=== PATIENT | female | born 1980 | race Caucasian/White ===

== ENCOUNTER 2019-01-28 15:24 | Emergency (ER) | payer BC ==
--- NOTE | 2019-01-28 15:38 | Emergency Department Report ---
Blank Doc - Documentation Documentation: This is a 38-year-old female keith tpresents with abdominal/n/v. This initial assessment/diagnostic orders/clinical plan/treatment(s) is/are subject to change based on patient's health status, clinical progression and re- assessment by fellow clinical providers in the ED. Further treatment and workup at subsequent clinical providers discretion. Patient/guardians urged not to elope from the ED as their condition may be serious if not clinically assessed and managed. Initial orders include: 1- Patient sent to [facility] for further evaluation and treatment 2- UA 3- labs
[2019-01-28 16:12] LABS: Basophils # (Auto) 0.1 K/mm3 (0.0-0.1); Basophils % (Auto) 0.8 % (0.0-1.8); Eosinophils # (Auto) 0.3 K/mm3 (0.0-0.4); Eosinophils % (Auto) 3.3 % (0.0-4.3); Hematocrit 43.9 % (30.3-42.9); Hemoglobin 13.9 gm/dl (10.1-14.3); Lymphocytes # (Auto) 2.5 K/mm3 (1.2-5.4); Lymphocytes % (Auto) 31.4 % (13.4-35.0); Mean Corpuscular HGB Conc 32 % (30-34); Mean Corpuscular Volume 79 fl (79-97); Monocytes # (Auto) 0.7 K/mm3 (0.0-0.8); Monocytes % (Auto) 8.4 % (0.0-7.3); Platelet Count 291 K/mm3 (140-440); Red Blood Count 5.53 M/mm3 (3.65-5.03); Red Cell Distribution Width 15.5 % (13.2-15.2)
[2019-01-28 16:29] LABS: Alanine Aminotransferase 19 units/L (7-56); Albumin 4.7 g/dL (3.9-5); BUN/Creatinine Ratio 33; Blood Urea Nitrogen 13 mg/dL (7-17); Calcium 9.1 mg/dL (8.4-10.2); Hemolysis Index 4
[2019-01-28 16:38] LABS: Bilirubin,Urine NEG (Negative); Blood,Urine NEG (Negative); Color,Urine Straw (Yellow); Protein,Urine <15 mg/dL mg/dL (Negative); Urobilinogen,Urine < 2.0 mg/dL (<2.0)
--- NOTE | 2019-01-28 17:23 | Emergency Department Report ---
ED N/V/D HPI - General Chief complaint: Abdominal Pain Stated complaint: STOMACH PAIN/DIARRHEA Time Seen by Provider: 01/28/19 15:37 Source: patient Mode of arrival: Ambulatory Limitations: Language Barrier - History of Present Illness Initial comments: She has a 38-year-old female that presents to the emergency room with complaints of diarrhea and abdominal pain. Patient states abdominal pain is umbilical. Patient denies radiation. Patient states the pain is a 2 out of 10. Patient states the pain is better with rest and worse with diarrhea. Patient denies fever or chills. Patient denies vomiting. Patient states she had nausea 2 days ago. Patient denies blood in her stool. She has a language barrier. Patient's is at bedside to translate. MD complaint: nausea, diarrhea, abdominal pain -: Sudden Description of Diarrhea: water Associated Abdominal Pain: Yes Location: periumbillcal Radiation: none Pain Scale: 2 Quality: cramping Consistency: intermittent Improves with: rest Worsens with: movement Associated Symptoms: denies: myalgias, chest pain, cough, diaphoresis, fever/chills, headaches, loss of appetite, malaise, rash, dysuria, shortness of breath, syncope, weakness - Related Data Previous Rx's Medication Instructions Recorded Last Taken Type Ondansetron [Zofran Odt] 4 mg PO Q6HR PRN #15 tab.rapdis 01/28/19 Unknown Rx Allergies Allergy/AdvReac Type Severity Reaction Status Date / Time No Known Allergies Allergy Unverified 01/28/19 15:26 ED Review of Systems ROS: Stated complaint: STOMACH PAIN/DIARRHEA Other details as noted in HPI Constitutional: denies: chills, fever Eyes: denies: eye pain, eye discharge, vision change ENT: denies: ear pain, throat pain Respiratory: denies: cough, shortness of breath, wheezing Cardiovascular: denies: chest pain, palpitations Endocrine: no symptoms reported Gastrointestinal: abdominal pain, nausea, diarrhea. denies: vomiting, constipation, hematemesis, melena, hematochezia Genitourinary: denies: urgency, dysuria, discharge Musculoskeletal: denies: back pain, joint swelling, arthralgia Skin: denies: rash, lesions Neurological: denies: headache, weakness, paresthesias Psychiatric: denies: anxiety, depression Hematological/Lymphatic: denies: easy bleeding, easy bruising ED Past Medical Hx - Past Medical History Previous Medical History?: No - Surgical History Past Surgical History?: Yes Additional Surgical History: C section - Family History Family history: no significant - Social History Smoking Status: Never Smoker Substance Use Type: None - Medications Home Medications: Home Medications Medication Instructions Recorded Confirmed Last Taken Type Ondansetron [Zofran Odt] 4 mg PO Q6HR PRN #15 tab.rapdis 01/28/19 Unknown Rx ED Physical Exam - General Limitations: Language Barrier General appearance: alert, in no apparent distress - Head Head exam: Present: atraumatic, normocephalic - Eye Eye exam: Present: normal appearance - ENT ENT exam: Present: mucous membranes moist. Absent: mucous membranes dry - Neck Neck exam: Present: normal inspection. Absent: tenderness - Respiratory Respiratory exam: Present: normal lung sounds bilaterally. Absent: respiratory distress, wheezes, rales - Cardiovascular Cardiovascular Exam: Present: regular rate, normal rhythm. Absent: systolic mur mur, diastolic murmur, rubs, gallop - GI/Abdominal GI/Abdominal exam: Present: soft, normal bowel sounds. Absent: distended, tenderness, guarding - Extremities Exam Extremities exam: Present: normal inspection - Back Exam Back exam: Present: normal inspection - Neurological Exam Neurological exam: Present: alert, oriented X3 - Psychiatric Psychiatric exam: Present: normal affect, normal mood - Skin Skin exam: Present: warm, dry, intact, normal color. Absent: rash ED Course Vital Signs 01/28/19 15:35 Temperature 98.3 F Pulse Rate 91 H Respiratory 15 Rate Blood Pressure 134/87 [Left] O2 Sat by Pulse 99 Oximetry - Reevaluation(s) Reevaluation #1: I discussed all results with patient. Patient is stable for discharge. Patient will be discharged home. Patient agrees with plan of care. Patient given discharge instructions. Patient voiced understanding discharge instructions. 01/28/19 17:22 ED Medical Decision Making - Lab Data Result diagrams: 01/28/19 15:46 01/28/19 15:46 - Medical Decision Making is a 38-year-old female that presents emergency room for nausea, diarrhea and abdominal pain. Patient's clinical findings consistent with gastroenteritis. Patient's labs unremarkable. Patient's symptoms been going on for less than 24 hours. Patient stable for discharge. Patient discharged home. - Differential Diagnosis abdominal pain. Diarrhea. Gastroenteritis Critical care attestation.: If time is entered above; I have spent that time in minutes in the direct care of this critically ill patient, excluding procedure time. ED Disposition Clinical Impression: Gastroenteritis Diarrhea Qualifiers: Diarrhea type: unspecified type Qualified Code(s): R19.7 - Diarrhea, unspecified Abdominal pain Qualifiers: Abdominal location: periumbilical Qualified Code(s): R10.33 - Periumbilical pain Disposition: TO HOME OR SELFCARE Is pt being admited?: No Does the pt Need Aspirin: No Condition: Stable Instructions: Abdominal Pain (ED), Acute Nausea and Vomiting (ED), Gastroenteritis (ED), Traveler's Diarrhea (ED) Additional Instructions: Patient to follow up with primary care in 2-3 days. Patient to return to ER if condition worsens. Patient to take meds as directed. Patient increase water. Patient to eat a BRAT diet.. Patient to take Tylenol or ibuprofen when necessary for pain. Prescriptions: Ondansetron [Zofran Odt] 4 mg PO Q6HR PRN #15 tab.rapdis PRN Reason: Nausea And Vomiting Time of Disposition: 17:25
[2019-01-28 17:42] VITALS: BP 121/89
== END 2019-01-28 17:30 | disposition home or self-care (01) ==
LOC: ED 15:24
DX: K52.9 Noninfective gastroenteritis and colitis, unspecified (principal)
CPT/HCPCS: 36415; 80053; 81001; 83690; 84703; 85025

== ENCOUNTER 2021-05-31 22:54 | Emergency (ER) | payer BC ==
[2021-05-31 23:00] VITALS: BP 130/82
[2021-05-31 23:31] LABS: Basophils % (Auto) 0.3 % (0.0-1.8); Eosinophils % (Auto) 0.2 % (0.0-4.3); Hematocrit 42.2 % (30.3-42.9); Hemoglobin 13.5 gm/dl (10.1-14.3); Lymphocytes # (Auto) 1.7 K/mm3 (1.2-5.4); Lymphocytes % (Auto) 12.7 % (13.4-35.0); Mean Corpuscular HGB Conc 32 % (30-34); Mean Corpuscular Volume 81 fl (79-97); Monocytes # (Auto) 0.5 K/mm3 (0.0-0.8); Platelet Count 316 K/mm3 (140-440); Red Blood Count 5.21 M/mm3 (3.65-5.03); Red Cell Distribution Width 14.1 % (13.2-15.2)
[2021-05-31 23:54] LABS: Alanine Aminotransferase 19 units/L (7-56); Albumin 4.8 g/dL (3.9-5); Blood Urea Nitrogen 12 mg/dL (7-17); Calcium 9.1 mg/dL (8.4-10.2); Hemolysis Index 6
[2021-05-31 23:57] LABS: BUN/Creatinine Ratio 30
[2021-06-01 00:49] LABS: Bilirubin,Urine NEG (Negative); Blood,Urine NEG (Negative); Color,Urine Yellow (Yellow); Mucus,Urine 3+ /HPF; Urobilinogen,Urine < 2.0 mg/dL (<2.0)
[2021-06-01] MEDS ORDERED: ONDANSETRON 4 MG/2 ML INJ IV ONE (01:12)
[2021-06-01] MEDS ORDERED: SODIUM CHLORIDE 0.9% 1000 ML 1,000 ML IV ONE (01:12)
[2021-06-01] MEDS ORDERED: MORPHINE 4 MG/1 ML INJ IV ONE (01:12)
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
[2021-06-01] MEDS ORDERED: PIPERACIL/TAZOBACTA 4.5/NS 100 4.5 GM/100 ML VIAL IV ONE (02:52)
== END 2021-06-01 05:56 | disposition home or self-care (01) ==
LOC: ED 22:54
DX: R10.84 Generalized abdominal pain (principal); K52.9 Noninfective gastroenteritis and colitis, unspecified; R11.2 Nausea with vomiting, unspecified; Z98.890 Other specified postprocedural states
CPT/HCPCS: 36415; 74177; 80053; 81001; 84703; 85025; 96361; 96365; 96375; 99284; J2270; J2405; J2543; J7030; Q9967; Q0162

== ENCOUNTER 2021-10-27 00:50 | Inpatient (IN) | payer OTHER ==
[2021-10-27] MEDS ORDERED: MORPHINE 4 MG/1 ML INJ IV ONE (03:05)
[2021-10-27] MEDS ORDERED: SODIUM CHLORIDE 0.9% 1000 ML 1,000 ML IV ONE (03:05)
[2021-10-27] MEDS ORDERED: METOCLOPRAMIDE 10 MG/2 ML INJ IV ONE (03:05)
[2021-10-27] MEDS ORDERED: FAMOTIDINE 20 MG/2 ML INJ IV ONE (03:05)
[2021-10-27] MEDS ORDERED: diphenhydrAMINE 50 MG/ML VIAL IV ONE (03:05)
--- NOTE | 2021-10-27 03:10 | Emergency Department Report ---
ED Abdominal Pain HPI - General Chief Complaint: Abdominal Pain Stated Complaint: ABDOMINAL PAIN Source: patient Mode of arrival: Ambulatory Limitations: No Limitations - History of Present Illness Initial Comments: Patient is a 41-year-old [place]ian female with no past medical history who presents to the ED with complaint of acute onset persistent diffuse low abdominal pain with nausea, vomiting and diarrhea for the last 12 hours. Patient states that the symptoms have been relentlessly persistent and that in the last 8 hours she has not been able to keep anything down because of nausea and vomiting. Patient states that she has had multiple episodes of nausea and v omiting and diarrhea and now feeling generalized weakness and fatigue. Patient denies vaginal bleeding, vaginal discharge, dysuria, urinary frequency and urgency, hematochezia, hematemesis, chest pain, shortness of breath, dizziness, syncope, headache, sore throat or back pain. MD Complaint: abdominal pain (Diffuse lower abdominal pain), other (Nausea vomiting and diarrhea) -: hour(s) (12) Location: LLQ, RLQ, suprapubic Radiation: LLQ, RLQ, suprapubic Migration to: no migration Severity: severe Severity scale (0 -10): 8 Quality: cramping, sharp Consistency: constant Improves With: nothing Worsens With: eating, vomiting Context: possible food poisoning Associated Symptoms: denies other symptoms, nausea, vomiting, diarrhea. denies: fever, constipation, dysuria, hematemesis, hematochezia, melena, hematuria, anorexia, syncope, other - Related Data Previous Rx's Medication Instructions Recorded Last Taken Type Ciprofloxacin HCl 500 mg PO BID #14 06/01/21 Unknown Rx HYDROcodone/APAP 5-325 [[place] 1 each PO Q6HR PRN #12 tablet 06/01/21 Unknown Rx 5/325] Ondansetron [Zofran ODT TAB] 4 mg PO Q6HR PRN #15 tab.rapdis 06/01/21 Unknown Rx metroNIDAZOLE [Flagyl] 500 mg PO Q12HR #14 tab 06/01/21 Unknown Rx Allergies Allergy/AdvReac Type Severity Reaction Status Date / Time No Known Allergies Allergy Verified 10/27/21 02:34 ED Review of Systems ROS: Stated complaint: ABDOMINAL PAIN Other details as noted in HPI Constitutional: denies: chills, fever Eyes: denies: eye pain, eye discharge, vision change ENT: denies: ear pain, throat pain Respiratory: denies: cough, shortness of breath, wheezing Cardiovascular: denies: chest pain, palpitations Endocrine: no symptoms reported Gastrointestinal: abdominal pain (diffuse lower), nausea, vomiting, diarrhea. denies: constipation, hematemesis Genitourinary: denies: urgency, dysuria, discharge Musculoskeletal: denies: back pain, joint swelling, arthralgia Skin: denies: rash, lesions Neurological: denies: headache, weakness, paresthesias Psychiatric: denies: anxiety, depression Hematological/Lymphatic: denies: easy bleeding, easy bruising ED Past Medical Hx - Past Medical History Previous Medical History?: No - Surgical History Past Surgical History?: Yes Additional Surgical History: C section, abdominal surgery - Social History Smoking Status: Never Smoker Substance Use Type: None - Medications Home Medications: Home Medications Medication Instructions Recorded Confirmed Last Taken Type Ciprofloxacin HCl 500 mg PO BID #14 06/01/21 Unknown Rx HYDROcodone/APAP 5-325 [[place] 1 each PO Q6HR PRN #12 tablet 06/01/21 Unknown Rx 5/325] Ondansetron [Zofran ODT TAB] 4 mg PO Q6HR PRN #15 tab.rapdis 06/01/21 Unknown Rx metroNIDAZOLE [Flagyl] 500 mg PO Q12HR #14 tab 06/01/21 Unknown Rx ED Physical Exam - General Limitations: No Limitations General appearance: alert, in no apparent distress - Head Head exam: Present: atraumatic, normocephalic, normal inspection - Eye Eye exam: Present: normal appearance, PERRL, EOMI Pupils: Present: normal accommodation - ENT ENT exam: Present: normal exam, normal orophraynx, mucous membranes moist, TM's normal bilaterally, normal external ear exam - Neck Neck exam: Present: normal inspection, full ROM. Absent: tenderness - Respiratory Respiratory exam: Present: normal lung sounds bilaterally. Absent: respiratory distress, wheezes, rales, rhonchi, chest wall tenderness, accessory muscle use, decreased breath sounds, prolonged expiratory - Cardiovascular Cardiovascular Exam: Present: regular rate, normal rhythm, normal heart sounds. Absent: systolic murmur, diastolic murmur, rubs, gallop - GI/Abdominal GI/Abdominal exam: Present: soft, tenderness (Diffuse lower abdominal tenderness with guarding), guarding, normal bowel sounds. Absent: rebound, rigid, hyperactive bowel sounds, hypoactive bowel sounds, organomegaly, mass - Bi-manual exam: Present: other (Pelvic exam deferred at this time) - Extremities Exam Extremities exam: Present: normal inspection, full ROM, normal capillary refill - Back Exam Back exam: Present: normal inspection, full ROM. Absent: tenderness, CVA tenderness (R), CVA tenderness (L), muscle spasm, paraspinal tenderness, vertebral tenderness - Neurological Exam Neurological exam: Present: alert, oriented X3, CN II-XII intact, normal gait, reflexes normal - Psychiatric Psychiatric exam: Present: normal affect, normal mood - Skin Skin exam: Present: warm, dry, intact, normal color. Absent: rash ED Course Vital Signs 10/27/21 10/27/21 02:31 03:13 Temperature 97.6 F Pulse Rate 90 Respiratory 18 18 Rate Blood Pressure 139/91 [Left] O2 Sat by Pulse 100 Oximetry - Reevaluation(s) Reevaluation #1: 10/27/21 05:35 I paged and discussed the patient's case and the findings with the general surgeon on-call Dr. Cisneros who advised the patient to be admitted to the hospital by the hospitalist physician on-call, and also to insert NG tube on the patient to decompress the abdomen. ED Medical Decision Making - Lab Data Result diagrams: 10/27/21 03:02 10/27/21 03:02 - Radiology Data Radiology results: report reviewed, [place] [address] Cat Scan Report Signed Patient: CHAPARRO ROBBINS MR#: [id number] : 1980 Acct:[id number] Age/Sex: 41 / F ADM Date: 10/27/21 Loc: ED Attending Dr: Ordering Physician: SUMIT DELVALLE Date of Service: 10/27/21 Procedure(s): CT abdomen pelvis w con Accession Number(s): [id number] cc: SUMIT DELVALLE CT ABDOMEN AND PELVIS WITH CONTRAST INDICATION: Abdominal pain. TECHNIQUE: Axial CT images were obtained through the abdomen and pelvis after 100 cc IV contrast. All CT scans at this location are performed using CT dose reduction for ALARA by means of automated exposure control. COMPARISON: CT abdomen pelvis 06/01/2021 FINDINGS: LOWER CHEST: No significant abnormality. LIVER: No significant abnormality. GALLBLADDER: No significant abnormality. BILE DUCTS: No significant abnormality. PANCREAS: No significant abnormality. SPLEEN: No significant abnormality. ADRENALS: No significant abnormality. RIGHT KIDNEY and URETER: No significant abnormality. LEFT KIDNEY and URETER: No significant abnormality. STOMACH and SMALL BOWEL: Dilated loops of mid small bowel containing small bowel feces with mucosal enhancement characteristic for partial mid small bowel obstruction suspected underlying Crohn's disease. COLON: No significant abnormality. APPENDIX: No significant abnormality. PERITONEUM: No free fluid. No free air. No fluid collection. LYMPH NODES: No significant adenopathy. AORTA and ARTERIES: No significant abnormality. IVC and VEINS: No significant abnormality. URINARY BLADDER: No significant abnormality. REPRODUCTIVE ORGANS: 2 cm right ovarian corpus luteal cyst with small amount of hyperdense free pelvic fluid likely secondary to hemoperitoneum ADDITIONAL FINDINGS: None. SKELETAL SYSTEM: No significant abnormality. IMPRESSION: 1. Ruptured 2 cm right ovarian corpus luteal cyst with small hemoperitoneum. 2. Probable underlying Crohn's disease with partial mid small bowel obstruction Signer Name: Doyle Farah MD Signed: 10/27/2021 5:19 AM Workstation Name: [id number] Transcribed By: TL Dictated By: Doyle Farah MD Electronically Authenticated By: Doyle Farah MD Signed Date/Time: 10/27/21518 DD/ 5 TD/TT: - Medical Decision Making This is a 41-year-old [place]ian female with no past medical history who presents to the ED with complaint of acute onset persistent diffuse low abdominal pain with nausea, vomiting and diarrhea for the last 12 hours. Patien t states that the symptoms have been relentlessly persistent and that in the last 8 hours she has not been able to keep anything down because of nausea and vomiting. Patient states that she has had multiple episodes of nausea and vomiting and diarrhea and now feeling generalized weakness and fatigue. In the ED, patient is alert and oriented x3 and is not in any distress but appears to be in pain. Patient is hemodynamically stable. Patient was treated for pain in the ED. Patient also received antiemetics and antacids as well as normal saline 1 L IV bolus x1. Lab test results were reviewed and showed acute leukocytosis of 15,000. Rest of the lab test results are nonactionable. On reevaluation, patient's pain is well controlled with medication. The nausea and vomiting is also well controlled. Abdomen pelvis CT scan with IV contrast showed ruptured 2 cm right ovarian corpus luteal cyst with small hemoperitoneum. It also showed probable underlying Crohn's disease with partial mid small bowel obstruction. I therefore paged and discussed the patient's case with the general surgeon on-call Dr. Cisneros who advised that an NG tube be placed on the patient and that the hospitalist physician on-call be asked to admit the patient to the hospital and he shall consult on the patient for admission. I therefore paged and discussed the patient's case with the hospitalist physician on-call Dr. Bowden who admitted the patient to the hospital after evaluation in the ED. - Differential Diagnosis Appendicitis; colitis; SBO; ovarian cyst; UTI; ; fibroid Critical care attestation.: If time is entered above; I have spent that time in minutes in the direct care of this critically ill patient, excluding procedure time. ED Disposition Clinical Impression: Nausea, vomiting and diarrhea, Abdominal pain in female patient, Partial obstruction of small intestine, Crohn's disease of intestine without complication, Rupture of cyst of right ovary Disposition: 02 [facility]ORT [facility]M [facility] Is pt being admited?: Yes Does the pt Need Aspirin: No Condition: Stable Instructions: Abdominal Pain (ED), Abdominal Pain, Adult, [id number], Nausea and Vomiting, Adult, [id number], Bowel Obstruction, [id number] Time of Disposition: 05:37 Print Language: LIBERIAN
[2021-10-27 03:25] LABS: Bilirubin,Urine NEG (Negative); Blood,Urine NEG (Negative); Color,Urine Yellow (Yellow); Urobilinogen,Urine < 2.0 mg/dL (<2.0)
[2021-10-27 03:29] LABS: Hematocrit 40.5 % (30.3-42.9); Hemoglobin 13.1 gm/dl (10.1-14.3); Mean Corpuscular HGB Conc 32 % (30-34); Mean Corpuscular Volume 79 fl (79-97); Platelet Count 256 K/mm3 (140-440); Red Blood Count 5.16 M/mm3 (3.65-5.03); Red Cell Distribution Width 14.8 % (13.2-15.2)
[2021-10-27 03:41] LABS: Alanine Aminotransferase 21 units/L (7-56); Albumin 5.2 g/dL (3.9-5); Blood Urea Nitrogen 14 mg/dL (7-17); Calcium 9.6 mg/dL (8.4-10.2); Hemolysis Index 38
[2021-10-27 03:43] LABS: BUN/Creatinine Ratio 28
[2021-10-27 04:00] LABS: Bacteria,Urine 4+ /HPF (Negative); Hyaline Casts,Urine 2 /LPF; Mucus,Urine 3+ /HPF
--- NOTE | 2021-10-27 05:23 | Cat Scan Report ---
CT ABDOMEN AND PELVIS WITH CONTRAST INDICATION: Abdominal pain. TECHNIQUE: Axial CT images were obtained through the abdomen and pelvis after 100 cc IV contrast. All CT scans at this location are performed using CT dose reduction for ALARA by means of automated exposure contr ol. COMPARISON: CT abdomen pelvis 06/01/2021 FINDINGS: LOWER CHEST: No significant abnormality. LIVER: No significant abnormality. GALLBLADDER: No significant abnormality. BILE DUCTS: No significant abnormality. PANCREAS: No significant abnormality. SPLEEN: No significant abnormality. ADRENALS: No significant abnormality. RIGHT KIDNEY and URETER: No significant abnormality. LEFT KIDNEY and URETER: No significant abnormality. STOMACH and SMALL BOWEL: Dilated loops of mid small bowel containing small bowel feces with mucosal e nhancement characteristic for partial mid small bowel obstruction suspected underlying Crohn's diseas e. COLON: No significant abnormality. APPENDIX: No significant abnormality. PERITONEUM: No free fluid. No free air. No fluid collection. LYMPH NODES: No significant adenopathy. AORTA and ARTERIES: No significant abnormality. IVC and VEINS: No significant abnormality. URINARY BLADDER: No significant abnormality. REPRODUCTIVE ORGANS: 2 cm right ovarian corpus luteal cyst with small amount of hyperdense free pelvi c fluid likely secondary to hemoperitoneum ADDITIONAL FINDINGS: None. SKELETAL SYSTEM: No significant abnormality. IMPRESSION: 1. Ruptured 2 cm right ovarian corpus luteal cyst with small hemoperitoneum. 2. Probable underlying Crohn's disease with partial mid small bowel obstruction Signer Name: Doyle Farah MD Signed: 10/27/2021 5:19 AM Workstation Name: [id number]
[2021-10-27] MEDS ORDERED: ACETAMINOPHEN 325 MG TAB PO PRN ×2 (05:39→05:44)
[2021-10-27] MEDS ORDERED: ALBUTEROL 2.5 MG/3 ML NEBU IH PRN (05:39)
[2021-10-27] MEDS ORDERED: MORPHINE 4 MG/1 ML INJ IV PRN (05:39)
[2021-10-27] MEDS ORDERED: ONDANSETRON 4 MG/2 ML INJ IV PRN ×2 (05:39→05:44)
--- NOTE | 2021-10-27 05:45 | History and Physical Report ---
History of Present Illness Date of examination: 10/27/21 Date of admission: 10/27/21 Chief complaint: Abdominal pain History of present illness: 41-year-old [place] female with no past medical history who presents to the ED with complaint of acute onset persistent diffuse low abdominal pain with nausea, vomiting and diarrhea for the last 12 hours. Patient states that the symptoms have been relentlessly persistent and that in the last 8 hours she has not been able to keep anything down because of nausea and vomiting. Patient states that she has had multiple episodes of nausea and vomiting and diarrhea and now feeling generalized weakness and fatigue. Patient denies vaginal bleeding, vaginal discharge, dysuria, urinary frequency and urgency, hematoc hezia, hematemesis, chest pain, shortness of breath, dizziness, syncope, headache, sore throat or back pain. In the emergency room patient is found to have partial small bowel obstruction.Case discussed with the general surgeon on-call Dr. Cisneros who advised the patient to be admitted to the hospital by the hospitalist physician on-call, and also to insert NG tube on the patient to decompress the abdomen. Past History Past Medical History: No medical history Past Surgical History: Other (C section, abdominal surgery) Social history: no significant social history Family history: no significant family history Medications and Allergies Allergies Allergy/AdvReac Type Severity Reaction Status Date / Time No Known Allergies Allergy Verified 10/27/21 02:34 Home Medications Medication Instructions Recorded Confirmed Last Taken Type Ciprofloxacin HCl 500 mg PO BID #14 06/01/21 Unknown Rx HYDROcodone/APAP 5-325 [[place] 1 each PO Q6HR PRN #12 tablet 06/01/21 Unknown Rx 5/325] Ondansetron [Zofran ODT TAB] 4 mg PO Q6HR PRN #15 tab.rapdis 06/01/21 Unknown Rx metroNIDAZOLE [Flagyl] 500 mg PO Q12HR #14 tab 06/01/21 Unknown Rx Active Meds: Active Medications Acetaminophen (Acetaminophen 325 Mg Tab) 650 mg PO Q4H PRN PRN Reason: Pain MILD(1-3)/Fever >100.5/SUN Albuterol (Albuterol 2.5 Mg/3 Ml Nebu) 2.5 mg IH Q3HRT PRN PRN Reason: Shortness Of Breath Albuterol/Ipratropium (Ipratropium/Albuterol Sulfate 3 Ml Ampul.Neb) 1 ampul IH Q6HRT [facility] Famotidine (Famotidine 20 Mg/2 Ml Inj) 20 mg IV BID [facility] Heparin Sodium (Porcine) (Heparin 5,000 Unit/1 Ml Vial) 5,000 unit SUB-Q Q12HR [facility] Dextrose/Sodium Chloride (D5/0.45ns) 1,000 mls @ 100 mls/hr IV DIRECT [facility] Piperacillin Sod/Tazobactam Sod (Zosyn/Ns 4.5gm/100ml) 4.5 gm in 100 mls @ 200 mls/hr IV Q8H [facility]; Protocol Morphine Sulfate (Morphine 2 Mg/1 Ml Inj) 2 mg IV Q4H PRN PRN Reason: Pain, Moderate (4-6) Morphine Sulfate (Morphine 4 Mg/1 Ml Inj) 4 mg IV Q4H PRN PRN Reason: Pain , Severe (7-10) Ondansetron HCl (Ondansetron 4 Mg/2 Ml Inj) 4 mg IV Q8H PRN PRN Reason: Nausea And Vomiting Sodium Chloride (Sodium Chloride 0.9% 10 Ml Flush Syringe) 10 ml IV BID [facility] Sodium Chloride (Sodium Chloride 0.9% 10 Ml Flush Syringe) 10 ml IV PRN PRN PRN Reason: LINE FLUSH Review of Systems All systems: negative Gastrointestinal: abdominal pain, nausea, vomiting, diarrhea Exam - Constitutional Vitals: Temp Pulse Resp BP Pulse Ox 97.6 F 90 18 139/91 100 10/27/21 02:31 10/27/21 02:31 10/27/21 03:13 10/27/21 02:31 10/27/21 02:31 General appearance: Present: no acute distress, well-nourished - EENT Eyes: Present: PERRL ENT: hearing intact, clear oral mucosa - Neck Neck: Present: supple, normal ROM - Respiratory Respiratory effort: normal Respiratory: bilateral: CTA - Cardiovascular Heart Sounds: Present: S1 & S2. Absent: rub, click - Extremities Extremities: pulses symmetrical, No edema Peripheral Pulses: within normal limits - Abdominal General gastrointestinal: Present: soft, non-tender, non-distended, normal bowel sounds Female genitourinary: Present: normal - Integumentary Integumentary: Present: clear, warm, dry - Musculoskeletal Musculoskeletal: gait normal, strength equal bilaterally - Psychiatric Psychiatric: appropriate mood/affect, intact judgment & insight - Neurologic Neurologic: CNII-XII intact, moves all extremities Results - Labs CBC & Chem 7: 10/27/21 03:02 10/27/21 03:02 Labs: Laboratory Last Values WBC 15.0 K/mm3 (4.5-11.0) H 10/27/21 03:02 RBC 5.16 M/mm3 (3.65-5.03) H 10/27/21 03:02 Hgb 13.1 gm/dl (10.1-14.3) 10/27/21 03:02 Hct 40.5 % (30.3-42.9) 10/27/21 03:02 MCV 79 fl (79-97) 10/27/21 03:02 MCH 25 pg (28-32) L 10/27/21 03:02 MCHC 32 % (30-34) 10/27/21 03:02 RDW 14.8 % (13.2-15.2) 10/27/21 03:02 Plt Count 256 K/mm3 (140-440) 10/27/21 03:02 Seg Neutrophils % [employer] 10/27/21 03:02 Sodium 137 mmol/L (137-145) 10/27/21 03:02 Potassium 4.3 mmol/L (3.6-5.0) 10/27/21 03:02 Chloride 100.0 mmol/L (98-107) 10/27/21 03:02 Carbon Dioxide 21 mmol/L (22-30) L 10/27/21 03:02 Anion Gap 20 mmol/L 10/27/21 03:02 BUN 14 mg/dL (7-17) 10/27/21 03:02 Creatinine 0.5 mg/dL (0.6-1.2) L 10/27/21 03:02 Estimated GFR > 60 ml/min 10/27/21 03:02 BUN/Creatinine Ratio 28 % 10/27/21 03:02 Glucose 201 mg/dL (65-100) H 10/27/21 03:02 Calcium 9.6 mg/dL (8.4-10.2) 10/27/21 03:02 Total Bilirubin 0.40 mg/dL (0.1-1.2) 10/27/21 03:02 AST 20 units/L (5-40) 10/27/21 03:02 ALT 21 units/L (7-56) 10/27/21 03:02 Alkaline Phosphatase 62 units/L (35-129) 10/27/21 03:02 Total Protein 8.4 g/dL (6.3-8.2) H 10/27/21 03:02 Albumin 5.2 g/dL (3.9-5) H 10/27/21 03:02 Albumin/Globulin Ratio 1.6 % 10/27/21 03:02 Lipase 17 units/L (13-60) 10/27/21 03:10 HCG, Qual Negative (Negative) 10/27/21 03:10 Urine Color Yellow (Yellow) 10/27/21 02:57 Urine Turbidity Clear (Clear) 10/27/21 02:57 Urine pH 5.0 (5.0-7.0) 10/27/21 02:57 Ur Specific [place] 1.025 (1.003-1.030) 10/27/21 02:57 Urine Protein 100 mg/dl mg/dL (Negative) 10/27/21 02:57 Urine Glucose (UA) >=500 mg/dL (Negative) 10/27/21 02:57 Urine Ketones 80 mg/dL (Negative) 10/27/21 02:57 Urine Blood Neg (Negative) 10/27/21 02:57 Urine Nitrite Neg (Negative) 10/27/21 02:57 Urine Bilirubin Neg (Negative) 10/27/21 02:57 Urine Urobilinogen < 2.0 mg/dL (<2.0) 10/27/21 02:57 Ur Leukocyte Esterase Tr (Negative) 10/27/21 02:57 Urine WBC (Auto) 2.0 /HPF (0.0-6.0) 10/27/21 02:57 Urine RBC (Auto) 1.0 /HPF (0.0-6.0) 10/27/21 02:57 U Epithel Cells (Auto) 4.0 /HPF (0-13.0) 10/27/21 02:57 Urine Bacteria (Auto) 4+ /HPF (Negative) 10/27/21 02:57 Hyaline Casts 2 /LPF 10/27/21 02:57 Urine Mucus 3+ /HPF 10/27/21 02:57 - Imaging and Cardiology CT scan - abdomen: report reviewed Assessment and Plan VTE prophylaxis?: Chemical Plan of care discussed with patient/family: Yes - Patient Problems (1) Partial obstruction of small intestine Current Visit: Yes Status: Acute Plan to address problem: Admit the patient to the medical floor. NPO. NG tube suction. D5 half-normal saline at the rate of 100 cc/h. Pepcid 20 mg IV every 12 hours. Zofran 4 mg IV every 6 hours as needed. Surgery evaluation (2) Crohn's disease of intestine without complication Current Visit: Yes Status: Acute Plan to address problem: Stable. Outpatient follow-up with GI (3) Nausea, vomiting and diarrhea Current Visit: Yes Status: Acute Plan to address problem: NPO. NG tube suction. D5 half-normal saline at the rate of 100 cc/h. Pepcid 20 mg IV every 12 hours. Zofran 4 mg IV every 6 hours as needed. Surgery evaluation (4) Leukocytosis Current Visit: Yes Status: Acute Plan to address problem: Zosyn 4.5 g IV every 8 hours. Recheck CBC in the morning (5) DVT prophylaxis Current Visit: Yes Status: Acute Plan to address problem: Heparin 5000 units subcu every 12 hours for DVT prophylaxis. Pepcid 20 mg IV every 12 hours for GI prophylaxis. Patient is a full code
--- NOTE | 2021-10-27 06:38 | XRay Report ---
ABDOMEN 1 VIEW(S) 10/27/2021 6:16 AM INDICATION / CLINICAL INFORMATION: NG Placement. COMPARISON: None available. FINDINGS: The tip of an esophagogastric tube projects over the body of the stomach in expected position. Signer Name: Doyle Farah MD Signed: 10/27/2021 6:34 AM Workstation Name: [id number]
[2021-10-27 06:39] LABS: Anisocytosis 1+; Basophils % (Manual) 0 % (0.0-1.8); Eosinophils % (Manual) 0 % (0.0-4.3); Hypochromasia 1+; Platelet Estimate Consistent w Auto; Total Cells Counted 100
[2021-10-27] MEDS: IPRATROPIUM/ALBUTEROL SULFATE 3 ML AMPUL.NEB IH SCH ×3 (08:00→20:55)
[2021-10-27] MEDS: D5W/0.45% NACL 1,000 ML IV SCH (09:06)
[2021-10-27] MEDS: PIPERACIL/TAZOBACTA 4.5/NS 100 4.5 GM/100 ML VIAL IV SCH ×2 (09:13→13:32)
--- NOTE | 2021-10-27 10:57 | Event Note ---
Date: 10/27/21 Patient was seen and examined at bedside. Patient family were at bedside as well. Per patient she has been hospitalized at least 3 times in the past year with small bowel obstruction managed medically and has previous history of abdominal surgery. We discussed current care plan and continuation of NG tube. Awaiting formal general surgery consultation. Her abdominal pain, nausea and vomiting is controlled at this time.
[2021-10-27] MEDS: HEPARIN 5,000 UNIT/1 ML VIAL SUB-Q SCH ×2 (12:04→22:04)
[2021-10-27] MEDS: FAMOTIDINE 20 MG/2 ML INJ IV SCH ×2 (12:04→22:00)
--- NOTE | 2021-10-27 13:41 | Consultation ---
History of Present Illness Consult date: 10/27/21 Reason for consult: abdominal pain - History of present illness History of present illness: 41 yo female with h/o prior and exploratory laparotomy for trauma with a 12 hour h/o crampy, unremitting BLQ pain associated with nausea and vomiting. Last emesis was yesterday. She had a BM yesterday. She feels better now. She has been hospitalized 3 times within the past year for similar symptoms. No h/o Crohn's disease, chronic diarrhea or hematochezia. Past History Past Medical History: No medical history Past Surgical History: Other (C section, abdominal surgery) Social history: no significant social history Family history: no significant family history Medications and Allergies Allergies Allergy/AdvReac Type Severity Reaction Status Date / Time No Known Allergies Allergy Verified 10/27/21 02:34 Home Medications Medication Instructions Recorded Confirmed Last Taken Type Ciprofloxacin HCl 500 mg PO BID #14 06/01/21 Unknown Rx HYDROcodone/APAP 5-325 [[place] 1 each PO Q6HR PRN #12 tablet 06/01/21 Unknown Rx 5/325] Ondansetron [Zofran ODT TAB] 4 mg PO Q6HR PRN #15 tab.rapdis 06/01/21 Unknown R x metroNIDAZOLE [Flagyl] 500 mg PO Q12HR #14 tab 06/01/21 Unknown Rx Active Meds: Active Medications Acetaminophen (Acetaminophen 325 Mg Tab) 650 mg PO Q4H PRN PRN Reason: Pain MILD(1-3)/Fever >100.5/SUN Albuterol (Albuterol 2.5 Mg/3 Ml Nebu) 2.5 mg IH Q3HRT PRN PRN Reason: Shortness Of Breath Albuterol/Ipratropium (Ipratropium/Albuterol Sulfate 3 Ml Ampul.Neb) 1 ampul IH Q6HRT [facility] Last Admin: 10/27/21 08:00 Dose: Not Given Famotidine (Famotidine 20 Mg/2 Ml Inj) 20 mg IV BID [facility] Last Admin: 10/27/21 12:04 Dose: 20 mg Heparin Sodium (Porcine) (Heparin 5,000 Unit/1 Ml Vial) 5,000 unit SUB-Q Q12HR [facility] Last Admin: 10/27/21 12:04 Dose: 5,000 unit Dextrose/Sodium Chloride (D5/0.45ns) 1,000 mls @ 100 mls/hr IV DIRECT [facility]Y Last Admin: 10/27/21 09:06 Dose: 100 mls/hr Piperacillin Sod/Tazobactam Sod (Zosyn/Ns 4.5gm/100ml) 4.5 gm in 100 mls @ 200 mls/hr IV Q8H [facility]Y; Protocol Last Admin: 10/27/21 13:32 Dose: 200 mls/hr Morphine Sulfate (Morphine 2 Mg/1 Ml Inj) 2 mg IV Q4H PRN PRN Reason: Pain, Moderate (4-6) Morphine Sulfate (Morphine 4 Mg/1 Ml Inj) 4 mg IV Q4H PRN PRN Reason: Pain , Severe (7-10) Ondansetron HCl (Ondansetron 4 Mg/2 Ml Inj) 4 mg IV Q8H PRN PRN Reason: Nausea And Vomiting Sodium Chloride (Sodium Chloride 0.9% 10 Ml Flush Syringe) 10 ml IV BID AMY Last Admin: 10/27/21 09:12 Dose: 10 ml Sodium Chloride (Sodium Chloride 0.9% 10 Ml Flush Syringe) 10 ml IV PRN PRN PRN Reason: LINE FLUSH Review of Systems All systems: negative Exam Vital Signs Temp Pulse Resp BP Pulse Ox 97.6 F 90 18 139/91 100 10/27/21 02:31 10/27/21 02:31 10/27/21 02:31 10/27/21 02:31 10/27/21 02:31 - General physical appearance Positive: well developed, well nourished, no distress - Eyes Positive: PERRL, normal occular movement - ENT Positive: normal pinna, normal nares, normal mucosa, no hearing loss, no congestion - Neck Positive: no masses, no bruits, trachea midline, no venous distension - Respiratory Positive: normal expansion, normal respiratory effort, clear to auscultation - Cardiovascular Rhythm: regular Heart Sounds: Present: S1 & S2. Absent: rub, click - Extremities Extremities: no ischemia, pulses symmetrical, No edema - Breasts Breasts: normal, no mass, no skin changes - Abdomen Abdomen: Present: soft, bowel sounds normal. Absent: tender, distended Hernia: none - Genitourinary Male Genitourinary: normal Female Genitourinary: normal - Integumentary no rash, no growths, no abnormal pigmentation - Neurologic Neurologic: alert and oriented to time, place and person, motor strength and sensation are grossly intact - Musculoskeletal normal gait, normal posture - Psychiatric Psychiatric: appropriate mood/affect, intact judgment & insight Results - Labs 10/27/21 03:02 10/27/21 03:02 Abnormal lab results 10/27/21 10/27/21 Range/Units 03:02 03:02 WBC 15.0 H (4.5-11.0) K/mm3 RBC 5.16 H (3.65-5.03) M/mm3 MCH 25 L (28-32) pg Seg Neuts % (Manual) 85.0 H (40.0-70.0) % Seg Neutrophils # Man 12.8 H (1.8-7.7) K/mm3 Carbon Dioxide 21 L (22-30) mmol/L Creatinine 0.5 L (0.6-1.2) mg/dL Glucose 201 H (65-100) mg/dL Total Protein 8.4 H (6.3-8.2) g/dL Albumin 5.2 H (3.9-5) g/dL Diabetes panel 10/27/21 Range/Units 03:02 Sodium 137 (137-145) mmol/L Potassium 4.3 (3.6-5.0) mmol/L Chloride 100.0 (98-107) mmol/L Carbon Dioxide 21 L (22-30) mmol/L BUN 14 (7-17) mg/dL Creatinine 0.5 L (0.6-1.2) mg/dL Glucose 201 H (65-100) mg/dL Calcium 9.6 (8.4-10.2) mg/dL AST 20 (5-40) units/L ALT 21 (7-56) units/L Alkaline Phosphatase 62 (35-129) units/L Total Protein 8.4 H (6.3-8.2) g/dL Albumin 5.2 H (3.9-5) g/dL Calcium panel 10/27/21 Range/Units 03:02 Calcium 9.6 (8.4-10.2) mg/dL Albumin 5.2 H (3.9-5) g/dL Pituitary panel 10/27/21 Range/Units 03:02 Sodium 137 (137-145) mmol/L Potassium 4.3 (3.6-5.0) mmol/L Chloride 100.0 (98-107) mmol/L Carbon Dioxide 21 L (22-30) mmol/L BUN 14 (7-17) mg/dL Creatinine 0.5 L (0.6-1.2) mg/dL Glucose 201 H (65-100) mg/dL Calcium 9.6 (8.4-10.2) mg/dL Adrenal panel 10/27/21 Range/Units 03:02 Sodium 137 (137-145) mmol/L Potassium 4.3 (3.6-5.0) mmol/L Chloride 100.0 (98-107) mmol/L Carbon Dioxide 21 L (22-30) mmol/L BUN 14 (7-17) mg/dL Creatinine 0.5 L (0.6-1.2) mg/dL Glucose 201 H (65-100) mg/dL Calcium 9.6 (8.4-10.2) mg/dL Total Bilirubin 0.40 (0.1-1.2) mg/dL AST 20 (5-40) units/L ALT 21 (7-56) units/L Alkaline Phosphatase 62 (35-129) units/L Total Protein 8.4 H (6.3-8.2) g/dL Albumin 5.2 H (3.9-5) g/dL - Imaging CT scan - abdomen: report reviewed CT scan - pelvis: report reviewed Assessment and Plan - Patient Problems (1) Partial obstruction of small intestine Current Visit: Yes Status: Acute Plan to address problem: 1) NPO 2) AXR, CBC & BMP in the am 3) NG to LIS
[2021-10-27] MEDS: MORPHINE 2 MG/1 ML INJ IV PRN (22:13)
[2021-10-28] MEDS: D5W/0.45% NACL 1,000 ML IV SCH ×2 (01:08→12:38)
[2021-10-28] MEDS: IPRATROPIUM/ALBUTEROL SULFATE 3 ML AMPUL.NEB IH SCH ×4 (02:24→20:46)
[2021-10-28] MEDS: MORPHINE 2 MG/1 ML INJ IV PRN (05:29)
[2021-10-28 06:45] LABS: Basophils % (Auto) 0.5 % (0.0-1.8); Eosinophils # (Auto) 0.1 K/mm3 (0.0-0.4); Eosinophils % (Auto) 1.1 % (0.0-4.3); Hematocrit 33.3 % (30.3-42.9); Hemoglobin 10.8 gm/dl (10.1-14.3); Lymphocytes # (Auto) 1.8 K/mm3 (1.2-5.4); Lymphocytes % (Auto) 22.9 % (13.4-35.0); Mean Corpuscular HGB Conc 32 % (30-34); Mean Corpuscular Volume 78 fl (79-97); Monocytes # (Auto) 0.6 K/mm3 (0.0-0.8); Monocytes % (Auto) 8.2 % (0.0-7.3); Platelet Count 226 K/mm3 (140-440); Red Blood Count 4.25 M/mm3 (3.65-5.03); Red Cell Distribution Width 14.9 % (13.2-15.2)
[2021-10-28 06:48] LABS: Blood Urea Nitrogen 7 mg/dL (7-17); Calcium 8.2 mg/dL (8.4-10.2); Hemolysis Index 6
[2021-10-28 06:53] LABS: BUN/Creatinine Ratio 14
--- NOTE | 2021-10-28 08:08 | XRay Report ---
ABDOMEN 2 VIEWS INDICATION / CLINICAL INFORMATION: sbo. COMPARISON: 10/27/2021 FINDINGS: TUBES / LINES: Interval removal of enteric tube. BOWEL GAS PATTERN: No significant abnormality. FREE AIR / EXTRALUMINAL GAS: None seen. ADDITIONAL FINDINGS: No significant additional findings. CHEST: Visualized chest shows no significant abnormality. IMPRESSION: 1. Nonobstructive bowel gas pattern. Signer Name: Rob Swanson DO Signed: 10/28/2021 8:03 AM Workstation Name: [id number]
--- NOTE | 2021-10-28 09:08 | Progress Note ---
Assessment and Plan Assessment and plan: #Partial obstruction of small intestine #Nausea, vomiting and diarrhea-resolved -hx of abdominal surgeries and multiple bowel obstructions -medical management at this time: continue NPO, NGT to suction -continue D5 1/2 NS, PRN zofran -General Surgery following, assistance appreciated #history of Crohn's disease of intestine without complication -Stable, not in acute exacerbation -outpatient follow-up with GI #Leukocytosis- resolved -likely secondary to SBO and volume depletion -UA unremarkable -zosyn discontinued -will continue to monitor for signs/symptoms of infection #Hypokalemia -likely secondary to vomiting -will replete and monitor #Volume depletion-improving -Likely secondary to poor p.o. intake from nausea and vomiting -continue IVFs while NPO #Advanced care planning -Disease education conducted, care plan discussed, diagnoses discussed, prognosis discussed, and patient and acknowledges understanding with care plan -Time: +30 min History Interval history: No acute vents overnight. Patient has not had a bowel movement but endorses belching and flatus. NG tube still in place. Updated about care plan. Patient and are agreeable. Hospitalist Physical - Physical exam Narrative exam: GENERAL: Well-developed well-nourished. In no acute distress. HEENT: NG tube in place to suction. NECK: Supple. CHEST/LUNGS: CTAB on room air HEART/CARDIOVASCULAR: RRR. No murmur, rubs or gallops appreciated. ABDOMEN: Midline surgical scar completely healed. +BS. NT/ND. SKIN: No rashes noted. NEURO: No focal motor deficit. Follows all commands. MUSCULOSKELETAL: No joint effusion EXTREMITIES: No cyanosis, clubbing or edema. PSYCH: Cooperative. - Constitutional Vitals: Temp Pulse Resp BP Pulse Ox 98.9 F 88 17 108/70 99 10/27/21 21:57 10/28/21 02:24 10/28/21 05:59 10/27/21 21:57 10/28/21 00:00 General appearance: Present: no acute distress, well-nourished Results - Labs CBC & Chem 7: 10/28/21 05:46 10/28/21 05:46 Labs: Laboratory Last Values WBC 7.9 K/mm3 (4.5-11.0) 10/28/21 05:46 RBC 4.25 M/mm3 (3.65-5.03) 10/28/21 05:46 Hgb 10.8 gm/dl (10.1-14.3) 10/28/21 05:46 Hct 33.3 % (30.3-42.9) D 10/28/21 05:46 MCV 78 fl (79-97) L 10/28/21 05:46 MCH 25 pg (28-32) L 10/28/21 05:46 MCHC 32 % (30-34) 10/28/21 05:46 RDW 14.9 % (13.2-15.2) 10/28/21 05:46 Plt Count 226 K/mm3 (140-440) 10/28/21 05:46 Lymph % (Auto) 22.9 % (13.4-35.0) 10/28/21 05:46 [place] % (Auto) 8.2 % (0.0-7.3) H 10/28/21 05:46 Eos % (Auto) 1.1 % (0.0-4.3) 10/28/21 05:46 Baso % (Auto) 0.5 % (0.0-1.8) 10/28/21 05:46 Lymph # (Auto) 1.8 K/mm3 (1.2-5.4) 10/28/21 05:46 [place] # (Auto) 0.6 K/mm3 (0.0-0.8) 10/28/21 05:46 Eos # (Auto) 0.1 K/mm3 (0.0-0.4) 10/28/21 05:46 Baso # (Auto) 0.0 K/mm3 (0.0-0.1) 10/28/21 05:46 Add Manual Diff Complete 10/27/21 03:02 Total Counted 100 10/27/21 03:02 Seg Neutrophils % 67.3 % (40.0-70.0) 10/28/21 05:46 Seg Neuts % (Manual) 85.0 % (40.0-70.0) H 10/27/21 03:02 Band Neutrophils % 0 % 10/27/21 03:02 Lymphocytes % (Manual) 14.0 % (13.4-35.0) 10/27/21 03:02 Reactive Lymphs % (Man) 0 % 10/27/21 03:02 Monocytes % (Manual) 1.0 % (0.0-7.3) 10/27/21 03:02 Eosinophils % (Manual) 0 % (0.0-4.3) 10/27/21 03:02 Basophils % (Manual) 0 % (0.0-1.8) 10/27/21 03:02 Metamyelocytes % 0 % 10/27/21 03:02 Myelocytes % 0 % 10/27/21 03:02 Promyelocytes % 0 % 10/27/21 03:02 Blast Cells % 0 % 10/27/21 03:02 Nucleated RBC % Not Reportable 10/27/21 03:02 Seg Neutrophils # 5.3 K/mm3 (1.8-7.7) 10/28/21 05:46 Seg Neutrophils # Man 12.8 K/mm3 (1.8-7.7) H 10/27/21 03:02 Band Neutrophils # 0.0 K/mm3 10/27/21 03:02 Lymphocytes # (Manual) 2.1 K/mm3 (1.2-5.4) 10/27/21 03:02 Abs React Lymphs (Man) 0.0 K/mm3 10/27/21 03:02 Monocytes # (Manual) 0.2 K/mm3 (0.0-0.8) 10/27/21 03:02 Eosinophils # (Manual) 0.0 K/mm3 (0.0-0.4) 10/27/21 03:02 Basophils # (Manual) 0.0 K/mm3 (0.0-0.1) 10/27/21 03:02 Metamyelocytes # 0.0 K/mm3 10/27/21 03:02 Myelocytes # 0.0 K/mm3 10/27/21 03:02 Promyelocytes # 0.0 K/mm3 10/27/21 03:02 Blast Cells # 0.0 K/mm3 10/27/21 03:02 WBC Morphology Not Reportable 10/27/21 03:02 Hypersegmented Neuts Not Reportable 10/27/21 03:02 Hyposegmented Neuts Not Reportable 10/27/21 03:02 Hypogranular Neuts Not Reportable 10/27/21 03:02 Smudge Cells Not Reportable 10/27/21 03:02 Toxic Granulation Not Reportable 10/27/21 03:02 Toxic Vacuolation Not Reportable 10/27/21 03:02 Dohle Bodies Not Reportable 10/27/21 03:02 Pelger-Huet Anomaly Not Reportable 10/27/21 03:02 Rachel Rods Not Reportable 10/27/21 03:02 Platelet Estimate Consistent w auto 10/27/21 03:02 Clumped Platelets Not Reportable 10/27/21 03:02 Plt Clumps, EDTA Not Reportable 10/27/21 03:02 Large Platelets Not Reportable 10/27/21 03:02 Giant Platelets Not Reportable 10/27/21 03:02 Platelet Satelliting Not Reportable 10/27/21 03:02 Plt Morphology Comment Not Reportable 10/27/21 03:02 RBC Morphology Not Reportable 10/27/21 03:02 Dimorphic RBCs Not Reportable 10/27/21 03:02 Polychromasia Not Reportable 10/27/21 03:02 Hypochromasia 1+ 10/27/21 03:02 Poikilocytosis Not Reportable 10/27/21 03:02 Anisocytosis 1+ 10/27/21 03:02 Microcytosis Not Reportable 10/27/21 03:02 Macrocytosis Not Reportable 10/27/21 03:02 Spherocytes Not Reportable 10/27/21 03:02 Pappenheimer Bodies Not Reportable 10/27/21 03:02 Sickle Cells Not Reportable 10/27/21 03:02 Target Cells Not Reportable 10/27/21 03:02 Tear Drop Cells Not Reportable 10/27/21 03:02 Ovalocytes Not Reportable 10/27/21 03:02 Helmet Cells Not Reportable 10/27/21 03:02 [place] Bodies Not Reportable 10/27/21 03:02 [place] Rings Not Reportable 10/27/21 03:02 Center Cells Not Reportable 10/27/21 03:02 Bite Cells Not Reportable 10/27/21 03:02 Crenated Cell Not Reportable 10/27/21 03:02 Elliptocytes Not Reportable 10/27/21 03:02 Acanthocytes (Spur) Not Reportable 10/27/21 03:02 Rouleaux Not Reportable 10/27/21 03:02 Hemoglobin C Crystals Not Reportable 10/27/21 03:02 Schistocytes Not Reportable 10/27/21 03:02 Malaria parasites Not Reportable 10/27/21 03:02 [place] Bodies Not Reportable 10/27/21 03:02 Hem Pathologist Commnt No 10/27/21 03:02 Sodium 140 mmol/L (137-145) 10/28/21 05:46 Potassium 3.3 mmol/L (3.6-5.0) L D 10/28/21 05:46 Chloride 105.6 mmol/L (98-107) 10/28/21 05:46 Carbon Dioxide 25 mmol/L (22-30) 10/28/21 05:46 Anion Gap 13 mmol/L 10/28/21 05:46 BUN 7 mg/dL (7-17) 10/28/21 05:46 Creatinine 0.5 mg/dL (0.6-1.2) L 10/28/21 05:46 Estimated GFR > 60 ml/min 10/28/21 05:46 BUN/Creatinine Ratio 14 % 10/28/21 05:46 Glucose 130 mg/dL (65-100) H 10/28/21 05:46 Calcium 8.2 mg/dL (8.4-10.2) L 10/28/21 05:46 Total Bilirubin 0.40 mg/dL (0.1-1.2) 10/27/21 03:02 AST 20 units/L (5-40) 10/27/21 03:02 ALT 21 units/L (7-56) 10/27/21 03:02 Alkaline Phosphatase 62 units/L (35-129) 10/27/21 03:02 Total Protein 8.4 g/dL (6.3-8.2) H 10/27/21 03:02 Albumin 5.2 g/dL (3.9-5) H 10/27/21 03:02 Albumin/Globulin Ratio 1.6 % 10/27/21 03:02 Lipase 17 units/L (13-60) 10/27/21 03:10 HCG, Qual Negative (Negative) 10/27/21 03:10 Urine Color Yellow (Yellow) 10/27/21 02:57 Urine Turbidity Clear (Clear) 10/27/21 02:57 Urine pH 5.0 (5.0-7.0) 10/27/21 02:57 Ur Specific [place] 1.025 (1.003-1.030) 10/27/21 02:57 Urine Protein 100 mg/dl mg/dL (Negative) 10/27/21 02:57 Urine Glucose (UA) >=500 mg/dL (Negative) 10/27/21 02:57 Urine Ketones 80 mg/dL (Negative) 10/27/21 02:57 Urine Blood Neg (Negative) 10/27/21 02:57 Urine Nitrite Neg (Negative) 10/27/21 02:57 Urine Bilirubin Neg (Negative) 10/27/21 02:57 Urine Urobilinogen < 2.0 mg/dL (<2.0) 10/27/21 02:57 Ur Leukocyte Esterase Tr (Negative) 10/27/21 02:57 Urine WBC (Auto) 2.0 /HPF (0.0-6.0) 10/27/21 02:57 Urine RBC (Auto) 1.0 /HPF (0.0-6.0) 10/27/21 02:57 U Epithel Cells (Auto) 4.0 /HPF (0-13.0) 10/27/21 02:57 Urine Bacteria (Auto) 4+ /HPF (Negative) 10/27/21 02:57 Hyaline Casts 2 /LPF 10/27/21 02:57 Urine Mucus 3+ /HPF 10/27/21 02:57 Lopez/IV: Voiding Method Toilet Active Medications - Current Medications Current Medications: Generic Name Dose Route Start Last Admin Trade Name Freq PRN Reason Stop Dose Admin Acetaminophen 650 mg 10/27/21 05:39 Acetaminophen 325 Mg Tab PO Q4H PRN Pain MILD(1-3)/Fever >100.5/SUN Albuterol 2.5 mg 10/27/21 05:39 Albuterol 2.5 Mg/3 Ml Nebu IH Q3HRT PRN Shortness Of Breath Albuterol/Ipratropium 1 ampul 10/27/21 08:00 10/28/21 02:24 Ipratropium/Albuterol Sulfate 3 Ml Ampul.Neb IH 1 ampul Q6HRT AMY Administration Famotidine 20 mg 10/27/21 10:00 10/27/21 22:00 Famotidine 20 Mg/2 Ml Inj IV 20 mg BID AMY Administration Heparin Sodium (Porcine) 5,000 unit 10/27/21 10:00 10/27/21 22:04 Heparin 5,000 Unit/1 Ml Vial SUB-Q 5,000 unit Q12HR AMY Administration Dextrose/Sodium Chloride 1,000 mls @ 100 mls/hr 10/27/21 06:00 10/28/21 01:08 D5/0.45ns IV 100 mls/hr DIRECT AMY Administration Morphine Sulfate 2 mg 10/27/21 05:39 10/28/21 05:29 Morphine 2 Mg/1 Ml Inj IV 2 mg Q4H PRN Administration Pain, Moderate (4-6) Morphine Sulfate 4 mg 10/27/21 05:39 Morphine 4 Mg/1 Ml Inj IV Q4H PRN Pain , Severe (7-10) Ondansetron HCl 4 mg 10/27/21 05:39 Ondansetron 4 Mg/2 Ml Inj IV Q8H PRN Nausea And Vomiting Sodium Chloride 10 ml 10/27/21 10:00 10/27/21 22:00 Sodium Chloride 0.9% 10 Ml Flush Syringe IV 10 ml BID AMY Administration Sodium Chloride 10 ml 10/27/21 05:39 Sodium Chloride 0.9% 10 Ml Flush Syringe IV PRN PRN LINE FLUSH
[2021-10-28] MEDS: FAMOTIDINE 20 MG/2 ML INJ IV SCH ×2 (09:40→22:02)
[2021-10-28] MEDS: HEPARIN 5,000 UNIT/1 ML VIAL SUB-Q SCH ×2 (09:41→22:01)
--- NOTE | 2021-10-28 20:04 | Progress Note ---
Assessment and Plan - Patient Problems (1) Partial obstruction of small intestine Current Visit: Yes Status: Acute Plan to address problem: 1) DC NG 2) CLD 3) AXR, CBC and BMP in the am Subjective Date of service: 10/28/21 Patient Reports: Positive: no new complaints, feels better, pain is less, bowel movement. Negative: nausea, vomiting Objective Vital Signs - 12hr 10/28/21 10/28/21 10/28/21 09:43 09:50 10:00 Temperature Pulse Rate 85 Pulse Rate [ Throughout] Respiratory 17 Rate Respiratory Rate [ Throughout] Blood Pressure Blood Pressure 99/68 [Left] O2 Sat by Pulse 99 100 Oximetry 10/28/21 10/28/21 10/28/21 10:30 12:07 15:50 Temperature 98.0 F Pulse Rate 95 H Pulse Rate [ 87 90 Throughout] Respiratory 16 Rate Respiratory 16 14 Rate [ Throughout] Blood Pressure 101/63 Blood Pressure [Left] O2 Sat by Pulse 99 Oximetry 10/28/21 15:52 Temperature 98.7 F Pulse Rate 99 H Pulse Rate [ Throughout] Respiratory 16 Rate Respiratory Rate [ Throughout] Blood Pressure 112/71 Blood Pressure [Left] O2 Sat by Pulse 98 Oximetry - Abdomen PM_46_EXABD1 4, PM_46_EXABD1 6, PM_46_EXABD1 8 Hernia: none - Labs 10/28/21 05:46 10/28/21 05:46 Diabetes panel 10/28/21 Range/Units 05:46 Sodium 140 (137-145) mmol/L Potassium 3.3 L D (3.6-5.0) mmol/L Chloride 105.6 (98-107) mmol/L Carbon Dioxide 25 (22-30) mmol/L BUN 7 (7-17) mg/dL Creatinine 0.5 L (0.6-1.2) mg/dL Glucose 130 H (65-100) mg/dL Calcium 8.2 L (8.4-10.2) mg/dL Calcium panel 10/28/21 Range/Units 05:46 Calcium 8.2 L (8.4-10.2) mg/dL Pituitary panel 10/28/21 Range/Units 05:46 Sodium 140 (137-145) mmol/L Potassium 3.3 L D (3.6-5.0) mmol/L Chloride 105.6 (98-107) mmol/L Carbon Dioxide 25 (22-30) mmol/L BUN 7 (7-17) mg/dL Creatinine 0.5 L (0.6-1.2) mg/dL Glucose 130 H (65-100) mg/dL Calcium 8.2 L (8.4-10.2) mg/dL Adrenal panel 10/28/21 Range/Units 05:46 Sodium 140 (137-145) mmol/L Potassium 3.3 L D (3.6-5.0) mmol/L Chloride 105.6 (98-107) mmol/L Carbon Dioxide 25 (22-30) mmol/L BUN 7 (7-17) mg/dL Creatinine 0.5 L (0.6-1.2) mg/dL Glucose 130 H (65-100) mg/dL Calcium 8.2 L (8.4-10.2) mg/dL - Imaging Abdominal x-ray: report reviewed
[2021-10-29] MEDS: D5W/0.45% NACL 1,000 ML IV SCH (00:24)
[2021-10-29] MEDS: IPRATROPIUM/ALBUTEROL SULFATE 3 ML AMPUL.NEB IH SCH ×2 (04:00→08:54)
[2021-10-29] MEDS: MORPHINE 2 MG/1 ML INJ IV PRN (06:09)
[2021-10-29 06:37] LABS: Basophils % (Auto) 0.5 % (0.0-1.8); Eosinophils # (Auto) 0.2 K/mm3 (0.0-0.4); Eosinophils % (Auto) 2.6 % (0.0-4.3); Hematocrit 32.5 % (30.3-42.9); Hemoglobin 10.5 gm/dl (10.1-14.3); Lymphocytes # (Auto) 1.8 K/mm3 (1.2-5.4); Mean Corpuscular HGB Conc 32 % (30-34); Mean Corpuscular Volume 78 fl (79-97); Monocytes # (Auto) 0.4 K/mm3 (0.0-0.8); Monocytes % (Auto) 7.4 % (0.0-7.3); Platelet Count 226 K/mm3 (140-440); Red Blood Count 4.17 M/mm3 (3.65-5.03); Red Cell Distribution Width 14.8 % (13.2-15.2)
[2021-10-29 06:55] LABS: Blood Urea Nitrogen 4 mg/dL (7-17); Calcium 8.7 mg/dL (8.4-10.2); Hemolysis Index 0
[2021-10-29 06:58] LABS: BUN/Creatinine Ratio 10
[2021-10-29] MEDS ORDERED: POTASSIUM CHLORIDE ER 20 MEQ TAB PO NR (07:38)
--- NOTE | 2021-10-29 08:56 | XRay Report ---
ABDOMEN 2 VIEW(S) INDICATION / CLINICAL INFORMATION: sbo. COMPARISON: 10/28/2021. 10/27/2021. FINDINGS: TUBES / LINES: None. BOWEL GAS PATTERN: No significant abnormality. FREE AIR / EXTRALUMINAL GAS: None seen. ADDITIONAL FINDINGS: No significant additional findings. IMPRESSION: No significant abnormality. Signer Name: Wes Castano Jr, MD Signed: 10/29/2021 8:51 AM Workstation Name: [id number]
[2021-10-29] MEDS: HEPARIN 5,000 UNIT/1 ML VIAL SUB-Q SCH ×2 (09:32→21:41)
[2021-10-29] MEDS: FAMOTIDINE 20 MG TAB PO SCH ×2 (09:39→21:41)
--- NOTE | 2021-10-29 15:55 | Progress Note ---
Assessment and Plan - Patient Problems (1) Partial obstruction of small intestine Current Visit: Yes Status: Acute Plan to address problem: 1) FLD 2) Discharge tomorrow if no problems. Subjective Date of service: 10/29/21 Patient Reports: Positive: no new complaints, feels better, tolerating liquids well, bowel movement. Negative: nausea, vomiting Objective Vital Signs - 12hr 10/29/21 10/29/21 10/29/21 08:05 08:23 10:00 Respiratory 18 Rate O2 Sat by Pulse 98 98 100 Oximetry - Abdomen PM_46_EXABD1 4, PM_46_EXABD1 6, PM_46_EXABD1 8 Hernia: none - Labs 10/29/21 05:30 10/29/21 05:30 Diabetes panel 10/29/21 Range/Units 05:30 Sodium 141 (137-145) mmol/L Potassium 3.2 L (3.6-5.0) mmol/L Chloride 104.3 (98-107) mmol/L Carbon Dioxide 24 (22-30) mmol/L BUN 4 L (7-17) mg/dL Creatinine 0.4 L (0.6-1.2) mg/dL Glucose 98 (65-100) mg/dL Calcium 8.7 (8.4-10.2) mg/dL Calcium panel 10/29/21 Range/Units 05:30 Calcium 8.7 (8.4-10.2) mg/dL Pituitary panel 10/29/21 Range/Units 05:30 Sodium 141 (137-145) mmol/L Potassium 3.2 L (3.6-5.0) mmol/L Chloride 104.3 (98-107) mmol/L Carbon Dioxide 24 (22-30) mmol/L BUN 4 L (7-17) mg/dL Creatinine 0.4 L (0.6-1.2) mg/dL Glucose 98 (65-100) mg/dL Calcium 8.7 (8.4-10.2) mg/dL Adrenal panel 10/29/21 Range/Units 05:30 Sodium 141 (137-145) mmol/L Potassium 3.2 L (3.6-5.0) mmol/L Chloride 104.3 (98-107) mmol/L Carbon Dioxide 24 (22-30) mmol/L BUN 4 L (7-17) mg/dL Creatinine 0.4 L (0.6-1.2) mg/dL Glucose 98 (65-100) mg/dL Calcium 8.7 (8.4-10.2) mg/dL - Imaging Abdominal x-ray: report reviewed
--- NOTE | 2021-10-29 16:20 | Progress Note ---
Assessment and Plan Assessment and plan: #Partial obstruction of small intestine #Nausea, vomiting and diarrhea-resolved -hx of abdominal surgeries and multiple bowel obstructions -NG tube discontinued, tolerated CLD -Will advance to [facility] -General Surgery following, assistance appreciated #history of Crohn's disease of intestine without complication -Stable, not in acute exacerbation -outpatient follow-up with GI #Leukocytosis- resolved -likely secondary to SBO and volume depletion -UA unremarkable -zosyn discontinued -will continue to monitor for signs/symptoms of infection #Hypokalemia -likely secondary to vomiting -will replete and monitor #Volume depletion-improving -Likely secondary to poor p.o. intake from nausea and vomiting -continue IVFs while NPO #Advanced care planning -Disease education conducted, care plan discussed, diagnoses discussed, prognosis discussed, and patient and acknowledges understanding with care plan -Time: +30 min History Interval history: No acute vents overnight. Patient tolerated clear liquid diet. NG tube removed. Has not yet had a bowel movement but is passing flatus. Has no abdominal pain currently. Hospitalist Physical - Physical exam Narrative exam: GENERAL: Well-developed well-nourished. In no acute distress. HEENT: Normocephalic atraumatic. CHEST/LUNGS: CTAB on room air HEART/CARDIOVASCULAR: RRR. No murmur, rubs or gallops appreciated. ABDOMEN: Midline surgical scar completely healed. +BS. NT/ND. NEURO: No focal motor deficit. Follows all commands. EXTREMITIES: No cyanosis, clubbing or edema. PSYCH: Cooperative. - Constitutional Vitals: Temp Pulse Resp BP Pulse Ox 98.0 F 99 H 18 104/70 100 10/28/21 21:39 10/28/21 21:39 10/29/21 08:23 10/28/21 21:39 10/29/21 10:00 General appearance: Present: no acute distress, well-nourished Results - Labs CBC & Chem 7: 10/29/21 05:30 10/29/21 05:30 Labs: Laboratory Last Values WBC 6.0 K/mm3 (4.5-11.0) 10/29/21 05:30 RBC 4.17 M/mm3 (3.65-5.03) 10/29/21 05:30 Hgb 10.5 gm/dl (10.1-14.3) 10/29/21 05:30 Hct 32.5 % (30.3-42.9) 10/29/21 05:30 MCV 78 fl (79-97) L 10/29/21 05:30 MCH 25 pg (28-32) L 10/29/21 05:30 MCHC 32 % (30-34) 10/29/21 05:30 RDW 14.8 % (13.2-15.2) 10/29/21 05:30 Plt Count 226 K/mm3 (140-440) 10/29/21 05:30 Lymph % (Auto) 30.0 % (13.4-35.0) 10/29/21 05:30 [place] % (Auto) 7.4 % (0.0-7.3) H 10/29/21 05:30 Eos % (Auto) 2.6 % (0.0-4.3) 10/29/21 05:30 Baso % (Auto) 0.5 % (0.0-1.8) 10/29/21 05:30 Lymph # (Auto) 1.8 K/mm3 (1.2-5.4) 10/29/21 05:30 [place] # (Auto) 0.4 K/mm3 (0.0-0.8) 10/29/21 05:30 Eos # (Auto) 0.2 K/mm3 (0.0-0.4) 10/29/21 05:30 Baso # (Auto) 0.0 K/mm3 (0.0-0.1) 10/29/21 05:30 Add Manual Diff Complete 10/27/21 03:02 Total Counted 100 10/27/21 03:02 Seg Neutrophils % 59.5 % (40.0-70.0) 10/29/21 05:30 Seg Neuts % (Manual) 85.0 % (40.0-70.0) H 10/27/21 03:02 Band Neutrophils % 0 % 10/27/21 03:02 Lymphocytes % (Manual) 14.0 % (13.4-35.0) 10/27/21 03:02 Reactive Lymphs % (Man) 0 % 10/27/21 03:02 Monocytes % (Manual) 1.0 % (0.0-7.3) 10/27/21 03:02 Eosinophils % (Manual) 0 % (0.0-4.3) 10/27/21 03:02 Basophils % (Manual) 0 % (0.0-1.8) 10/27/21 03:02 Metamyelocytes % 0 % 10/27/21 03:02 Myelocytes % 0 % 10/27/21 03:02 Promyelocytes % 0 % 10/27/21 03:02 Blast Cells % 0 % 10/27/21 03:02 Nucleated RBC % Not Reportable 10/27/21 03:02 Seg Neutrophils # 3.6 K/mm3 (1.8-7.7) 10/29/21 05:30 Seg Neutrophils # Man 12.8 K/mm3 (1.8-7.7) H 10/27/21 03:02 Band Neutrophils # 0.0 K/mm3 10/27/21 03:02 Lymphocytes # (Manual) 2.1 K/mm3 (1.2-5.4) 10/27/21 03:02 Abs React Lymphs (Man) 0.0 K/mm3 10/27/21 03:02 Monocytes # (Manual) 0.2 K/mm3 (0.0-0.8) 10/27/21 03:02 Eosinophils # (Manual) 0.0 K/mm3 (0.0-0.4) 10/27/21 03:02 Basophils # (Manual) 0.0 K/mm3 (0.0-0.1) 10/27/21 03:02 Metamyelocytes # 0.0 K/mm3 10/27/21 03:02 Myelocytes # 0.0 K/mm3 10/27/21 03:02 Promyelocytes # 0.0 K/mm3 10/27/21 03:02 Blast Cells # 0.0 K/mm3 10/27/21 03:02 WBC Morphology Not Reportable 10/27/21 03:02 Hypersegmented Neuts Not Reportable 10/27/21 03:02 Hyposegmented Neuts Not Reportable 10/27/21 03:02 Hypogranular Neuts Not Reportable 10/27/21 03:02 Smudge Cells Not Reportable 10/27/21 03:02 Toxic Granulation Not Reportable 10/27/21 03:02 Toxic Vacuolation Not Reportable 10/27/21 03:02 Dohle Bodies Not Reportable 10/27/21 03:02 Pelger-Huet Anomaly Not Reportable 10/27/21 03:02 Rachel Rods Not Reportable 10/27/21 03:02 Platelet Estimate Consistent w auto 10/27/21 03:02 Clumped Platelets Not Reportable 10/27/21 03:02 Plt Clumps, EDTA Not Reportable 10/27/21 03:02 Large Platelets Not Reportable 10/27/21 03:02 Giant Platelets Not Reportable 10/27/21 03:02 Platelet Satelliting Not Reportable 10/27/21 03:02 Plt Morphology Comment Not Reportable 10/27/21 03:02 RBC Morphology Not Reportable 10/27/21 03:02 Dimorphic RBCs Not Reportable 10/27/21 03:02 Polychromasia Not Reportable 10/27/21 03:02 Hypochromasia 1+ 10/27/21 03:02 Poikilocytosis Not Reportable 10/27/21 03:02 Anisocytosis 1+ 10/27/21 03:02 Microcytosis Not Reportable 10/27/21 03:02 Macrocytosis Not Reportable 10/27/21 03:02 Spherocytes Not Reportable 10/27/21 03:02 Pappenheimer Bodies Not Reportable 10/27/21 03:02 Sickle Cells Not Reportable 10/27/21 03:02 Target Cells Not Reportable 10/27/21 03:02 Tear Drop Cells Not Reportable 10/27/21 03:02 Ovalocytes Not Reportable 10/27/21 03:02 Helmet Cells Not Reportable 10/27/21 03:02 [place] Bodies Not Reportable 10/27/21 03:02 [place] Rings Not Reportable 10/27/21 03:02 [place] Cells Not Reportable 10/27/21 03:02 Bite Cells Not Reportable 10/27/21 03:02 Crenated Cell Not Reportable 10/27/21 03:02 Elliptocytes Not Reportable 10/27/21 03:02 Acanthocytes (Spur) Not Reportable 10/27/21 03:02 Rouleaux Not Reportable 10/27/21 03:02 Hemoglobin C Crystals Not Reportable 10/27/21 03:02 Schistocytes Not Reportable 10/27/21 03:02 Malaria parasites Not Reportable 10/27/21 03:02 [place] Bodies Not Reportable 10/27/21 03:02 Hem Pathologist Commnt No 10/27/21 03:02 Sodium 141 mmol/L (137-145) 10/29/21 05:30 Potassium 3.2 mmol/L (3.6-5.0) L 10/29/21 05:30 Chloride 104.3 mmol/L (98-107) 10/29/21 05:30 Carbon Dioxide 24 mmol/L (22-30) 10/29/21 05:30 Anion Gap 16 mmol/L 10/29/21 05:30 BUN 4 mg/dL (7-17) L 10/29/21 05:30 Creatinine 0.4 mg/dL (0.6-1.2) L 10/29/21 05:30 Estimated GFR > 60 ml/min 10/29/21 05:30 BUN/Creatinine Ratio 10 % 10/29/21 05:30 Glucose 98 mg/dL (65-100) 10/29/21 05:30 Calcium 8.7 mg/dL (8.4-10.2) 10/29/21 05:30 Total Bilirubin 0.40 mg/dL (0.1-1.2) 10/27/21 03:02 AST 20 units/L (5-40) 10/27/21 03:02 ALT 21 units/L (7-56) 10/27/21 03:02 Alkaline Phosphatase 62 units/L (35-129) 10/27/21 03:02 Total Protein 8.4 g/dL (6.3-8.2) H 10/27/21 03:02 Albumin 5.2 g/dL (3.9-5) H 10/27/21 03:02 Albumin/Globulin Ratio 1.6 % 10/27/21 03:02 Lipase 17 units/L (13-60) 10/27/21 03:10 HCG, Qual Negative (Negative) 10/27/21 03:10 Urine Color Yellow (Yellow) 10/27/21 02:57 Urine Turbidity Clear (Clear) 10/27/21 02:57 Urine pH 5.0 (5.0-7.0) 10/27/21 02:57 Ur Specific [place] 1.025 (1.003-1.030) 10/27/21 02:57 Urine Protein 100 mg/dl mg/dL (Negative) 10/27/21 02:57 Urine Glucose (UA) >=500 mg/dL (Negative) 10/27/21 02:57 Urine Ketones 80 mg/dL (Negative) 10/27/21 02:57 Urine Blood Neg (Negative) 10/27/21 02:57 Urine Nitrite Neg (Negative) 10/27/21 02:57 Urine Bilirubin Neg (Negative) 10/27/21 02:57 Urine Urobilinogen < 2.0 mg/dL (<2.0) 10/27/21 02:57 Ur Leukocyte Esterase Tr (Negative) 10/27/21 02:57 Urine WBC (Auto) 2.0 /HPF (0.0-6.0) 10/27/21 02:57 Urine RBC (Auto) 1.0 /HPF (0.0-6.0) 10/27/21 02:57 U Epithel Cells (Auto) 4.0 /HPF (0-13.0) 10/27/21 02:57 Urine Bacteria (Auto) 4+ /HPF (Negative) 10/27/21 02:57 Hyaline Casts 2 /LPF 10/27/21 02:57 Urine Mucus 3+ /HPF 10/27/21 02:57 Lopez/IV: Voiding Method Toilet Active Medications - Current Medications Current Medications: Generic Name Dose Route Start Last Admin Trade Name Freq PRN Reason Stop Dose Admin Acetaminophen 650 mg 10/27/21 05:39 Acetaminophen 325 Mg Tab PO Q4H PRN Pain MILD(1-3)/Fever >100.5/SUN Albuterol 2.5 mg 10/27/21 05:39 Albuterol 2.5 Mg/3 Ml Nebu IH Q3HRT PRN Shortness Of Breath Famotidine 20 mg 10/29/21 10:00 10/29/21 09:39 Famotidine 20 Mg Tab PO 20 mg BID AMY Administration Heparin Sodium (Porcine) 5,000 unit 10/27/21 10:00 10/29/21 09:32 Heparin 5,000 Unit/1 Ml Vial SUB-Q 5,000 unit Q12HR AMY Administration Dextrose/Sodium Chloride 1,000 mls @ 100 mls/hr 10/27/21 06:00 10/29/21 00:24 D5/0.45ns IV 100 mls/hr DIRECT AMY Administration Morphine Sulfate 2 mg 10/27/21 05:39 10/29/21 06:09 Morphine 2 Mg/1 Ml Inj IV 2 mg Q4H PRN Administration Pain, Moderate (4-6) Morphine Sulfate 4 mg 10/27/21 05:39 Morphine 4 Mg/1 Ml Inj IV Q4H PRN Pain , Severe (7-10) Ondansetron HCl 4 mg 10/27/21 05:39 Ondansetron 4 Mg/2 Ml Inj IV Q8H PRN Nausea And Vomiting Sodium Chloride 10 ml 10/27/21 10:00 10/29/21 09:32 Sodium Chloride 0.9% 10 Ml Flush Syringe IV 10 ml BID AMY Administration Sodium Chloride 10 ml 10/27/21 05:39 Sodium Chloride 0.9% 10 Ml Flush Syringe IV PRN PRN LINE FLUSH
[2021-10-30 05:58] VITALS: BP 101/65
[2021-10-30] MEDS: HEPARIN 5,000 UNIT/1 ML VIAL SUB-Q SCH (09:26)
[2021-10-30] MEDS: FAMOTIDINE 20 MG TAB PO SCH (09:26)
[2021-10-30] MEDS: D5W/0.45% NACL 1,000 ML IV SCH (09:28)
--- NOTE | 2021-10-30 10:20 | Discharge Summary ---
Providers - Providers Date of Admission: 10/27/21 05:39 Date of discharge: 10/30/21 Attending physician: NABEEL MOY MD 10/27/21 05:39 Consult to Physician [CONS] Routine Comment: Consulting Provider: LINDA CISNEROS Physician Instructions: Reason For Exam: sbo 10/27/21 05:40 Consult to Physician [CONS] Stat Comment: Dr. Cisneros to consult on patient upon admission Consulting Provider: LINDA CISNEROS Physician Instructions: NG tube placement; Admit to hospitalist Reason For Exam: Small bowel obstruction Primary care physician: MIRA BYNUM Hospitalization Reason for admission: partial small bowel obstruction Condition: Stable Hospital course: 41-year-old female with history of multiple abdominal surgeries and bowel obstruction who presented to the ED with acute onset persistent abdominal pain, nausea and vomiting. CT of the abdomen showed partial mid small bowel obstruction. NG tube was placed to suction and general surgery was consulted. The patient's symptoms improved and NG tube was removed. She was able to tolerate full and clear liquid diet. She also had several bowel movements. Once clinically stable, she was discharged home. Disposition: 01 HOME / SELF CARE / HOMELESS Final Discharge Diagnosis (Prints w/discharge instructions): Partial obstruction of small intestine. Leukocytosis. Hypokalemia. Volume depletion Time spent for discharge: 30 minutes Core Measure Documentation - Palliative Care Palliative Care/ Comfort Measures: Not Applicable - Core Measures Any of the following diagnoses?: none Exam - Physical Exam Narrative exam: GENERAL: Well-developed well-nourished. In no acute distress. HEENT: Normocephalic atraumatic. CHEST/LUNGS: CTAB on room air HEART/CARDIOVASCULAR: RRR. No murmur, rubs or gallops appreciated. ABDOMEN: Midline surgical scar completely healed. +BS. NT/ND. NEURO: No focal motor deficit. Follows all commands. EXTREMITIES: No cyanosis, clubbing or edema. PSYCH: Cooperative. - Constitutional Vitals: Temp Pulse Resp BP Pulse Ox 98.4 F 79 18 101/65 98 10/30/21 05:41 10/30/21 05:41 10/30/21 05:41 10/30/21 05:41 10/30/21 07:54 Plan Care Plan Goals: Please follow-up with your primary care provider. Increase the consistency of your food as you can tolerate it. If you develop similar abdominal pain, nausea and vomiting please return to the emergency department. Follow up with: MIRA BYNUM MD [Primary Care Provider] - 3-5 Days Prescriptions: polyethylene glycoL 3350 [Miralax 3350] 17 gm PO QDAY PRN 30 Days #30 packet PRN Reason: Constipation Omeprazole 40 mg PO QDAC 30 Days #30 tab Ketorolac [Toradol] 10 mg PO Q4HR PRN 5 Days #30 tablet PRN Reason: Pain
== END 2021-10-30 11:39 | disposition home or self-care (01) | DRG 389 ==
LOC: ED 00:50 → 3A 05:39
PROVIDERS: ADMIT Hospitalist; ATTEND Student in an Organized Health Care Education/Training Program
PROC: 0D9670Z Drainage of Stomach with Drainage Device, Via Natural or Artificial Opening (ICD-10-PCS; principal; 2021-10-27)
DX: K56.690 Other partial intestinal obstruction (principal); K50.90 Crohn's disease, unspecified, without complications; D72.829 Elevated white blood cell count, unspecified; E87.6 Hypokalemia; E86.9 Volume depletion, unspecified
CPT/HCPCS: 36415; 74018; 74019; 74177; 80048; 80053; 81001; 83690; 84703; 85007; 85025; 94640; G0378; J3490; J7070; J1200; J1644; J2270; J2543; J2765; J7030; Q9967

== ENCOUNTER 2022-01-06 21:53 | Inpatient (IN) | payer OTHER ==
[2022-01-06 23:03] LABS: Basophils # (Auto) 0.1 K/mm3 (0.0-0.1); Basophils % (Auto) 0.9 % (0.0-1.8); Eosinophils % (Auto) 0.4 % (0.0-4.3); Hematocrit 38.8 % (30.3-42.9); Hemoglobin 12.5 gm/dl (10.1-14.3); Lymphocytes # (Auto) 0.9 K/mm3 (1.2-5.4); Mean Corpuscular HGB Conc 32 % (30-34); Mean Corpuscular Volume 77 fl (79-97); Monocytes # (Auto) 0.4 K/mm3 (0.0-0.8); Platelet Count 292 K/mm3 (140-440); Red Blood Count 5.01 M/mm3 (3.65-5.03); Red Cell Distribution Width 15.9 % (13.2-15.2)
[2022-01-06 23:19] LABS: Alanine Aminotransferase 16 units/L (7-56); Albumin 4.6 g/dL (3.9-5); Blood Urea Nitrogen 11 mg/dL (7-17); Calcium 9.3 mg/dL (8.4-10.2); Hemolysis Index 80
[2022-01-06 23:22] LABS: HCG Qualitative,Urine Negative (Negative)
[2022-01-06 23:24] LABS: BUN/Creatinine Ratio 28
[2022-01-06 23:27] LABS: Mucus,Urine FEW /HPF; RBC,Urine < 1.0 /HPF (0.0-6.0); WBC,Urine < 1.0 /HPF (0.0-6.0)
[2022-01-06 23:30] LABS: Bilirubin,Urine Negative (Negative); Color,Urine Yellow (Yellow)
[2022-01-06 23:31] LABS: Blood,Urine Negative (Negative); Urobilinogen,Urine < 2.0 mg/dL (<2.0)
[2022-01-07] MEDS ORDERED: ONDANSETRON 4 MG ODT TAB PO STA (02:39)
[2022-01-07] MEDS ORDERED: HYOSCYAMINE SUBL 0.125 MG TAB SL ONE (02:39)
--- NOTE | 2022-01-07 04:43 | Cat Scan Report ---
CT ABDOMEN AND PELVIS WITH CONTRAST HISTORY: Lower ABD Pain. COMPARISON: 10/27/2021 TECHNIQUE: CT images of the abdomen and pelvis were obtained following administration of intravenous contrast. All CT scans at this location are performed using CT dose reduction for ALARA by means of automated exposure control. CONTRAST: 100 ml of intravenous contrast administered. FINDINGS: Lungs/bones: Lung bases are clear Abdomen/pelvis: The liver, spleen, adrenal glands, pancreas, gallbladder and upper GI tract appear n ormal. Bilateral kidneys appear normal. Several small right renal cyst are again seen. There are dilated small bowel loops within the mid abdomen containing small bowel feces with some muc osal enhancement. There is thickening of the ascending colon, transverse colon and descending colon. Some mild thickening within the sigmoid colon as well. There is free fluid within the pelvis. There i s fluid within the endometrium with heterogeneity of the uterus. Right corpus luteal cyst suggested. The appendix is not well seen. IMPRESSION: 1. Diffuse free fluid in the pelvis was suggested ruptured right globe is luteal cyst. Findings appea rs similar to prior exam. 2. Partial mid small bowel obstruction is suggested with small bowel feces and dilatation of the mid small bowel. This was also seen on prior examination. There is increased thickening of the ascending colon and transverse colon and descending colon since the prior examination. Findings suggest Crohn's disease/inflammatory bowel disease. 3. Fatty infiltration the liver. 4. Appendix is not definitely visualized. Signer Name: Pepe Kowalski MD Signed: 01/07/2022 4:38 AM Workstation Name: [id number]
[2022-01-07] MEDS ORDERED: methylPREDNISolone Sod Succinate 125 MG/2 ML INJ IV ONE (06:22)
[2022-01-07] MEDS ORDERED: ACETAMINOPHEN 325 MG TAB PO PRN (08:05)
[2022-01-07] MEDS ORDERED: oxyCODONE /ACETAMINOPHEN 5-325MG TAB PO PRN (08:05)
[2022-01-07] MEDS ORDERED: MORPHINE 4 MG/1 ML INJ IV PRN (08:05)
--- NOTE | 2022-01-07 08:17 | Event Note ---
Date: 01/07/22 Pt reports N/V/D abdominal pain onset today as well as painful urination. Pt is aaox4, Labs 01/06/22 01/06/22 01/06/22 22:38 22:38 Unknown WBC 8.5 RBC 5.01 Hgb 12.5 Hct 38.8 MCV 77 L MCH 25 L MCHC 32 RDW 15.9 H Plt Count 292 Lymph % (Auto) 11.0 L [place] % (Auto) 5.0 Eos % (Auto) 0.4 Baso % (Auto) 0.9 Lymph # (Auto) 0.9 L [place] # (Auto) 0.4 Eos # (Auto) 0.0 Baso # (Auto) 0.1 Seg Neutrophils % 82.7 H Seg Neutrophils # 7.0 Sodium 136 L Potassium 4.5 Chloride 100.7 Carbon Dioxide 22 Anion Gap 18 BUN 11 Creatinine 0.4 L Estimated GFR > 60 BUN/Creatinine Ratio 28 Glucose 174 H Calcium 9.3 Total Bilirubin 0.60 AST 25 ALT 16 Alkaline Phosphatase 46 Total Protein 7.8 Albumin 4.6 Albumin/Globulin Ratio 1.4 Urine Color Yellow Urine Turbidity Slightly cloudy Urine pH 7.0 Ur Specific [place] 1.020 Urine Protein 30 mg/dl Urine Glucose (UA) Negative Urine Ketones Trace Urine Blood Negative Urine Nitrite Negative Ur Reducing Substances Not Reportable Urine Bilirubin Negative Urine Ictotest Not Reportable Urine Urobilinogen < 2.0 Ur Leukocyte Esterase Negative Urine WBC (Auto) < 1.0 Urine RBC (Auto) < 1.0 U Epithel Cells (Auto) < 1.0 Urine Mucus Few Urine HCG, Qual Negative Vital Signs 01/06/22 21:56 Temperature 97.8 F Pulse Rate 80 Respiratory 16 Rate Blood Pressure 133/91 [Right] O2 Sat by Pulse [address] FINDINGS [facility] [place] FOR DETAILS OF ADMIT SEEN BY NIGHT STAFF; DR STRATTON ATTENDING AT THE TIME OF THIS CALL I'VE LEFT FOR PA REFERRED QUESTIONS TO ATTENDING DR STRATTON
[2022-01-07] MEDS: HEPARIN 5,000 UNIT/1 ML VIAL SUB-Q SCH ×3 (08:39→23:03)
[2022-01-07] MEDS ORDERED: ENOXAPARIN 30 MG/0.3 ML INJ SUB-Q SCH (10:00)
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
[2022-01-07] MEDS ORDERED: SODIUM CHLORIDE 0.9% 1000 ML 1,000 ML IV SCH (11:30)
--- NOTE | 2022-01-07 13:26 | History and Physical Report ---
History of Present Illness Date of examination: 01/07/22 Date of admission: 01/07/22 08:05 Chief complaint: Nausea, vomiting, diarrhea, and abdominal pain History of present illness: Patient is a 41-year-old female past medical history of Crohn's disease, multiple abdominal surgeries (including ex lap) GERD, and hyperlipidemia who presented to the ED with complaints of nausea, vomiting, diarrhea, and abdominal pain that patient needed this morning in addition to painful urination. Patient was discharged from [facility] on 10/27/2021 for similar complaints. On that admission she was found to have a small bowel obstruction requiring NG tube placement with resolution of symptoms without the need for surgical intervention. In the ED, the patient was found to be hemodynamically stable with unremarkable labs. Patient underwent CT abdomen and pelvis with contrast revealing partial mid small bowel obstruction in the setting of Crohn's disease. General surgery was consulted for further management. Past History Past Medical History: GERD, hyperlipidemia, hypothyroidism, other (Crohn's disease) Past Surgical History: Other (Ex lap in December 2020) Social history: , full code Family history: no significant family history Medications and Allergies Allergies Allergy/AdvReac Type Severity Reaction Status Date / Time No Known Allergies Allergy Verified 10/30/21 10:06 Home Medications Medication Instructions Recorded Confirmed Last Taken Type Cyclobenzaprine HCl [Flexeril 5 MG 5 mg PO QHS 10/30/21 10/30/21 Unknown History TAB] Ketorolac [Toradol] 10 mg PO Q4HR PRN 5 Days #30 tablet 10/30/21 Unknown Rx Omeprazole 40 mg PO QDAC 30 Days #30 tab 10/30/21 Unknown Rx Simvastatin 40 mg PO QPM 10/30/21 10/30/21 Unknown History polyethylene glycoL 3350 [Miralax 17 gm PO QDAY PRN 30 Days #30 10/30/21 Unknown Rx 3350] packet Active Meds: Active Medications Heparin Sodium (Porcine) (Heparin 5,000 Unit/1 Ml Vial) 5,000 unit SUB-Q Q8HR AMY Last Admin: 01/07/22 08:39 Dose: 5,000 unit Sodium Chloride (Nacl 0.9% 1000 Ml) 1,000 mls @ 125 mls/hr IV DIRECT AMY Last Admin: 01/07/22 11:54 Dose: 125 mls/hr Ketorolac Tromethamine (Ketorolac 30 Mg/1 Ml Inj) 15 mg IV Q6H PRN PRN Reason: Pain, Mild (1-3) Stop: 01/12/22 08:59 Morphine Sulfate (Morphine 2 Mg/1 Ml Inj) 2 mg IV Q4H PRN PRN Reason: Pain , Severe (7-10) Ondansetron HCl (Ondansetron 4 Mg/2 Ml Inj) 4 mg IV Q8H PRN PRN Reason: Nausea And Vomiting Sodium Chloride (Sodium Chloride 0.9% 10 Ml Flush Syringe) 10 ml IV BID AMY Last Admin: 01/07/22 11:14 Dose: Not Given Sodium Chloride (Sodium Chloride 0.9% 10 Ml Flush Syringe) 10 ml IV PRN PRN PRN Reason: LINE FLUSH Review of Systems All systems: negative Gastrointestinal: abdominal pain, nausea, vomiting, diarrhea Exam - Constitutional Vitals: Temp Pulse Resp BP Pulse Ox 97.8 F 113 H 15 96/57 100 01/06/22 21:56 01/07/22 11:16 01/07/22 11:16 01/07/22 11:16 01/07/22 11:28 General appearance: Present: no acute distress, well-nourished - EENT Eyes: Present: PERRL, EOM intact ENT: hearing intact, clear oral mucosa, dentition normal - Neck Neck: Present: supple, normal ROM - Respiratory Respiratory effort: normal Respiratory: bilateral: CTA - Cardiovascular Rhythm: regular Heart Sounds: Present: S1 & S2 - Extremities Extremities: no ischemia, pulses intact, pulses symmetrical, No edema, normal temperature, normal color, Full ROM Peripheral Pulses: within normal limits - Abdominal General gastrointestinal: Present: soft, tender, distended (mild distention), normal bowel sounds Localized gastrointestinal: tender: diffuse Female genitourinary: Present: deferred - Rectal Rectal Exam: deferred - Integumentary Integumentary: Present: clear, warm, dry - Musculoskeletal Musculoskeletal: strength equal bilaterally - Psychiatric Psychiatric: appropriate mood/affect, intact judgment & insight, memory intact, cooperative - Neurologic Neurologic: CNII-XII intact, moves all extremities - Allied Health Allied health notes reviewed: nursing Results - Labs CBC & Chem 7: 01/06/22 22:38 01/06/22 22:38 Labs: Laboratory Last Values WBC 8.5 K/mm3 (4.5-11.0) 01/06/22 22: RBC 5.01 M/mm3 (3.65-5.03) 01/06/22: Hgb 12.5 gm/dl (10.1-14.3) 01/06/22: Hct 38.8 % (30.3-42.9) 01/06/22 22: MCV 77 fl (79-97) L 01/06/22: MCH 25 pg (28-32) L 01/06/22: MCHC 32 % (30-34) 01/06/22: RDW 15.9 % (13.2-15.2) H 01/06/22: Plt Count 292 K/mm3 (140-440) 01/06/22: Lymph % (Auto) 11.0 % (13.4-35.0) L 01/06/22: [place] % (Auto) 5.0 % (0.0-7.3) 01/06/22: Eos % (Auto) 0.4 % (0.0-4.3) 01/06/22: Baso % (Auto) 0.9 % (0.0-1.8) 01/06/22: Lymph # (Auto) 0.9 K/mm3 (1.2-5.4) L 01/06/22: [place] # (Auto) 0.4 K/mm3 (0.0-0.8) 01/06/22: Eos # (Auto) 0.0 K/mm3 (0.0-0.4) 01/06/22: Baso # (Auto) 0.1 K/mm3 (0.0-0.1) 01/06/22: Seg Neutrophils % 82.7 % (40.0-70.0) H 01/06/22: Seg Neutrophils # 7.0 K/mm3 (1.8-7.7) 01/06/22: Sodium 136 mmol/L (137-145) L 01/06/22: Potassium 4.5 mmol/L (3.6-5.0) 01/06/22: Chloride 100.7 mmol/L (98-107) 01/06/22 22:38 Carbon Dioxide 22 mmol/L (22-30) 01/06/22 22:38 Anion Gap 18 mmol/L 01/06/22 22:38 BUN 11 mg/dL (7-17) 01/06/22 22:38 Creatinine 0.4 mg/dL (0.6-1.2) L 01/06/22 22:38 Estimated GFR > 60 ml/min 01/06/22 22:38 BUN/Creatinine Ratio 28 % 01/06/22 22:38 Glucose 174 mg/dL (65-100) H 01/06/22 22:38 Calcium 9.3 mg/dL (8.4-10.2) 01/06/22 22:38 Total Bilirubin 0.60 mg/dL (0.1-1.2) 01/06/22 22:38 AST 25 units/L (5-40) 01/06/22 22:38 ALT 16 units/L (7-56) 01/06/22 22:38 Alkaline Phosphatase 46 units/L (35-129) 01/06/22 22:38 Total Protein 7.8 g/dL (6.3-8.2) 01/06/22 22:38 Albumin 4.6 g/dL (3.9-5) 01/06/22 22:38 Albumin/Globulin Ratio 1.4 % 01/06/22 22:38 Urine Color Yellow (Yellow) 01/06/22 Unknown Urine Turbidity Slightly cloudy (Clear) 01/06/22 Unknown Urine pH 7.0 (5.0-7.0) 01/06/22 Unknown Ur Specific Reading 1.020 (1.003-1.030) 01/06/22 Unknown Urine Protein 30 mg/dl mg/dL (Negative) 01/06/22 Unknown Urine Glucose (UA) Negative mg/dL (Negative) 01/06/22 Unknown Urine Ketones Trace mg/dL (Negative) 01/06/22 Unknown Urine Blood Negative (Negative) 01/06/22 Unknown Urine Nitrite Negative (Negative) 01/06/22 Unknown Ur Reducing Substances Not Reportable 01/06/22 Unknown Urine Bilirubin Negative (Negative) 01/06/22 Unknown Urine Ictotest Not Reportable 01/06/22 Unknown Urine Urobilinogen < 2.0 mg/dL (<2.0) 01/06/22 Unknown Ur Leukocyte Esterase Negative (Negative) 01/06/22 Unknown Urine WBC (Auto) < 1.0 /HPF (0.0-6.0) 01/06/22 Unknown Urine RBC (Auto) < 1.0 /HPF (0.0-6.0) 01/06/22 Unknown U Epithel Cells (Auto) < 1.0 /HPF (0-13.0) 01/06/22 Unknown Urine Mucus Few /HPF 01/06/22 Unknown Urine HCG, Qual Negative (Negative) 01/06/22 Unknown Assessment and Plan Assessment and plan: Patient is a 41-year-old female past medical history of Crohn's disease, mul tiple abdominal surgeries (including ex lap) GERD, and hyperlipidemia who presented to the ED with complaints of nausea, vomiting, diarrhea, and abdominal pain that patient needed this morning in addition to painful urination. Patient underwent CT abdomen and pelvis with contrast revealing partial mid small bowel obstruction in the setting of Crohn's disease. G #Small bowel obstruction #Chronic Crohn's diseasestable CT abdomen and pelvis with contrast revealing partial mid small bowel obstruction in the setting of Crohn's disease Continue n.p.o. status. Ordered NG tube placement. Starting D5 W at 100 cc/hour. Continue antiemetics and analgesics as needed. General surgery consulted; appreciate recs. Trend serial abdominal KUBs. Continue to monitor. #GERD Starting IV pantoprazole 40 mg daily #Hypothyroidism Starting IV levothyroxine #Hyperlipidemia Holding statin until patient can tolerate p.o. intake #Advanced care planning -Disease education conducted, care plan discussed, diagnoses discussed, prognosis discussed, and patient acknowledges understanding with care plan -Time: +30 min Advance Directives: No VTE prophylaxis?: Chemical Plan of care discussed with patient/family: Yes
[2022-01-07] MEDS: MORPHINE 2 MG/1 ML INJ IV PRN (23:07)
[2022-01-07] MEDS: DEXTROSE 5% IN WATER 1,000 ML IV SCH (23:07)
[2022-01-08 05:29] LABS: Basophils % (Auto) 0.4 % (0.0-1.8); Eosinophils % (Auto) 0.1 % (0.0-4.3); Hematocrit 33.2 % (30.3-42.9); Hemoglobin 10.8 gm/dl (10.1-14.3); Lymphocytes # (Auto) 2.7 K/mm3 (1.2-5.4); Lymphocytes % (Auto) 26.8 % (13.4-35.0); Mean Corpuscular HGB Conc 32 % (30-34); Mean Corpuscular Volume 77 fl (79-97); Monocytes # (Auto) 0.9 K/mm3 (0.0-0.8); Monocytes % (Auto) 8.5 % (0.0-7.3); Platelet Count 311 K/mm3 (140-440); Red Cell Distribution Width 16.2 % (13.2-15.2)
[2022-01-08 05:34] LABS: Blood Urea Nitrogen 22 mg/dL (7-17); Calcium 8.6 mg/dL (8.4-10.2); Hemolysis Index 3
[2022-01-08 05:52] LABS: BUN/Creatinine Ratio 44
[2022-01-08] MEDS: HEPARIN 5,000 UNIT/1 ML VIAL SUB-Q SCH ×3 (05:56→21:37)
--- NOTE | 2022-01-08 10:19 | Progress Note ---
Assessment and Plan Patient is a 41-year-old female past medical history of multiple abdominal surgeries (including ex lap) GERD, and hyperlipidemia who presented to the ED with complaints of nausea, vomiting, diarrhea, and abdominal pain. Patient underwent CT abdomen and pelvis with contrast revealing partial mid small bowel obstruction. GS consulted and admitted for further mx. 01/08: cont empitic abx, iv fluid. GS following. plan for laperotomy today. A/P #Small bowel obstruction #Chronic Crohn's diseasestable CT abdomen and pelvis with contrast revealing partial mid small bowel obstruction in the setting of Crohn's disease Continue n.p.o. status. Ordered NG tube placement. cont D5 W at 100 cc/hour. Continue antiemetics and analgesics as needed. General surgery consulted; appreciate recs. Trend serial abdominal KUBs. Continue to monitor. #GERD Starting IV pantoprazole 40 mg daily #Hypothyroidism Starting IV levothyroxine #Hyperlipidemia Holding statin until patient can tolerate p.o. intake #Advanced care planning -Disease education conducted, care plan discussed, diagnoses discussed, prognosis discussed, and patient acknowledges understanding with care plan -Time: +30 min Advance Directives: No VTE prophylaxis?: Chemical Plan of care discussed with patient/family: Yes Subjective Date of service: 01/08/22 Interval history: Patient seen and examined with family member at the bedside c/o abdominal pain, no n/v plan for surgery today Objective - Exam Narrative Exam: General appearance: Present: no acute distress, well-nourished - EENT Eyes: Present: PERRL, EOM intact ENT: hearing intact, clear oral mucosa, dentition normal - Neck Neck: Present: supple, normal ROM - Respiratory Respiratory effort: normal Respiratory: bilateral: CTA - Cardiovascular Rhythm: regular Heart Sounds: Present: S1 & S2 - Extremities Extremities: no ischemia, pulses intact, pulses symmetrical, No edema, normal temperature, normal color, Full ROM Peripheral Pulses: within normal limits - Abdominal General gastrointestinal: Present: soft, tender, distended (mild distention), normal bowel sounds Localized gastrointestinal: tender: diffuse Female genitourinary: Present: deferred - Rectal Rectal Exam: deferred - Integumentary Integumentary: Present: clear, warm, dry - Musculoskeletal Musculoskeletal: strength equal bilaterally - Psychiatric Psychiatric: appropriate mood/affect, intact judgment & insight, memory intact, cooperative - Neurologic Neurologic: CNII-XII intact, moves all extremities - Allied Health Allied health notes reviewed: nursing - Constitutional Vitals: Vital Signs - 12hr 01/07/22 01/07/22 01/07/22 22:20 22:40 22:43 Temperature 98.1 F Pulse Rate 90 89 79 Respiratory 22 18 18 Rate Blood Pressure 104/63 108/65 Blood Pressure 110/72 [Right] O2 Sat by Pulse 97 98 99 Oximetry 01/07/22 01/08/22 23:29 05:07 Temperature 98.2 F Pulse Rate 71 Respiratory 18 Rate Blood Pressure 104/63 Blood Pressure [Right] O2 Sat by Pulse 99 99 Oximetry - Labs CBC & Chem 7: 01/13/22 11:35 01/12/22 15:52 Labs: Abnormal lab results 01/08/22 01/08/22 Range/Units 04:00 04:00 MCV 77 L (79-97) fl MCH 25 L (28-32) pg RDW 16.2 H (13.2-15.2) % [place] % (Auto) 8.5 H (0.0-7.3) % [place] # (Auto) 0.9 H (0.0-0.8) K/mm3 BUN 22 H (7-17) mg/dL Creatinine 0.5 L (0.6-1.2) mg/dL Glucose 122 H (65-100) mg/dL
[2022-01-08] MEDS: PANTOPRAZOLE 40 MG INJ IV SCH (11:49)
[2022-01-08] MEDS: DEXTROSE 5% IN WATER 1,000 ML IV SCH (11:50)
[2022-01-08] MEDS ORDERED: BUPIVACAINE-EPINEPHRINE/PF 0.5%-1:200,000 (30 ML) VIAL INFILTRATI ONE ×2 (14:34→18:17)
[2022-01-08] MEDS ORDERED: LIDOCAINE (2%) 20 MG/1 ML VIAL 20 ML MDV INFILTRATI ONE ×2 (14:34→18:17)
[2022-01-08] MEDS ORDERED: HYDROmorphone 1 MG/1 ML INJ ONE (16:43)
[2022-01-08] MEDS ORDERED: ROCURONIUM 50 MG/5 ML INJ IV ONE (16:43)
[2022-01-08] MEDS ORDERED: LIDOCAINE MPF (2%) 20 MG/1 ML VIAL 5 ML ONE (16:43)
[2022-01-08] MEDS ORDERED: propofoL 200 MG/20 ML VIAL IV ONE (16:43)
[2022-01-08] MEDS ORDERED: SUCCINYLCHOLINE CHLORIDE 200 MG/10 ML INJ MDV ONE (16:44)
--- NOTE | 2022-01-08 17:02 | Anesthesia Day of Surgery ---
Anesthesia Day of Surgery - Day of Surgery Patient Examined: Yes Patient H&P Reviewed: Yes Patient is NPO: Yes
--- NOTE | 2022-01-08 17:02 | Anesthesia Consultation ---
Anesthesia Consult and Med Hx Date of service: 01/08/22 - Airway Anesthetic Teeth Evaluation: Good ROM Head & Neck: Adequate Mental/Hyoid Distance: Adequate Mallampati Class: Class III Intubation Access Assessment: Possibly Difficult - Pre-Operative Health Status ASA Pre-Surgery Classification: ASA2 Proposed Anesthetic Plan: General - Pulmonary Hx Respiratory Symptoms: No - Cardiovascular System Hx Hypertension: No (HLD) - Central Nervous System CVA: No - Gastrointestinal Hx Gastroesophageal Reflux Disease: Yes - Endocrine Hx Renal Disease: No Hx Liver Disease: No Hx Insulin Dependent Diabetes: No Hx Non-Insulin Dependent Diabetes: No Hx Hypothyroidism: Yes - Hematic Hx Anemia: Yes - Additional Comments Anesthesia Medical History Comments: Scheduled for diagnostic laparoscopy for SBO.
[2022-01-08] MEDS ORDERED: MIDAZOLAM 2 MG/2 ML INJ ONE (17:18)
[2022-01-08] MEDS ORDERED: LACTATED RINGERS 1,000 ML ONE ×2 (17:19→18:46)
[2022-01-08] MEDS ORDERED: ceFAZolin 1 GM VIAL ONE ×2 (17:39)
[2022-01-08] MEDS ORDERED: SODIUM CHLORIDE 0.9% IRR 1,500 ML BOTTLE IR ONE (18:16)
[2022-01-08] MEDS ORDERED: GLYCOPYRROLATE 0.4 MG/2 ML INJ ONE (19:20)
[2022-01-08] MEDS ORDERED: ONDANSETRON 4 MG/2 ML INJ ONE (19:20)
[2022-01-08] MEDS ORDERED: NEOSTIGMINE 10MG/10 ML INJ MDV ONE (19:20)
[2022-01-08] MEDS: HYDROmorphone 0.5 MG/0.5 ML INJ IV PRN ×3 (19:51→20:16)
--- NOTE | 2022-01-08 20:19 | Post Anesthesia Evaluation ---
- Post Anesthesia Evaluation Patient Participated: Yes Airway Patent: Yes Stable Respiratory Function: Yes Nausea/Vomiting: No Temp > 96.8F: Yes Pain Manageable: Yes Adequeate Hydration: Yes Anesthesia Complications: No
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
[2022-01-08] MEDS: MORPHINE 2 MG/1 ML INJ IV PRN (21:36)
[2022-01-08] MEDS: ONDANSETRON 4 MG/2 ML INJ IV PRN (21:40)
[2022-01-09] MEDS: KETOROLAC 30 MG/1 ML INJ IV PRN ×2 (00:22→14:42)
[2022-01-09] MEDS: DEXTROSE 5% IN WATER 1,000 ML IV SCH ×2 (02:49→12:39)
[2022-01-09] MEDS: MORPHINE 2 MG/1 ML INJ IV PRN ×3 (05:38→17:47)
[2022-01-09] MEDS: HEPARIN 5,000 UNIT/1 ML VIAL SUB-Q SCH ×3 (05:38→21:06)
[2022-01-09] MEDS: ONDANSETRON 4 MG/2 ML INJ IV PRN (11:00)
[2022-01-09] MEDS: PANTOPRAZOLE 40 MG INJ IV SCH (11:00)
[2022-01-09] MEDS ORDERED: SODIUM CHLORIDE 0.9% 1000 ML 1,000 ML IV ONE (15:00)
--- NOTE | 2022-01-09 15:57 | Progress Note ---
Assessment and Plan Patient is a 41-year-old female past medical history of multiple abdominal surgeries (including ex lap) GERD, and hyperlipidemia who presented to the ED with complaints of nausea, vomiting, diarrhea, and abdominal pain. Patient underwent CT abdomen and pelvis with contrast revealing partial mid small bowel obstruction. GS consulted and admitted for further mx. 01/08: cont empitic abx, iv fluid. GS following. plan for laperotomy today. 01/09: s/p surgery yesterday. cont iv fluid, patient remains NPO A/P #Small bowel obstruction #Chronic Crohn's diseasestable CT abdomen and pelvis with contrast revealing partial mid small bowel obstruction Continue n.p.o. status. s/p surgery with open exploration lysis of adhesions and removal of segment of small bowel on 01/08. cont D5 W at 100 cc/hour. Continue antiemetics and analgesics as needed. General surgery consulted; appreciate recs. Trend serial abdominal KUBs. Continue to monitor. #GERD Starting IV pantoprazole 40 mg daily #Hypothyroidism Starting IV levothyroxine #Hyperlipidemia Holding statin until patient can tolerate p.o. intake #Advanced care planning -Disease education conducted, care plan discussed, diagnoses discussed, prognosis discussed, and patient acknowledges understanding with care plan -Time: +30 min Advance Directives: No VTE prophylaxis?: Chemical Plan of care discussed with patient/family: Yes Subjective Date of service: 01/09/22 Interval history: Patient seen and examined with family member at the bedside c/o abdominal pain, no n/v s/p surgery yesterday Objective - Exam Narrative Exam: General appearance: Present: no acute distress, well-nourished - EENT Eyes: Present: PERRL, EOM intact ENT: hearing intact, clear oral mucosa, dentition normal - Neck Neck: Present: supple, normal ROM - Respiratory Respiratory effort: normal Respiratory: bilateral: CTA - Cardiovascular Rhythm: regular Heart Sounds: Present: S1 & S2 - Extremities Extremities: no ischemia, pulses intact, pulses symmetrical, No edema, normal temperature, normal color, Full ROM Peripheral Pulses: within normal limits - Abdominal General gastrointestinal: Present: soft, tender, distended (mild distention), normal bowel sounds Localized gastrointestinal: tender: diffuse Female genitourinary: Present: deferred - Rectal Rectal Exam: deferred - Integumentary Integumentary: Present: clear, warm, dry - Musculoskeletal Musculoskeletal: strength equal bilaterally - Psychiatric Psychiatric: appropriate mood/affect, intact judgment & insight, memory intact, cooperative - Neurologic Neurologic: CNII-XII intact, moves all extremities - Allied Health Allied health notes reviewed: nursing - Constitutional Vitals: Vital Signs - 12hr 01/09/22 01/09/22 01/09/22 05:37 10:58 13:45 Temperature 98.3 F Pulse Rate 138 H 124 H 115 H Respiratory 18 20 16 Rate Blood Pressure 108/79 Blood Pressure 108/62 91/63 [Right] O2 Sat by Pulse 98 100 99 Oximetry 01/09/22 01/09/22 13:50 14:40 Temperature Pulse Rate 113 H 110 H Respiratory 16 Rate Blood Pressure Blood Pressure 107/76 125/75 [Right] O2 Sat by Pulse 99 Oximetry - Labs CBC & Chem 7: 01/13/22 11:35 01/12/22 15:52
[2022-01-10] MEDS: MORPHINE 2 MG/1 ML INJ IV PRN ×3 (01:09→14:29)
[2022-01-10] MEDS: DEXTROSE 5% IN WATER 1,000 ML IV SCH ×2 (01:10→14:29)
[2022-01-10] MEDS: HEPARIN 5,000 UNIT/1 ML VIAL SUB-Q SCH ×3 (05:42→21:15)
[2022-01-10 06:27] LABS: BUN/Creatinine Ratio 12; Blood Urea Nitrogen 11 mg/dL (7-17); Calcium 7.6 mg/dL (8.4-10.2); Hemolysis Index 1
[2022-01-10] MEDS: PANTOPRAZOLE 40 MG INJ IV SCH (09:08)
--- NOTE | 2022-01-10 11:59 | Progress Note ---
Assessment and Plan Patient with presentation consistent with small bowel obstruction. CT examination suggests Crohn's disease. Patient has no prior history of this diagnosis. She does have a history of an exploratory laparotomy in December 2020. There are no ventral hernias. Patient is postop day #2 status post open exploration lysis of adhesions and re moval of segment of small bowel. She continues to have significant amounts of problems ambulating because of back pain. We will consult physical therapy to help with this. Patient may begin to have ice chips and water. Continue IV fluids and antibiotics. We will also check an abdominal x-ray at this time. Subjective Date of service: 01/10/22 Patient Reports: Positive: still having pain, no flatus, no bowel movement Narrative: Patient is postop day #2 status post open exploration lysis of adhesions and removal of segment of small bowel. She continues to have significant amounts of problems ambulating because of back pain. We will consult physical therapy to help with this. Patient may begin to have ice chips and water. Continue IV fluids and antibiotics. We will also check an abdominal x-ray at this time. Objective Vital Signs - 12hr 01/10/22 06:24 Temperature 99.1 F Pulse Rate 106 H Respiratory 19 Rate Blood Pressure 117/70 O2 Sat by Pulse 98 Oximetry - Labs 01/08/22 04:00 01/10/22 05:30 Diabetes panel 01/10/22 Range/Units 05:30 Sodium 135 L (137-145) mmol/L Potassium 3.6 (3.6-5.0) mmol/L Chloride 99.3 (98-107) mmol/L Carbon Dioxide 28 (22-30) mmol/L BUN 11 (7-17) mg/dL Creatinine 0.9 D (0.6-1.2) mg/dL Glucose 155 H (65-100) mg/dL Calcium 7.6 L (8.4-10.2) mg/dL Calcium panel 01/10/22 Range/Units 05:30 Calcium 7.6 L (8.4-10.2) mg/dL Pituitary panel 01/10/22 Range/Units 05:30 Sodium 135 L (137-145) mmol/L Potassium 3.6 (3.6-5.0) mmol/L Chloride 99.3 (98-107) mmol/L Carbon Dioxide 28 (22-30) mmol/L BUN 11 (7-17) mg/dL Creatinine 0.9 D (0.6-1.2) mg/dL Glucose 155 H (65-100) mg/dL Calcium 7.6 L (8.4-10.2) mg/dL Adrenal panel 01/10/22 Range/Units 05:30 Sodium 135 L (137-145) mmol/L Potassium 3.6 (3.6-5.0) mmol/L Chloride 99.3 (98-107) mmol/L Carbon Dioxide 28 (22-30) mmol/L BUN 11 (7-17) mg/dL Creatinine 0.9 D (0.6-1.2) mg/dL Glucose 155 H (65-100) mg/dL Calcium 7.6 L (8.4-10.2) mg/dL
--- NOTE | 2022-01-10 15:14 | XRay Report ---
. ABDOMEN 5 VIEW(S) INDICATION / CLINICAL INFORMATION: Postop ileus. COMPARISON: CT 3 days prior FINDINGS: TUBES / LINES: None. BOWEL GAS PATTERN: There is mild gaseous distention of small bowel and to a lesser degree large bowel . FREE AIR / EXTRALUMINAL GAS: None seen. ADDITIONAL FINDINGS: No acute findings on the included chest radiograph. IMPRESSION: 1. Mild gaseous distention of small bowel and, to a lesser degree, large bowel suggestive of mild john namic ileus. Signer Name: Avtar Baltazar MD Signed: 01/10/2022 3:09 PM Workstation Name: [employer]
--- NOTE | 2022-01-10 16:23 | Progress Note ---
Assessment and Plan Patient is a 41-year-old female past medical history of multiple abdominal surgeries (including ex lap) GERD, and hyperlipidemia who presented to the ED with complaints of nausea, vomiting, diarrhea, and abdominal pain. Patient underwent CT abdomen and pelvis with contrast revealing partial mid small bowel obstruction. GS consulted and admitted for further mx. 01/08: cont empitic abx, iv fluid. GS following. plan for laperotomy today. 01/09: s/p surgery yesterday. cont iv fluid, patient remains NPO 01/10: She continues to have significant amounts of problems ambulating because of back pain. consult physical therapy. start to have ice chips and water. Continue IV fluids and antibiotics. order abdominal x-ray. A/P #Small bowel obstruction #Chronic Crohn's diseasestable CT abdomen and pelvis with contrast revealing partial mid small bowel obstruction Continue n.p.o. status. s/p surgery with open exploration lysis of adhesions and removal of segment of small bowel on 01/08. cont D5 W at 100 cc/hour. Continue antiemetics and analgesics as needed. General surgery consulted; appreciate recs. Trend serial abdominal KUBs. Continue to monitor. #GERD Starting IV pantoprazole 40 mg daily #Hypothyroidism Starting IV levothyroxine #Hyperlipidemia Holding statin until patient can tolerate p.o. intake #Advanced care planning -Disease education conducted, care plan discussed, diagnoses discussed, prognosis discussed, and patient acknowledges understanding with care plan -Time: +30 min Advance Directives: No VTE prophylaxis?: Chemical Plan of care discussed with patient/family: Yes Subjective Date of service: 01/10/22 Interval history: Patient seen and examined with family member at the bedside c/o abdominal pain, no n/v symptoms improving, plan to start clear liquid diet Objective - Exam Narrative Exam: General appearance: Present: no acute distress, well-nourished - EENT Eyes: Present: PERRL, EOM intact ENT: hearing intact, clear oral mucosa, dentition normal - Neck Neck: Present: supple, normal ROM - Respiratory Respiratory effort: normal Respiratory: bilateral: CTA - Cardiovascular Rhythm: regular Heart Sounds: Present: S1 & S2 - Extremities Extremities: no ischemia, pulses intact, pulses symmetrical, No edema, normal temperature, normal color, Full ROM Peripheral Pulses: within normal limits - Abdominal: surgical dressing on place - Rectal Rectal Exam: deferred - Integumentary Integumentary: Present: clear, warm, dry - Musculoskeletal Musculoskeletal: strength equal bilaterally - Psychiatric Psychiatric: appropriate mood/affect, intact judgment & insight, memory intact, cooperative - Neurologic Neurologic: CNII-XII intact, moves all extremities - Allied Health Allied health notes reviewed: nursing - Constitutional Vitals: Vital Signs - 12hr 01/10/22 01/10/22 01/10/22 06:24 13:04 14:00 Temperature 99.1 F 99.4 F Pulse Rate 106 H 105 H Respiratory 19 18 Rate Blood Pressure 117/70 109/66 O2 Sat by Pulse 98 99 97 Oximetry - Labs CBC & Chem 7: 01/13/22 11:35 01/12/22 15:52 Labs: Abnormal lab results 01/09/22 01/10/22 Range/Units 13:49 05:30 Sodium 135 L (137-145) mmol/L Glucose 155 H (65-100) mg/dL POC Glucose 205 H (70-105) mg/dL Calcium 7.6 L (8.4-10.2) mg/dL
[2022-01-10] MEDS: KETOROLAC 30 MG/1 ML INJ IV PRN (21:15)
[2022-01-11] MEDS: DEXTROSE 5% IN WATER 1,000 ML IV SCH ×3 (02:38→22:02)
[2022-01-11] MEDS: HEPARIN 5,000 UNIT/1 ML VIAL SUB-Q SCH ×3 (05:40→21:57)
[2022-01-11] MEDS: KETOROLAC 30 MG/1 ML INJ IV PRN ×3 (05:41→17:47)
[2022-01-11] MEDS: PANTOPRAZOLE 40 MG INJ IV SCH (09:05)
--- NOTE | 2022-01-11 12:07 | Progress Note ---
Assessment and Plan Patient with presentation consistent with small bowel obstruction. CT examination suggests Crohn's disease. Patient has no prior history of this diagnosis. She does have a history of an exploratory laparotomy in December 2020. There are no ventral hernias. Patient is postop day #3 she admits to having some flatus at this time no BMs. She continues to have a fair amount of pain from her incision anteriorly from her back injury posteriorly. Friends of the family are visiting today and in improved past surgical history includes possibly as many as as 7 prior abdominal surgeries beginning in [facility]. It is not clear what the surgeries were intended to do. One of the surgeries may have been an attempt to remove the gallbladder. CT scan on admission shows a gallbladder in its normal position. Plan to advance to clear liquid diet today plan to have advance the diet through the weekend. Subjective Date of service: 01/11/22 Patient Reports: Positive: feels better, still having pain Narrative: Patient is postop day #3 she admits to having some flatus at this time no BMs. She continues to have a fair amount of pain from her incision anteriorly from her back injury posteriorly. Friends of the family are visiting today and in improved past surgical history includes possibly as many as as 7 prior abdominal surgeries beginning in [facility]. It is not clear what the surgeries were intended to do. One of the surgeries may have been an attempt to remove the gallbladder. The admission CT shows the gallbladder to be in place. The history of numerous prior Sporter laparotomy's explains the extensive adhesions in the abdomen at this time. Patient appears to be clearing her ileus slowly. We will start clear liquids today and advance as tolerated through the weekend. Objective Vital Signs - 12hr 01/11/22 01/11/22 01/11/22 02:00 04:35 05:41 Temperature 98.4 F Pulse Rate 93 H Respiratory 17 16 17 Rate Blood Pressure 95/54 O2 Sat by Pulse 99 99 Oximetry 01/11/22 06:11 Temperature Pulse Rate Respiratory 17 Rate Blood Pressure O2 Sat by Pulse Oximetry - Labs 01/08/22 04:00 01/10/22 05:30
[2022-01-12] MEDS: KETOROLAC 30 MG/1 ML INJ IV PRN (05:47)
[2022-01-12] MEDS: HEPARIN 5,000 UNIT/1 ML VIAL SUB-Q SCH ×3 (05:47→22:44)
[2022-01-12] MEDS: PANTOPRAZOLE 40 MG INJ IV SCH (09:54)
[2022-01-12 10:16] LABS: Blood Urea Nitrogen 5 mg/dL (7-17); Hemolysis Index 0
[2022-01-12 10:43] LABS: BUN/Creatinine Ratio 8
[2022-01-12] MEDS: DEXTROSE 5% IN WATER 1,000 ML IV SCH ×2 (10:57→22:44)
--- NOTE | 2022-01-12 12:18 | Progress Note ---
Assessment and Plan Assessment and Plan Patient is a 41-year-old female past medical history of Crohn's disease, multipl e abdominal surgeries (including ex lap) GERD, and hyperlipidemia who presented to the ED with complaints of nausea, vomiting, diarrhea, and abdominal pain that patient needed this morning in addition to painful urination. Patient underwent CT abdomen and pelvis with contrast revealing partial mid small bowel obstruction. GS following s/p surgery 01/08/22 #Small bowel obstruction #Chronic Crohn's diseasestable CT abdomen and pelvis with contrast revealing partial mid small bowel obstruction in the setting of Crohn's disease Continue n.p.o. status. - s/p Lysis of Adhesions Clear liquids started #GERD Starting IV pantoprazole 40 mg daily #Hypothyroidism IV levothyroxine #Hyperlipidemia Holding statin until patient can tolerate p.o. intake #Advanced care planning -Disease education conducted, care plan discussed, diagnoses discussed, p rognosis discussed, and patient acknowledges understanding with care plan -Time: +30 min Advance Directives: No VTE prophylaxis?: Chemical Plan of care discussed with patient/family: Yes Subjective Date of service: 01/11/22 Principal diagnosis: SBO,S/p Lysis of Adhesions Interval history: Patient is a 41-year-old female past medical history of Crohn's disease, multiple abdominal surgeries (including ex lap) GERD, and hyperlipidemia who presented to the ED with complaints of nausea, vomiting, diarrhea, and abdominal pain that patient needed this morning in addition to painful urination. Patient was discharged from [facility] on 10/27/2021 for similar complaints. On that admission she was found to have a small bowel obstruction requiring NG tube placement with resolution of symptoms without the need for surgical intervention. In the ED, the patient was found to be hemodynamically stable with unremarkable labs. Patient underwent CT abdomen and pelvis with contrast revealing partial mid small bowel obstruction in the setting of Crohn's disease. General surgery was consulted for further management.. 01/11/22 . Patient is postop day #3 she admits to having some flatus at this time no BMs. She continues to have a fair amount of pain from her incision anteriorly from her back injury posteriorly. Past surgical history includes possibly as many as as 7 prior abdominal huber rgeries beginning in [facility]. It is not clear what the surgeries were intended to do. One of the surgeries may have been an attempt to remove the gallbladder. CT scan on admission shows a gallbladder in its normal position. Plan to advance to clear liquid diet today plan to have advance the diet through the weekend. Objective - Constitutional Vitals: Vital Signs - 12hr 01/12/22 01/12/22 01/12/22 05:21 05:47 06:17 Temperature 98.3 F Pulse Rate 90 Respiratory 17 17 17 Rate Blood Pressure 101/61 O2 Sat by Pulse 98 Oximetry General appearance: Present: no acute distress, well-nourished - EENT Eyes: PERRL, EOM intact ENT: hearing intact, clear oral mucosa Ears: bilateral: normal - Neck Neck: supple, normal ROM - Respiratory Respiratory effort: normal Respiratory: bilateral: CTA - Breasts Breasts: normal - Cardiovascular Heart rate: 78 Rhythm: regular Heart Sounds: Present: S1 & S2. Absent: gallop, rub Extremities: pulses intact, No edema, normal color, Full ROM - Gastrointestinal General gastrointestinal: Present: soft, non-tender, non-distended, normal bowel sounds - Genitourinary Female genitourinary: normal - Integumentary Integumentary: clear, warm, dry - Musculoskeletal Musculoskeletal: 1, strength equal bilaterally - Neurologic Neurologic: moves all extremities - Psychiatric Psychiatric: memory intact, appropriate mood/affect, intact judgment & insight - Labs CBC & Chem 7: 01/08/22 04:00 01/12/22 09:23 Labs: Abnormal lab results 01/12/22 Range/Units 09:23 Sodium 87 L* D (137-145) mmol/L Potassium 2.6 L* D (3.6-5.0) mmol/L Chloride 60.0 L (98-107) mmol/L Carbon Dioxide 18 L D (22-30) mmol/L BUN 5 L (7-17) mg/dL Glucose 1747 H* (65-100) mg/dL Calcium 5.0 L* D (8.4-10.2) mg/dL
--- NOTE | 2022-01-12 12:38 | Progress Note ---
Assessment and Plan Assessment and Plan Patient is a 41-year-old female past medical history of Crohn's disease, multipl e abdominal surgeries (including ex lap) GERD, and hyperlipidemia who presented to the ED with complaints of nausea, vomiting, diarrhea, and abdominal pain that patient needed this morning in addition to painful urination. Patient underwent CT abdomen and pelvis with contrast revealing partial mid small bowel obstruction. GS following s/p surgery 01/08/22 #Small bowel obstruction --S/p Lysis of adhesions --on clears #Chronic Crohn's diseasestable - CT abdomen and pelvis with contrast revealing partial mid small bowel obstruction in the setting of Crohn's disease - Continue n.p.o. status. - -s/p Lysis of Adhesions --Clear liquids started #GERD Starting IV pantoprazole 40 mg daily #Hypothyroidism IV levothyroxine #Hyperlipidemia Holding statin until patient can tolerate p.o. intake #Advanced care planning -Disease education conducted, care plan discussed, diagnoses discussed, prognosis discussed, and patient acknowledges understanding with care plan -Time: +30 min Advance Directives: No VTE prophylaxis?: Chemical Plan of care discussed with patient/family: Yes Subjective Date of service: 01/12/22 Principal diagnosis: SBO,S/p Lysis of Adhesions Interval history: Patient is a 41-year-old female past medical history of Crohn's disease, multiple abdominal surgeries (including ex lap) GERD, and hyperlipidemia who presented to the ED with complaints of nausea, vomiting, diarrhea, and abdominal pain that patient needed this morning in addition to painful urination. Patient was discharged from [facility] on 10/27/2021 for similar complaints. On that admission she was found to have a small bowel obstruction requiring NG tube placement with resolution of symptoms without the need for surgical intervention. In the ED, the patient was found to be hemodynamically stable with unremarkable labs. Patient underwent CT abdomen and pelvis with contrast revealing partial mid small bowel obstruction in the setting of Crohn's disease. General surgery was consulted for further management.. 01/11/22 . Patient is postop day #3 she admits to having some flatus at this time no BMs. She continues to have a fair amount of pain from her incision anteriorly from her back injury posteriorly. Past surgical history includes possibly as many as as 7 prior abdominal surgeries beginning in [facility]. It is not clear what the surgeries were intended to do. One of the surgeries may have been an attempt to remove the gallbladder. CT scan on admission shows a gallbladder in its normal position. Plan to advance to clear liquid diet today plan to have advance the diet through the weekend. 01/12/22 Abnormal labs Potassium supplemented Glucose levels high--1747 possible error Will repeat BMP stat Objective - Constitutional Vitals: Vital Signs - 12hr 01/12/22 01/12/22 01/12/22 05:21 05:47 06:17 Temperature 98.3 F Pulse Rate 90 Respiratory 17 17 17 Rate Blood Pressure 101/61 O2 Sat by Pulse 98 Oximetry General appearance: Present: no acute distress, well-nourished - EENT Eyes: PERRL, EOM intact ENT: hearing intact, clear oral mucosa Ears: bilateral: normal - Neck Neck: supple, normal ROM - Respiratory Respiratory effort: normal Respiratory: bilateral: CTA - Breasts Breasts: normal - Cardiovascular Heart rate: 78 Rhythm: regular Heart Sounds: Present: S1 & S2. Absent: gallop, rub Extremities: pulses intact, No edema, normal color, Full ROM - Gastrointestinal General gastrointestinal: Present: soft, non-tender, non-distended, normal bowel sounds - Genitourinary Female genitourinary: normal - Integumentary Integumentary: clear, warm, dry - Musculoskeletal Musculoskeletal: 1, strength equal bilaterally - Neurologic Neurologic: moves all extremities - Psychiatric Psychiatric: memory intact, appropriate mood/affect, intact judgment & insight - Labs CBC & Chem 7: 01/08/22 04:00 01/12/22 09:23 Labs: Abnormal lab results 01/12/22 Range/Units 09:23 Sodium 87 L* D (137-145) mmol/L Potassium 2.6 L* D (3.6-5.0) mmol/L Chloride 60.0 L (98-107) mmol/L Carbon Dioxide 18 L D (22-30) mmol/L BUN 5 L (7-17) mg/dL Glucose 1747 H* (65-100) mg/dL Calcium 5.0 L* D (8.4-10.2) mg/dL
--- NOTE | 2022-01-12 13:16 | Progress Note ---
Assessment and Plan Patient with presentation consistent with small bowel obstruction. CT examination suggests Crohn's disease. Patient has no prior history of this diagnosis. She does have a history of an exploratory laparotomy in December 2020. There are no ventral hernias. Patient is postop day #3 she admits to having some flatus at this time no BMs. She continues to have a fair amount of pain from her incision anteriorly from her back injury posteriorly. Friends of the family are visiting today and in improved past surgical history includes possibly as many as as 7 prior abdominal surgeries beginning in [facility]. It is not clear what the surgeries were intended to do. One of the surgeries may have been an attempt to remove the gallbladder. CT scan on admission shows a gallbladder in its normal position. Patient is 4 days status post lysis of adhesion and small bowel resection. Path report is showing scar tissue but no signs of Crohn's disease. Patient is having flatus at this time. She is also describing some pain with p.o. intake. No nausea or vomiting. We will advance cautiously to full liquids at this time. Patient would like to try some ice cream. Subjective Date of service: 01/12/22 Patient Reports: Positive: still having pain Narrative: Patient is 4 days status post lysis of adhesion and small bowel resection. Path report is showing scar tissue but no signs of Crohn's disease. Patient is having flatus at this time. She is also describing some pain with p.o. intake. No nausea or vomiting. We will advance cautiously to full liquids at this time. Patient would like to try some ice cream. Objective Vital Signs - 12hr 01/12/22 01/12/22 01/12/22 05:21 05:47 06:17 Temperature 98.3 F Pulse Rate 90 Respiratory 17 17 17 Rate Blood Pressure 101/61 O2 Sat by Pulse 98 Oximetry - Labs 01/08/22 04:00 01/12/22 09:23 Diabetes panel 01/12/22 Range/Units 09:23 Sodium 87 L* D (137-145) mmol/L Potassium 2.6 L* D (3.6-5.0) mmol/L Chloride 60.0 L (98-107) mmol/L Carbon Dioxide 18 L D (22-30) mmol/L BUN 5 L (7-17) mg/dL Creatinine 0.6 (0.6-1.2) mg/dL Glucose 1747 H* (65-100) mg/dL Calcium 5.0 L* D (8.4-10.2) mg/dL Calcium panel 01/12/22 Range/Units 09:23 Calcium 5.0 L* D (8.4-10.2) mg/dL Pituitary panel 01/12/22 Range/Units 09:23 Sodium 87 L* D (137-145) mmol/L Potassium 2.6 L* D (3.6-5.0) mmol/L Chloride 60.0 L (98-107) mmol/L Carbon Dioxide 18 L D (22-30) mmol/L BUN 5 L (7-17) mg/dL Creatinine 0.6 (0.6-1.2) mg/dL Glucose 1747 H* (65-100) mg/dL Calcium 5.0 L* D (8.4-10.2) mg/dL Adrenal panel 01/12/22 Range/Units 09:23 Sodium 87 L* D (137-145) mmol/L Potassium 2.6 L* D (3.6-5.0) mmol/L Chloride 60.0 L (98-107) mmol/L Carbon Dioxide 18 L D (22-30) mmol/L BUN 5 L (7-17) mg/dL Creatinine 0.6 (0.6-1.2) mg/dL Glucose 1747 H* (65-100) mg/dL Calcium 5.0 L* D (8.4-10.2) mg/dL
[2022-01-12] MEDS: POTASSIUM CHLORIDE 10 MEQ 10 MEQ/100 ML BAG IV SCH ×4 (15:12→19:32)
[2022-01-12 18:43] LABS: Alanine Aminotransferase 7 units/L (7-56); Albumin 3.7 g/dL (3.9-5); BUN/Creatinine Ratio 11; Blood Urea Nitrogen 8 mg/dL (7-17); Calcium 8.5 mg/dL (8.4-10.2); Hemolysis Index 4
[2022-01-12 19:18] LABS: Basophils % (Auto) 0.5 % (0.0-1.8); Eosinophils # (Auto) 0.3 K/mm3 (0.0-0.4); Eosinophils % (Auto) 3.2 % (0.0-4.3); Hemoglobin 6.7 gm/dl (10.1-14.3); Lymphocytes # (Auto) 1.5 K/mm3 (1.2-5.4); Lymphocytes % (Auto) 17.7 % (13.4-35.0); Mean Corpuscular HGB Conc 32 % (30-34); Mean Corpuscular Volume 80 fl (79-97); Monocytes # (Auto) 0.8 K/mm3 (0.0-0.8); Monocytes % (Auto) 9.4 % (0.0-7.3); Platelet Count 338 K/mm3 (140-440); Red Blood Count 2.64 M/mm3 (3.65-5.03); Red Cell Distribution Width 15.9 % (13.2-15.2)
[2022-01-13] MEDS: HEPARIN 5,000 UNIT/1 ML VIAL SUB-Q SCH ×3 (05:57→21:22)
[2022-01-13] MEDS: PANTOPRAZOLE 40 MG INJ IV SCH (10:18)
[2022-01-13] MEDS: DEXTROSE 5% IN WATER 1,000 ML IV SCH (10:18)
[2022-01-13] MEDS ORDERED: SODIUM CHLORIDE 0.9% 500 ML 500 ML IV SCH (11:06)
[2022-01-13 12:54] LABS: Mean Corpuscular HGB Conc 30 % (30-34); Mean Corpuscular Volume 88 fl (79-97); Platelet Count 238 K/mm3 (140-440); Red Blood Count 1.73 M/mm3 (3.65-5.03); Red Cell Distribution Width 17.5 % (13.2-15.2)
[2022-01-13 13:00] LABS: Hemoglobin 4.5 gm/dl (10.1-14.3)
[2022-01-13 13:01] LABS: Hematocrit 15.2 % (30.3-42.9)
--- NOTE | 2022-01-13 13:05 | Progress Note ---
Assessment and Plan Patient with presentation consistent with small bowel obstruction. CT examination suggests Crohn's disease. Patient has no prior history of this diagnosis. She does have a history of an exploratory laparotomy in December 2020. There are no ventral hernias. Patient is postop day #3 she admits to having some flatus at this time no BMs. She continues to have a fair amount of pain from her incision anteriorly from her back injury posteriorly. Friends of the family are visiting today and in improved past surgical history includes possibly as many as as 7 prior abdominal surgeries beginning in [facility]. It is not clear what the surgeries were intended to do. One of the surgeries may have been an attempt to remove the gallbladder. CT scan on admission shows a gallbladder in its normal position. pt tolerating full liquids for one day. Continued flatus no bm. Shewould like to try a soft diet. Subjective Date of service: 01/13/22 Patient Reports: Positive: no new complaints, still having pain Narrative: pt tolerating full liquids for one day. Continued flatus no bm. Shewould like to try a soft diet. Objective Vital Signs - 12hr 01/13/22 01:55 O2 Sat by Pulse 100 Oximetry - Labs 01/13/22 11:35 01/12/22 15:52 Diabetes panel 01/12/22 Range/Units 15:52 Sodium 136 L D (137-145) mmol/L Potassium 4.5 D (3.6-5.0) mmol/L Chloride 100.6 (98-107) mmol/L Carbon Dioxide 26 D (22-30) mmol/L BUN 8 (7-17) mg/dL Creatinine 0.7 (0.6-1.2) mg/dL Glucose 126 H (65-100) mg/dL Calcium 8.5 D (8.4-10.2) mg/dL AST 15 (5-40) units/L ALT 7 (7-56) units/L Alkaline Phosphatase 60 (35-129) units/L Total Protein 6.3 (6.3-8.2) g/dL Albumin 3.7 L (3.9-5) g/dL Calcium panel 01/12/22 Range/Units 15:52 Calcium 8.5 D (8.4-10.2) mg/dL Albumin 3.7 L (3.9-5) g/dL Pituitary panel 01/12/22 Range/Units 15:52 Sodium 136 L D (137-145) mmol/L Potassium 4.5 D (3.6-5.0) mmol/L Chloride 100.6 (98-107) mmol/L Carbon Dioxide 26 D (22-30) mmol/L BUN 8 (7-17) mg/dL Creatinine 0.7 (0.6-1.2) mg/dL Glucose 126 H (65-100) mg/dL Calcium 8.5 D (8.4-10.2) mg/dL Adrenal panel 01/12/22 Range/Units 15:52 Sodium 136 L D (137-145) mmol/L Potassium 4.5 D (3.6-5.0) mmol/L Chloride 100.6 (98-107) mmol/L Carbon Dioxide 26 D (22-30) mmol/L BUN 8 (7-17) mg/dL Creatinine 0.7 (0.6-1.2) mg/dL Glucose 126 H (65-100) mg/dL Calcium 8.5 D (8.4-10.2) mg/dL Total Bilirubin 0.80 (0.1-1.2) mg/dL AST 15 (5-40) units/L ALT 7 (7-56) units/L Alkaline Phosphatase 60 (35-129) units/L Total Protein 6.3 (6.3-8.2) g/dL Albumin 3.7 L (3.9-5) g/dL
--- NOTE | 2022-01-13 13:53 | Progress Note ---
Assessment and Plan Patient is a 41-year-old female past medical history of multiple abdominal surgeries (including ex lap) GERD, and hyperlipidemia who presented to the ED with complaints of nausea, vomiting, diarrhea, and abdominal pain. Patient underwent CT abdomen and pelvis with contrast revealing partial mid small bowel obstruction. GS consulted and admitted for further mx. 01/08: cont empitic abx, iv fluid. GS following. plan for laperotomy today. 01/09: s/p surgery yesterday. cont iv fluid, patient remains NPO 01/10: She continues to have significant amounts of problems ambulating because of back pain. consult physical therapy. start to have ice chips and water. Continue IV fluids and antibiotics. order abdominal x-ray. 01/11/22 . Patient is postop day #3 she admits to having some flatus at this time no BMs. She continues to have a fair amount of pain from her incision anteriorly from her back injury posteriorly. Past surgical history includes possibly as many as as 7 prior abdominal surgeries beginning in [facility]. It is not clear what the surgeries were intended to do. One of the surgeries may have been an attempt to remove the gallbladder. CT scan on admission shows a gallbladder in its normal position. Plan to advance to clear liquid diet today plan to have advance the diet through the weekend. 01/12/22 Abnormal labs Potassium supplemented Glucose levels high--1747 likely wrong reading repeat is normal possible error Will repeat BMP stat 01/13: Hb dropped to 4.5 today, likely due to menorrhagia as patient currently on her menstrual cycle. Repeat h/h, ordered for transfusion. Patient tolerating soft diet but no bowel movement yet. A/P #Small bowel obstruction #Chronic Crohn's diseasestable CT abdomen and pelvis with contrast revealing partial mid small bowel obstruction Continue n.p.o. status. s/p surgery with open exploration lysis of adhesions and removal of segment of small bowel on 01/08. cont D5 W at 100 cc/hour. Continue antiemetics and analgesics as needed. General surgery consulted; appreciate recs. Trend serial abdominal KUBs. Continue to monitor. #Acute on chronic anemia due to blood loss, -likely from menorrhagia, patient currently on her menstrual cycle -transfused 2 units of packed RBC #GERD cont IV pantoprazole 40 mg daily #Hypothyroidism Starting IV levothyroxine #Hyperlipidemia Holding statin until patient can tolerate p.o. intake #Advanced care planning -Disease education conducted, care plan discussed, diagnoses discussed, prognosis discussed, and patient acknowledges understanding with care plan -Time: +30 min Advance Directives: No VTE prophylaxis?: Chemical Plan of care discussed with patient/family: Yes Subjective Date of service: 01/13/22 Principal diagnosis: SBO,S/p Lysis of Adhesions Interval history: Patient seen and examined with family member at the bedside c/o abdominal pain, no n/v Symptoms improving, GS following tolerating diet but no BM yet h/h stable Objective - Exam Narrative Exam: General appearance: Present: no acute distress, well-nourished - EENT Eyes: Present: PERRL, EOM intact ENT: hearing intact, clear oral mucosa, dentition normal - Neck Neck: Present: supple, normal ROM - Respiratory Respiratory effort: normal Respiratory: bilateral: CTA - Cardiovascular Rhythm: regular Heart Sounds: Present: S1 & S2 - Extremities Extremities: no ischemia, pulses intact, pulses symmetrical, No edema, normal temperature, normal color, Full ROM Peripheral Pulses: within normal limits - Abdominal: surgical dressing on place - Rectal Rectal Exam: deferred - Integumentary Integumentary: Present: clear, warm, dry - Musculoskeletal Musculoskeletal: strength equal bilaterally - Psychiatric Psychiatric: appropriate mood/affect, intact judgment & insight, memory intact, cooperative - Neurologic Neurologic: CNII-XII intact, moves all extremities - Allied Health Allied health notes reviewed: nursing - Constitutional Vitals: Vital Signs - 12hr 01/13/22 01:55 O2 Sat by Pulse 100 Oximetry - Labs CBC & Chem 7: 01/14/22 04:13 01/12/22 15:52 Labs: Abnormal lab results 01/12/22 01/12/22 01/13/22 Range/Units 15:52 15:52 11:35 RBC 2.64 L (3.65-5.03) M/mm3 Hgb 6.7 L (10.1-14.3) gm/dl Hct 21.0 L (30.3-42.9) % MCH 25 L (28-32) pg RDW 15.9 H (13.2-15.2) % Woodward % (Auto) 9.4 H (0.0-7.3) % Sodium 136 L D (137-145) mmol/L Glucose 126 H (65-100) mg/dL Albumin 3.7 L (3.9-5) g/dL Crossmatch See Detail 01/13/22 Range/Units 11:35 RBC 1.73 L (3.65-5.03) M/mm3 Hgb 4.5 L* (10.1-14.3) gm/dl Hct 15.2 L* (30.3-42.9) % MCH 26 L (28-32) pg RDW 17.5 H (13.2-15.2) % Woodward % (Auto) (0.0-7.3) % Sodium (137-145) mmol/L Glucose (65-100) mg/dL Albumin (3.9-5) g/dL Crossmatch
[2022-01-13] MEDS ORDERED: SODIUM CHLORIDE 0.9% 500 ML 500 ML IV ONE (15:00)
[2022-01-14] MEDS: MORPHINE 2 MG/1 ML INJ IV PRN ×2 (01:29→20:07)
[2022-01-14 04:58] LABS: Hematocrit 30.5 % (30.3-42.9); Hemoglobin 10.1 gm/dl (10.1-14.3); Mean Corpuscular HGB Conc 33 % (30-34); Mean Corpuscular Volume 80 fl (79-97); Platelet Count 327 K/mm3 (140-440); Red Blood Count 3.82 M/mm3 (3.65-5.03); Red Cell Distribution Width 15.9 % (13.2-15.2)
[2022-01-14] MEDS: HEPARIN 5,000 UNIT/1 ML VIAL SUB-Q SCH ×3 (06:09→21:14)
[2022-01-14] MEDS: DEXTROSE 5% IN WATER 1,000 ML IV SCH ×2 (06:15→16:22)
[2022-01-14] MEDS: PANTOPRAZOLE 40 MG TAB PO SCH (07:30)
--- NOTE | 2022-01-14 16:02 | Progress Note ---
Assessment and Plan Patient is a 41-year-old female past medical history of multiple abdominal surgeries (including ex lap) GERD, and hyperlipidemia who presented to the ED with complaints of nausea, vomiting, diarrhea, and abdominal pain. Patient underwent CT abdomen and pelvis with contrast revealing partial mid small bowel obstruction. GS consulted and admitted for further mx. 01/08: cont empitic abx, iv fluid. GS following. plan for laperotomy today. 01/09: s/p surgery yesterday. cont iv fluid, patient remains NPO 01/10: She continues to have significant amounts of problems ambulating because of back pain. consult physical therapy. start to have ice chips and water. Continue IV fluids and antibiotics. order abdominal x-ray. 01/11/22 . Patient is postop day #3 she admits to having some flatus at this time no BMs. She continues to have a fair amount of pain from her incision anteriorly from her back injury posteriorly. Past surgical history includes possibly as many as as 7 prior abdominal surgeries beginning in [facility]. It is not clear what the surgeries were intended to do. One of the surgeries may have been an attempt to remove the gallbladder. CT scan on admission shows a gallbladder in its normal position. Plan to advance to clear liquid diet today plan to have advance the diet through the weekend. 01/12/22 Abnormal labs Potassium supplemented Glucose levels high--1747 likely wrong reading repeat is normal possible error Will repeat BMP stat 01/13: Hb dropped to 4.5 today, likely due to menorrhagia as patient currently on her menstrual cycle. Repeat h/h, ordered for transfusion. Patient tolerating soft diet but no bowel movement yet. 01/14: h/h stable. did not have BM yet, cont to follow. repeat BMP tomorrow am A/P #Small bowel obstruction #Chronic Crohn's diseasestable CT abdomen and pelvis with contrast revealing partial mid small bowel obstruction Continue n.p.o. status. s/p surgery with open exploration lysis of adhesions and removal of segment of small bowel on 01/08. cont D5 W at 100 cc/hour. Continue antiemetics and analgesics as needed. General surgery consulted; appreciate recs. Trend serial abdominal KUBs. Continue to monitor. #Acute on chronic anemia due to blood loss, -likely from menorrhagia, patient currently on her menstrual cycle -transfused 2 units of packed RBC #GERD cont IV pantoprazole 40 mg daily #Hypothyroidism Starting IV levothyroxine #Hyperlipidemia Holding statin until patient can tolerate p.o. intake #Advanced care planning -Disease education conducted, care plan discussed, diagnoses discussed, prognosis discussed, and patient acknowledges understanding with care plan -Time: +30 min Advance Directives: No VTE prophylaxis?: Chemical Plan of care discussed with patient/family: Yes Subjective Date of service: 01/14/22 Principal diagnosis: SBO,S/p Lysis of Adhesions Interval history: Patient seen and examined with family member at the bedside c/o abdominal pain, no n/v Symptoms improving, GS following tolerating diet but no BM yet h/h stable Objective - Exam Narrative Exam: General appearance: Present: no acute distress, well-nourished - EENT Eyes: Present: PERRL, EOM intact ENT: hearing intact, clear oral mucosa, dentition normal - Neck Neck: Present: supple, normal ROM - Respiratory Respiratory effort: normal Respiratory: bilateral: CTA - Cardiovascular Rhythm: regular Heart Sounds: Present: S1 & S2 - Extremities Extremities: no ischemia, pulses intact, pulses symmetrical, No edema, normal temperature, normal color, Full ROM Peripheral Pulses: within normal limits - Abdominal: surgical dressing on place - Rectal Rectal Exam: deferred - Integumentary Integumentary: Present: clear, warm, dry - Musculoskeletal Musculoskeletal: strength equal bilaterally - Psychiatric Psychiatric: appropriate mood/affect, intact judgment & insight, memory intact, cooperative - Neurologic Neurologic: CNII-XII intact, moves all extremities - Allied Health Allied health notes reviewed: nursing - Constitutional Vitals: Vital Signs - 12hr 01/14/22 01/14/22 01/14/22 06:25 10:00 11:36 Temperature 98.1 F 98.3 F Pulse Rate 84 95 H Respiratory 18 18 Rate Blood Pressure 105/66 Blood Pressure 119/75 [Right] O2 Sat by Pulse 98 98 96 Oximetry - Labs CBC & Chem 7: 01/14/22 04:13 01/12/22 15:52 Labs: Abnormal lab results 01/13/22 01/14/22 Range/Units 11:35 04:13 MCH 26 L (28-32) pg RDW 15.9 H (13.2-15.2) % Crossmatch See Detail
--- NOTE | 2022-01-14 18:00 | Progress Note ---
Assessment and Plan Patient with presentation consistent with small bowel obstruction. CT examination suggests Crohn's disease. Patient has no prior history of this diagnosis. She does have a history of an exploratory laparotomy in December 2020. There are no ventral hernias. Patient is postop day #3 she admits to having some flatus at this time no BMs. She continues to have a fair amount of pain from her incision anteriorly from her back injury posteriorly. Friends of the family are visiting today and in improved past surgical history includes possibly as many as as 7 prior abdominal surgeries beginning in [facility]. It is not clear what the surgeries were intended to do. One of the surgeries may have been an attempt to remove the gallbladder. CT scan on admission shows a gallbladder in its normal position. jazzy soft diet.Pt is asking for a rectal supposistory to help with bm's. Subjective Date of service: 01/14/22 Patient Reports: Positive: no new complaints, feels better, flatus, no bowel movement Narrative: Pt is asking for a rectal supposistory to help with bm's. Objective Vital Signs - 12hr 01/14/22 01/14/22 01/14/22 06:25 10:00 11:36 Temperature 98.1 F 98.3 F Pulse Rate 84 95 H Respiratory 18 18 Rate Blood Pressure 105/66 Blood Pressure 119/75 [Right] O2 Sat by Pulse 98 98 96 Oximetry 01/14/22 16:21 Temperature 98.2 F Pulse Rate 96 H Respiratory 16 Rate Blood Pressure 110/72 Blood Pressure [Right] O2 Sat by Pulse 97 Oximetry - Labs 01/14/22 04:13 01/12/22 15:52
[2022-01-15] MEDS: DEXTROSE 5% IN WATER 1,000 ML IV SCH ×2 (02:00→09:54)
[2022-01-15] MEDS: HEPARIN 5,000 UNIT/1 ML VIAL SUB-Q SCH ×2 (05:24→13:28)
[2022-01-15 05:56] LABS: Blood Urea Nitrogen 9 mg/dL (7-17); Calcium 8.8 mg/dL (8.4-10.2); Hemolysis Index 1
[2022-01-15 06:04] LABS: Hematocrit 31.1 % (30.3-42.9); Hemoglobin 10.4 gm/dl (10.1-14.3); Mean Corpuscular HGB Conc 34 % (30-34); Mean Corpuscular Volume 79 fl (79-97); Platelet Count 371 K/mm3 (140-440); Red Blood Count 3.95 M/mm3 (3.65-5.03)
[2022-01-15 06:05] LABS: BUN/Creatinine Ratio 18
[2022-01-15] MEDS: PANTOPRAZOLE 40 MG TAB PO SCH (07:50)
--- NOTE | 2022-01-15 08:16 | Progress Note ---
Assessment and Plan Assessment and plan: Patient is a 41-year-old female past medical history of multiple abdominal surgeries (including ex lap) GERD, and hyperlipidemia who presented to the ED with complaints of nausea, vomiting, diarrhea, and abdominal pain. Patient underwent CT abdomen and pelvis with contrast revealing partial mid small bowel obstruction. GS consulted and admitted for further mx. 01/08: cont empitic abx, iv fluid. GS following. plan for laperotomy today. 01/09: s/p surgery yesterday. cont iv fluid, patient remains NPO 01/10: She continues to have significant amounts of problems ambulating because of back pain. consult physical therapy. start to have ice chips and water. Continue IV fluids and antibiotics. order abdominal x-ray. 01/11/22 . Patient is postop day #3 she admits to having some flatus at this time no BMs. She continues to have a fair amount of pain from her incision anterio rly from her back injury posteriorly. Past surgical history includes possibly as many as as 7 prior abdominal surgeries beginning in [facility]. It is not clear what the surgeries were intended to do. One of the surgeries may have been an attempt to remove the gallbladder. CT scan on admission shows a gallbladder in its normal position. Plan to advance to clear liquid diet today plan to have advance the diet through the weekend. 01/12/22 Abnormal labs Potassium supplemented Glucose levels high--1747 likely wrong reading repeat is normal possible error Will repeat BMP stat 01/13: Hb dropped to 4.5 today, likely due to menorrhagia as patient currently on her menstrual cycle. Repeat h/h, ordered for transfusion. Patient tolerating soft diet but no bowel movement yet. 01/14: h/h stable. did not have BM yet, cont to follow. repeat BMP tomorrow am A/P #Small bowel obstruction #Chronic Crohn's diseasestable CT abdomen and pelvis with contrast revealing partial mid small bowel obstruction Continue n.p.o. status. s/p surgery with open exploration lysis of adhesions and removal of segment of small bowel on 01/08. cont D5 W at 100 cc/hour. Continue antiemetics and analgesics as needed. General surgery consulted; appreciate recs. Trend serial abdominal KUBs. Continue to monitor. #Acute on chronic anemia due to blood loss, -likely from menorrhagia, patient currently on her menstrual cycle -transfused 2 units of packed RBC #GERD cont IV pantoprazole 40 mg daily #Hypothyroidism Starting IV levothyroxine #Hyperlipidemia Holding statin until patient can tolerate p.o. intake #Advanced care planning -Disease education conducted, care plan discussed, diagnoses discussed, prognosis discussed, and patient acknowledges understanding with care plan -Time: +30 min Advance Directives: No VTE prophylaxis?: Chemical Plan of care discussed with patient/family: Yes Hospitalist Physical - Constitutional Vitals: Temp Pulse Resp BP Pulse Ox 98.4 F 91 H 16 113/68 97 01/14/22 21:25 01/14/22 21:25 01/14/22 21:25 01/14/22 21:25 01/14/22 22:00 General appearance: Present: no acute distress, well-nourished Results - Labs CBC & Chem 7: 01/15/22 05:02 01/15/22 05:02 Labs: Laboratory Last Values WBC 11.3 K/mm3 (4.5-11.0) H 01/15/22 05:02 RBC 3.95 M/mm3 (3.65-5.03) 01/15/22 05:02 Hgb 10.4 gm/dl (10.1-14.3) 01/15/22 05:02 Hct 31.1 % (30.3-42.9) 01/15/22 05:02 MCV 79 fl (79-97) 01/15/22 05:02 MCH 26 pg (28-32) L 01/15/22 05:02 MCHC 34 % (30-34) 01/15/22 05:02 RDW 16.0 % (13.2-15.2) H 01/15/22 05:02 Plt Count 371 K/mm3 (140-440) 01/15/22 05:02 Lymph % (Auto) 17.7 % (13.4-35.0) 01/12/22 15:52 Burnett % (Auto) 9.4 % (0.0-7.3) H 01/12/22 15:52 Eos % (Auto) 3.2 % (0.0-4.3) 01/12/22 15:52 Baso % (Auto) 0.5 % (0.0-1.8) 01/12/22 15:52 Lymph # (Auto) 1.5 K/mm3 (1.2-5.4) 01/12/22 15:52 Burnett # (Auto) 0.8 K/mm3 (0.0-0.8) 01/12/22 15:52 Eos # (Auto) 0.3 K/mm3 (0.0-0.4) 01/12/22 15:52 Baso # (Auto) 0.0 K/mm3 (0.0-0.1) 01/12/22 15:52 Seg Neutrophils % 69.2 % (40.0-70.0) 01/12/22 15:52 Seg Neutrophils # 5.8 K/mm3 (1.8-7.7) 01/12/22 15:52 Sodium 134 mmol/L (137-145) L 01/15/22 05:02 Potassium 4.2 mmol/L (3.6-5.0) 01/15/22 05:02 Chloride 96.8 mmol/L (98-107) L 01/15/22 05:02 Carbon Dioxide 25 mmol/L (22-30) 01/15/22 05:02 Anion Gap 16 mmol/L 01/15/22 05:02 BUN 9 mg/dL (7-17) 01/15/22 05:02 Creatinine 0.5 mg/dL (0.6-1.2) L 01/15/22 05:02 Estimated GFR > 60 ml/min 01/15/22 05:02 BUN/Creatinine Ratio 18 % 01/15/22 05:02 Glucose 143 mg/dL (65-100) H 01/15/22 05:02 POC Glucose 205 mg/dL (70-105) H 01/09/22 13:49 Calcium 8.8 mg/dL (8.4-10.2) 01/15/22 05:02 Total Bilirubin 0.80 mg/dL (0.1-1.2) 01/12/22 15:52 AST 15 units/L (5-40) 01/12/22 15:52 ALT 7 units/L (7-56) 01/12/22 15:52 Alkaline Phosphatase 60 units/L (35-129) 01/12/22 15:52 Total Protein 6.3 g/dL (6.3-8.2) 01/12/22 15:52 Albumin 3.7 g/dL (3.9-5) L 01/12/22 15:52 Albumin/Globulin Ratio 1.4 % 01/12/22 15:52 Urine Color Yellow (Yellow) 01/06/22 Unknown Urine Turbidity Slightly cloudy (Clear) 01/06/22 Unknown Urine pH 7.0 (5.0-7.0) 01/06/22 Unknown Ur Specific Thornton 1.020 (1.003-1.030) 01/06/22 Unknown Urine Protein 30 mg/dl mg/dL (Negative) 01/06/22 Unknown Urine Glucose (UA) Negative mg/dL (Negative) 01/06/22 Unknown Urine Ketones Trace mg/dL (Negative) 01/06/22 Unknown Urine Blood Negative (Negative) 01/06/22 Unknown Urine Nitrite Negative (Negative) 01/06/22 Unknown Ur Reducing Substances Not Reportable 01/06/22 Unknown Urine Bilirubin Negative (Negative) 01/06/22 Unknown Urine Ictotest Not Reportable 01/06/22 Unknown Urine Urobilinogen < 2.0 mg/dL (<2.0) 01/06/22 Unknown Ur Leukocyte Esterase Negative (Negative) 01/06/22 Unknown Urine WBC (Auto) < 1.0 /HPF (0.0-6.0) 01/06/22 Unknown Urine RBC (Auto) < 1.0 /HPF (0.0-6.0) 01/06/22 Unknown U Epithel Cells (Auto) < 1.0 /HPF (0-13.0) 01/06/22 Unknown Urine Mucus Few /HPF 01/06/22 Unknown Urine HCG, Qual Negative (Negative) 01/06/22 Unknown Blood Type B POSITIVE 01/13/22 11:35 Antibody Screen Negative 01/13/22 11:35 Crossmatch See Detail 01/13/22 11:35 Lopez/IV: Voiding Method Indwelling Catheter Active Medications - Current Medications Current Medications: Generic Name Dose Route Start Last Admin Trade Name Freq PRN Reason Stop Dose Admin Heparin Sodium (Porcine) 5,000 unit 01/07/22 09:00 01/15/22 05:24 Heparin 5,000 Unit/1 Ml Vial SUB-Q 5,000 unit Q8HR AMY Administration Hydromorphone HCl 0.5 mg 01/08/22 18:00 01/08/22 20:16 Hydromorphone 0.5 Mg/0.5 Ml Inj IV 0.5 mg Q10MIN PRN Administration Pain , Severe (7-10) Dextrose 1,000 mls @ 100 mls/hr 01/07/22 14:00 01/15/22 02:00 D5w IV 100 mls/hr DIRECT AMY Administration Sodium Chloride 500 mls @ 0 mls/hr 01/13/22 11:06 01/13/22 13:11 Nacl 0.9% 500 Ml IV 42 mls/hr ONCE AMY Administration As Directed Morphine Sulfate 2 mg 01/07/22 09:00 01/14/22 20:07 Morphine 2 Mg/1 Ml Inj IV 2 mg Q4H PRN Administration Pain , Severe (7-10) Ondansetron HCl 4 mg 01/07/22 08:30 01/09/22 11:00 Ondansetron 4 Mg/2 Ml Inj IV 4 mg Q8H PRN Administration Nausea And Vomiting Pantoprazole Sodium 40 mg 01/14/22 07:30 01/15/22 07:50 Pantoprazole 40 Mg Tab PO 40 mg QDAC AMY Administration Sodium Chloride 10 ml 01/07/22 10:00 01/14/22 21:15 Sodium Chloride 0.9% 10 Ml Flush Syringe IV 10 ml BID AMY Administration Sodium Chloride 10 ml 01/07/22 08:30 Sodium Chloride 0.9% 10 Ml Flush Syringe IV PRN PRN LINE FLUSH
[2022-01-15 12:07] VITALS: BP 108/71
--- NOTE | 2022-01-15 15:23 | Discharge Summary ---
Providers - Providers Date of Admission: 01/07/22 08:05 Date of discharge: 01/15/22 Attending physician: GIO PUENTE 01/07/22 08:05 Consult to Physician [CONS] Routine Comment: Consulting Provider: BRIANA PARKS Physician Instructions: Reason For Exam: Partial SBO 01/10/22 12:01 Physical Therapy Evaluation and Treat [CONS] Urgent Comment: Patient postop day #2 status post open exploration Reason For Exam: Patient with history of back injury Mode of Transport?: Wheelchair Weight bearing status?: Partial wt bearing Primary care physician: [employer] Hospitalization Reason for admission: Nausea vomiting diarrhea/abdominal pain/small bowel obstruction Condition: Stable Pertinent studies: CT abdomen and pelvis Hospital course: Patient is a 41-year-old female past medical history of multiple abdominal surgeries (including ex lap) GERD, and hyperlipidemia who presented to the ED with complaints of nausea, vomiting, diarrhea, and abdominal pain. Patient underwent CT abdomen and pelvis with contrast revealing partial mid small bowel obstruction. GS consulted and admitted for further mx. Initially patient was symptomatically managed, Patient was evaluated by surgeon managed symptomatically and subsequently patient underwent exploratory laparotomy with lysis of multiple adhesions and resection of obstructive small bowel with functional end-to-end anastomosis patient had slow but uncomplicated postoperative hospital stay. Patient had flatus and bowel movements, started on clear liquids advance to full liquids and today to mechanical soft diet. Patient had bowel movement and surgeon cleared for discharge and follow-up in 1 week for further evaluation management Patient is hemodynamically and clinically stable at discharge Discharge diagnosis: #Small bowel obstruction s/p exploratory laparotomy, surgical intervention[ lysis of additions, resection of small bowel segment, and to end anastomosis] #Chronic Crohn's diseasestable CT abdomen and pelvis with contrast revealing partial mid small bowel obstruction Continue n.p.o. status. s/p surgery with open exploration lysis of adhesions and removal of segment of small bowel on 01/08. cont D5 W at 100 cc/hour. Continue antiemetics and analgesics as needed. General surgery consulted; appreciate recs. Trend serial abdominal KUBs. Continue to monitor. #Acute on chronic anemia due to blood loss, -likely from menorrhagia, patient currently on her menstrual cycle -transfused 2 units of packed RBC #GERD cont IV pantoprazole 40 mg daily #Hypothyroidism Starting IV levothyroxine #Hyperlipidemia Holding statin until patient can tolerate p.o. intake #Advanced care planning -Disease education conducted, care plan discussed, diagnoses discussed, prognosis discussed, and patient acknowledges understanding with care plan -Time: +30 min Advance Directives: No VTE prophylaxis?: Chemical Plan of care discussed with patient/family: Yes Stable at discharge Disposition: 01 HOME / SELF CARE / HOMELESS Final Discharge Diagnosis (Prints w/discharge instructions): Small bowel obstruction/resolved. s/p exploratory laparotomy, surgical intervention[ lysis of additions, resection of small bowel segment, and to end anastomosis]. Chronic Crohn's disease stable. Acute on chronic anemia; received 2 units PRBC. Gastroesophageal reflux disease. Hypothyroidism. Hyperlipidemia Time spent for discharge: 35 minutes Core Measure Documentation - Palliative Care Palliative Care/ Comfort Measures: Not Applicable - Core Measures Any of the following diagnoses?: none Exam - Constitutional Vitals: Temp Pulse Resp BP Pulse Ox 99.1 F 92 H 16 108/71 97 01/15/22 11:16 01/15/22 11:16 01/15/22 11:16 01/15/22 11:16 01/15/22 11:16 General appearance: Present: no acute distress, well-nourished - EENT Eyes: Present: PERRL, EOM intact - Neck Neck: Present: supple, normal ROM - Respiratory Respiratory effort: normal Respiratory: bilateral: diminished, negative: rales, rhonchi, wheezing - Cardiovascular Rhythm: regular Heart Sounds: Present: S1 & S2 - Extremities Extremities: no ischemia, No edema - Abdominal General gastrointestinal: Present: soft, non-tender, non-distended, normal bowel sounds - Integumentary Integumentary: Present: clear, warm - Musculoskeletal Musculoskeletal: strength equal bilaterally, generalized weakness - Psychiatric Psychiatric: appropriate mood/affect, cooperative - Neurologic Neurologic: moves all extremities Plan Activity: advance as tolerated Diet: other (Soft diet advance as tolerated) Additional Instructions: If you have worsening symptoms contact MD or go to the nearest emergency room as needed. Follow-up with primary care physician in [address] Lucho Arce in 1 week Follow up with: RYAN APARICIO MD [Primary Care Provider] - 7 Days BRIANA PARKS MD [Staff Physician] - 7 Days Prescriptions: oxyCODONE /ACETAMINOPHEN [Percocet 5/325] 1 tab PO BID PRN #12 PRN Reason: Pain , Severe (7-10) Ondansetron [Zofran ODT TAB] 4 mg PO Q6H PRN #14 PRN Reason: Nausea
== END 2022-01-15 18:00 | disposition home or self-care (01) | DRG 330 ==
LOC: ED 21:53 → 3A 01-07 08:05
PROVIDERS: ADMIT Student in an Organized Health Care Education/Training Program; ATTEND Internal Medicine
PROC: 0WJG0ZZ Inspection of Peritoneal Cavity, Open Approach (ICD-10-PCS; principal; 2022-01-08)
PROC: 0DB80ZZ Excision of Small Intestine, Open Approach (ICD-10-PCS; 2022-01-08)
PROC: 0DNW0ZZ Release Peritoneum, Open Approach (ICD-10-PCS; 2022-01-08)
PROC: 30233N1 Transfusion of Nonautologous Red Blood Cells into Peripheral Vein, Percutaneous Approach (ICD-10-PCS; 2022-01-13)
DX: K56.609 Unspecified intestinal obstruction, unspecified as to partial versus complete obstruction (principal); K50.90 Crohn's disease, unspecified, without complications; E78.5 Hyperlipidemia, unspecified; K21.9 Gastro-esophageal reflux disease without esophagitis; E03.9 Hypothyroidism, unspecified; D64.9 Anemia, unspecified
CPT/HCPCS: 36415; 74022; 74177; 80048; 80053; 81001; 81025; 82962; 85025; 85027; 86850; 86900; 86901; 86920; 88307; G0378; J1815; J3490; C9113; J0330; J0690; J1170; J1644; J1885; J2250; J2270; J2405; J2704; J2710; J2930; J3480; J7030; J7040; J7070; J7120; P9016; Q0162; Q9967

== ENCOUNTER 2022-01-16 16:18 | Inpatient (IN) | payer OTHER ==
[2022-01-16 17:08] LABS: Alanine Aminotransferase 11 units/L (7-56); Albumin 4.5 g/dL (3.9-5); BUN/Creatinine Ratio 40; Blood Urea Nitrogen 24 mg/dL (7-17); Calcium 9.6 mg/dL (8.4-10.2); Hemolysis Index 7
[2022-01-16 17:32] LABS: Basophils # (Auto) 0.1 K/mm3 (0.0-0.1); Basophils % (Auto) 0.4 % (0.0-1.8); Eosinophils # (Auto) 0.1 K/mm3 (0.0-0.4); Eosinophils % (Auto) 0.6 % (0.0-4.3); Lymphocytes # (Auto) 0.7 K/mm3 (1.2-5.4); Lymphocytes % (Auto) 5.4 % (13.4-35.0); Mean Corpuscular HGB Conc 33 % (30-34); Mean Corpuscular Volume 79 fl (79-97); Monocytes # (Auto) 1.1 K/mm3 (0.0-0.8); Monocytes % (Auto) 7.6 % (0.0-7.3); Platelet Count 503 K/mm3 (140-440); Red Blood Count 4.92 M/mm3 (3.65-5.03); Red Cell Distribution Width 16.3 % (13.2-15.2)
--- NOTE | 2022-01-16 17:48 | Cat Scan Report ---
CT ABDOMEN AND PELVIS WITHOUT CONTRAST HISTORY: n/v abdominal pain, s/p ex lap and bowel obstructi. COMPARISON: CT abdomen/pelvis from 01/07/2022. TECHNIQUE: CT images of the abdomen and pelvis were obtained without administration of intravenous co ntrast. All CT scans at this location are performed using CT dose reduction for ALARA by means of au tomated exposure control. FINDINGS: Lungs/bones: Small right pleural effusion. Otherwise clear lungs. No acute osseous abnormality iden tified. Abdomen/pelvis: There are skin hiro, inflammatory stranding in the mesentery, and a small amount of air which is presumably related to the patient's recent laparotomy. Partial small bowel resection has been performed with inflammatory wall thickening involving the surrounding small bowel and also s ome upstream bowel loops. There are also dilated fluid-filled loops in the left mid abdomen in the re gion of the jejunum which appears to track towards the severely inflamed more central bowel loops. No gross abscess identified. The liver, gallbladder, spleen, pancreas, adrenals, and kidneys appear unremarkable. Urinary bladder is unremarkable. Reproductive organs are normal. There is small volume pelvic free fl uid with mild a complex layering fluid. No acute colonic abnormality identified. IMPRESSION: 1. Postoperative change in the abdomen with abnormal appearance of the proximal to mid small bowel le ading up to the surgical anastomotic site. Specifically there is considerable inflammatory wall thick ening, stranding, small volume complex pelvic free fluid, and distention of some of the bowel loops u pstream from the anastomotic site. No abscess identified. Trace amount of free air is present apparen tly related to recent surgery. Findings could be seen in the setting of severe postoperative inflamma tory change with partial obstruction versus ileus. Signer Name: Roman Mendoza MD Signed: 01/16/2022 5:43 PM Workstation Name: [employer]
[2022-01-16] MEDS ORDERED: MORPHINE 4 MG/1 ML INJ IV STA (20:16)
[2022-01-16] MEDS ORDERED: ONDANSETRON 4 MG/2 ML INJ IV STA (20:16)
[2022-01-16] MEDS ORDERED: SODIUM CHLORIDE 0.9% 1000 ML 1,000 ML IV ONE (20:16)
[2022-01-16 22:57] LABS: Color,Urine Amber (Yellow)
[2022-01-16 23:01] LABS: Bacteria,Urine 1+ /HPF (Negative); Granular Casts,Urine 13 /LPF; Mucus,Urine 2+ /HPF
--- NOTE | 2022-01-17 | Emergency Department Report ---
ED N/V/D HPI - General Chief complaint: Abdominal Pain Stated complaint: VOMITING/DC IN PT YESTERDAY/CHRONS Time Seen by Provider: 01/16/22 20:10 Source: patient Mode of arrival: Ambulatory Limitations: No Limitations - History of Present Illness Initial comments: 41-year-old female presents emerged department complaining of pain to the abdomen after being discharged just yesterday. She is status post 412 laparotomy for small bowel obstruction which she had a partial bowel resection and presents today with complaining of pain to the abdomen that radiates across her stomach associated with nausea and vomiting but no diarrhea. Ports no fever, chills, sweats. No weight palpitations. MD complaint: nausea, vomiting, diarrhea, abdominal pain -: Gradual Associated Abdominal Pain: Yes Location: diffuse Radiation: none Severity: mild, moderate Quality: dull Consistency: constant Improves with: none Worsens with: none Associated Symptoms: denies other symptoms, nausea/vomiting - Related Data Home Medications Medication Instructions Recorded Confirmed Last Taken Cyclobenzaprine HCl [Flexeril 5 MG 5 mg PO QHS 10/30/21 01/07/22 Unknown TAB] Simvastatin 40 mg PO QPM 10/30/21 01/07/22 Unknown Acetaminophen [Acetaminophen TAB] 500 mg PO Q6HR PRN 01/08/22 01/08/22 Unknown Albuterol Mdi (or & Nicu Only) 2 puff PO Q46H PRN 01/08/22 01/08/22 Unknown [ProAir HFA Inhaler] Dicyclomine [Bentyl] 20 mg PO QHS 01/08/22 01/08/22 Unknown Hydroquinone 28.35 gm TP BID 01/08/22 01/08/22 Unknown Ibuprofen [Motrin 800 MG tab] 800 mg PO Q8HR PRN 01/08/22 01/08/22 Unknown Previous Rx's Medication Instructions Recorded Last Taken Type Omeprazole 40 mg PO QDAC 30 Days #30 tab 10/30/21 Unknown Rx Ondansetron [Zofran ODT TAB] 4 mg PO Q6H PRN #14 01/15/22 Unknown Rx oxyCODONE /ACETAMINOPHEN [Percocet 1 tab PO BID PRN #12 01/15/22 Unknown Rx 5/325] Allergies Allergy/AdvReac Type Severity Reaction Status Date / Time No Known Allergies Allergy Verified 10/30/21 10:06 ED Review of Systems ROS: Stated complaint: VOMITING/DC IN PT YESTERDAY/CHRONS Other details as noted in HPI Comment: All other systems reviewed and negative ED Past Medical Hx - Past Medical History Previous Medical History?: Yes Hx Hypertension: No (HLD) Hx Liver Disease: No Hx Renal Disease: No Additional medical history: chrons disease,bowel obstruction - Surgical History Additional Surgical History: C section, abdominal surgery - Social History Smoking Status: Never Smoker - Medications Home Medications: Home Medications Medication Instructions Recorded Confirmed Last Taken Type Cyclobenzaprine HCl [Flexeril 5 MG 5 mg PO QHS 10/30/21 01/07/22 Unknown History TAB] Omeprazole 40 mg PO QDAC 30 Days #30 tab 10/30/21 01/07/22 Unknown Rx Simvastatin 40 mg PO QPM 10/30/21 01/07/22 Unknown History Acetaminophen [Acetaminophen TAB] 500 mg PO Q6HR PRN 01/08/22 01/08/22 Unknown History Albuterol Mdi (or & Nicu Only) 2 puff PO Q46H PRN 01/08/22 01/08/22 Unknown History [ProAir HFA Inhaler] Dicyclomine [Bentyl] 20 mg PO QHS 01/08/22 01/08/22 Unknown History Hydroquinone 28.35 gm TP BID 01/08/22 01/08/22 Unknown History Ibuprofen [Motrin 800 MG tab] 800 mg PO Q8HR PRN 01/08/22 01/08/22 Unknown History Ondansetron [Zofran ODT TAB] 4 mg PO Q6H PRN #14 01/15/22 Unknown Rx oxyCODONE /ACETAMINOPHEN [Percocet 1 tab PO BID PRN #12 01/15/22 Unknown Rx 5/325] ED Physical Exam - General Limitations: No Limitations General appearance: alert, in distress, other (Appears ill vomiting holding bag pale) - Head Head exam: Present: atraumatic, normocephalic, normal inspection - Eye Eye exam: Present: normal appearance, PERRL, EOMI Pupils: Present: normal accommodation - ENT ENT exam: Present: normal exam, mucous membranes dry, mucous membranes moist, TM's normal bilaterally - Neck Neck exam: Present: normal inspection, full ROM, lymphadenopathy - Respiratory Respiratory exam: Present: normal lung sounds bilaterally. Absent: respiratory distress, rales, rhonchi, chest wall tenderness, accessory muscle use, decreased breath sounds - Cardiovascular Cardiovascular Exam: Present: regular rate, normal rhythm. Absent: systolic murmur, diastolic murmur, rubs, gallop - GI/Abdominal GI/Abdominal exam: Present: soft, tenderness, guarding, normal bowel sounds. Absent: distended, rebound, rigid, hypoactive bowel sounds, organomegaly, bruit, pulsatile mass - Extremities Exam Extremities exam: Present: normal inspection - Back Exam Back exam: Present: normal inspection - Neurological Exam Neurological exam: Present: alert, oriented X3 - Psychiatric Psychiatric exam: Present: normal affect, normal mood - Skin Skin exam: Present: warm, dry, intact, normal color. Absent: rash ED Course Vital Signs 01/16/22 01/16/22 01/16/22 16:25 20:30 20:33 Temperature 98.4 F Pulse Rate 120 H 111 H Respiratory 18 12 Rate Blood Pressure 124/83 Blood Pressure 138/97 124/83 [Left] O2 Sat by Pulse 99 100 Oximetry 01/16/22 01/16/22 01/16/22 21:14 21:44 22:13 Temperature Pulse Rate Respiratory Rate Blood Pressure 124/78 117/72 121/72 Blood Pressure [Left] O2 Sat by Pulse Oximetry 01/16/22 01/16/22 22:44 23:00 Temperature Pulse Rate 101 H Respiratory 16 Rate Blood Pressure 130/84 Blood Pressure 130/68 [Left] O2 Sat by Pulse Oximetry - Consultations Consultation #1: 01/17/22 22:51 Case discussed with general surgery Dr. Yepez who was advised of symptoms persist to admit for observation and he will reevaluate in the morning Consultation #2: 01/17/22 00:03 Case discussed with hospitalist Dr. Bowden who is aware of the findings on CT scan and the conversation with the general surgeon plan is to admit and continue with aggressive fluid and antiemetics and have surgery reevaluate in the morning ED Medical Decision Making - Lab Data Result diagrams: 01/16/22 16:35 01/16/22 16:35 - Radiology Data Radiology results: report reviewed [facility] [address] [place] [address] Cat Scan Report Signed Patient: CHAPARRO ROBBINS MR#: [id number] : 1980 Acct:[id number] Age/Sex: 41 / F ADM Date: 01/16/22 Loc: ED Attending Dr: Ordering Physician: EVELIO RAMIREZ Date of Service: 01/16/22 Procedure(s): CT abdomen pelvis wo con Accession Number(s): [id number] cc: EVELIO RAMIREZ CT ABDOMEN AND PELVIS WITHOUT CONTRAST HISTORY: n/v abdominal pain, s/p ex lap and bowel obstructi. COMPARISON: CT abdomen/pelvis from 01/07/2022. TECHNIQUE: CT images of the abdomen and pelvis were obtained without administration of intravenous contrast. All CT scans at this location are performed using CT dose reduction for ALARA by means of automated exposure control. FINDINGS: Lungs/bones: Small right pleural effusion. Otherwise clear lungs. No acute osseous abnormality identified. Abdomen/pelvis: There are skin hiro, inflammatory stranding in the mesentery, and a small amount of air which is presumably related to the patient's recent laparotomy. Partial small bowel resection has been performed with inflammatory wall thickening involving the surrounding small bowel and also some upstream bowel loops. There are also dilated fluid-filled loops in the left mid abdomen in the region of the jejunum which appears to track towards the severely inflamed more central bowel loops. No gross abscess identified. The liver, gallbladder, spleen, pancreas, adrenals, and kidneys appear unremarkable. Urinary bladder is unremarkable. Reproductive organs are normal. There is small volume pelvic free fluid with mild a complex layering fluid. No acute colonic abnormality identified. IMPRESSION: 1. Postoperative change in the abdomen with abnormal appearance of the proximal to mid small bowel leading up to the surgical anastomotic site. Specifically there is considerable inflammatory wall thickening, stranding, small volume complex pelvic free fluid, and distention of some of the bowel loops upstream from the anastomotic site. No abscess identified. Trace amount of free air is present apparently related to recent surgery. Findings could be seen in the setting of severe postoperative inflammatory change with partial obstruction versus ileus. Signer Name: Roman Mendoza MD Signed: 01/16/2022 5:43 PM Workstation Name: [id number] Transcribed By: MABEL Dictated By: Roman Mendoza MD Electronically Authenticated By: Roman Mendoza MD Signed Date/Time: 08/1742 DD/ 25 TD/TT: Print Cancel Critical care attestation.: If time is entered above; I have spent that time in minutes in the direct care of this critically ill patient, excluding procedure time. ED Disposition Clinical Impression: Nausea, vomiting and diarrhea, Abdominal pain in female patient, Partial obstruction of small intestine Disposition: ADMITTED INPATIENT Is pt being admited?: Yes Does the pt Need Aspirin: No Condition: Stable Instructions: Abdominal Pain (ED)
[2022-01-17] MEDS ORDERED: ACETAMINOPHEN 325 MG TAB PO PRN (00:01)
--- NOTE | 2022-01-17 00:10 | History and Physical Report ---
History of Present Illness Date of examination: 01/17/22 Date of admission: 01/17/22 Chief complaint: Nausea vomiting Abdominal pain History of present illness: 41-year-old female past medical history of multiple abdominal surgeries (including ex lap) GERD, and hyperlipidemia who presented to the ED with complaints of nausea, vomiting and abdominal pain. Patient just discharged from the hospital yesterday 01/15/22 after patient managed symptomatically by surgeon and then's subsequently patient underwent exploratory laparotomy with lysis of multiple adhesion and resection of the obstructed small bowel with functional end-to-end anastomosis. Patient underwent CT abdomen and pelvis with contrast revealing partial mid small bowel obstruction/ileus. We will admit the patient as per surgery recommendation. NPO. IV fluid. Surgical evaluation Past History Past Medical History: other (GERD, hyperlipidemia, hypothyroidism, other (Crohn's disease)) Past Surgical History: Other (Exploratory laparotomy in December 2020 and ) Social history: no significant social history, , full code Family history: no significant family history Medications and Allergies Allergies Allergy/AdvReac Type Severity Reaction Status Date / Time No Known Allergies Allergy Verified 10/30/21 10:06 Home Medications Medication Instructions Recorded Confirmed Last Taken Type Cyclobenzaprine HCl [Flexeril 5 MG 5 mg PO QHS 10/30/21 01/07/22 Unknown History TAB] Omeprazole 40 mg PO QDAC 30 Days #30 tab 10/30/21 01/07/22 Unknown Rx Simvastatin 40 mg PO QPM 10/30/21 01/07/22 Unknown History Acetaminophen [Acetaminophen TAB] 500 mg PO Q6HR PRN 01/08/22 01/08/22 Unknown History Albuterol Mdi (or & Nicu Only) 2 puff PO Q46H PRN 01/08/22 01/08/22 Unknown Hi story [ProAir HFA Inhaler] Dicyclomine [Bentyl] 20 mg PO QHS 01/08/22 01/08/22 Unknown History Hydroquinone 28.35 gm TP BID 01/08/22 01/08/22 Unknown History Ibuprofen [Motrin 800 MG tab] 800 mg PO Q8HR PRN 01/08/22 01/08/22 Unknown History Ondansetron [Zofran ODT TAB] 4 mg PO Q6H PRN #14 01/15/22 Unknown Rx oxyCODONE /ACETAMINOPHEN [Percocet 1 tab PO BID PRN #12 01/15/22 Unknown Rx 5/325] Review of Systems All systems: negative Gastrointestinal: abdominal pain, nausea, vomiting Exam - Constitutional Vitals: Temp Pulse Resp BP Pulse Ox 98.4 F 101 H 16 130/68 100 01/16/22 16:25 01/16/22 23:00 01/16/22 23:00 01/16/22 23:00 01/16/22 20:33 General appearance: Present: no acute distress, well-nourished - EENT Eyes: Present: PERRL ENT: hearing intact, clear oral mucosa - Neck Neck: Present: supple, normal ROM - Respiratory Respiratory effort: normal Respiratory: bilateral: CTA - Cardiovascular Heart Sounds: Present: S1 & S2. Absent: rub, click - Extremities Extremities: pulses symmetrical, No edema Peripheral Pulses: within normal limits - Abdominal General gastrointestinal: Present: soft, tender, non-distended, normal bowel sounds Female genitourinary: Present: normal - Integumentary Integumentary: Present: clear, warm, dry - Musculoskeletal Musculoskeletal: gait normal, strength equal bilaterally - Psychiatric Psychiatric: appropriate mood/affect, intact judgment & insight - Neurologic Neurologic: CNII-XII intact, moves all extremities Results - Labs CBC & Chem 7: 01/16/22 16:35 01/16/22 16:35 Labs: Laboratory Last Values WBC 13.8 K/mm3 (4.5-11.0) H 01/16/22 16:35 RBC 4.92 M/mm3 (3.65-5.03) 01/16/22 16:35 Hgb 13.0 gm/dl (10.1-14.3) 01/16/22 16:35 Hct 39.0 % (30.3-42.9) D 01/16/22 16:35 MCV 79 fl (79-97) 01/16/22 16:35 MCH 26 pg (28-32) L 01/16/22 16:35 MCHC 33 % (30-34) 01/16/22 16:35 RDW 16.3 % (13.2-15.2) H 01/16/22 16:35 Plt Count 503 K/mm3 (140-440) H 01/16/22 16:35 Lymph % (Auto) 5.4 % (13.4-35.0) L 01/16/22 16:35 [place] % (Auto) 7.6 % (0.0-7.3) H 01/16/22 16:35 Eos % (Auto) 0.6 % (0.0-4.3) 01/16/22 16:35 Baso % (Auto) 0.4 % (0.0-1.8) 01/16/22 16:35 Lymph # (Auto) 0.7 K/mm3 (1.2-5.4) L 01/16/22 16:35 [place] # (Auto) 1.1 K/mm3 (0.0-0.8) H 01/16/22 16:35 Eos # (Auto) 0.1 K/mm3 (0.0-0.4) 01/16/22 16:35 Baso # (Auto) 0.1 K/mm3 (0.0-0.1) 01/16/22 16:35 Seg Neutrophils % 86.0 % (40.0-70.0) H 01/16/22 16:35 Seg Neutrophils # 11.9 K/mm3 (1.8-7.7) H 01/16/22 16:35 Sodium 134 mmol/L (137-145) L 01/16/22 16:35 Potassium 4.5 mmol/L (3.6-5.0) 01/16/22 16:35 Chloride 95.9 mmol/L (98-107) L 01/16/22 16:35 Carbon Dioxide 21 mmol/L (22-30) L 01/16/22 16:35 Anion Gap 22 mmol/L 01/16/22 16:35 BUN 24 mg/dL (7-17) H 01/16/22 16:35 Creatinine 0.6 mg/dL (0.6-1.2) 01/16/22 16:35 Estimated GFR > 60 ml/min 01/16/22 16:35 BUN/Creatinine Ratio 40 % 01/16/22 16:35 Glucose 130 mg/dL (65-100) H 01/16/22 16:35 Calcium 9.6 mg/dL (8.4-10.2) 01/16/22 16:35 Total Bilirubin 1.30 mg/dL (0.1-1.2) H 01/16/22 16:35 AST 17 units/L (5-40) 01/16/22 16:35 ALT 11 units/L (7-56) 01/16/22 16:35 Alkaline Phosphatase 123 units/L (35-129) 01/16/22 16:35 Total Protein 7.5 g/dL (6.3-8.2) 01/16/22 16:35 Albumin 4.5 g/dL (3.9-5) 01/16/22 16:35 Albumin/Globulin Ratio 1.5 % 01/16/22 16:35 Lipase 23 units/L (13-60) 01/16/22 16:35 Urine Color [place] (Yellow) 01/16/22 22:42 Urine Turbidity Clear (Clear) 01/16/22 22:42 Specific [place] (Man) 1.025 (1.003-1.030) 01/16/22 22:42 Ur Protein (Man) 2+ mg/dL (Negative) 01/16/22 22:42 Ur Ketones (Man) 4+ (Negative) 01/16/22 22:42 Urine Bilirubin (Man) Negative (Negative) 01/16/22 22:42 Urine WBC (Auto) 5.0 /HPF (0.0-6.0) 01/16/22 22:42 Urine RBC (Auto) 1.0 /HPF (0.0-6.0) 01/16/22 22:42 U Epithel Cells (Auto) < 1.0 /HPF (0-13.0) 01/16/22 22:42 Urine Bacteria (Auto) 1+ /HPF (Negative) 01/16/22 22:42 Urine RBC (Manual) 2+ (Negative) 01/16/22 22:42 Granular Casts 13 /LPF 01/16/22 22:42 Urine Mucus 2+ /HPF 01/16/22 22:42 - Imaging and Cardiology CT scan - abdomen: report reviewed Assessment and Plan VTE prophylaxis?: Chemical Plan of care discussed with patient/family: Yes - Patient Problems (1) Partial obstruction of small intestine Current Visit: Yes Status: Acute Plan to address problem: Admit the patient to the medical floor. NPO. D5 half-normal saline at the rate of 100 cc/h. NG suction if needed. Pepcid 20 mg IV every 12 hours. Zofran 4 mils IV every 6 hours as needed. Will consult Dr. Yepez surgeon, (2) GERD (gastroesophageal reflux disease) Current Visit: Yes Status: Acute Plan to address problem: Pepcid 20 mg IV every 12 hours. We continue the home medication (3) Hypothyroidism Current Visit: Yes Status: Acute Plan to address problem: Is stable. We continue the home medication (4) Hyperlipidemia Current Visit: Yes Status: Acute Plan to address problem: Stable. We continue the home medication (5) Nausea & vomiting Current Visit: Yes Status: Acute Plan to address problem: NPO. D5 half-normal saline at the rate of 100 cc/h. NG suction if needed. Morphine 2 mg IV every 4 hours as needed Pepcid 20 mg IV every 12 hours. Zofran 4 mils IV every 6 hours as needed. Will consult Dr. Yepez surgeon, (6) Abdominal pain in female patient Current Visit: Yes Status: Acute Plan to address problem: NPO. D5 half-normal saline at the rate of 100 cc/h. NG suction if needed. Morphine 2 mg IV every 4 hours as needed Pepcid 20 mg IV every 12 hours. Zofran 4 mils IV every 6 hours as needed. Will consult Dr. Yepez surgeon, (7) Crohn's disease of intestine without complication Current Visit: No Status: Acute Plan to address problem: NPO. D5 half-normal saline at the rate of 100 cc/h. NG suction if needed. Pepcid 20 mg IV every 12 hours. Zofran 4 mils IV every 6 hours as needed. Will consult Dr. Yepez surgeon.consult GI if needed (8) DVT prophylaxis Current Visit: No Status: Acute Plan to address problem: Heparin 5000 units subcu every 12 hours for DVT prophylaxis. Pepcid 20 mg IV every 12 hours for GI prophylaxis. Patient is a full code
[2022-01-17] MEDS: D5W/0.45% NACL 1,000 ML IV SCH ×2 (04:39→17:14)
[2022-01-17] MEDS: ONDANSETRON 4 MG/2 ML INJ IV PRN ×3 (04:40→22:31)
[2022-01-17] MEDS: MORPHINE 2 MG/1 ML INJ IV PRN ×4 (04:40→17:08)
[2022-01-17] MEDS: FAMOTIDINE 20 MG/2 ML INJ IV SCH ×2 (09:17→22:31)
[2022-01-17] MEDS: HEPARIN 5,000 UNIT/1 ML VIAL SUB-Q SCH ×2 (09:17→22:32)
[2022-01-17] MEDS ORDERED: HYDROQUINONE TP SCH (10:00)
--- NOTE | 2022-01-17 20:43 | Progress Note ---
Assessment and Plan Assessment and plan: Assessment and Plan VTE prophylaxis?: Chemical Plan of care discussed with patient/family: Yes - Patient Problems -- Partial obstruction of small intestine IV fluids, n.p.o. status, supportive care Pending surgery evaluation I discussed the case with surgeon Dr. Yepez -- GERD (gastroesophageal reflux disease) Pepcid 20 mg IV every 12 hours. We continue the home medication -- Hypothyroidism Is stable. We continue Synthroid --Hyperlipidemia Stable. We continue the home medication --Intractable nausea & vomiting Due to partial small bowel obstruction.NPO. D5 half-normal saline at the rate of 100 cc/h. Morphine 2 mg IV every 4 hours as needed Pepcid 20 mg IV every 12 hours. Zofran 4 mils IV every 6 hours as needed. Will consult Dr. Yepez surgeon, -- Abdominal pain in female patient Due to partial small bowel obstruction Continue current management --History of Crohn's disease of intestine without complication Supportive care. Consult GI if needed --DVT prophylaxis Heparin 5000 units subcu every 12 hours for DVT prophylaxis. Pepcid 20 mg IV every 12 hours for GI prophylaxis. Patient is a full code Advance care planning; 30 minutes Prolonged care; 35 minutes Closely monitor the patient and adjust management as needed History Interval history: I have seen and examined the patient at the bedside Patient's chart and medications reviewed No new events reported by the nursing Patient was admitted with partial small bowel obstruction with mild nausea and vomiting Vital signs noted Hospitalist Physical - Constitutional Vitals: Temp Pulse Resp BP Pulse Ox 98.3 F 102 H 20 147/91 97 01/17/22 04:30 01/17/22 04:30 01/17/22 04:30 01/17/22 04:30 01/17/22 11:53 General appearance: Present: mild distress, well-nourished - EENT Eyes: Present: PERRL, EOM intact - Neck Neck: Present: supple, normal ROM - Respiratory Respiratory effort: normal Respiratory: bilateral: diminished, negative: rales, rhonchi, wheezing - Cardiovascular Rhythm: regular Heart Sounds: Present: S1 & S2 - Extremities Extremities: no ischemia, No edema - Abdominal General gastrointestinal: soft, non-tender, distended (Mild) - Integumentary Integumentary: Present: clear, warm - Psychiatric Psychiatric: appropriate mood/affect, cooperative - Neurologic Neurologic: moves all extremities Results - Labs CBC & Chem 7: 01/18/22 06:15 01/18/22 04:00 Labs: Laboratory Last Values WBC 13.8 K/mm3 (4.5-11.0) H 01/16/22 16:35 RBC 4.92 M/mm3 (3.65-5.03) 01/16/22 16:35 Hgb 13.0 gm/dl (10.1-14.3) 01/16/22 16:35 Hct 39.0 % (30.3-42.9) D 01/16/22 16:35 MCV 79 fl (79-97) 01/16/22 16:35 MCH 26 pg (28-32) L 01/16/22 16:35 MCHC 33 % (30-34) 01/16/22 16:35 RDW 16.3 % (13.2-15.2) H 01/16/22 16:35 Plt Count 503 K/mm3 (140-440) H 01/16/22 16:35 Lymph % (Auto) 5.4 % (13.4-35.0) L 01/16/22 16:35 [place] % (Auto) 7.6 % (0.0-7.3) H 01/16/22 16:35 Eos % (Auto) 0.6 % (0.0-4.3) 01/16/22 16:35 Baso % (Auto) 0.4 % (0.0-1.8) 01/16/22 16:35 Lymph # (Auto) 0.7 K/mm3 (1.2-5.4) L 01/16/22 16:35 [place] # (Auto) 1.1 K/mm3 (0.0-0.8) H 01/16/22 16:35 Eos # (Auto) 0.1 K/mm3 (0.0-0.4) 01/16/22 16:35 Baso # (Auto) 0.1 K/mm3 (0.0-0.1) 01/16/22 16:35 Seg Neutrophils % 86.0 % (40.0-70.0) H 01/16/22 16:35 Seg Neutrophils # 11.9 K/mm3 (1.8-7.7) H 01/16/22 16:35 Sodium 134 mmol/L (137-145) L 01/16/22 16:35 Potassium 4.5 mmol/L (3.6-5.0) 01/16/22 16:35 Chloride 95.9 mmol/L (98-107) L 01/16/22 16:35 Carbon Dioxide 21 mmol/L (22-30) L 01/16/22 16:35 Anion Gap 22 mmol/L 01/16/22 16:35 BUN 24 mg/dL (7-17) H 01/16/22 16:35 Creatinine 0.6 mg/dL (0.6-1.2) 01/16/22 16:35 Estimated GFR > 60 ml/min 01/16/22 16:35 BUN/Creatinine Ratio 40 % 01/16/22 16:35 Glucose 130 mg/dL (65-100) H 01/16/22 16:35 Calcium 9.6 mg/dL (8.4-10.2) 01/16/22 16:35 Total Bilirubin 1.30 mg/dL (0.1-1.2) H 01/16/22 16:35 AST 17 units/L (5-40) 01/16/22 16:35 ALT 11 units/L (7-56) 01/16/22 16:35 Alkaline Phosphatase 123 units/L (35-129) 01/16/22 16:35 Total Protein 7.5 g/dL (6.3-8.2) 01/16/22 16:35 Albumin 4.5 g/dL (3.9-5) 01/16/22 16:35 Albumin/Globulin Ratio 1.5 % 01/16/22 16:35 Lipase 23 units/L (13-60) 01/16/22 16:35 Urine Color [place] (Yellow) 01/16/22 22:42 Urine Turbidity Clear (Clear) 01/16/22 22:42 Specific [place] (Man) 1.025 (1.003-1.030) 01/16/22 22:42 Ur Protein (Man) 2+ mg/dL (Negative) 01/16/22 22:42 Ur Ketones (Man) 4+ (Negative) 01/16/22 22:42 Urine Bilirubin (Man) Negative (Negative) 01/16/22 22:42 Urine WBC (Auto) 5.0 /HPF (0.0-6.0) 01/16/22 22:42 Urine RBC (Auto) 1.0 /HPF (0.0-6.0) 01/16/22 22:42 U Epithel Cells (Auto) < 1.0 /HPF (0-13.0) 01/16/22 22:42 Urine Bacteria (Auto) 1+ /HPF (Negative) 01/16/22 22:42 Urine RBC (Manual) 2+ (Negative) 01/16/22 22:42 Granular Casts 13 /LPF 01/16/22 22:42 Urine Mucus 2+ /HPF 01/16/22 22:42 Lopez/IV: Voiding Method Toilet Active Medications - Current Medications Current Medications: Generic Name Dose Route Start Last Admin Trade Name Freq PRN Reason Stop Dose Admin Acetaminophen 650 mg 01/17/22 00:01 Acetaminophen 325 Mg Tab PO Q4H PRN Pain MILD(1-3)/Fever >100.5/SUN Famotidine 20 mg 01/17/22 10:00 01/17/22 09:17 Famotidine 20 Mg/2 Ml Inj IV 20 mg BID AMY Administration Heparin Sodium (Porcine) 5,000 unit 01/17/22 10:00 01/17/22 09:17 Heparin 5,000 Unit/1 Ml Vial SUB-Q 5,000 unit Q12HR AMY Administration Dextrose/Sodium Chloride 1,000 mls @ 100 mls/hr 01/17/22 01:00 01/17/22 17:14 D5/0.45ns IV 100 mls/hr DIRECT AMY Administration Miscellaneous Medication 28.35 gm 01/17/22 10:00 Hydroquinone [Hydroquinone] TP BID AMY Morphine Sulfate 2 mg 01/17/22 00:01 01/17/22 17:08 Morphine 2 Mg/1 Ml Inj IV 2 mg Q4H PRN Administration Pain, Moderate (4-6) Morphine Sulfate 4 mg 01/17/22 00:01 Morphine 4 Mg/1 Ml Inj IV Q4H PRN Pain , Severe (7-10) Ondansetron HCl 4 mg 01/17/22 00:01 01/17/22 13:17 Ondansetron 4 Mg/2 Ml Inj IV 4 mg Q8H PRN Administration Nausea And Vomiting Sodium Chloride 10 ml 01/17/22 10:00 01/17/22 09:18 Sodium Chloride 0.9% 10 Ml Flush Syringe IV 10 ml BID AMY Administration Sodium Chloride 10 ml 01/17/22 00:01 Sodium Chloride 0.9% 10 Ml Flush Syringe IV PRN PRN LINE FLUSH
[2022-01-17] MEDS: MORPHINE 4 MG/1 ML INJ IV PRN (22:31)
[2022-01-18] MEDS: D5W/0.45% NACL 1,000 ML IV SCH (05:28)
[2022-01-18] MEDS: MORPHINE 4 MG/1 ML INJ IV PRN ×2 (05:28→21:57)
[2022-01-18 06:32] LABS: Basophils # (Auto) 0.1 K/mm3 (0.0-0.1); Basophils % (Auto) 0.6 % (0.0-1.8); Eosinophils # (Auto) 0.2 K/mm3 (0.0-0.4); Eosinophils % (Auto) 2.3 % (0.0-4.3); Hematocrit 33.9 % (30.3-42.9); Hemoglobin 10.9 gm/dl (10.1-14.3); Lymphocytes # (Auto) 0.9 K/mm3 (1.2-5.4); Lymphocytes % (Auto) 8.8 % (13.4-35.0); Mean Corpuscular HGB Conc 32 % (30-34); Mean Corpuscular Volume 81 fl (79-97); Monocytes % (Auto) 9.2 % (0.0-7.3); Platelet Count 462 K/mm3 (140-440); Red Cell Distribution Width 16.2 % (13.2-15.2)
[2022-01-18 06:50] LABS: BUN/Creatinine Ratio 44; Blood Urea Nitrogen 22 mg/dL (7-17); Calcium 8.9 mg/dL (8.4-10.2); Hemolysis Index 0
--- NOTE | 2022-01-18 08:22 | Progress Note ---
Assessment and Plan Assessment and plan: VTE prophylaxis?: Chemical Plan of care discussed with patient/family: Yes - Patient Problems -- Partial obstruction of small intestine N.p.o. status, IV fluids, supportive care Management per surgery Dr. Yepez recommended PPN, ordered per protocol Follow-up abdominal x-ray today requested -history of small bowel obstruction s/p surgery 01/08/2022 s/p attempted laparoscopic exploration with conversion to open exploration extensive lysis of adhesions and resection of obstructed small bowel with functional end to end anastomosis on 01/08/2022 --GERD (gastroesophageal reflux disease) Pepcid 20 mg IV every 12 hours. We continue the home medication -- Hypothyroidism Is stable. We continue the home medication --Hyperlipidemia Stable. We continue the home medication --Nausea & vomiting NPO. D5 half-normal saline at the rate of 100 cc/h. NG suction if needed. Morphine 2 mg IV every 4 hours as needed Pepcid 20 mg IV every 12 hours. Zofran 4 mils IV every 6 hours as needed. Will consult Dr. Yepez surgeon, -- Abdominal pain in female patient Continue current management --Crohn's disease of intestine without complication Continue current management --DVT prophylaxis Heparin 5000 units subcu every 12 hours for DVT prophylaxis. Pepcid 20 mg IV every 12 hours for GI prophylaxis. Patient is a full code Advance care planning; 30 minutes Patient's condition discussed in detail with the patient and her spouse at the bedside Tests and reports explained to the patient and her spouse at the bedside consultants recommendations Discussed , treatment plan discussed , starting of PPN explained and discussed with the patient They both verbalized understanding agreed with the treatment Closely monitor the patient and adjust management as needed 01/18/2022; surgeon Dr. Yepez recommended PPN which is ordered per protocol Follow-up abdominal x-ray History Interval history: I have seen and examined the patient at the bedside this morning Patient's chart and medications reviewed Patient feels slightly better still has partial obstruction of the small bowel We will check follow-up abdominal x-ray today Surgery following Vital signs noted Hospitalist Physical - Constitutional Vitals: Temp Pulse Resp BP Pulse Ox 98.4 F 83 20 139/81 98 01/18/22 05:11 01/18/22 05:11 01/18/22 05:11 01/18/22 05:11 01/18/22 05:11 General appearance: Present: no acute distress, well-nourished - EENT Eyes: Present: PERRL, EOM intact - Neck Neck: Present: supple, normal ROM - Respiratory Respiratory effort: normal Respiratory: bilateral: diminished, negative: rales, rhonchi, wheezing - Cardiovascular Rhythm: regular Heart Sounds: Present: S1 & S2 - Extremities Extremities: no ischemia, No edema - Abdominal General gastrointestinal: soft, tender, distended, absent bowel sounds - Integumentary Integumentary: Present: clear, warm - Psychiatric Psychiatric: appropriate mood/affect, cooperative - Neurologic Neurologic: moves all extremities Results - Labs CBC & Chem 7: 01/18/22 06:15 01/18/22 04:00 Labs: Laboratory Last Values WBC 10.5 K/mm3 (4.5-11.0) 01/18/22 06:15 RBC 4.20 M/mm3 (3.65-5.03) 01/18/22 06:15 Hgb 10.9 gm/dl (10.1-14.3) 01/18/22 06:15 Hct 33.9 % (30.3-42.9) 01/18/22 06:15 MCV 81 fl (79-97) 01/18/22 06:15 MCH 26 pg (28-32) L 01/18/22 06:15 MCHC 32 % (30-34) 01/18/22 06:15 RDW 16.2 % (13.2-15.2) H 01/18/22 06:15 Plt Count 462 K/mm3 (140-440) H 01/18/22 06:15 Lymph % (Auto) 8.8 % (13.4-35.0) L 01/18/22 06:15 [place] % (Auto) 9.2 % (0.0-7.3) H 01/18/22 06:15 Eos % (Auto) 2.3 % (0.0-4.3) 01/18/22 06:15 Baso % (Auto) 0.6 % (0.0-1.8) 01/18/22 06:15 Lymph # (Auto) 0.9 K/mm3 (1.2-5.4) L 01/18/22 06:15 [place] # (Auto) 1.0 K/mm3 (0.0-0.8) H 01/18/22 06:15 Eos # (Auto) 0.2 K/mm3 (0.0-0.4) 01/18/22 06:15 Baso # (Auto) 0.1 K/mm3 (0.0-0.1) 01/18/22 06:15 Seg Neutrophils % 79.1 % (40.0-70.0) H 01/18/22 06:15 Seg Neutrophils # 8.3 K/mm3 (1.8-7.7) H 01/18/22 06:15 Sodium 133 mmol/L (137-145) L 01/18/22 04:00 Potassium 3.7 mmol/L (3.6-5.0) 01/18/22 04:00 Chloride 96.7 mmol/L (98-107) L 01/18/22 04:00 Carbon Dioxide 26 mmol/L (22-30) 01/18/22 04:00 Anion Gap 14 mmol/L 01/18/22 04:00 BUN 22 mg/dL (7-17) H 01/18/22 04:00 Creatinine 0.5 mg/dL (0.6-1.2) L 01/18/22 04:00 Estimated GFR > 60 ml/min 01/18/22 04:00 BUN/Creatinine Ratio 44 % 01/18/22 04:00 Glucose 145 mg/dL (65-100) H 01/18/22 04:00 Calcium 8.9 mg/dL (8.4-10.2) 01/18/22 04:00 Total Bilirubin 1.30 mg/dL (0.1-1.2) H 01/16/22 16:35 AST 17 units/L (5-40) 01/16/22 16:35 ALT 11 units/L (7-56) 01/16/22 16:35 Alkaline Phosphatase 123 units/L (35-129) 01/16/22 16:35 Total Protein 7.5 g/dL (6.3-8.2) 01/16/22 16:35 Albumin 4.5 g/dL (3.9-5) 01/16/22 16:35 Albumin/Globulin Ratio 1.5 % 01/16/22 16:35 Lipase 23 units/L (13-60) 01/16/22 16:35 Urine Color [place] (Yellow) 01/16/22 22:42 Urine Turbidity Clear (Clear) 01/16/22 22:42 Specific [place] (Man) 1.025 (1.003-1.030) 01/16/22 22:42 Ur Protein (Man) 2+ mg/dL (Negative) 01/16/22 22:42 Ur Ketones (Man) 4+ (Negative) 01/16/22 22:42 Urine Bilirubin (Man) Negative (Negative) 01/16/22 22:42 Urine WBC (Auto) 5.0 /HPF (0.0-6.0) 01/16/22 22:42 Urine RBC (Auto) 1.0 /HPF (0.0-6.0) 01/16/22 22:42 U Epithel Cells (Auto) < 1.0 /HPF (0-13.0) 01/16/22 22:42 Urine Bacteria (Auto) 1+ /HPF (Negative) 01/16/22 22:42 Urine RBC (Manual) 2+ (Negative) 01/16/22 22:42 Granular Casts 13 /LPF 01/16/22 22:42 Urine Mucus 2+ /HPF 01/16/22 22:42 Lopez/IV: Voiding Method Toilet Active Medications - Current Medications Current Medications: Generic Name Dose Route Start Last Admin Trade Name Freq PRN Reason Stop Dose Admin Acetaminophen 650 mg 01/17/22 00:01 Acetaminophen 325 Mg Tab PO Q4H PRN Pain MILD(1-3)/Fever >100.5/SUN Famotidine 20 mg 01/17/22 10:00 01/17/22 22:31 Famotidine 20 Mg/2 Ml Inj IV 20 mg BID AMY Administration Heparin Sodium (Porcine) 5,000 unit 01/17/22 10:00 01/17/22 22:32 Heparin 5,000 Unit/1 Ml Vial SUB-Q 5,000 unit Q12HR AMY Administration Dextrose/Sodium Chloride 1,000 mls @ 100 mls/hr 01/17/22 01:00 01/18/22 05:28 D5/0.45ns IV 100 mls/hr DIRECT AMY Administration Miscellaneous Medication 28.35 gm 01/17/22 10:00 Hydroquinone [Hydroquinone] TP BID AMY Morphine Sulfate 2 mg 01/17/22 00:01 01/17/22 17:08 Morphine 2 Mg/1 Ml Inj IV 2 mg Q4H PRN Administration Pain, Moderate (4-6) Morphine Sulfate 4 mg 01/17/22 00:01 01/18/22 05:28 Morphine 4 Mg/1 Ml Inj IV 4 mg Q4H PRN Administration Pain , Severe (7-10) Ondansetron HCl 4 mg 01/17/22 00:01 01/17/22 22:31 Ondansetron 4 Mg/2 Ml Inj IV 4 mg Q8H PRN Administration Nausea And Vomiting Sodium Chloride 10 ml 01/17/22 10:00 01/17/22 22:32 Sodium Chloride 0.9% 10 Ml Flush Syringe IV 10 ml BID AMY Administration Sodium Chloride 10 ml 01/17/22 00:01 Sodium Chloride 0.9% 10 Ml Flush Syringe IV PRN PRN LINE FLUSH
[2022-01-18] MEDS ORDERED: D5W/0.9% NACL 1,000 ML IV SCH (09:00)
--- NOTE | 2022-01-18 09:44 | XRay Report ---
ABDOMEN 1 VIEW 01/18/2022 INDICATION / CLINICAL INFORMATION: f/u partial small bowel obstruction. COMPARISON: CT the abdomen pelvis dated 09/16/2021 FINDINGS: TUBES / LINES: None. BOWEL GAS PATTERN: Short segment of dilated small bowel within the central abdomen. FREE AIR / EXTRALUMINAL GAS: None seen. ADDITIONAL FINDINGS: No significant additional findings. IMPRESSION: 1. Redemonstrated short segment of dilated bowel within the central abdomen. Differential continues t o include partial small bowel obstruction versus ileus. Signer Name: Rob Swanson DO Signed: 01/18/2022 9:40 AM Workstation Name: [email or web address]
[2022-01-18] MEDS: HEPARIN 5,000 UNIT/1 ML VIAL SUB-Q SCH ×2 (10:12→21:57)
[2022-01-18] MEDS: MORPHINE 2 MG/1 ML INJ IV PRN ×2 (10:12→16:46)
[2022-01-18] MEDS: FAMOTIDINE 20 MG/2 ML INJ IV SCH ×2 (10:12→21:57)
[2022-01-18] MEDS: ONDANSETRON 4 MG/2 ML INJ IV PRN ×2 (10:12→20:33)
--- NOTE | 2022-01-18 11:12 | Progress Note ---
Assessment and Plan Patient is still having nausea despite being n.p.o. for 24 hours. She is also complaining of obstipation. On exam she is slightly more distended than on admission. Plan to place an NG tube today and continue IV fluids. Subjective Date of service: 01/18/22 Narrative: Patient is still having nausea despite being n.p.o. for 24 hours. She is also complaining of obstipation. On exam she is slightly more distended than on admission. Plan to place an NG tube today and continue IV fluids. Objective Vital Signs - 12hr 01/18/22 05:11 Temperature 98.4 F Pulse Rate 83 Respiratory 20 Rate Blood Pressure 139/81 [Left] O2 Sat by Pulse 98 Oximetry - Labs 01/18/22 06:15 01/18/22 04:00 Diabetes panel 01/18/22 Range/Units 04:00 Sodium 133 L (137-145) mmol/L Potassium 3.7 (3.6-5.0) mmol/L Chloride 96.7 L (98-107) mmol/L Carbon Dioxide 26 (22-30) mmol/L BUN 22 H (7-17) mg/dL Creatinine 0.5 L (0.6-1.2) mg/dL Glucose 145 H (65-100) mg/dL Calcium 8.9 (8.4-10.2) mg/dL Calcium panel 01/18/22 Range/Units 04:00 Calcium 8.9 (8.4-10.2) mg/dL Pituitary panel 01/18/22 Range/Units 04:00 Sodium 133 L (137-145) mmol/L Potassium 3.7 (3.6-5.0) mmol/L Chloride 96.7 L (98-107) mmol/L Carbon Dioxide 26 (22-30) mmol/L BUN 22 H (7-17) mg/dL Creatinine 0.5 L (0.6-1.2) mg/dL Glucose 145 H (65-100) mg/dL Calcium 8.9 (8.4-10.2) mg/dL Adrenal panel 01/18/22 Range/Units 04:00 Sodium 133 L (137-145) mmol/L Potassium 3.7 (3.6-5.0) mmol/L Chloride 96.7 L (98-107) mmol/L Carbon Dioxide 26 (22-30) mmol/L BUN 22 H (7-17) mg/dL Creatinine 0.5 L (0.6-1.2) mg/dL Glucose 145 H (65-100) mg/dL Calcium 8.9 (8.4-10.2) mg/dL
--- NOTE | 2022-01-18 11:16 | Consultation ---
History of Present Illness Consult date: 01/17/22 Reason for consult: abdominal pain - History of present illness History of present illness: This is a 41-year-old woman presenting with abdominal pain nausea vomiting. She was seen last week for similar complaints and taken to the OR for lysis of adhesions and excision of obstructing loop of small bowel mid abdomen. She had been advanced to soft diet and discharged but then readmitted with the above symptoms. She has continued nausea without any p.o. intake. Would recommend n.p.o. for now IV fluids considering an NG tube if the nausea does not resolve with being n.p.o. Past History Past Medical History: other (GERD, hyperlipidemia, hypothyroidism, other (Crohn's disease)) Past Surgical History: Other (Exploratory laparotomy in December 2020 and ) Social history: no significant social history, , full code Family history: no significant family history Medications and Allergies Allergies Allergy/AdvReac Type Severity Reaction Status Date / Time No Known Allergies Allergy Verified 01/17/22 03:20 Home Medications Medication Instructions Recorded Confirmed Last Taken Type Cyclobenzaprine HCl [Flexeril 5 MG 5 mg PO QHS 10/30/21 01/17/22 Unknown History TAB] Omeprazole 40 mg PO QDAC 30 Days #30 tab 10/30/21 01/17/22 Unknown Rx Simvastatin 40 mg PO QPM 10/30/21 01/17/22 Unknown History Acetaminophen [Acetaminophen TAB] 500 mg PO Q6HR PRN 01/08/22 01/17/22 Unknown History Albuterol Mdi (or & Nicu Only) 2 puff PO Q46H PRN 01/08/22 01/17/22 Unknown History [ProAir HFA Inhaler] Dicyclomine [Bentyl] 20 mg PO QHS 01/08/22 01/17/22 Unknown History Hydroquinone 28.35 gm TP BID 01/08/22 01/17/22 Unknown History Ibuprofen [Motrin 800 MG tab] 800 mg PO Q8HR PRN 01/08/22 01/17/22 Unknown History Ondansetron [Zofran ODT TAB] 4 mg PO Q6H PRN #14 01/15/22 01/17/22 Unknown Rx oxyCODONE /ACETAMINOPHEN [Percocet 1 tab PO BID PRN #12 01/15/22 01/17/22 Unknown Rx 5/325] Active Meds: Active Medications Acetaminophen (Acetaminophen 325 Mg Tab) 650 mg PO Q4H PRN PRN Reason: Pain MILD(1-3)/Fever >100.5/SUN Famotidine (Famotidine 20 Mg/2 Ml Inj) 20 mg IV BID [facility] Last Admin: 01/18/22 10:12 Dose: 20 mg Heparin Sodium (Porcine) (Heparin 5,000 Unit/1 Ml Vial) 5,000 unit SUB-Q Q12HR [facility] Last Admin: 01/18/22 10:12 Dose: 5,000 unit Dextrose/Sodium Chloride (D5ns) 1,000 mls @ 100 mls/hr IV DIRECT [facility] Miscellaneous Medication (Hydroquinone [Hydroquinone]) 28.35 gm TP BID [facility] Morphine Sulfate (Morphine 2 Mg/1 Ml Inj) 2 mg IV Q4H PRN PRN Reason: Pain, Moderate (4-6) Last Admin: 01/18/22 10:12 Dose: 2 mg Morphine Sulfate (Morphine 4 Mg/1 Ml Inj) 4 mg IV Q4H PRN PRN Reason: Pain , Severe (7-10) Last Admin: 01/18/22 05:28 Dose: 4 mg Ondansetron HCl (Ondansetron 4 Mg/2 Ml Inj) 4 mg IV Q8H PRN PRN Reason: Nausea And Vomiting Last Admin: 01/18/22 10:12 Dose: 4 mg Sodium Chloride (Sodium Chloride 0.9% 10 Ml Flush Syringe) 10 ml IV BID [facility] Last Admin: 01/18/22 10:18 Dose: 10 ml Sodium Chloride (Sodium Chloride 0.9% 10 Ml Flush Syringe) 10 ml IV PRN PRN PRN Reason: LINE FLUSH Exam Vital Signs Temp Pulse Resp BP Pulse Ox 98.4 F 120 H 18 138/97 99 01/16/22 16:25 01/16/22 16:25 01/16/22 16:25 01/16/22 16:25 01/16/22 16:25 - General physical appearance Positive: well developed - Neck Positive: no masses, no bruits, trachea midline - Respiratory Positive: normal expansion - Cardiovascular Rhythm: regular - Extremities Extremities: no ischemia - Abdomen Abdomen: Present: soft, tender. Absent: distended, masses, rebound - Neurologic Neurologic: alert and oriented to time, place and person, motor strength and sensation are grossly intact, CN II-XII intact Results - Labs 01/18/22 06:15 01/18/22 04:00 Abnormal lab results 01/18/22 01/18/22 Range/Units 04:00 06:15 MCH 26 L (28-32) pg RDW 16.2 H (13.2-15.2) % Plt Count 462 H (140-440) K/mm3 Lymph % (Auto) 8.8 L (13.4-35.0) % [place] % (Auto) 9.2 H (0.0-7.3) % Lymph # (Auto) 0.9 L (1.2-5.4) K/mm3 [place] # (Auto) 1.0 H (0.0-0.8) K/mm3 Seg Neutrophils % 79.1 H (40.0-70.0) % Seg Neutrophils # 8.3 H (1.8-7.7) K/mm3 Sodium 133 L (137-145) mmol/L Chloride 96.7 L (98-107) mmol/L BUN 22 H (7-17) mg/dL Creatinine 0.5 L (0.6-1.2) mg/dL Glucose 145 H (65-100) mg/dL Diabetes panel 01/18/22 Range/Units 04:00 Sodium 133 L (137-145) mmol/L Potassium 3.7 (3.6-5.0) mmol/L Chloride 96.7 L (98-107) mmol/L Carbon Dioxide 26 (22-30) mmol/L BUN 22 H (7-17) mg/dL Creatinine 0.5 L (0.6-1.2) mg/dL Glucose 145 H (65-100) mg/dL Calcium 8.9 (8.4-10.2) mg/dL Calcium panel 01/18/22 Range/Units 04:00 Calcium 8.9 (8.4-10.2) mg/dL Pituitary panel 01/18/22 Range/Units 04:00 Sodium 133 L (137-145) mmol/L Potassium 3.7 (3.6-5.0) mmol/L Chloride 96.7 L (98-107) mmol/L Carbon Dioxide 26 (22-30) mmol/L BUN 22 H (7-17) mg/dL Creatinine 0.5 L (0.6-1.2) mg/dL Glucose 145 H (65-100) mg/dL Calcium 8.9 (8.4-10.2) mg/dL Adrenal panel 01/18/22 Range/Units 04:00 Sodium 133 L (137-145) mmol/L Potassium 3.7 (3.6-5.0) mmol/L Chloride 96.7 L (98-107) mmol/L Carbon Dioxide 26 (22-30) mmol/L BUN 22 H (7-17) mg/dL Creatinine 0.5 L (0.6-1.2) mg/dL Glucose 145 H (65-100) mg/dL Calcium 8.9 (8.4-10.2) mg/dL Assessment and Plan This is a 41-year-old woman presenting with abdominal pain nausea vomitin g. She was seen last week for similar complaints and taken to the OR for lysis of adhesions and excision of obstructing loop of small bowel mid abdomen. She had been advanced to soft diet and discharged but then readmitted with the above symptoms. She has continued nausea without any p.o. intake. Would recommend n.p.o. for now IV fluids considering an NG tube if the nausea does not resolve with being n.p.o.
[2022-01-18] MEDS ORDERED: TOTAL PARENTERAL NUTRITION 2,400 ML IV SCH (20:00)
[2022-01-19] MEDS: ONDANSETRON 4 MG/2 ML INJ IV PRN ×4 (03:19→22:11)
[2022-01-19] MEDS: MORPHINE 4 MG/1 ML INJ IV PRN ×3 (03:19→22:10)
[2022-01-19 06:56] LABS: Blood Urea Nitrogen 15 mg/dL (7-17); Calcium 8.7 mg/dL (8.4-10.2); Hemolysis Index 1
[2022-01-19 06:58] LABS: BUN/Creatinine Ratio 38
[2022-01-19] MEDS: HEPARIN 5,000 UNIT/1 ML VIAL SUB-Q SCH ×2 (10:19→22:11)
[2022-01-19] MEDS: FAMOTIDINE 20 MG/2 ML INJ IV SCH ×2 (10:19→22:11)
--- NOTE | 2022-01-19 15:22 | Progress Note ---
Assessment and Plan 41-year-old female who presents within 2 weeks of having exploratory laparotomy for lysis of adhesions causing small bowel obstruction. Presents to the emergency room 2 days ago with obstructive symptoms. Afebrile and stable currently being managed with NG tube decompression. We will continue conservative management with NG tube decompression and follow closely. If patient shows any signs of decompensation showing signs of ischemia or perforation patient will need urgent surgical intervention. Pathology and treatment options discussed with the patient and her who expressed understanding. Subjective Date of service: 01/19/22 Narrative: No acute events overnight. 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 Patient says that she continues to have abdominal pain and is not passing any flatus yet. Patient says is the NG tube has been helping with decompression. Objective Vital Signs - 12hr 01/19/22 01/19/22 01/19/22 05:13 10:56 13:00 Temperature 98.6 F 99.0 F Pulse Rate 97 H 95 H Respiratory 20 18 Rate Blood Pressure 141/89 137/83 O2 Sat by Pulse 97 98 97 Oximetry - General physical appearance well developed, well nourished, no distress, moderate pain - Eyes PERRL - Respiratory normal expansion, normal respiratory effort - Abdomen soft, distended, other (Incision clean dry and intact) - Psychiatric oriented to time, oriented to person - Labs 01/18/22 06:15 01/19/22 06:20 Diabetes panel 01/19/22 Range/Units 06:20 Sodium 135 L (137-145) mmol/L Potassium 3.9 (3.6-5.0) mmol/L Chloride 97.7 L (98-107) mmol/L Carbon Dioxide 27 (22-30) mmol/L BUN 15 (7-17) mg/dL Creatinine 0.4 L (0.6-1.2) mg/dL Glucose 157 H (65-100) mg/dL Calcium 8.7 (8.4-10.2) mg/dL Calcium panel 01/19/22 Range/Units 06:20 Calcium 8.7 (8.4-10.2) mg/dL Phosphorus 3.20 (2.5-4.5) mg/dL Pituitary panel 01/19/22 Range/Units 06:20 Sodium 135 L (137-145) mmol/L Potassium 3.9 (3.6-5.0) mmol/L Chloride 97.7 L (98-107) mmol/L Carbon Dioxide 27 (22-30) mmol/L BUN 15 (7-17) mg/dL Creatinine 0.4 L (0.6-1.2) mg/dL Glucose 157 H (65-100) mg/dL Calcium 8.7 (8.4-10.2) mg/dL Adrenal panel 01/19/22 Range/Units 06:20 Sodium 135 L (137-145) mmol/L Potassium 3.9 (3.6-5.0) mmol/L Chloride 97.7 L (98-107) mmol/L Carbon Dioxide 27 (22-30) mmol/L BUN 15 (7-17) mg/dL Creatinine 0.4 L (0.6-1.2) mg/dL Glucose 157 H (65-100) mg/dL Calcium 8.7 (8.4-10.2) mg/dL
--- NOTE | 2022-01-19 16:09 | Progress Note ---
Assessment and Plan Assessment and plan: -- Partial obstruction of small intestine N.p.o. status, IV fluids, supportive care Intermittent NG suction, TPN Supportive care Management per surgery -history of small bowel obstruction s/p surgery 01/08/2022 s/p attempted laparoscopic exploration with conversion to open exploration extensive lysis of adhesions and resection of obstructed small bowel with functional end to end anastomosis on 01/08/2022 --GERD (gastroesophageal reflux disease) Pepcid 20 mg IV every 12 hours. We continue the home medication -- Hypothyroidism Is stable. We continue the home medication --Hyperlipidemia Stable. We continue the home medication --Nausea & vomiting Intermittent NG suction Morphine 2 mg IV every 4 hours as needed Pepcid 20 mg IV every 12 hours. Zofran 4 mils IV every 6 hours as needed. Will consult Dr. Yepez surgeon, --Crohn's disease of intestine without complication Continue current management --DVT prophylaxis Heparin 5000 units subcu every 12 hours for DVT prophylaxis. Pepcid 20 mg IV every 12 hours for GI prophylaxis. Patient is a full code Advance care planning; 30 minutes Patient's condition discussed in detail with the patient and her spouse at the bedside Tests and reports explained to the patient and her spouse at the bedside consultants recommendations Discussed , treatment plan discussed , starting of PPN explained and discussed with the patient They both verbalized understanding agreed with the treatment Closely monitor the patient and adjust management as needed 01/18/2022; surgeon Dr. Yepez recommended PPN which is ordered per protocol Follow-up abdominal x-ray 01/19/2022; continue PPN. Patient has no flatus or bowel movement Severe abdominal pain, surgery following History Interval history: I have have seen and examined the patient at the bedside Patient continues to have nausea and abdominal pain Did not have bowel movement did not pass flatus On intermittent NG suction, receiving TPN Patient is in mild distress Hospitalist Physical - Constitutional Vitals: Temp Pulse Resp BP Pulse Ox 99.0 F 95 H 18 137/83 97 01/19/22 10:56 01/19/22 10:56 01/19/22 10:56 01/19/22 10:56 01/19/22 13:00 General appearance: Present: mild distress, well-nourished - EENT Eyes: Present: PERRL, EOM intact - Neck Neck: Present: supple, normal ROM - Respiratory Respiratory effort: normal Respiratory: bilateral: diminished, negative: rales, rhonchi, wheezing - Cardiovascular Rhythm: regular Heart Sounds: Present: S1 & S2 - Extremities Extremities: no ischemia, No edema - Abdominal General gastrointestinal: soft, tender, distended (Mild), absent bowel sounds - Integumentary Integumentary: Present: clear, warm - Psychiatric Psychiatric: appropriate mood/affect, cooperative, other (In distress) - Neurologic Neurologic: moves all extremities Results - Labs CBC & Chem 7: 01/18/22 06:15 01/19/22 06:20 Labs: Laboratory Last Values WBC 10.5 K/mm3 (4.5-11.0) 01/18/22 06:15 RBC 4.20 M/mm3 (3.65-5.03) 01/18/22 06:15 Hgb 10.9 gm/dl (10.1-14.3) 01/18/22 06:15 Hct 33.9 % (30.3-42.9) 01/18/22 06:15 MCV 81 fl (79-97) 01/18/22 06:15 MCH 26 pg (28-32) L 01/18/22 06:15 MCHC 32 % (30-34) 01/18/22 06:15 RDW 16.2 % (13.2-15.2) H 01/18/22 06:15 Plt Count 462 K/mm3 (140-440) H 01/18/22 06:15 Lymph % (Auto) 8.8 % (13.4-35.0) L 01/18/22 06:15 [place] % (Auto) 9.2 % (0.0-7.3) H 01/18/22 06:15 Eos % (Auto) 2.3 % (0.0-4.3) 01/18/22 06:15 Baso % (Auto) 0.6 % (0.0-1.8) 01/18/22 06:15 Lymph # (Auto) 0.9 K/mm3 (1.2-5.4) L 01/18/22 06:15 [place] # (Auto) 1.0 K/mm3 (0.0-0.8) H 01/18/22 06:15 Eos # (Auto) 0.2 K/mm3 (0.0-0.4) 01/18/22 06:15 Baso # (Auto) 0.1 K/mm3 (0.0-0.1) 01/18/22 06:15 Seg Neutrophils % 79.1 % (40.0-70.0) H 01/18/22 06:15 Seg Neutrophils # 8.3 K/mm3 (1.8-7.7) H 01/18/22 06:15 Sodium 135 mmol/L (137-145) L 01/19/22 06:20 Potassium 3.9 mmol/L (3.6-5.0) 01/19/22 06:20 Chloride 97.7 mmol/L (98-107) L 01/19/22 06:20 Carbon Dioxide 27 mmol/L (22-30) 01/19/22 06:20 Anion Gap 14 mmol/L 01/19/22 06:20 BUN 15 mg/dL (7-17) 01/19/22 06:20 Creatinine 0.4 mg/dL (0.6-1.2) L 01/19/22 06:20 Estimated GFR > 60 ml/min 01/19/22 06:20 BUN/Creatinine Ratio 38 % 01/19/22 06:20 Glucose 157 mg/dL (65-100) H 01/19/22 06:20 POC Glucose 155 mg/dL (70-105) H 01/19/22 11:54 Calcium 8.7 mg/dL (8.4-10.2) 01/19/22 06:20 Phosphorus 3.20 mg/dL (2.5-4.5) 01/19/22 06:20 Magnesium 1.80 mg/dL (1.7-2.3) 01/19/22 06:20 Total Bilirubin 1.30 mg/dL (0.1-1.2) H 01/16/22 16:35 AST 17 units/L (5-40) 01/16/22 16:35 ALT 11 units/L (7-56) 01/16/22 16:35 Alkaline Phosphatase 123 units/L (35-129) 01/16/22 16:35 Total Protein 7.5 g/dL (6.3-8.2) 01/16/22 16:35 Albumin 4.5 g/dL (3.9-5) 01/16/22 16:35 Albumin/Globulin Ratio 1.5 % 01/16/22 16:35 Lipase 23 units/L (13-60) 01/16/22 16:35 Urine Color Aliza (Yellow) 01/16/22 22:42 Urine Turbidity Clear (Clear) 01/16/22 22:42 Specific [place] (Man) 1.025 (1.003-1.030) 01/16/22 22:42 Ur Protein (Man) 2+ mg/dL (Negative) 01/16/22 22:42 Ur Ketones (Man) 4+ (Negative) 01/16/22 22:42 Urine Bilirubin (Man) Negative (Negative) 01/16/22 22:42 Urine WBC (Auto) 5.0 /HPF (0.0-6.0) 01/16/22 22:42 Urine RBC (Auto) 1.0 /HPF (0.0-6.0) 01/16/22 22:42 U Epithel Cells (Auto) < 1.0 /HPF (0-13.0) 01/16/22 22:42 Urine Bacteria (Auto) 1+ /HPF (Negative) 01/16/22 22:42 Urine RBC (Manual) 2+ (Negative) 01/16/22 22:42 Granular Casts 13 /LPF 01/16/22 22:42 Urine Mucus 2+ /HPF 01/16/22 22:42 Lopez/IV: Voiding Method Toilet Active Medications - Current Medications Current Medications: Generic Name Dose Route Start Last Admin Trade Name Freq PRN Reason Stop Dose Admin Acetaminophen 650 mg 01/17/22 00:01 Acetaminophen 325 Mg Tab PO Q4H PRN Pain MILD(1-3)/Fever >100.5/SUN Famotidine 20 mg 01/17/22 10:00 01/19/22 10:19 Famotidine 20 Mg/2 Ml Inj IV 20 mg BID AMY Administration Heparin Sodium (Porcine) 5,000 unit 01/17/22 10:00 01/19/22 10:19 Heparin 5,000 Unit/1 Ml Vial SUB-Q 5,000 unit Q12HR AMY Administration Amino Acids/Electrolytes/Dextrose 2,400 mls @ 100 mls/hr 01/18/22 20:00 01/18/22 21:57 Tpn Adult IV 01/19/22 19:59 100 mls/hr DAILY@2000 AMY Administration Protocol Amino Acids/Electrolytes/Dextrose 2,400 mls @ 100 mls/hr 01/19/22 20:00 Tpn Adult IV 01/20/22 19:59 DAILY@1999 [facility] Protocol Miscellaneous Medication 28.35 gm 01/17/22 10:00 Hydroquinone [Hydroquinone] TP BID [facility] Morphine Sulfate 2 mg 01/17/22 00:01 01/18/22 16:46 Morphine 2 Mg/1 Ml Inj IV 2 mg Q4H PRN Administration Pain, Moderate (4-6) Morphine Sulfate 4 mg 01/17/22 00:01 01/19/22 11:48 Morphine 4 Mg/1 Ml Inj IV 4 mg Q4H PRN Administration Pain , Severe (7-10) Ondansetron HCl 4 mg 01/17/22 00:01 01/19/22 11:53 Ondansetron 4 Mg/2 Ml Inj IV 4 mg Q8H PRN Administration Nausea And Vomiting Sodium Chloride 10 ml 01/17/22 10:00 01/19/22 10:19 Sodium Chloride 0.9% 10 Ml Flush Syringe IV 10 ml BID AMY Administration Sodium Chloride 10 ml 01/17/22 00:01 Sodium Chloride 0.9% 10 Ml Flush Syringe IV PRN PRN LINE FLUSH Nutrition/Malnutrition Assess - Dietary Evaluation Nutrition/Malnutrition Findings: Nutrition Notes Start: 01/18/22 11:37 Freq: Status: Active Protocol: Document 01/18/22 11:37 SCARLET (Rec: 01/18/22 11:51 SCARLET [id number]) Nutrition Notes Need for Assessment generated from: MD Order Initial or Follow up Assessment Current Diagnosis Hyperlipidemia Other Pertinent Diagnosis Partial SBO, s/p exp lap with lysis of adhesions, Crohn's disease, N/V Current Diet NPO Labs/Tests Na 133 Cl 96.7 BUN 22 Pertinent Medications D5NS at 100ml/hr Height 5 ft 2 in Weight 52.3 kg [place] Body Weight (kg) 50.00 BMI 21.0 Weight Status Appropriate Subjective/Other Information RD consulted for TPN. Pt with peripheral iv access. Burn Absent Trauma Absent GI Symptoms Nausea,Vomiting Minimum of two criteria No #1 Nutrition Diagnosis Altered GI function Etiology partial SBO As Evidenced by Signs and Symptoms pt NPO and requires PN support to meet nutrient needs Is patient on ventilator? No Is Patient Ambulatory and/or Out of Bed Yes REE-([place]-ambulatory/OOB) [ 1470.625 NUTR.MSJOOB] Calculation Used for Recommendations [facility] Additional Notes Pro needs 1-1.2g/k-63g/ day Fluid needs 1ml/kcal Nutrition Intervention Nutrition Support: Start PPN at 100ml/hr: 6.3% dextrose, 2.5% amino acids, MVI, Thiamine, 100mEq Na, 60mEq K, 5mEq Mg, 10mmol Phos, 75%/25% chloride/acetate. Osmolality: 700. Kcal 750 Protein (gm) 60 Carbohydrates (gm) 150 Fat (gm) 0 Fluid (mL) 2,400 Fiber (gm) 0 Goal #1 PN to meet nutrient needs as best possible Anticipated Discharge Needs: Unable to identify at this time Follow-Up By: 01/19/22 Additional Comments Labs in am: BMP, Mg, Phos
[2022-01-19] MEDS ORDERED: ONDANSETRON 4 MG/2 ML INJ IV SCH (17:00)
[2022-01-19] MEDS: MORPHINE 2 MG/1 ML INJ IV PRN (17:14)
[2022-01-19] MEDS ORDERED: TOTAL PARENTERAL NUTRITION 2,400 ML IV SCH (20:00)
[2022-01-20] MEDS: MORPHINE 4 MG/1 ML INJ IV PRN ×3 (06:30→21:38)
[2022-01-20] MEDS: ONDANSETRON 4 MG/2 ML INJ IV PRN ×3 (06:30→21:38)
[2022-01-20 06:42] LABS: Blood Urea Nitrogen 15 mg/dL (7-17); Hemolysis Index 0
[2022-01-20 06:53] LABS: BUN/Creatinine Ratio 38
[2022-01-20] MEDS: FAMOTIDINE 20 MG/2 ML INJ IV SCH ×2 (09:58→21:38)
[2022-01-20] MEDS: HEPARIN 5,000 UNIT/1 ML VIAL SUB-Q SCH ×2 (09:58→21:47)
--- NOTE | 2022-01-20 11:32 | Progress Note ---
Assessment and Plan Assessment and plan: All the conversations with the patient through interpretation by the at the bedside -- Partial obstruction of small intestine Patient's NG tube was displaced, monitor off NG tube If patient has significant symptoms may replace NGT N.p.o. status, IV fluids, supportive care Continue PPN Supportive care, ambulate as tolerated Management per surgery -history of small bowel obstruction s/p surgery 01/08/2022 s/p attempted laparoscopic exploration with conversion to open exploration extensive lysis of adhesions and resection of obstructed small bowel with functional end to end anastomosis on 01/08/[address] Oakes discussed with the patient and her spouse informing that If patient shows any signs of decompensation or any signs of ischemia or pe rforation patient may need urgent surgical intervention patient and the spouse verbalized understanding --GERD (gastroesophageal reflux disease) Pepcid 20 mg IV every 12 hours. We continue the home medication -- Hypothyroidism Is stable. We continue the home medication --Hyperlipidemia Stable. We continue the home medication --Nausea & vomiting Intermittent NG suction Morphine 2 mg IV every 4 hours as needed Pepcid 20 mg IV every 12 hours. Zofran 4 mils IV every 6 hours as needed. Will consult Dr. Yepez surgeon, --Crohn's disease of intestine without complication Continue current management --DVT prophylaxis Heparin 5000 units subcu every 12 hours for DVT prophylaxis. Pepcid 20 mg IV every 12 hours for GI prophylaxis. Patient is a full code Advance care planning; 30 minutes Patient's condition discussed in detail with the patient and her spouse at the bedside Tests and reports explained to the patient and her spouse at the bedside consultants recommendations Discussed , treatment plan discussed , starting of PPN explained and discussed with the patient They both verbalized understanding agreed with the treatment Closely monitor the patient and adjust management as needed 01/18/2022; surgeon Dr. Yepez recommended PPN which is ordered per protocol Follow-up abdominal x-ray 01/19/2022; continue PPN. Patient has no flatus or bowel movement Severe abdominal pain, surgery following 01/20; patient's NG tube came off, monitor off NG suction Surgery following, continue PPN History Interval history: I have seen and examined the patient at the bedside/patient's spouse at the bedside Patient's chart and medications reviewed Patient's NG tube was dislodged this morning Patient denies nausea vomiting Patient denies flatus or bowel movement Vital signs reviewed Hospitalist Physical - Constitutional Vitals: Temp Pulse Resp BP Pulse Ox 97.9 F 90 16 135/87 98 01/20/22 04:01 01/20/22 04:01 01/20/22 04:01 01/20/22 04:01 01/20/22 10:00 General appearance: Present: mild distress, well-nourished - EENT Eyes: Present: PERRL, EOM intact ENT: other (NG tube displaced) - Neck Neck: Present: supple, normal ROM - Respiratory Respiratory effort: normal Respiratory: bilateral: diminished, negative: rales, rhonchi, wheezing - Cardiovascular Rhythm: regular Heart Sounds: Present: S1 & S2 - Extremities Extremities: no ischemia, No edema - Abdominal General gastrointestinal: soft, non-tender, non-distended, normal bowel sounds - Integumentary Integumentary: Present: clear, warm - Psychiatric Psychiatric: appropriate mood/affect, cooperative - Neurologic Neurologic: moves all extremities Results - Labs CBC & Chem 7: 01/20/22 12:36 01/20/22 12:36 Labs: Laboratory Last Values WBC 10.5 K/mm3 (4.5-11.0) 01/18/22 06:15 RBC 4.20 M/mm3 (3.65-5.03) 01/18/22 06:15 Hgb 10.9 gm/dl (10.1-14.3) 01/18/22 06:15 Hct 33.9 % (30.3-42.9) 01/18/22 06:15 MCV 81 fl (79-97) 01/18/22 06:15 MCH 26 pg (28-32) L 01/18/22 06:15 MCHC 32 % (30-34) 01/18/22 06:15 RDW 16.2 % (13.2-15.2) H 01/18/22 06:15 Plt Count 462 K/mm3 (140-440) H 01/18/22 06:15 Lymph % (Auto) 8.8 % (13.4-35.0) L 01/18/22 06:15 [place] % (Auto) 9.2 % (0.0-7.3) H 01/18/22 06:15 Eos % (Auto) 2.3 % (0.0-4.3) 01/18/22 06:15 Baso % (Auto) 0.6 % (0.0-1.8) 01/18/22 06:15 Lymph # (Auto) 0.9 K/mm3 (1.2-5.4) L 01/18/22 06:15 [place] # (Auto) 1.0 K/mm3 (0.0-0.8) H 01/18/22 06:15 Eos # (Auto) 0.2 K/mm3 (0.0-0.4) 01/18/22 06:15 Baso # (Auto) 0.1 K/mm3 (0.0-0.1) 01/18/22 06:15 Seg Neutrophils % 79.1 % (40.0-70.0) H 01/18/22 06:15 Seg Neutrophils # 8.3 K/mm3 (1.8-7.7) H 01/18/22 06:15 Sodium 136 mmol/L (137-145) L 01/20/22 06:05 Potassium 4.2 mmol/L (3.6-5.0) 01/20/22 06:05 Chloride 97.6 mmol/L (98-107) L 01/20/22 06:05 Carbon Dioxide 28 mmol/L (22-30) 01/20/22 06:05 Anion Gap 15 mmol/L 01/20/22 06:05 BUN 15 mg/dL (7-17) 01/20/22 06:05 Creatinine 0.4 mg/dL (0.6-1.2) L 01/20/22 06:05 Estimated GFR > 60 ml/min 01/20/22 06:05 BUN/Creatinine Ratio 38 % 01/20/22 06:05 Glucose 144 mg/dL (65-100) H 01/20/22 06:05 POC Glucose 150 mg/dL (70-105) H 01/20/22 07:08 Calcium 9.0 mg/dL (8.4-10.2) 01/20/22 06:05 Phosphorus 3.80 mg/dL (2.5-4.5) 01/20/22 06:05 Magnesium 1.90 mg/dL (1.7-2.3) 01/20/22 06:05 Total Bilirubin 1.30 mg/dL (0.1-1.2) H 01/16/22 16:35 AST 17 units/L (5-40) 01/16/22 16:35 ALT 11 units/L (7-56) 01/16/22 16:35 Alkaline Phosphatase 123 units/L (35-129) 01/16/22 16:35 Total Protein 7.5 g/dL (6.3-8.2) 01/16/22 16:35 Albumin 4.5 g/dL (3.9-5) 01/16/22 16:35 Albumin/Globulin Ratio 1.5 % 01/16/22 16:35 Lipase 23 units/L (13-60) 01/16/22 16:35 Urine Color Aliza (Yellow) 01/16/22 22:42 Urine Turbidity Clear (Clear) 01/16/22 22:42 Specific [place] (Man) 1.025 (1.003-1.030) 01/16/22 22:42 Ur Protein (Man) 2+ mg/dL (Negative) 01/16/22 22:42 Ur Ketones (Man) 4+ (Negative) 01/16/22 22:42 Urine Bilirubin (Man) Negative (Negative) 01/16/22 22:42 Urine WBC (Auto) 5.0 /HPF (0.0-6.0) 01/16/22 22:42 Urine RBC (Auto) 1.0 /HPF (0.0-6.0) 01/16/22 22:42 U Epithel Cells (Auto) < 1.0 /HPF (0-13.0) 01/16/22 22:42 Urine Bacteria (Auto) 1+ /HPF (Negative) 01/16/22 22:42 Urine RBC (Manual) 2+ (Negative) 01/16/22 22:42 Granular Casts 13 /LPF 01/16/22 22:42 Urine Mucus 2+ /HPF 01/16/22 22:42 Lopez/IV: Voiding Method Bedside Commode Active Medications - Current Medications Current Medications: Generic Name Dose Route Start Last Admin Trade Name Freq PRN Reason Stop Dose Admin Acetaminophen 650 mg 01/17/22 00:01 Acetaminophen 325 Mg Tab PO Q4H PRN Pain MILD(1-3)/Fever >100.5/SUN Famotidine 20 mg 01/17/22 10:00 01/20/22 09:58 Famotidine 20 Mg/2 Ml Inj IV 20 mg BID AMY Administration Heparin Sodium (Porcine) 5,000 unit 01/17/22 10:00 01/20/22 09:58 Heparin 5,000 Unit/1 Ml Vial SUB-Q 5,000 unit Q12HR AMY Administration Amino Acids/Electrolytes/Dextrose 2,400 mls @ 100 mls/hr 01/19/22 20:00 01/19/22 20:30 Tpn Adult IV 01/20/22 19:59 100 mls/hr DAILY@2000 AMY Administration Protocol Miscellaneous Medication 28.35 gm 01/17/22 10:00 Hydroquinone [Hydroquinone] TP BID AMY Morphine Sulfate 2 mg 01/17/22 00:01 01/19/22 17:14 Morphine 2 Mg/1 Ml Inj IV 2 mg Q4H PRN Administration Pain, Moderate (4-6) Morphine Sulfate 4 mg 01/17/22 00:01 01/20/22 06:30 Morphine 4 Mg/1 Ml Inj IV 4 mg Q4H PRN Administration Pain , Severe (7-10) Ondansetron HCl 8 mg 01/19/22 16:50 01/20/22 06:30 Ondansetron 4 Mg/2 Ml Inj IV 8 mg Q4H PRN Administration Nausea And Vomiting Sodium Chloride 10 ml 01/17/22 10:00 01/20/22 09:58 Sodium Chloride 0.9% 10 Ml Flush Syringe IV 10 ml BID AMY Administration Sodium Chloride 10 ml 01/17/22 00:01 Sodium Chloride 0.9% 10 Ml Flush Syringe IV PRN PRN LINE FLUSH Nutrition/Malnutrition Assess - Dietary Evaluation Nutrition/Malnutrition Findings: Nutrition Notes Start: 01/18/22 11:37 Freq: Status: Active Protocol: Document 01/18/22 11:37 SCARLET (Rec: 01/18/22 11:51 [facility] [id number]) Nutrition Notes Need for Assessment generated from: MD Order Initial or Follow up Assessment Current Diagnosis Hyperlipidemia Other Pertinent Diagnosis Partial SBO, s/p exp lap with lysis of adhesions, Crohn's disease, N/V Current Diet NPO Labs/Tests Na 133 Cl 96.7 BUN 22 Pertinent Medications D5NS at 100ml/hr Height 5 ft 2 in Weight 52.3 kg [place] Body Weight (kg) 50.00 BMI 21.0 Weight Status Appropriate Subjective/Other Information RD consulted for TPN. Pt with peripheral iv access. Burn Absent Trauma Absent GI Symptoms Nausea,Vomiting Minimum of two criteria No #1 Nutrition Diagnosis Altered GI function Etiology partial SBO As Evidenced by Signs and Symptoms pt NPO and requires PN support to meet nutrient needs Is patient on ventilator? No Is Patient Ambulatory and/or Out of Bed Yes REE-([facility]-ambulatory/OOB) [ 1470.625 NUTR.MSJOOB] Calculation Used for Recommendations [facility] Additional Notes Pro needs 1-1.2g/k-63g/ day Fluid needs 1ml/kcal Nutrition Intervention Nutrition Support: Start PPN at 100ml/hr: 6.3% dextrose, 2.5% amino acids, MVI, Thiamine, 100mEq Na, 60mEq K, 5mEq Mg, 10mmol Phos, 75%/25% chloride/acetate. Osmolality: 700. Kcal 750 Protein (gm) 60 Carbohydrates (gm) 150 Fat (gm) 0 Fluid (mL) 2,400 Fiber (gm) 0 Goal #1 PN to meet nutrient needs as best possible Anticipated Discharge Needs: Unable to identify at this time Follow-Up By: 01/19/22 Additional Comments Labs in am: BMP, Mg, Phos
--- NOTE | 2022-01-20 12:13 | Progress Note ---
Assessment and Plan 41-year-old female who presents within 2 weeks of having exploratory laparotomy for lysis of adhesions causing small bowel obstruction. Presents to the emergency room 3 days ago with obstructive symptoms. Afebrile and stable currently being managed with NG tube decompression. We will continue conservative management with NG tube decompression and follow closely. If patient shows any signs of decompensation showing signs of ischemia or perforation patient will need urgent surgical intervention. Pathology and treatment options discussed with the patient and her who expressed understanding. Subjective Date of service: 01/20/22 Narrative: No acute events overnight. Pt denies flatus. Pt says he has some abdominal pain but it is slightly improved from yesterday. Objective Vital Signs - 12hr 01/20/22 01/20/22 01/20/22 01:00 04:01 10:00 Temperature 97.9 F Pulse Rate 90 Respiratory 17 16 Rate Blood Pressure 135/87 O2 Sat by Pulse 97 97 98 Oximetry - General physical appearance well developed, no distress, moderate pain - Eyes PERRL - Respiratory normal expansion, normal respiratory effort - Abdomen soft, tender, distended, other (bilious drainage in NGT) - Labs 01/18/22 06:15 01/20/22 06:05 Diabetes panel 01/20/22 Range/Units 06:05 Sodium 136 L (137-145) mmol/L Potassium 4.2 (3.6-5.0) mmol/L Chloride 97.6 L (98-107) mmol/L Carbon Dioxide 28 (22-30) mmol/L BUN 15 (7-17) mg/dL Creatinine 0.4 L (0.6-1.2) mg/dL Glucose 144 H (65-100) mg/dL Calcium 9.0 (8.4-10.2) mg/dL Calcium panel 01/20/22 Range/Units 06:05 Calcium 9.0 (8.4-10.2) mg/dL Phosphorus 3.80 (2.5-4.5) mg/dL Pituitary panel 01/20/22 Range/Units 06:05 Sodium 136 L (137-145) mmol/L Potassium 4.2 (3.6-5.0) mmol/L Chloride 97.6 L (98-107) mmol/L Carbon Dioxide 28 (22-30) mmol/L BUN 15 (7-17) mg/dL Creatinine 0.4 L (0.6-1.2) mg/dL Glucose 144 H (65-100) mg/dL Calcium 9.0 (8.4-10.2) mg/dL Adrenal panel 01/20/22 Range/Units 06:05 Sodium 136 L (137-145) mmol/L Potassium 4.2 (3.6-5.0) mmol/L Chloride 97.6 L (98-107) mmol/L Carbon Dioxide 28 (22-30) mmol/L BUN 15 (7-17) mg/dL Creatinine 0.4 L (0.6-1.2) mg/dL Glucose 144 H (65-100) mg/dL Calcium 9.0 (8.4-10.2) mg/dL
[2022-01-20 12:52] LABS: Basophils # (Auto) 0.1 K/mm3 (0.0-0.1); Basophils % (Auto) 0.7 % (0.0-1.8); Eosinophils # (Auto) 0.1 K/mm3 (0.0-0.4); Eosinophils % (Auto) 1.3 % (0.0-4.3); Hematocrit 34.6 % (30.3-42.9); Hemoglobin 11.1 gm/dl (10.1-14.3); Lymphocytes # (Auto) 1.3 K/mm3 (1.2-5.4); Lymphocytes % (Auto) 10.8 % (13.4-35.0); Mean Corpuscular HGB Conc 32 % (30-34); Mean Corpuscular Volume 80 fl (79-97); Monocytes % (Auto) 8.2 % (0.0-7.3); Platelet Count 473 K/mm3 (140-440); Red Blood Count 4.33 M/mm3 (3.65-5.03); Red Cell Distribution Width 16.2 % (13.2-15.2)
[2022-01-20 13:13] LABS: Alanine Aminotransferase 6 units/L (7-56); Blood Urea Nitrogen 15 mg/dL (7-17); Hemolysis Index 0
[2022-01-20 13:19] LABS: BUN/Creatinine Ratio 30
[2022-01-20] MEDS ORDERED: TOTAL PARENTERAL NUTRITION 2,400 ML IV SCH (20:00)
[2022-01-21] MEDS: ONDANSETRON 4 MG/2 ML INJ IV PRN ×3 (05:58→21:33)
[2022-01-21] MEDS: MORPHINE 4 MG/1 ML INJ IV PRN ×3 (05:58→21:30)
--- NOTE | 2022-01-21 08:56 | XRay Report ---
ABDOMEN 1 VIEW(S) INDICATION / CLINICAL INFORMATION: f/u sbo. COMPARISON: 01/18/2022 FINDINGS: TUBES / LINES: None. BOWEL GAS PATTERN: Borderline gas-filled loops of small bowel in the upper abdomen have not significa ntly changed since 01/18/2022. There is normal gas and stool in the colon. Recent surgical changes are noted. FREE AIR / EXTRALUMINAL GAS: None seen. ADDITIONAL FINDINGS: No significant additional findings. IMPRESSION: No significant interval change. Probable mild postsurgical ileus. Signer Name: Wes Castano Jr, MD Signed: 01/21/2022 8:52 AM Workstation Name: [id number]
[2022-01-21] MEDS: FAMOTIDINE 20 MG/2 ML INJ IV SCH ×2 (10:22→21:33)
[2022-01-21] MEDS: HEPARIN 5,000 UNIT/1 ML VIAL SUB-Q SCH ×2 (10:22→21:33)
--- NOTE | 2022-01-21 11:09 | Progress Note ---
Assessment and Plan This is a 41-year-old woman presenting with abdominal pain nausea vomiting. She was seen last week for similar complaints and taken to the OR for lysis of adhesions and excision of obstructing loop of small bowel mid abdomen. She had been advanced to soft diet and discharged but then readmitted with the above symptoms. She has continued nausea without any p.o. intake. Ng will be repaced. Will try to do a CT of abdo now as well. Area of concern mb in the proximal jejunum.Cont tpn. Subjective Date of service: 01/21/22 Patient Reports: Positive: still having pain, nausea Narrative: Pt had ng removed last night and did well but only for a few hours. She is having more pain, nausea and distension this am. She is requesting that the ng be replaced. Objective Vital Signs - 12hr 01/21/22 01/21/22 01:00 10:14 Respiratory 16 Rate O2 Sat by Pulse 98 99 Oximetry - Labs 01/20/22 12:36 01/20/22 12:36 Diabetes panel 01/20/22 Range/Units 12:36 Sodium 133 L (137-145) mmol/L Potassium 4.2 (3.6-5.0) mmol/L Chloride 95.4 L (98-107) mmol/L Carbon Dioxide 29 (22-30) mmol/L BUN 15 (7-17) mg/dL Creatinine 0.5 L (0.6-1.2) mg/dL Glucose 134 H (65-100) mg/dL Calcium 9.0 (8.4-10.2) mg/dL AST 11 (5-40) units/L ALT 6 L (7-56) units/L Alkaline Phosphatase 89 (35-129) units/L Total Protein 6.4 (6.3-8.2) g/dL Albumin 4.0 (3.9-5) g/dL Calcium panel 01/20/22 Range/Units 12:36 Calcium 9.0 (8.4-10.2) mg/dL Albumin 4.0 (3.9-5) g/dL Pituitary panel 01/20/22 Range/Units 12:36 Sodium 133 L (137-145) mmol/L Potassium 4.2 (3.6-5.0) mmol/L Chloride 95.4 L (98-107) mmol/L Carbon Dioxide 29 (22-30) mmol/L BUN 15 (7-17) mg/dL Creatinine 0.5 L (0.6-1.2) mg/dL Glucose 134 H (65-100) mg/dL Calcium 9.0 (8.4-10.2) mg/dL Adrenal panel 01/20/22 Range/Units 12:36 Sodium 133 L (137-145) mmol/L Potassium 4.2 (3.6-5.0) mmol/L Chloride 95.4 L (98-107) mmol/L Carbon Dioxide 29 (22-30) mmol/L BUN 15 (7-17) mg/dL Creatinine 0.5 L (0.6-1.2) mg/dL Glucose 134 H (65-100) mg/dL Calcium 9.0 (8.4-10.2) mg/dL Total Bilirubin 1.00 (0.1-1.2) mg/dL AST 11 (5-40) units/L ALT 6 L (7-56) units/L Alkaline Phosphatase 89 (35-129) units/L Total Protein 6.4 (6.3-8.2) g/dL Albumin 4.0 (3.9-5) g/dL
[2022-01-21 12:45] LABS: Blood Urea Nitrogen 19 mg/dL (7-17); Calcium 9.3 mg/dL (8.4-10.2); Hemolysis Index 1
[2022-01-21 12:54] LABS: BUN/Creatinine Ratio 38
--- NOTE | 2022-01-21 15:44 | Cat Scan Report ---
CT ABDOMEN AND PELVIS WITH CONTRAST INDICATION / CLINICAL INFORMATION: Proximal small bowel obstruction. TECHNIQUE: Axial CT images were obtained through the abdomen and pelvis after IV contrast. All CT sc ans at this location are performed using CT dose reduction for ALARA by means of automated exposure c ontrol. COMPARISON: CT dated 01/16/2022 FINDINGS: LOWER CHEST: Bibasilar atelectasis. LIVER: No significant abnormality. GALLBLADDER: No significant abnormality. BILE DUCTS: No significant abnormality. PANCREAS: No significant abnormality. SPLEEN: No significant abnormality. ADRENALS: No significant abnormality. RIGHT KIDNEY / URETER: Lower pole cysts. LEFT KIDNEY / URETER: No significant abnormality. STOMACH / SMALL BOWEL: Esophagogastric tube is coiled in the stomach with the tip at the gastric fund us. Postsurgical changes from small bowel resection with anastomosis in the midline abdomen. Peripher ally enhancing complex ascites immediately adjacent to the anastomotic site with the largest componen t of the ascites measuring 11.2 x 7.4 cm on image 104 series 2. Portions of this complex fluid demons trates increased attenuation, raising suspicion for blood products. Upstream of the anastomotic site are a few mildly dilated loops of bowel without definable transition point to suggest obstruction. COLON: Colon is relatively collapsed. Inflammatory changes adjacent to the ascending colon. APPENDIX: No significant abnormality. PERITONEUM: Moderate volume free fluid with peripherally enhancing complex ascites detailed above. Pe ribronchial pneumoperitoneum is seen on image 63 series 2. LYMPH NODES: No significant adenopathy. AORTA / ARTERIES: No significant abnormality. IVC / VEINS: No significant abnormality. URINARY BLADDER: No significant abnormality. REPRODUCTIVE ORGANS: No significant abnormality. ADDITIONAL FINDINGS: Post surgical changes along the anterior abdominal wall. SKELETAL SYSTEM: No significant abnormality. IMPRESSION: 1. Moderate volume peripherally enhancing complex ascites near the site of anastomosis is highly conc erning for anastomotic leak with developing peritonitis. Complex ascites contains some hyperattenuati ng material, raising suspicion for blood products. Trace pneumoperitoneum. 2. Inflammatory changes adjacent to the ascending colon, which could be related to colitis or may be reactive related to nearby inflammatory changes in the abdomen. 3. Esophagogastric tube is coiled in the stomach. 4. Mildly dilated loops of small bowel in the left upper quadrant of the anastomotic site without tra nsition point to suggest obstruction. Signer Name: Jordan Ribeiro MD Signed: 01/21/2022 3:40 PM Workstation Name: [id number]
[2022-01-21] MEDS ORDERED: TOTAL PARENTERAL NUTRITION 2,400 ML IV SCH (20:00)
[2022-01-22] MEDS: MORPHINE 4 MG/1 ML INJ IV PRN ×3 (05:45→21:40)
[2022-01-22] MEDS: ONDANSETRON 4 MG/2 ML INJ IV PRN ×2 (05:45→21:40)
--- NOTE | 2022-01-22 06:19 | Progress Note ---
Assessment and Plan Assessment and plan: All the conversations with the patient through interpretation by the at the bedside -- Partial obstruction of small intestine Patient's NG tube was displaced, monitor off NG tube If patient has significant symptoms may replace NGT N.p.o. status, IV fluids, supportive care Continue PPN Supportive care, ambulate as tolerated Management per surgery -history of small bowel obstruction s/p surgery 01/08/2022 s/p attempted laparoscopic exploration with conversion to open exploration extensive lysis of adhesions and resection of obstructed small bowel with functional end to end anastomosis on 01/08/[address] Oakes discussed with the patient and her spouse informing that If patient shows any signs of decompensation or any signs of ischemia or pe rforation patient may need urgent surgical intervention patient and the spouse verbalized understanding --GERD (gastroesophageal reflux disease) Pepcid 20 mg IV every 12 hours. We continue the home medication -- Hypothyroidism Is stable. We continue the home medication --Hyperlipidemia Stable. We continue the home medication --Nausea & vomiting Intermittent NG suction Morphine 2 mg IV every 4 hours as needed Pepcid 20 mg IV every 12 hours. Zofran 4 mils IV every 6 hours as needed. Will consult Dr. Yepez surgeon, --Crohn's disease of intestine without complication Continue current management --DVT prophylaxis Heparin 5000 units subcu every 12 hours for DVT prophylaxis. Pepcid 20 mg IV every 12 hours for GI prophylaxis. Patient is a full code Advance care planning; 30 minutes Patient's condition discussed in detail with the patient and her spouse at the bedside Tests and reports explained to the patient and her spouse at the bedside consultants recommendations Discussed , treatment plan discussed , starting of PPN explained and discussed with the patient They both verbalized understanding agreed with the treatment Closely monitor the patient and adjust management as needed 01/18/2022; surgeon Dr. Yepez recommended PPN which is ordered per protocol Follow-up abdominal x-ray 01/19/2022; continue PPN. Patient has no flatus or bowel movement Severe abdominal pain, surgery following 01/20; patient's NG tube came off, monitor off NG suction Surgery following, continue PPN 01/21: Patient continues to be n.p.o. intermittent NG suction on TPN, surgery following. Surgery planning to get a CT abdomen and pelvis and possible IR consult. Follow CT abdomen, surgeon /IR evaluation and recommendation. Disposition; follow clinically, follow surgery recommendations discharge when stable and cleared History Interval history: I have seen and examined the patient at the bedside Patient's chart and medications reviewed Patient continues to have small bowel obstruction NG tube was displaced which was replaced again Patient is on PPN Surgery following Patient's spouse is in the room Hospitalist Physical - Constitutional Vitals: Temp Pulse Resp BP Pulse Ox 98.1 F 92 H 16 129/85 98 01/22/22 04:51 01/22/22 04:51 01/22/22 04:51 01/22/22 04:51 01/22/22 04:51 General appearance: Present: mild distress, well-nourished - EENT Eyes: Present: PERRL, EOM intact ENT: hearing decreased - Neck Neck: Present: supple, normal ROM - Respiratory Respiratory effort: normal Respiratory: bilateral: diminished, negative: rales, rhonchi, wheezing - Cardiovascular Rhythm: regular Heart Sounds: Present: S1 & S2 - Extremities Extremities: no ischemia, No edema - Abdominal General gastrointestinal: soft, tender, distended - Integumentary Integumentary: Present: clear, warm - Psychiatric Psychiatric: appropriate mood/affect, cooperative - Neurologic Neurologic: moves all extremities Results - Labs CBC & Chem 7: 01/20/22 12:36 01/21/22 11:57 Labs: Laboratory Last Values WBC 11.7 K/mm3 (4.5-11.0) H 01/20/22 12:36 RBC 4.33 M/mm3 (3.65-5.03) 01/20/22 12:36 Hgb 11.1 gm/dl (10.1-14.3) 01/20/22 12:36 Hct 34.6 % (30.3-42.9) 01/20/22 12:36 MCV 80 fl (79-97) 01/20/22 12:36 MCH 26 pg (28-32) L 01/20/22 12:36 MCHC 32 % (30-34) 01/20/22 12:36 RDW 16.2 % (13.2-15.2) H 01/20/22 12:36 Plt Count 473 K/mm3 (140-440) H 01/20/22 12:36 Lymph % (Auto) 10.8 % (13.4-35.0) L 01/20/22 12:36 [place] % (Auto) 8.2 % (0.0-7.3) H 01/20/22 12:36 Eos % (Auto) 1.3 % (0.0-4.3) 01/20/22 12:36 Baso % (Auto) 0.7 % (0.0-1.8) 01/20/22 12:36 Lymph # (Auto) 1.3 K/mm3 (1.2-5.4) 01/20/22 12:36 [place] # (Auto) 1.0 K/mm3 (0.0-0.8) H 01/20/22 12:36 Eos # (Auto) 0.1 K/mm3 (0.0-0.4) 01/20/22 12:36 Baso # (Auto) 0.1 K/mm3 (0.0-0.1) 01/20/22 12:36 Seg Neutrophils % 79.0 % (40.0-70.0) H 01/20/22 12:36 Seg Neutrophils # 9.2 K/mm3 (1.8-7.7) H 01/20/22 12:36 Sodium 130 mmol/L (137-145) L 01/21/22 11:57 Potassium 4.7 mmol/L (3.6-5.0) 01/21/22 11:57 Chloride 92.2 mmol/L (98-107) L 01/21/22 11:57 Carbon Dioxide 29 mmol/L (22-30) 01/21/22 11:57 Anion Gap 14 mmol/L 01/21/22 11:57 BUN 19 mg/dL (7-17) H 01/21/22 11:57 Creatinine 0.5 mg/dL (0.6-1.2) L 01/21/22 11:57 Estimated GFR > 60 ml/min 01/21/22 11:57 BUN/Creatinine Ratio 38 % 01/21/22 11:57 Glucose 151 mg/dL (65-100) H 01/21/22 11:57 POC Glucose 128 mg/dL (70-105) H 01/21/22 21:50 Calcium 9.3 mg/dL (8.4-10.2) 01/21/22 11:57 Phosphorus 4.30 mg/dL (2.5-4.5) 01/21/22 11:57 Magnesium 1.90 mg/dL (1.7-2.3) 01/21/22 11:57 Total Bilirubin 1.00 mg/dL (0.1-1.2) 01/20/22 12:36 AST 11 units/L (5-40) 01/20/22 12:36 ALT 6 units/L (7-56) L 01/20/22 12:36 Alkaline Phosphatase 89 units/L (35-129) 01/20/22 12:36 Total Protein 6.4 g/dL (6.3-8.2) 01/20/22 12:36 Albumin 4.0 g/dL (3.9-5) 01/20/22 12:36 Albumin/Globulin Ratio 1.7 % 01/20/22 12:36 Lipase 23 units/L (13-60) 01/16/22 16:35 Urine Color Aliza (Yellow) 01/16/22 22:42 Urine Turbidity Clear (Clear) 01/16/22 22:42 Specific [place] (Man) 1.025 (1.003-1.030) 01/16/22 22:42 Ur Protein (Man) 2+ mg/dL (Negative) 01/16/22 22:42 Ur Ketones (Man) 4+ (Negative) 01/16/22 22:42 Urine Bilirubin (Man) Negative (Negative) 01/16/22 22:42 Urine WBC (Auto) 5.0 /HPF (0.0-6.0) 01/16/22 22:42 Urine RBC (Auto) 1.0 /HPF (0.0-6.0) 01/16/22 22:42 U Epithel Cells (Auto) < 1.0 /HPF (0-13.0) 01/16/22 22:42 Urine Bacteria (Auto) 1+ /HPF (Negative) 01/16/22 22:42 Urine RBC (Manual) 2+ (Negative) 01/16/22 22:42 Granular Casts 13 /LPF 01/16/22 22:42 Urine Mucus 2+ /HPF 01/16/22 22:42 Lopez/IV: Voiding Method Bedside Commode Active Medications - Current Medications Current Medications: Generic Name Dose Route Start Last Admin Trade Name Freq PRN Reason Stop Dose Admin Acetaminophen 650 mg 01/17/22 00:01 Acetaminophen 325 Mg Tab PO Q4H PRN Pain MILD(1-3)/Fever >100.5/SUN Famotidine 20 mg 01/17/22 10:00 01/21/22 21:33 Famotidine 20 Mg/2 Ml Inj IV 20 mg BID AMY Administration Heparin Sodium (Porcine) 5,000 unit 01/17/22 10:00 01/21/22 21:33 Heparin 5,000 Unit/1 Ml Vial SUB-Q 5,000 unit Q12HR AMY Administration Amino Acids/Electrolytes/Dextrose 2,400 mls @ 100 mls/hr 01/21/22 20:00 01/21/22 21:36 Tpn Adult IV 01/22/22 19:59 100 mls/hr DAILY@2000 AMY Administration Protocol Miscellaneous Medication 28.35 gm 01/17/22 10:00 Hydroquinone [Hydroquinone] TP BID AMY Morphine Sulfate 2 mg 01/17/22 00:01 01/19/22 17:14 Morphine 2 Mg/1 Ml Inj IV 2 mg Q4H PRN Administration Pain, Moderate (4-6) Morphine Sulfate 4 mg 01/17/22 00:01 01/22/22 05:45 Morphine 4 Mg/1 Ml Inj IV 4 mg Q4H PRN Administration Pain , Severe (7-10) Ondansetron HCl 8 mg 01/19/22 16:50 01/22/22 05:45 Ondansetron 4 Mg/2 Ml Inj IV 8 mg Q4H PRN Administration Nausea And Vomiting Sodium Chloride 10 ml 01/17/22 10:00 01/21/22 21:33 Sodium Chloride 0.9% 10 Ml Flush Syringe IV 10 ml BID AMY Administration Sodium Chloride 10 ml 01/17/22 00:01 Sodium Chloride 0.9% 10 Ml Flush Syringe IV PRN PRN LINE FLUSH Nutrition/Malnutrition Assess - Dietary Evaluation Nutrition/Malnutrition Findings: Nutrition Notes Start: 01/18/22 11:37 Freq: Status: Active Protocol: Document 01/21/22 13:32 SCARLET (Rec: 01/21/22 13:38 SCARLET [id number]) Nutrition Notes Initial or Follow up Reassessment Other Pertinent Diagnosis Partial SBO, s/p exp lap with lysis of adhesions, Crohn's disease, N/V Current Diet PPN at 100ml/hr Labs/Tests Na 130 Cl 92.2 BUN 19 BG 151 (Labs were not posted until AFTER PPN order faxed to pharmacy at 12:21) Pertinent Medications Reviewed Height 5 ft 2 in Weight 52.3 kg [place] Body Weight (kg) 50.00 BMI 21.0 Weight Status Appropriate Subjective/Other Information Day 4 PPN. NGT was removed last pm, however, pt with N/V this am; NGT will be replaced. Percent of energy/protein needs met: 58% energy 100% pro Burn Absent Trauma Absent GI Symptoms Nausea,Vomiting Minimum of two criteria No #1 Nutrition Diagnosis Altered GI function Diagnosis Progress(for reassessment Continues documentation) Is patient on ventilator? No Is Patient Ambulatory and/or Out of Bed Yes REE-([facility]-ambulatory/OOB) [ 1470.625 [id number]] Calculation Used for Recommendations [facility] Additional Notes Pro needs 1-1.2g/k-63g/ day Fluid needs 1ml/kcal Nutrition Intervention Nutrition Support: Continue PPN at 100ml/hr: 8% dextrose, 2.5% amino acids, 125mEq Na, 50mEq K, 10mmol Phos, 5mEq Mg, 100%/0% acetate /chloride, MVI. Osmolality: 775. Kcal 852 Protein (gm) 60 Carbohydrates (gm) 180 Fat (gm) 0 Fluid (mL) 2,400 Fiber (gm) 0 Goal #1 PN to meet nutrient needs as best possible Follow-Up By: 01/22/22 Additional Comments Labs in am: BMP, Mg, Phos
[2022-01-22 06:47] LABS: Blood Urea Nitrogen 18 mg/dL (7-17); Hemolysis Index 18
[2022-01-22 06:48] LABS: BUN/Creatinine Ratio 45
[2022-01-22] MEDS: HEPARIN 5,000 UNIT/1 ML VIAL SUB-Q SCH ×2 (10:27→21:41)
[2022-01-22] MEDS: FAMOTIDINE 20 MG/2 ML INJ IV SCH ×2 (10:27→21:40)
[2022-01-22 12:45] LABS: Hematocrit 34.1 % (30.3-42.9); Hemoglobin 11.1 gm/dl (10.1-14.3); Mean Corpuscular HGB Conc 33 % (30-34); Mean Corpuscular Volume 80 fl (79-97); Platelet Count 467 K/mm3 (140-440); Red Blood Count 4.27 M/mm3 (3.65-5.03); Red Cell Distribution Width 16.8 % (13.2-15.2)
[2022-01-22] MEDS ORDERED: fentaNYL 100 MCG/2 ML INJ ONE (12:55)
[2022-01-22] MEDS ORDERED: MIDAZOLAM 5 MG/5 ML INJ MDV IV NR (13:00)
[2022-01-22] MEDS ORDERED: fentaNYL 100 MCG/2 ML INJ IV NR (13:00)
[2022-01-22] MEDS ORDERED: LIDOCAINE 2%/EPINEPHRINE 1:200,000 VIAL (20 ML) INFILTRATI ONE (13:23)
--- NOTE | 2022-01-22 14:58 | Progress Note ---
Assessment and Plan 41-year-old female past medical history of multiple abdominal surgeries (including ex lap) GERD, and hyperlipidemia who presented to the ED with complaints of nausea, vomiting and abdominal pain. Patient just discharged from the hospital yesterday 01/15/22 after patient managed symptomatically by surgeon and then's subsequently patient underwent exploratory laparotomy with lysis of multiple adhesion and resection of the obstructed small bowel with functional end-to-end anastomosis. In the ER patient underwent CT abdomen and pelvis with contrast revealing partial mid small bowel obstruction/ileus. Admitted the patient as per surgery recommendation. Currently NPO with NG suction. Continue IV fluid. 01/18/2022; surgeon Dr. Yepez recommended PPN which is ordered per protocol Follow-up abdominal x-ray 01/19/2022; continue PPN. Patient has no flatus or bowel movement Severe abdominal pain, surgery following 01/20; patient's NG tube came off, monitor off NG suction Surgery following, continue PPN 01/21: Patient continues to be n.p.o. intermittent NG suction on TPN, surgery following. Surgery planning to get a CT abdomen and pelvis and possible IR consult. 01/22: CT-guided drainage of a left-sided abdominal collection with a 10 Latvian APD drain today. We will follow surgical culture. Continue on NG tube suction and TPN. Follow BMP Assessment and plan: -- Partial obstruction of small intestine Patient's NG tube was displaced, monitor off NG tube If patient has significant symptoms may replace NGT N.p.o. status, IV fluids, supportive care Continue PPN Supportive care, ambulate as tolerated Management per surgery -history of small bowel obstruction s/p surgery 01/08/2022 s/p attempted laparoscopic exploration with conversion to open exploration extensive lysis of adhesions and resection of obstructed small bowel with functional end to end anastomosis on 01/08/[address] Oakes discussed with the patient and her spouse informing that If patient shows any signs of decompensation or any signs of ischemia or perforation patient may need urgent surgical intervention patient and the spouse verbalized understanding --GERD (gastroesophageal reflux disease) Pepcid 20 mg IV every 12 hours. We continue the home medication -- Hypothyroidism Is stable. We continue the home medication --Hyperlipidemia Stable. We continue the home medication --Nausea & vomiting Intermittent NG suction Morphine 2 mg IV every 4 hours as needed Pepcid 20 mg IV every 12 hours. Zofran 4 mils IV every 6 hours as needed. Will consult Dr. Yepez surgeon, --Crohn's disease of intestine without complication Continue current management --DVT prophylaxis Heparin 5000 units subcu every 12 hours for DVT prophylaxis. Pepcid 20 mg IV every 12 hours for GI prophylaxis. Patient is a full code Advance care planning; 30 minutes Patient's condition discussed in detail with the patient and her spouse at the bedside Tests and reports explained to the patient and her spouse at the bedside consultants recommendations Discussed , treatment plan discussed , starting of PPN explained and discussed with the patient They both verbalized understanding agreed with the treatment Closely monitor the patient and adjust management as needed Disposition; follow clinically, follow surgery recommendations discharge when stable and cleared Subjective Date of service: 01/22/22 Interval history: Patient seen and examined. Medical records and medication list reviewed. No acute event overnight noted by the RN. Patient continued to complains of abdominal pain, remains on NG tube suction and TPN Discussed plan of care at bedside with patient. Objective - Exam Narrative Exam: GENERAL: well-developed and well-nourished lying on bed appeared to be in no discomfort. HEENT: Normocephalic. Atraumatic. No conjunctival congestion or icterus. Patient has moist mucous membranes. NECK: Supple. Trachea midline. CHEST/LUNGS: Clear to auscultated bilaterally, breathing nonlabored. No wheezes crackles or rhonchi. HEART/CARDIOVASCULAR: Regular in rate and rhythm. S1 and S2 positive. ABDOMEN: Abdomen mildly tender, with the distention. Patient has hypoactive bowel sounds. SKIN: There is no rash. Warm and dry. NEURO: No focal motor deficit. Follows command. MUSCULOSKELETAL: No joint effusion or tenderness. EXTRIMITY: No edema, no cyanosis or clubbing. PSYCH: Cooperative. - Constitutional Vitals: Vital Signs - 12hr 01/22/22 01/22/22 01/22/22 04:51 11:50 12:12 Temperature 98.1 F 98.7 F Pulse Rate 92 H 90 Pulse Rate [ Intra-Procedure ] Pulse Rate [ Post-Procedure] Pulse Rate [Pre -Procedure] Respiratory 16 16 Rate Respiratory Rate [Intra- Procedure] Respiratory Rate [Post- Procedure] Respiratory Rate [Pre- Procedure] Blood Pressure 129/85 116/76 Blood Pressure [Intra- Procedure] Blood Pressure [Post-Procedure ] Blood Pressure [Pre-Procedure] O2 Sat by Pulse 98 99 97 Oximetry O2 Sat by Pulse Oximetry [ Intra-Procedure ] O2 Sat by Pulse Oximetry [Post -Procedure] O2 Sat by Pulse Oximetry [Pre- Procedure] 01/22/22 01/22/22 01/22/22 13:32 13:43 13:45 Temperature Pulse Rate Pulse Rate [ 106 H Intra-Procedure ] Pulse Rate [ Post-Procedure] Pulse Rate [Pre 107 H 105 H -Procedure] Respiratory Rate Respiratory 20 Rate [Intra- Procedure] Respiratory Rate [Post- Procedure] Respiratory 26 H 23 Rate [Pre- Procedure] Blood Pressure Blood Pressure 131/88 [Intra- Procedure] Blood Pressure [Post-Procedure ] Blood Pressure 119/77 119/76 [Pre-Procedure] O2 Sat by Pulse Oximetry O2 Sat by Pulse 100 Oximetry [ Intra-Procedure ] O2 Sat by Pulse Oximetry [Post -Procedure] O2 Sat by Pulse 100 100 Oximetry [Pre- Procedure] 01/22/22 01/22/22 01/22/22 13:50 13:55 14:00 Temperature Pulse Rate Pulse Rate [ 104 H 109 H 106 H Intra-Procedure ] Pulse Rate [ Post-Procedure] Pulse Rate [Pre -Procedure] Respiratory Rate Respiratory 22 25 H 26 H Rate [Intra- Procedure] Respiratory Rate [Post- Procedure] Respiratory Rate [Pre- Procedure] Blood Pressure Blood Pressure 122/78 120/75 115/72 [Intra- Procedure] Blood Pressure [Post-Procedure ] Blood Pressure [Pre-Procedure] O2 Sat by Pulse Oximetry O2 Sat by Pulse 100 99 100 Oximetry [ Intra-Procedure ] O2 Sat by Pulse Oximetry [Post -Procedure] O2 Sat by Pulse Oximetry [Pre- Procedure] 01/22/22 01/22/22 01/22/22 14:05 14:10 14:15 Temperature Pulse Rate Pulse Rate [ 107 H 108 H Intra-Procedure ] Pulse Rate [ 101 H Post-Procedure] Pulse Rate [Pre -Procedure] Respiratory Rate Respiratory 25 H 25 H Rate [Intra- Procedure] Respiratory 28 H Rate [Post- Procedure] Respiratory Rate [Pre- Procedure] Blood Pressure Blood Pressure 111/71 119/75 [Intra- Procedure] Blood Pressure 124/80 [Post-Procedure ] Blood Pressure [Pre-Procedure] O2 Sat by Pulse Oximetry O2 Sat by Pulse 106 H 100 Oximetry [ Intra-Procedure ] O2 Sat by Pulse Oximetry [Post -Procedure] O2 Sat by Pulse Oximetry [Pre- Procedure] 01/22/22 01/22/22 14:30 14:45 Temperature Pulse Rate Pulse Rate [ Intra-Procedure ] Pulse Rate [ 93 H 91 H Post-Procedure] Pulse Rate [Pre -Procedure] Respiratory Rate Respiratory Rate [Intra- Procedure] Respiratory 27 H 24 Rate [Post- Procedure] Respiratory Rate [Pre- Procedure] Blood Pressure Blood Pressure [Intra- Procedure] Blood Pressure 125/82 118/80 [Post-Procedure ] Blood Pressure [Pre-Procedure] O2 Sat by Pulse Oximetry O2 Sat by Pulse Oximetry [ Intra-Procedure ] O2 Sat by Pulse 100 100 Oximetry [Post -Procedure] O2 Sat by Pulse Oximetry [Pre- Procedure] - Labs CBC & Chem 7: 01/26/22 04:47 01/27/22 05:13 Labs: Abnormal lab results 01/21/22 01/21/22 01/21/22 Range/Units 05:44 11:41 17:33 WBC (4.5-11.0) K/mm3 MCH (28-32) pg RDW (13.2-15.2) % Plt Count (140-440) K/mm3 Sodium (137-145) mmol/L Chloride (98-107) mmol/L BUN (7-17) mg/dL Creatinine (0.6-1.2) mg/dL Glucose (65-100) mg/dL POC Glucose 165 H 166 H 136 H (70-105) mg/dL Phosphorus (2.5-4.5) mg/dL 01/21/22 01/22/22 01/22/22 Range/Units 21:50 06:02 07:57 WBC (4.5-11.0) K/mm3 MCH (28-32) pg RDW (13.2-15.2) % Plt Count (140-440) K/mm3 Sodium 133 L (137-145) mmol/L Chloride 94.5 L (98-107) mmol/L BUN 18 H (7-17) mg/dL Creatinine 0.4 L (0.6-1.2) mg/dL Glucose 154 H (65-100) mg/dL POC Glucose 128 H 163 H (70-105) mg/dL Phosphorus 4.90 H (2.5-4.5) mg/dL 01/22/22 01/22/22 Range/Units 10:01 11:16 WBC 11.5 H (4.5-11.0) K/mm3 MCH 26 L (28-32) pg RDW 16.8 H (13.2-15.2) % Plt Count 467 H (140-440) K/mm3 Sodium (137-145) mmol/L Chloride (98-107) mmol/L BUN (7-17) mg/dL Creatinine (0.6-1.2) mg/dL Glucose (65-100) mg/dL POC Glucose 149 H (70-105) mg/dL Phosphorus (2.5-4.5) mg/dL
--- NOTE | 2022-01-22 15:15 | Operative Report ---
Operative Report Operative Report: EXAM: CT-guided drainage of a left-sided abdominal collection with a 10 Macanese APD drain DATE: 01/22/2022 HALL COORDINATOR: JONO HOOKER MD INDICATION: Left-sided abdominal fluid collection MEDICATIONS: Please see nursing report for full details. DEVICES: 10 Macanese APD drain CONTRAST: None PROCEDURE: The risk, benefits, and alternatives were discussed with the patient, her her significant other, and her close associate over the phone; written informed consent was obtained. The patient's abdomen was prepped and draped in a sterile fashion. [employer] imaging and CT imaging was done demonstrating a fluid collection to the left of midline associated with numerous loops of bowel. There was hyperdense m aterial in this concerning for old clot/hematoma. Under direct CT guidance, a area was prepped and draped in a sterile fashion using a grade and subsequently a finder needle was used to access the co llection. Afterwards an 18-gauge trocar needle was passed into the collection and a 0.035 inch wire was passed into the collection. Serial dilatation was performed and a 10 Macanese APD drain was placed. Aspiration was applied and old clot/hematoma was was extracted. CT was performed confirming appropriate placement of the drain. Approximately 20 mL of dark black blood was extracted. Discussed case with Dr. Yepez and we decided to remove drain to avoid contaminating the collection. Drain was removed. Repeat CT scan was performed demonstrating no evidence of postprocedural complications. 3-0 Ethilon was used to close the dermatotomy site. 4 x 4 and sterile dressing applied. FINDINGS: Please see procedure note above. IMPRESSION: Successful placement of a 10 Macanese APD drain as described above.
--- NOTE | 2022-01-22 15:52 | Cat Scan Report ---
This examination was performed by Dr. Allen of interventional radiology please refer to his report in [facility]. Signer Name: Wes Castano Jr, MD Signed: 01/22/2022 3:48 PM Workstation Name: [id number]
[2022-01-22] MEDS ORDERED: TOTAL PARENTERAL NUTRITION 2,400 ML IV SCH (20:00)
[2022-01-23] MEDS: ONDANSETRON 4 MG/2 ML INJ IV PRN (03:04)
[2022-01-23] MEDS: MORPHINE 4 MG/1 ML INJ IV PRN (03:04)
[2022-01-23 07:34] LABS: Blood Urea Nitrogen 20 mg/dL (7-17); Calcium 9.2 mg/dL (8.4-10.2); Hemolysis Index 10
[2022-01-23 07:38] LABS: BUN/Creatinine Ratio 40
[2022-01-23] MEDS: MORPHINE 2 MG/1 ML INJ IV PRN ×2 (10:16→17:52)
[2022-01-23] MEDS: HEPARIN 5,000 UNIT/1 ML VIAL SUB-Q SCH ×2 (10:17→21:56)
[2022-01-23] MEDS: FAMOTIDINE 20 MG/2 ML INJ IV SCH ×2 (10:17→21:56)
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
--- NOTE | 2022-01-23 16:11 | Progress Note ---
Assessment and Plan 41-year-old female past medical history of multiple abdominal surgeries (including ex lap) GERD, and hyperlipidemia who presented to the ED with complaints of nausea, vomiting and abdominal pain. Patient just discharged from the hospital yesterday 01/15/22 after patient managed symptomatically by surgeon and then's subsequently patient underwent exploratory laparotomy with lysis of multiple adhesion and resection of the obstructed small bowel with functional end-to-end anastomosis. In the ER patient underwent CT abdomen and pelvis with contrast revealing partial mid small bowel obstruction/ileus. Admitted the patient as per surgery recommendation. Currently NPO with NG suction. Continue IV fluid. 01/18/2022; surgeon Dr. Yepez recommended PPN which is ordered per protocol Follow-up abdominal x-ray 01/19/2022; continue PPN. Patient has no flatus or bowel movement Severe abdominal pain, surgery following 01/20; patient's NG tube came off, monitor off NG suction Surgery following, continue PPN 01/21: Patient continues to be n.p.o. intermittent NG suction on TPN, surgery following. Surgery planning to get a CT abdomen and pelvis and possible IR consult. 01/22: CT-guided drainage of a left-sided abdominal collection with a 10 Sami APD drain today. We will follow surgical culture. Continue on NG tube suction and TPN. Follow BMP. 01/23: Consulted GI for questionable history of Crohn's disease and prior CT scan finding concerning for Crohn's disease. According to GI and general surgeon and also per patient patient does not have any history of Crohn's disease. Patient currently with a small bowel obstruction due to adhesion from prior surgery. Patient did have small bowel resection during prior admission now presented again for nausea vomiting and abdominal pain. General surgeon following, continue n.p.o. status, NG tube suction and TPN. Monitor BMP daily and follow surgery recommendation. Patient denies having a bowel movement. Continue to follow. Assessment and plan: -- Partial obstruction of small intestine Patient's NG tube was displaced, monitor off NG tube If patient has significant symptoms may replace NGT N.p.o. status, IV fluids, supportive care Continue PPN Supportive care, ambulate as tolerated Management per surgery -history of small bowel obstruction s/p surgery 01/08/2022 s/p attempted laparoscopic exploration with conversion to open exploration extensive lysis of adhesions and resection of obstructed small bowel with functional end to end anastomosis on 01/08/[address] Oakes discussed with the patient and her spouse informing that If patient shows any signs of decompensation or any signs of ischemia or perforation patient may need urgent surgical intervention patient and the spouse verbalized understanding --GERD (gastroesophageal reflux disease) Pepcid 20 mg IV every 12 hours. We continue the home medication -- Hypothyroidism Is stable. We continue the home medication --Hyperlipidemia Stable. We continue the home medication --Nausea & vomiting Intermittent NG suction Morphine 2 mg IV every 4 hours as needed Pepcid 20 mg IV every 12 hours. Zofran 4 mils IV every 6 hours as needed. Will consult Dr. Yepez surgeon, --Crohn's disease of intestine without complication ?? Ruled out Consulted GI. According to general surgery and GI and palpation patient does not have any history of Crohn's disease continue current management --DVT prophylaxis Heparin 5000 units subcu every 12 hours for DVT prophylaxis. Pepcid 20 mg IV every 12 hours for GI prophylaxis. Patient is a full code Advance care planning; 30 minutes Patient's condition discussed in detail with the patient and her spouse at the bedside Tests and reports explained to the patient and her spouse at the bedside consultants recommendations Discussed , treatment plan discussed , starting of PPN explained and discussed with the patient They both verbalized understanding agreed with the treatment Closely monitor the patient and adjust management as needed Disposition; follow clinically, follow surgery recommendations discharge when stable and cleared Subjective Date of service: 01/23/22 Interval history: Patient seen and examined. Medical records and medication list reviewed. No acute event overnight noted by the RN. Patient continued to complains of abdominal pain, remains on NG tube suction and TPN Discussed plan of care at bedside with patient. Objective - Exam Narrative Exam: GENERAL: well-developed and well-nourished lying on bed appeared to be in no discomfort. HEENT: Normocephalic. Atraumatic. No conjunctival congestion or icterus. Patient has moist mucous membranes. NECK: Supple. Trachea midline. CHEST/LUNGS: Clear to auscultated bilaterally, breathing nonlabored. No wheezes crackles or rhonchi. HEART/CARDIOVASCULAR: Regular in rate and rhythm. S1 and S2 positive. ABDOMEN: Abdomen mildly tender, with the distention. Patient has hypoactive bowel sounds. SKIN: There is no rash. Warm and dry. NEURO: No focal motor deficit. Follows command. MUSCULOSKELETAL: No joint effusion or tenderness. EXTRIMITY: No edema, no cyanosis or clubbing. PSYCH: Cooperative. - Constitutional Vitals: Vital Signs - 12hr 01/23/22 01/23/22 01/23/22 04:23 09:02 10:16 Temperature 98.0 F Pulse Rate 83 Respiratory 16 20 20 Rate Blood Pressure 133/85 O2 Sat by Pulse 98 97 Oximetry 01/23/22 11:32 Temperature 98.0 F Pulse Rate 87 Respiratory 16 Rate Blood Pressure 123/81 O2 Sat by Pulse 100 Oximetry - Labs CBC & Chem 7: 01/26/22 04:47 01/27/22 05:13 Labs: Abnormal lab results 01/22/22 01/22/22 01/23/22 Range/Units 15:54 21:43 06:50 Sodium 134 L (137-145) mmol/L Chloride 94.9 L (98-107) mmol/L BUN 20 H (7-17) mg/dL Creatinine 0.5 L (0.6-1.2) mg/dL Glucose 145 H (65-100) mg/dL POC Glucose 157 H 172 H (70-105) mg/dL Phosphorus 4.70 H (2.5-4.5) mg/dL 01/23/22 Range/Units 08:19 Sodium (137-145) mmol/L Chloride (98-107) mmol/L BUN (7-17) mg/dL Creatinine (0.6-1.2) mg/dL Glucose (65-100) mg/dL POC Glucose 155 H (70-105) mg/dL Phosphorus (2.5-4.5) mg/dL
[2022-01-23] MEDS ORDERED: TOTAL PARENTERAL NUTRITION 2,400 ML IV SCH (20:00)
[2022-01-24] MEDS: ONDANSETRON 4 MG/2 ML INJ IV PRN ×4 (00:44→17:50)
[2022-01-24] MEDS: MORPHINE 2 MG/1 ML INJ IV PRN ×3 (00:47→12:31)
--- NOTE | 2022-01-24 09:02 | Progress Note ---
Assessment and Plan This is a 41-year-old woman presenting with abdominal pain nausea vomiting. She was seen last week for similar complaints and taken to the OR for lysis of adhesions and excision of obstructing loop of small bowel mid abdomen. She had been advanced to soft diet and discharged but then readmitted with the above symptoms. Pain worsened through the night last night. Patient with nausea vomiting around the NG tube. We will check abdominal x-ray this morning. Continue IV fluids peripheral hyperal and pain medications. Subjective Date of service: 01/24/22 Patient Reports: Positive: still having pain, no flatus, no bowel movement Narrative: Pain worsened through the night last night. Patient with nausea vomiting around the NG tube. We will check abdominal x-ray this morning. Continue IV fluids peripheral hyperal and pain medications. Objective Vital Signs - 12hr 01/23/22 01/24/22 23:56 05:53 Temperature 98.4 F 98.5 F Pulse Rate 104 H 97 H Respiratory 20 19 Rate Blood Pressure 133/86 141/88 O2 Sat by Pulse 98 98 Oximetry - Abdomen tender, not masses, not rebound, guarding - Labs 01/22/22 10:01 01/23/22 06:50
[2022-01-24] MEDS: MORPHINE 4 MG/1 ML INJ IV PRN ×2 (09:10→17:50)
[2022-01-24] MEDS: HEPARIN 5,000 UNIT/1 ML VIAL SUB-Q SCH ×2 (09:11→21:14)
[2022-01-24] MEDS: FAMOTIDINE 20 MG/2 ML INJ IV SCH ×2 (09:11→21:14)
--- NOTE | 2022-01-24 12:27 | XRay Report ---
ABDOMEN 2 VIEWS INDICATION / CLINICAL INFORMATION: Abdominal pain w sbo. COMPARISON: CT dated 01/21/2022 FINDINGS: TUBES / LINES: Esophagogastric tube remains coiled in the stomach with the tip at the gastric fundus. BOWEL GAS PATTERN: Paucity of bowel gas is nonspecific. Small amount of gas in the region of the desc ending colon and rectum. FREE AIR / EXTRALUMINAL GAS: Locules of gas in the left hemiabdomen are not clearly intraluminal. ADDITIONAL FINDINGS: No significant additional findings. CHEST: Visualized chest shows no significant abnormality. IMPRESSION: 1. Esophogastric tube remains coiled in the stomach with the tip in the gastric fundus. 2. Locules of gas in the left hemiabdomen are not clearly intraluminal and may be related to recent i ntervention. Signer Name: Jordan Ribeiro MD Signed: 01/24/2022 12:23 PM Workstation Name: [id number]
--- NOTE | 2022-01-24 14:36 | Progress Note ---
Assessment and Plan 41-year-old female past medical history of multiple abdominal surgeries (including ex lap) GERD, and hyperlipidemia who presented to the ED with complaints of nausea, vomiting and abdominal pain. Patient just discharged from the hospital yesterday 01/15/22 after patient managed symptomatically by surgeon and then's subsequently patient underwent exploratory laparotomy with lysis of multiple adhesion and resection of the obstructed small bowel with functional end-to-end anastomosis. In the ER patient underwent CT abdomen and pelvis with contrast revealing partial mid small bowel obstruction/ileus. Admitted the patient as per surgery recommendation. Currently NPO with NG suction. Continue IV fluid. 01/18/2022; surgeon Dr. Yepez recommended PPN which is ordered per protocol Follow-up abdominal x-ray 01/19/2022; continue PPN. Patient has no flatus or bowel movement Severe abdominal pain, surgery following 01/20; patient's NG tube came off, monitor off NG suction Surgery following, continue PPN 01/21: Patient continues to be n.p.o. intermittent NG suction on TPN, surgery following. Surgery planning to get a CT abdomen and pelvis and possible IR consult. 01/22: CT-guided drainage of a left-sided abdominal collection with a 10 Polish APD drain today. We will follow surgical culture. Continue on NG tube suction and TPN. Follow BMP. 01/23: Consulted GI for questionable history of Crohn's disease and prior CT scan finding concerning for Crohn's disease. According to GI and general surgeon and also per patient patient does not have any history of Crohn's disease. Patient currently with a small bowel obstruction due to adhesion from prior surgery. Patient did have small bowel resection during prior admission now presented again for nausea vomiting and abdominal pain. General surgeon following, continue n.p.o. status, NG tube suction and TPN. Monitor BMP daily and follow surgery recommendation. Patient denies having a bowel movement. Continue to follow. 01/24; Pain worsened through the night last night. Patient with nausea vomiting around the NG tube. ordered abdominal x-ray this morning. Continue IV fluids and pain medications. cont TPN Assessment and plan: -- Partial obstruction of small intestine Patient's NG tube was displaced, monitor off NG tube If patient has significant symptoms may replace NGT N.p.o. status, IV fluids, supportive care Continue PPN Supportive care, ambulate as tolerated Management per surgery -history of small bowel obstruction s/p surgery 01/08/2022 s/p attempted laparoscopic exploration with conversion to open exploration extensive lysis of adhesions and resection of obstructed small bowel with functional end to end anastomosis on 01/08/[address] Oakes discussed with the patient and her spouse informing that If patient shows any signs of decompensation or any signs of ischemia or perforation patient may need urgent surgical intervention patient and the spouse verbalized understanding --GERD (gastroesophageal reflux disease) Pepcid 20 mg IV every 12 hours. We continue the home medication -- Hypothyroidism Is stable. We continue the home medication --Hyperlipidemia Stable. We continue the home medication --Nausea & vomiting Intermittent NG suction Morphine 2 mg IV every 4 hours as needed Pepcid 20 mg IV every 12 hours. Zofran 4 mils IV every 6 hours as needed. Will consult Dr. Yepez surgeon, --Crohn's disease of intestine without complication ?? Ruled out Consulted GI. According to general surgery and GI and palpation patient does n ot have any history of Crohn's disease continue current management --DVT prophylaxis Heparin 5000 units subcu every 12 hours for DVT prophylaxis. Pepcid 20 mg IV every 12 hours for GI prophylaxis. Patient is a full code Advance care planning; 30 minutes Patient's condition discussed in detail with the patient and her spouse at the bedside Tests and reports explained to the patient and her spouse at the bedside consultants recommendations Discussed , treatment plan discussed , starting of PPN explained and discussed with the patient They both verbalized understanding agreed with the treatment Closely monitor the patient and adjust management as needed Disposition; follow clinically, follow surgery recommendations discharge when stable and cleared Subjective Date of service: 01/24/22 Interval history: Patient seen and examined. Medical records and medication list reviewed. No acute event overnight noted by the RN. Patient continued to complains of abdominal pain, remains on NG tube suction and TPN Pain increased last night Discussed plan of care at bedside with patient. Objective - Exam Narrative Exam: GENERAL: well-developed and well-nourished lying on bed appeared to be in no discomfort. HEENT: Normocephalic. Atraumatic. No conjunctival congestion or icterus. Patient has moist mucous membranes. NECK: Supple. Trachea midline. CHEST/LUNGS: Clear to auscultated bilaterally, breathing nonlabored. No wheezes crackles or rhonchi. HEART/CARDIOVASCULAR: Regular in rate and rhythm. S1 and S2 positive. ABDOMEN: Abdomen mildly tender, with the distention. Patient has hypoactive bowel sounds. SKIN: There is no rash. Warm and dry. NEURO: No focal motor deficit. Follows command. MUSCULOSKELETAL: No joint effusion or tenderness. EXTRIMITY: No edema, no cyanosis or clubbing. PSYCH: Cooperative. - Constitutional Vitals: Vital Signs - 12hr 01/24/22 01/24/22 01/24/22 05:53 09:10 12:31 Temperature 98.5 F Pulse Rate 97 H Respiratory 19 20 20 Rate Blood Pressure 141/88 O2 Sat by Pulse 98 Oximetry 01/24/22 12:41 Temperature Pulse Rate Respiratory 20 Rate Blood Pressure O2 Sat by Pulse 98 Oximetry - Labs CBC & Chem 7: 01/26/22 04:47 01/27/22 05:13 Labs: Abnormal lab results 01/23/22 01/23/22 01/23/22 Range/Units 11:31 15:40 20:43 POC Glucose 173 H 119 H 144 H (70-105) mg/dL 01/24/22 01/24/22 Range/Units 07:14 11:24 POC Glucose 153 H 189 H (70-105) mg/dL
[2022-01-24] MEDS ORDERED: TOTAL PARENTERAL NUTRITION 2,400 ML IV SCH (20:00)
[2022-01-25] MEDS ORDERED: ONDANSETRON 4 MG/2 ML INJ IV ONE (00:35)
[2022-01-25] MEDS: MORPHINE 4 MG/1 ML INJ IV PRN ×2 (06:08→20:47)
[2022-01-25 06:09] LABS: Blood Urea Nitrogen 21 mg/dL (7-17); Calcium 8.9 mg/dL (8.4-10.2); Hemolysis Index 0
[2022-01-25 06:30] LABS: BUN/Creatinine Ratio 53
[2022-01-25] MEDS: MORPHINE 2 MG/1 ML INJ IV PRN ×2 (10:22→17:31)
[2022-01-25] MEDS: HEPARIN 5,000 UNIT/1 ML VIAL SUB-Q SCH ×2 (10:22→21:22)
[2022-01-25] MEDS: FAMOTIDINE 20 MG/2 ML INJ IV SCH ×2 (10:22→21:22)
[2022-01-25] MEDS: ONDANSETRON 4 MG/2 ML INJ IV PRN ×2 (13:18→17:31)
--- NOTE | 2022-01-25 14:17 | Fluoroscopy Report ---
SMALL BOWEL FOLLOW-THROUGH HISTORY: pt with recent sb excision. TECHNIQUE: Single contrast Gastrografin technique utilized to evaluate the small bowel. FINDINGS: Gastrografin was administered through the nasogastric tube. The patient experienced 2 episo leda of emesis after administration of the Gastrografin. Small bowel transit time was 90 minutes which is the upper limits of normal. There are a few borderline dilated loops of small bowel in the left upper quadrant which are similar in appearance to the CT dated 01/21/2022.. The remaining small bowel loops including the terminal ileum are unremarkable. No evidence for obstruction.. IMPRESSION: Essentially unremarkable exam. Oral contrast transit time is 90 minutes which is the upp er limits of normal. No evidence for obstruction. FLUOROSCOPIC TIME: 0 minutes NUMBER OF FLUOROSCOPIC IMAGES: 0 Signer Name: Wes Castano Jr, MD Signed: 01/25/2022 2:13 PM Workstation Name: [id number]
[2022-01-25] MEDS ORDERED: TOTAL PARENTERAL NUTRITION 2,400 ML IV SCH (20:00)
[2022-01-25] MEDS ORDERED: FAT EMULSIONS 20% 250 ML IV SCH (20:00)
--- NOTE | 2022-01-25 22:35 | Progress Note ---
Assessment and Plan 41-year-old female past medical history of multiple abdominal surgeries (including ex lap) GERD, and hyperlipidemia who presented to the ED with complaints of nausea, vomiting and abdominal pain. Patient just discharged from the hospital yesterday 01/15/22 after patient managed symptomatically by surgeon and then's subsequently patient underwent exploratory laparotomy with lysis of multiple adhesion and resection of the obstructed small bowel with functional end-to-end anastomosis. In the ER patient underwent CT abdomen and pelvis with contrast revealing partial mid small bowel obstruction/ileus. Admitted the patient as per surgery recommendation. Currently NPO with NG suction. Continue IV fluid. 01/18/2022; surgeon Dr. Yepez recommended PPN which is ordered per protocol Follow-up abdominal x-ray 01/19/2022; continue PPN. Patient has no flatus or bowel movement Severe abdominal pain, surgery following 01/20; patient's NG tube came off, monitor off NG suction Surgery following, continue PPN 01/21: Patient continues to be n.p.o. intermittent NG suction on TPN, surgery following. Surgery planning to get a CT abdomen and pelvis and possible IR consult. 01/22: CT-guided drainage of a left-sided abdominal collection with a 10 Urdu APD drain today. We will follow surgical culture. Continue on NG tube suction and TPN. Follow BMP. 01/23: Consulted GI for questionable history of Crohn's disease and prior CT scan finding concerning for Crohn's disease. According to GI and general surgeon and also per patient patient does not have any history of Crohn's disease. Patient currently with a small bowel obstruction due to adhesion from prior surgery. Patient did have small bowel resection during prior admission now presented again for nausea vomiting and abdominal pain. General surgeon following, continue n.p.o. status, NG tube suction and TPN. Monitor BMP daily and follow surgery recommendation. Patient denies having a bowel movement. Continue to follow. 01/24; Pain worsened through the night last night. Patient with nausea vomiting around the NG tube. ordered abdominal x-ray this morning. Continue IV fluids and pain medications. cont TPN 01/25; pain slightly improved today. Abdomen x-ray did not show any obvious obstruction. Continue TPN and NG suction. Follow clinically Assessment and plan: -- Partial obstruction of small intestine Patient's NG tube was displaced, monitor off NG tube If patient has significant symptoms may replace NGT N.p.o. status, IV fluids, supportive care Continue PPN Supportive care, ambulate as tolerated Management per surgery -history of small bowel obstruction s/p surgery 01/08/2022 s/p attempted laparoscopic exploration with conversion to open exploration extensive lysis of adhesions and resection of obstructed small bowel with functional end to end anastomosis on 01/08/[address] Oakes discussed with the patient and her spouse informing that If patient shows any signs of decompensation or any signs of ischemia or perforation patient may need urgent surgical intervention patient and the spouse verbalized understanding --GERD (gastroesophageal reflux disease) Pepcid 20 mg IV every 12 hours. We continue the home medication -- Hypothyroidism Is stable. We continue the home medication --Hyperlipidemia Stable. We continue the home medication --Nausea & vomiting Intermittent NG suction Morphine 2 mg IV every 4 hours as needed Pepcid 20 mg IV every 12 hours. Zofran 4 mils IV every 6 hours as needed. Will consult Dr. Yepez surgeon, --Crohn's disease of intestine without complication ?? Ruled out Consulted GI. According to general surgery and GI and palpation patient does not have any history of Crohn's disease continue current management --DVT prophylaxis Heparin 5000 units subcu every 12 hours for DVT prophylaxis. Pepcid 20 mg IV every 12 hours for GI prophylaxis. Patient is a full code Advance care planning; 30 minutes Patient's condition discussed in detail with the patient and her spouse at the bedside Tests and reports explained to the patient and her spouse at the bedside consultants recommendations Discussed , treatment plan discussed , starting of PPN explained and discussed with the patient They both verbalized understanding agreed with the treatment Closely monitor the patient and adjust management as needed Disposition; follow clinically, follow surgery recommendations discharge when stable and cleared Subjective Date of service: 01/25/22 Interval history: Patient seen and examined. Medical records and medication list reviewed. No acute event overnight noted by the RN. Patient continued to complains of abdominal pain, remains on NG tube suction and TPN Discussed plan of care at bedside with patient. Objective - Exam Narrative Exam: GENERAL: well-developed and well-nourished lying on bed appeared to be in no discomfort. HEENT: Normocephalic. Atraumatic. No conjunctival congestion or icterus. Patient has moist mucous membranes. NECK: Supple. Trachea midline. CHEST/LUNGS: Clear to auscultated bilaterally, breathing nonlabored. No wheezes crackles or rhonchi. HEART/CARDIOVASCULAR: Regular in rate and rhythm. S1 and S2 positive. ABDOMEN: Abdomen mildly tender, with the distention. Patient has hypoactive bowel sounds. SKIN: There is no rash. Warm and dry. NEURO: No focal motor deficit. Follows command. MUSCULOSKELETAL: No joint effusion or tenderness. EXTRIMITY: No edema, no cyanosis or clubbing. PSYCH: Cooperative. - Constitutional Vitals: Vital Signs - 12hr 01/25/22 01/25/22 22:00 22:05 Temperature 98.9 F Pulse Rate 93 H Respiratory 18 Rate Blood Pressure 138/86 O2 Sat by Pulse 97 Oximetry - Labs CBC & Chem 7: 01/26/22 04:47 01/27/22 05:13 Labs: Abnormal lab results 01/25/22 01/25/22 01/25/22 Range/Units 05:24 05:24 06:09 Sodium 134 L (137-145) mmol/L Chloride 96.1 L (98-107) mmol/L BUN 21 H (7-17) mg/dL Creatinine 0.4 L (0.6-1.2) mg/dL Glucose 177 H (65-100) mg/dL POC Glucose 181 H (70-105) mg/dL Triglycerides 166 H (2-149) mg/dL 01/25/22 01/25/22 Range/Units 13:30 17:00 Sodium (137-145) mmol/L Chloride (98-107) mmol/L BUN (7-17) mg/dL Creatinine (0.6-1.2) mg/dL Glucose (65-100) mg/dL POC Glucose 164 H 179 H (70-105) mg/dL Triglycerides (2-149) mg/dL
[2022-01-26] MEDS: MORPHINE 2 MG/1 ML INJ IV PRN ×2 (01:25→06:14)
[2022-01-26 05:29] LABS: Basophils # (Auto) 0.1 K/mm3 (0.0-0.1); Basophils % (Auto) 0.5 % (0.0-1.8); Eosinophils % (Auto) 0.2 % (0.0-4.3); Hematocrit 32.5 % (30.3-42.9); Hemoglobin 10.8 gm/dl (10.1-14.3); Lymphocytes # (Auto) 1.1 K/mm3 (1.2-5.4); Lymphocytes % (Auto) 8.8 % (13.4-35.0); Mean Corpuscular HGB Conc 33 % (30-34); Mean Corpuscular Volume 79 fl (79-97); Monocytes # (Auto) 1.4 K/mm3 (0.0-0.8); Monocytes % (Auto) 11.3 % (0.0-7.3); Platelet Count 419 K/mm3 (140-440); Red Blood Count 4.12 M/mm3 (3.65-5.03); Red Cell Distribution Width 16.6 % (13.2-15.2)
[2022-01-26 05:40] LABS: Blood Urea Nitrogen 21 mg/dL (7-17); Calcium 8.5 mg/dL (8.4-10.2); Hemolysis Index 6
[2022-01-26 05:43] LABS: BUN/Creatinine Ratio 70
--- NOTE | 2022-01-26 10:41 | Progress Note ---
Assessment and Plan This is a 41-year-old woman presenting with abdominal pain nausea vomiting. She was seen last week for similar complaints and taken to the OR for lysis of adhesions and excision of obstructing loop of small bowel mid abdomen. She had been advanced to soft diet and discharged but then readmitted with the above symptoms. Pt with some abdopain. She had a bm yesterday none today. Will try icechips with ng on suction. UBI with sbft done yesterday without evidence of anastomotic leak. Contrest visualized in the colon. Pt with ileus. Cont tpn and supporitve measures. Consider decreasing opiate pain medications. OK t use NSaids. Subjective Date of service: 01/26/22 Patient Reports: Positive: still having pain, pain is less Narrative: Pt with some abdopain. She had a bm yesterday none today. Will try icechips with ng on suction. UBI with sbft done yesterday without evidence of anastomotic leak. Contrest visualized in the colon. Pt with ileus. Cont tpn and supporitve measures. Consider decreasing opiate pain medications. OK t use NSaids. Objective - Labs 01/26/22 04:47 01/26/22 04:47 Diabetes panel 01/26/22 Range/Units 04:47 Sodium 131 L (137-145) mmol/L Potassium 3.4 L (3.6-5.0) mmol/L Chloride 94.0 L (98-107) mmol/L Carbon Dioxide 25 (22-30) mmol/L BUN 21 H (7-17) mg/dL Creatinine 0.3 L (0.6-1.2) mg/dL Glucose 182 H (65-100) mg/dL Calcium 8.5 (8.4-10.2) mg/dL Calcium panel 01/26/22 Range/Units 04:47 Calcium 8.5 (8.4-10.2) mg/dL Phosphorus 3.00 (2.5-4.5) mg/dL Pituitary panel 01/26/22 Range/Units 04:47 Sodium 131 L (137-145) mmol/L Potassium 3.4 L (3.6-5.0) mmol/L Chloride 94.0 L (98-107) mmol/L Carbon Dioxide 25 (22-30) mmol/L BUN 21 H (7-17) mg/dL Creatinine 0.3 L (0.6-1.2) mg/dL Glucose 182 H (65-100) mg/dL Calcium 8.5 (8.4-10.2) mg/dL Adrenal panel 01/26/22 Range/Units 04:47 Sodium 131 L (137-145) mmol/L Potassium 3.4 L (3.6-5.0) mmol/L Chloride 94.0 L (98-107) mmol/L Carbon Dioxide 25 (22-30) mmol/L BUN 21 H (7-17) mg/dL Creatinine 0.3 L (0.6-1.2) mg/dL Glucose 182 H (65-100) mg/dL Calcium 8.5 (8.4-10.2) mg/dL
[2022-01-26] MEDS: HEPARIN 5,000 UNIT/1 ML VIAL SUB-Q SCH ×2 (11:05→22:19)
[2022-01-26] MEDS: MORPHINE 4 MG/1 ML INJ IV PRN ×3 (11:05→22:18)
[2022-01-26] MEDS: FAMOTIDINE 20 MG/2 ML INJ IV SCH ×2 (11:07→22:18)
[2022-01-26] MEDS: ONDANSETRON 4 MG/2 ML INJ IV PRN ×3 (11:15→22:18)
--- NOTE | 2022-01-26 12:16 | Progress Note ---
Assessment and Plan 41-year-old female past medical history of multiple abdominal surgeries (including ex lap) GERD, and hyperlipidemia who presented to the ED with complaints of nausea, vomiting and abdominal pain. Patient just discharged from the hospital yesterday 01/15/22 after patient managed symptomatically by surgeon and then's subsequently patient underwent exploratory laparotomy with lysis of multiple adhesion and resection of the obstructed small bowel with functional end-to-end anastomosis. In the ER patient underwent CT abdomen and pelvis with contrast revealing partial mid small bowel obstruction/ileus. Admitted the patient as per surgery recommendation. Currently NPO with NG suction. Continue IV fluid. 01/18/2022; surgeon Dr. Yepez recommended PPN which is ordered per protocol Follow-up abdominal x-ray 01/19/2022; continue PPN. Patient has no flatus or bowel movement Severe abdominal pain, surgery following 01/20; patient's NG tube came off, monitor off NG suction Surgery following, continue PPN 01/21: Patient continues to be n.p.o. intermittent NG suction on TPN, surgery following. Surgery planning to get a CT abdomen and pelvis and possible IR consult. 01/22: CT-guided drainage of a left-sided abdominal collection with a 10 Pashto APD drain today. We will follow surgical culture. Continue on NG tube suction and TPN. Follow BMP. 01/23: Consulted GI for questionable history of Crohn's disease and prior CT scan finding concerning for Crohn's disease. According to GI and general surgeon and also per patient patient does not have any history of Crohn's disease. Patient currently with a small bowel obstruction due to adhesion from prior surgery. Patient did have small bowel resection during prior admission now presented again for nausea vomiting and abdominal pain. General surgeon following, continue n.p.o. status, NG tube suction and TPN. Monitor BMP daily and follow surgery recommendation. Patient denies having a bowel movement. Continue to follow. 01/24; Pain worsened through the night last night. Patient with nausea vomiting around the NG tube. ordered abdominal x-ray this morning. Continue IV fluids and pain medications. cont TPN 01/25; pain slightly improved today. Abdomen x-ray did not show any obvious obstruction. Continue TPN and NG suction. Follow clinically 01/26; patient had BM yesterday. Small bowel follow-through yesterday afternoon showed no bowel obstruction. Plan to clamp NG suction and start on ice chips. Continue to follow clinically. Assessment and plan: -- Partial obstruction of small intestine, improving S/p NG tube suction, clamp NG tube for now On ice chips, IV fluids, supportive care Continue PPN Supportive care, ambulate as tolerated Management per surgery -history of small bowel obstruction s/p surgery 01/08/2022 s/p attempted laparoscopic exploration with conversion to open exploration extensive lysis of adhesions and resection of obstructed small bowel with functional end to end anastomosis on 01/08/[address] Oakes discussed with the patient and her spouse informing that If patient shows any signs of decompensation or any signs of ischemia or perforation patient may need urgent surgical intervention patient and the spouse verbalized understanding --GERD (gastroesophageal reflux disease) Pepcid 20 mg IV every 12 hours. We continue the home medication -- Hypothyroidism Is stable. We continue the home medication when he can tolerate. --Hyperlipidemia Stable. We continue the home medication --Nausea & vomiting Intermittent NG suction Morphine 2 mg IV every 4 hours as needed Pepcid 20 mg IV every 12 hours. Zofran 4 mils IV every 6 hours as needed. Will consult Dr. Yepez surgeon, --Crohn's disease of intestine without complication ?? Ruled out Consulted GI. According to general surgery and GI and palpation patient does no t have any history of Crohn's disease continue current management --DVT prophylaxis Heparin 5000 units subcu every 12 hours for DVT prophylaxis. Pepcid 20 mg IV every 12 hours for GI prophylaxis. Patient is a full code Advance care planning; 30 minutes Patient's condition discussed in detail with the patient and her spouse at the bedside Tests and reports explained to the patient and her spouse at the bedside consultants recommendations Discussed , treatment plan discussed , starting of PPN explained and discussed with the patient They both verbalized understanding agreed with the treatment Closely monitor the patient and adjust management as needed Disposition; follow clinically, follow surgery recommendations discharge when stable and cleared Subjective Date of service: 01/26/22 Interval history: Patient seen and examined. Medical records and medication list reviewed. No acute event overnight noted by the RN. Patient remains on NG tube suction and TPN Small bowel follow-through showed no obstruction, patient had a BM yesterday Discussed plan of care at bedside with patient. Objective - Exam Narrative Exam: GENERAL: well-developed and well-nourished lying on bed appeared to be in no discomfort. HEENT: Normocephalic. Atraumatic. No conjunctival congestion or icterus. Aurelio rodríguez has moist mucous membranes. NECK: Supple. Trachea midline. CHEST/LUNGS: Clear to auscultated bilaterally, breathing nonlabored. No wheezes crackles or rhonchi. HEART/CARDIOVASCULAR: Regular in rate and rhythm. S1 and S2 positive. ABDOMEN: Abdomen mildly tender, with the distention. Patient has hypoactive bowel sounds. SKIN: There is no rash. Warm and dry. NEURO: No focal motor deficit. Follows command. MUSCULOSKELETAL: No joint effusion or tenderness. EXTRIMITY: No edema, no cyanosis or clubbing. PSYCH: Cooperative. - Constitutional Vitals: Vital Signs - 12hr 01/26/22 10:00 O2 Sat by Pulse 98 Oximetry - Labs CBC & Chem 7: 01/26/22 04:47 01/27/22 05:13 Labs: Abnormal lab results 01/25/22 01/25/22 01/26/22 Range/Units 13:30 17:00 01:35 WBC (4.5-11.0) K/mm3 MCH (28-32) pg RDW (13.2-15.2) % Lymph % (Auto) (13.4-35.0) % Bath % (Auto) (0.0-7.3) % Lymph # (Auto) (1.2-5.4) K/mm3 Bath # (Auto) (0.0-0.8) K/mm3 Seg Neutrophils % (40.0-70.0) % Seg Neutrophils # (1.8-7.7) K/mm3 Sodium (137-145) mmol/L Potassium (3.6-5.0) mmol/L Chloride (98-107) mmol/L BUN (7-17) mg/dL Creatinine (0.6-1.2) mg/dL Glucose (65-100) mg/dL POC Glucose 164 H 179 H 178 H (70-105) mg/dL 01/26/22 01/26/22 01/26/22 Range/Units 04:47 04:47 06:06 WBC 12.5 H (4.5-11.0) K/mm3 MCH 26 L (28-32) pg RDW 16.6 H (13.2-15.2) % Lymph % (Auto) 8.8 L (13.4-35.0) % Bath % (Auto) 11.3 H (0.0-7.3) % Lymph # (Auto) 1.1 L (1.2-5.4) K/mm3 Bath # (Auto) 1.4 H (0.0-0.8) K/mm3 Seg Neutrophils % 79.2 H (40.0-70.0) % Seg Neutrophils # 9.9 H (1.8-7.7) K/mm3 Sodium 131 L (137-145) mmol/L Potassium 3.4 L (3.6-5.0) mmol/L Chloride 94.0 L (98-107) mmol/L BUN 21 H (7-17) mg/dL Creatinine 0.3 L (0.6-1.2) mg/dL Glucose 182 H (65-100) mg/dL POC Glucose 157 H (70-105) mg/dL
[2022-01-26] MEDS ORDERED: TOTAL PARENTERAL NUTRITION 2,400 ML IV SCH (20:00)
[2022-01-27] MEDS: MORPHINE 4 MG/1 ML INJ IV PRN ×3 (05:26→20:30)
[2022-01-27] MEDS: ONDANSETRON 4 MG/2 ML INJ IV PRN ×3 (05:27→20:31)
[2022-01-27 05:58] LABS: Blood Urea Nitrogen 16 mg/dL (7-17); Calcium 8.7 mg/dL (8.4-10.2); Hemolysis Index 3
[2022-01-27 06:10] LABS: BUN/Creatinine Ratio 40
--- NOTE | 2022-01-27 08:14 | Progress Note ---
Assessment and Plan This is a 41-year-old woman presenting with abdominal pain nausea vomiting. She was seen last week for similar complaints and taken to the OR for lysis of adhesions and excision of obstructing loop of small bowel mid abdomen. She had been advanced to soft diet and discharged but then readmitted with the above symptoms. Clamp ng. Return to suction for distress. If jazzy over next 6 hours ok to advance to cld. Subjective Date of service: 01/27/22 Patient Reports: Positive: no new complaints, pain is less Narrative: pt with bm yesterday. Will clamp NG now, cont ice chips. If this is jazzy will advance to cld later today or in am. Objective Vital Signs - 12hr 01/26/22 01/26/22 01/26/22 20:32 22:00 22:25 Temperature 99.3 F Pulse Rate 97 H 100 H Respiratory 18 20 Rate Blood Pressure 133/82 [Left] O2 Sat by Pulse 98 98 97 Oximetry - Labs 01/26/22 04:47 01/27/22 05:13 Diabetes panel 01/27/22 Range/Units 05:13 Sodium 132 L (137-145) mmol/L Potassium 3.2 L (3.6-5.0) mmol/L Chloride 94.0 L (98-107) mmol/L Carbon Dioxide 28 (22-30) mmol/L BUN 16 (7-17) mg/dL Creatinine 0.4 L (0.6-1.2) mg/dL Glucose 144 H (65-100) mg/dL Calcium 8.7 (8.4-10.2) mg/dL Calcium panel 01/27/22 Range/Units 05:13 Calcium 8.7 (8.4-10.2) mg/dL Phosphorus 3.40 (2.5-4.5) mg/dL Pituitary panel 01/27/22 Range/Units 05:13 Sodium 132 L (137-145) mmol/L Potassium 3.2 L (3.6-5.0) mmol/L Chloride 94.0 L (98-107) mmol/L Carbon Dioxide 28 (22-30) mmol/L BUN 16 (7-17) mg/dL Creatinine 0.4 L (0.6-1.2) mg/dL Glucose 144 H (65-100) mg/dL Calcium 8.7 (8.4-10.2) mg/dL Adrenal panel 01/27/22 Range/Units 05:13 Sodium 132 L (137-145) mmol/L Potassium 3.2 L (3.6-5.0) mmol/L Chloride 94.0 L (98-107) mmol/L Carbon Dioxide 28 (22-30) mmol/L BUN 16 (7-17) mg/dL Creatinine 0.4 L (0.6-1.2) mg/dL Glucose 144 H (65-100) mg/dL Calcium 8.7 (8.4-10.2) mg/dL
--- NOTE | 2022-01-27 11:23 | Progress Note ---
Assessment and Plan 41-year-old female past medical history of multiple abdominal surgeries (including ex lap) GERD, and hyperlipidemia who presented to the ED with complaints of nausea, vomiting and abdominal pain. Patient just discharged from the hospital yesterday 01/15/22 after patient managed symptomatically by surgeon and then's subsequently patient underwent exploratory laparotomy with lysis of multiple adhesion and resection of the obstructed small bowel with functional end-to-end anastomosis. In the ER patient underwent CT abdomen and pelvis with contrast revealing partial mid small bowel obstruction/ileus. Admitted the patient as per surgery recommendation. Currently NPO with NG suction. Continue IV fluid. 01/18/2022; surgeon Dr. Yepez recommended PPN which is ordered per protocol Follow-up abdominal x-ray 01/19/2022; continue PPN. Patient has no flatus or bowel movement Severe abdominal pain, surgery following 01/20; patient's NG tube came off, monitor off NG suction Surgery following, continue PPN 01/21: Patient continues to be n.p.o. intermittent NG suction on TPN, surgery following. Surgery planning to get a CT abdomen and pelvis and possible IR consult. 01/22: CT-guided drainage of a left-sided abdominal collection with a 10 Georgian APD drain today. We will follow surgical culture. Continue on NG tube suction and TPN. Follow BMP. 01/23: Consulted GI for questionable history of Crohn's disease and prior CT scan finding concerning for Crohn's disease. According to GI and general surgeon and also per patient patient does not have any history of Crohn's disease. Patient currently with a small bowel obstruction due to adhesion from prior surgery. Patient did have small bowel resection during prior admission now presented again for nausea vomiting and abdominal pain. General surgeon following, continue n.p.o. status, NG tube suction and TPN. Monitor BMP daily and follow surgery recommendation. Patient denies having a bowel movement. Continue to follow. 01/24; Pain worsened through the night last night. Patient with nausea vomiting around the NG tube. ordered abdominal x-ray this morning. Continue IV fluids and pain medications. cont TPN 01/25; pain slightly improved today. Abdomen x-ray did not show any obvious obstruction. Continue TPN and NG suction. Follow clinically 01/26; patient had BM yesterday. Small bowel follow-through yesterday afternoon showed no bowel obstruction. Plan to clamp NG suction and start on ice chips. Continue to follow clinically. 01/27; tolerating ice chips. NG tube unclamped now, continue TPN. Will start on diet when cleared by general surgeon, continue to follow with supportive care for now. Repeat CBC and BMP tomorrow morning Assessment and plan: -- Partial obstruction of small intestine, improving S/p NG tube suction, clamp NG tube for now On ice chips, IV fluids, supportive care Continue PPN Supportive care, ambulate as tolerated Management per surgery -history of small bowel obstruction s/p surgery 01/08/2022 s/p attempted laparoscopic exploration with conversion to open exploration extensive lysis of adhesions and resection of obstructed small bowel with functional end to end anastomosis on 01/08/[address] Oakes discussed with the patient and her spouse informing that If patient shows any signs of decompensation or any signs of ischemia or perforation patient may need urgent surgical intervention patient and the spouse verbalized understanding --GERD (gastroesophageal reflux disease) Pepcid 20 mg IV every 12 hours. We continue the home medication -- Hypothyroidism Is stable. We continue the home medication when he can tolerate. --Hyperlipidemia Stable. We continue the home medication --Nausea & vomiting Intermittent NG suction Morphine 2 mg IV every 4 hours as needed Pepcid 20 mg IV every 12 hours. Zofran 4 mils IV every 6 hours as needed. Will consult Dr. Yepez surgeon, --Crohn's disease of intestine without complication ?? Ruled out Consulted GI. According to general surgery and GI and palpation patient does not have any history of Crohn's disease continue current management --DVT prophylaxis Heparin 5000 units subcu every 12 hours for DVT prophylaxis. Pepcid 20 mg IV every 12 hours for GI prophylaxis. Patient is a full code Advance care planning; 30 minutes Patient's condition discussed in detail with the patient and her spouse at the bedside Tests and reports explained to the patient and her spouse at the bedside consultants recommendations Discussed , treatment plan discussed , starting of PPN explained and discussed with the patient They both verbalized understanding agreed with the treatment Closely monitor the patient and adjust management as needed Disposition; follow clinically, follow surgery recommendations discharge when stable and cleared Subjective Date of service: 01/27/22 Interval history: Patient seen and examined. Medical records and medication list reviewed. No acute event overnight noted by the RN. Patient NG tube on clamp today Small bowel follow-through showed no obstruction, patient had BM Discussed plan of care at bedside with patient. Objective - Exam Narrative Exam: GENERAL: well-developed and well-nourished lying on bed appeared to be in no discomfort. HEENT: Normocephalic. Atraumatic. No conjunctival congestion or icterus. Patient has moist mucous membranes. NECK: Supple. Trachea midline. CHEST/LUNGS: Clear to auscultated bilaterally, breathing nonlabored. No wheezes crackles or rhonchi. HEART/CARDIOVASCULAR: Regular in rate and rhythm. S1 and S2 positive. ABDOMEN: Abdomen mildly tender, with the distention. Patient has hypoactive bow el sounds. SKIN: There is no rash. Warm and dry. NEURO: No focal motor deficit. Follows command. MUSCULOSKELETAL: No joint effusion or tenderness. EXTRIMITY: No edema, no cyanosis or clubbing. PSYCH: Cooperative. - Labs CBC & Chem 7: 01/26/22 04:47 01/27/22 05:13 Labs: Abnormal lab results 01/26/22 01/26/22 01/26/22 Range/Units 08:12 11:47 16:26 Sodium (137-145) mmol/L Potassium (3.6-5.0) mmol/L Chloride (98-107) mmol/L Creatinine (0.6-1.2) mg/dL Glucose (65-100) mg/dL POC Glucose 159 H 156 H 126 H (70-105) mg/dL 01/26/22 01/27/22 01/27/22 Range/Units 21:17 05:13 06:09 Sodium 132 L (137-145) mmol/L Potassium 3.2 L (3.6-5.0) mmol/L Chloride 94.0 L (98-107) mmol/L Creatinine 0.4 L (0.6-1.2) mg/dL Glucose 144 H (65-100) mg/dL POC Glucose 119 H 149 H (70-105) mg/dL
[2022-01-27] MEDS: HEPARIN 5,000 UNIT/1 ML VIAL SUB-Q SCH ×2 (12:56→22:37)
[2022-01-27] MEDS: FAMOTIDINE 20 MG/2 ML INJ IV SCH ×2 (12:57→22:37)
[2022-01-27] MEDS ORDERED: TOTAL PARENTERAL NUTRITION 2,400 ML IV SCH (20:00)
[2022-01-28] MEDS: MORPHINE 4 MG/1 ML INJ IV PRN (06:15)
[2022-01-28] MEDS: ONDANSETRON 4 MG/2 ML INJ IV PRN (06:16)
[2022-01-28 06:34] LABS: Blood Urea Nitrogen 15 mg/dL (7-17); Calcium 8.7 mg/dL (8.4-10.2); Hemolysis Index 8
[2022-01-28 06:35] LABS: BUN/Creatinine Ratio 38
--- NOTE | 2022-01-28 08:07 | Progress Note ---
Assessment and Plan Assessment and plan: 41-year-old female past medical history of multiple abdominal surgeries (including ex lap) GERD, and hyperlipidemia who presented to the ED with complaints of nausea, vomiting and abdominal pain. Patient just discharged from the hospital yesterday 01/15/22 after patient managed symptomatically by surgeon and then's subsequently patient underwent exploratory laparotomy with lysis of multiple adhesion and resection of the obstructed small bowel with functional end-to-end anastomosis. In the ER patient underwent CT abdomen and pelvis with contrast revealing partial mid small bowel obstruction/ileus. Admitted the patient as per surgery recommendation. Currently NPO with NG suction. Continue IV fluid. 01/18/2022; surgeon Dr. Yepez recommended PPN which is ordered per protocol Follow-up abdominal x-ray 01/19/2022; continue PPN. Patient has no flatus or bowel movement Severe abdominal pain, surgery following 01/20; patient's NG tube came off, monitor off NG suction Surgery following, continue PPN 01/21: Patient continues to be n.p.o. intermittent NG suction on TPN, surgery following. Surgery planning to get a CT abdomen and pelvis and possible IR consult. 01/22: CT-guided drainage of a left-sided abdominal collection with a 10 [place] APD drain today. We will follow surgical culture. Continue on NG tube suction and TPN. Follow BMP. 01/23: Consulted GI for questionable history of Crohn's disease and prior CT scan finding concerning for Crohn's disease. According to GI and general surgeon and also per patient patient does not have any history of Crohn's disease. Patient currently with a small bowel obstruction due to adhesion from prior surgery. Patient did have small bowel resection during prior admission now presented again for nausea vomiting and abdominal pain. General surgeon following, continue n.p.o. status, NG tube suction and TPN. Monitor BMP daily and follow surgery recommendation. Patient denies having a bowel movement. Continue to follow. 01/24; Pain worsened through the night last night. Patient with nausea vomiting around the NG tube. ordered abdominal x-ray this morning. Continue IV fluids and pain medications. cont TPN 01/25; pain slightly improved today. Abdomen x-ray did not show any obvious obstruction. Continue TPN and NG suction. Follow clinically 01/26; patient had BM yesterday. Small bowel follow-through yesterday afternoon showed no bowel obstruction. Plan to clamp NG suction and start on ice chips. Continue to follow clinically. 01/27; tolerating ice chips. NG tube unclamped now, continue TPN. Will start on diet when cleared by general surgeon, continue to follow with supportive care for now. Repeat CBC and BMP tomorrow morning 01/28:patient tolerating CLD. Will continue CLD for now. NGT in place and clamped. Assessment and plan: #Partial obstruction of small intestine-improving #Nausea, vomiting and diarrhea -hx of abdominal surgeries and multiple bowel obstructions -NG tube clamped, tolerated CLD -Will advance to FLD -continue PRN zofran -General Surgery following, assistance appreciated #GERD -continue pepcid 20mg BID #Crohn's disease of intestine without complication- Ruled out -Consulted GI. According to general surgery and GI and palpation patient does not have any history of Crohn's disease #Leukocytosis- resolved -likely secondary to SBO and volume depletion -UA unremarkable -zosyn discontinued -will continue to monitor for signs/symptoms of infection #Hypothyroidism -patient not on any home medications #Hyperlipidemia -will resume statin once NGT removed #Hypokalemia -likely secondary to vomiting -will replete and monitor #Volume depletion-improving -Likely secondary to poor p.o. intake from nausea and vomiting -continue IVFs and TPN while NPO #Advanced care planning -Disease education conducted, care plan discussed, diagnoses discussed, prognosis discussed, and patient and acknowledges understanding with care plan -Time: +30 min History Interval history: Patient with at the bedside. She denies nausea, vomiting and pain currently. She did receive PRN pain medications. She has not yet had a bowel movement. Hospitalist Physical - Physical exam Narrative exam: GENERAL: Well-developed well-nourished. In no acute distress. HEENT: NGT in place and clamped. NECK: Supple. CHEST/LUNGS: CTAB on room air HEART/CARDIOVASCULAR: RRR. No murmur, rubs or gallops appreciated. ABDOMEN: +BS. NT/ND. SKIN: No rashes noted. NEURO: No focal motor deficit. Follows all commands. MUSCULOSKELETAL: No joint effusion EXTREMITIES: No cyanosis, clubbing or edema. PSYCH: Cooperative. - Constitutional Vitals: Temp Pulse Resp BP Pulse Ox 98.4 F 84 18 114/65 97 01/27/22 23:02 01/27/22 23:02 01/27/22 23:02 01/27/22 23:02 01/27/22 23:02 General appearance: Present: mild distress, well-nourished Results - Labs CBC & Chem 7: 01/26/22 04:47 01/28/22 06:01 Labs: Laboratory Last Values WBC 12.5 K/mm3 (4.5-11.0) H 01/26/22 04:47 RBC 4.12 M/mm3 (3.65-5.03) 01/26/22 04:47 Hgb 10.8 gm/dl (10.1-14.3) 01/26/22 04:47 Hct 32.5 % (30.3-42.9) 01/26/22 04:47 MCV 79 fl (79-97) 01/26/22 04:47 MCH 26 pg (28-32) L 01/26/22 04:47 MCHC 33 % (30-34) 01/26/22 04:47 RDW 16.6 % (13.2-15.2) H 01/26/22 04:47 Plt Count 419 K/mm3 (140-440) 01/26/22 04:47 Lymph % (Auto) 8.8 % (13.4-35.0) L 01/26/22 04:47 [place] % (Auto) 11.3 % (0.0-7.3) H 01/26/22 04:47 Eos % (Auto) 0.2 % (0.0-4.3) 01/26/22 04:47 Baso % (Auto) 0.5 % (0.0-1.8) 01/26/22 04:47 Lymph # (Auto) 1.1 K/mm3 (1.2-5.4) L 01/26/22 04:47 [place] # (Auto) 1.4 K/mm3 (0.0-0.8) H 01/26/22 04:47 Eos # (Auto) 0.0 K/mm3 (0.0-0.4) 01/26/22 04:47 Baso # (Auto) 0.1 K/mm3 (0.0-0.1) 01/26/22 04:47 Seg Neutrophils % 79.2 % (40.0-70.0) H 01/26/22 04:47 Seg Neutrophils # 9.9 K/mm3 (1.8-7.7) H 01/26/22 04:47 Sodium 140 mmol/L (137-145) D 01/28/22 06:01 Potassium 3.6 mmol/L (3.6-5.0) 01/28/22 06:01 Chloride 101.4 mmol/L (98-107) 01/28/22 06:01 Carbon Dioxide 27 mmol/L (22-30) 01/28/22 06:01 Anion Gap 15 mmol/L 01/28/22 06:01 BUN 15 mg/dL (7-17) 01/28/22 06:01 Creatinine 0.4 mg/dL (0.6-1.2) L 01/28/22 06:01 Estimated GFR > 60 ml/min 01/28/22 06:01 BUN/Creatinine Ratio 38 % 01/28/22 06:01 Glucose 152 mg/dL (65-100) H 01/28/22 06:01 POC Glucose 122 mg/dL (70-105) H 01/27/22 19:12 Calcium 8.7 mg/dL (8.4-10.2) 01/28/22 06:01 Phosphorus 3.80 mg/dL (2.5-4.5) 01/28/22 06:01 Magnesium 1.80 mg/dL (1.7-2.3) 01/28/22 06:01 Total Bilirubin 1.00 mg/dL (0.1-1.2) 01/20/22 12:36 AST 11 units/L (5-40) 01/20/22 12:36 ALT 6 units/L (7-56) L 01/20/22 12:36 Alkaline Phosphatase 89 units/L (35-129) 01/20/22 12:36 Total Protein 6.4 g/dL (6.3-8.2) 01/20/22 12:36 Albumin 4.0 g/dL (3.9-5) 01/20/22 12:36 Albumin/Globulin Ratio 1.7 % 01/20/22 12:36 Triglycerides 166 mg/dL (2-149) H 01/25/22 05:24 Lipase 23 units/L (13-60) 01/16/22 16:35 Urine Color [place] (Yellow) 01/16/22 22:42 Urine Turbidity Clear (Clear) 01/16/22 22:42 Specific [place] (Man) 1.025 (1.003-1.030) 01/16/22 22:42 Ur Protein (Man) 2+ mg/dL (Negative) 01/16/22 22:42 Ur Ketones (Man) 4+ (Negative) 01/16/22 22:42 Urine Bilirubin (Man) Negative (Negative) 01/16/22 22:42 Urine WBC (Auto) 5.0 /HPF (0.0-6.0) 01/16/22 22:42 Urine RBC (Auto) 1.0 /HPF (0.0-6.0) 01/16/22 22:42 U Epithel Cells (Auto) < 1.0 /HPF (0-13.0) 01/16/22 22:42 Urine Bacteria (Auto) 1+ /HPF (Negative) 01/16/22 22:42 Urine RBC (Manual) 2+ (Negative) 01/16/22 22:42 Granular Casts 13 /LPF 01/16/22 22:42 Urine Mucus 2+ /HPF 01/16/22 22:42 Lopez/IV: Voiding Method Bedside Commode Active Medications - Current Medications Current Medications: Generic Name Dose Route Start Last Admin Trade Name Freq PRN Reason Stop Dose Admin Acetaminophen 650 mg 01/17/22 00:01 Acetaminophen 325 Mg Tab PO Q4H PRN Pain MILD(1-3)/Fever >100.5/SUN Famotidine 20 mg 01/17/22 10:00 01/27/22 22:37 Famotidine 20 Mg/2 Ml Inj IV 20 mg BID AMY Administration Heparin Sodium (Porcine) 5,000 unit 01/17/22 10:00 01/27/22 22:37 Heparin 5,000 Unit/1 Ml Vial SUB-Q 5,000 unit Q12HR AMY Administration Amino Acids/Electrolytes/Dextrose 2,400 mls @ 100 mls/hr 01/27/22 20:00 01/27/22 22:35 Tpn Adult IV 01/28/22 19:59 100 mls/hr DAILY@2000 AMY Administration Protocol Morphine Sulfate 1 mg 01/26/22 12:15 Morphine 2 Mg/1 Ml Inj IV Q4H PRN Pain, Moderate (4-6) Morphine Sulfate 2 mg 01/26/22 12:15 01/28/22 06:15 Morphine 4 Mg/1 Ml Inj IV 2 mg Q4H PRN Administration Pain , Severe (7-10) Ondansetron HCl 8 mg 01/19/22 16:50 01/28/22 06:16 Ondansetron 4 Mg/2 Ml Inj IV 8 mg Q4H PRN Administration Nausea And Vomiting Sodium Chloride 10 ml 01/17/22 10:00 01/27/22 22:37 Sodium Chloride 0.9% 10 Ml Flush Syringe IV 10 ml BID AMY Administration Sodium Chloride 10 ml 01/17/22 00:01 Sodium Chloride 0.9% 10 Ml Flush Syringe IV PRN PRN LINE FLUSH Nutrition/Malnutrition Assess - Dietary Evaluation Nutrition/Malnutrition Findings: Nutrition Notes Start: 01/18/22 11:37 Freq: Status: Active Protocol: Document 01/27/22 12:27 JADEN (Rec: 01/27/22 12:44 JADEN [id number]) Nutrition Notes Initial or Follow up Reassessment Current Diagnosis Small Bowel Obstruction, Hyperlipidemia Other Pertinent Diagnosis s/p Exp Lap w/Lysis of Adhesions, Crohn's Disease, N/ V/ Abd Pain, Hypothy.. Current Diet PPN @ 100ml/hr (since L 01/18) . Labs/Tests 01/27: Na 132, K 3.2, Cl 94.0, Crea 0.4, Glu 144. Pertinent Medications 01/27: Nutritionally unremarkable. Height 5 ft 2 in Weight 52 kg [place] Body Weight (kg) 50.00 BMI 20.9 Weight change and time frame No body weight change reported in 2 days. Weight Status Appropriate Subjective/Other Information Day 10 PPN. Pt is tolerating well PPN as prescribed. Pt is on Room Air O2 saturation @ 98%, according to Physical Assessment History notes. Pt continues to complain for Abdominal Pain, according to Physical Assessment History notes. Pt continue with ice chips, if well tolerated, will advance to Clear Liquid Diet, according to Progress notes. Percent of energy/protein needs met: Prescribed PPN @ 100 ml/hr provides for energy/protein needs (750 Kcal/60 g) during LOS, 51% Kcal; 100% AA. Prescribed Clear Liquids Diet provides for energy/protein needs (590 Kcal/16 g) during LOS Burn Absent Trauma Absent GI Symptoms Other Food Allergy No Skin Integrity/Comment Abdominal surgical wound. Current % PO Other Minimum of two criteria No Fluid Accumulation N/A Reduced [employer]ipe [employer] Strength N/A (non-severe) Protein-Calorie Malnutrition N\A #1 Nutrition Diagnosis Altered GI function Comments: Pt had a BM on 01/26, Pt continue with ice chips, if well tolerated, will advance to Clear Liquid Diet, according to Progress notes. Diagnosis Progress(for reassessment Improved documentation) Is patient on ventilator? No Is Patient Ambulatory and/or Out of Bed Yes REE-([facility]-ambulatory/OOB) [ [id number] [id number]] Calculation Used for Recommendations [facility] Additional Notes Protein: 1-1.2 g/Kg ABW; 52-63 g/day. Fluids: 1 ml/Kcal, or as per MD. Nutrition Intervention Change Diet Order: When ice chips well tolerated, advance to Clear Liquids Diet . Nutrition Support: Continue PPN at 100ml/hr: 6% dextrose, 2.5% amino acids, 175mEq Na, 10mEq K, 60mmol Phos, 4mEq Mg, 100%/0% acetate /chloride, MVI. Osmolality: 750. Kcal 783 Protein (gm) 60 Carbohydrates (gm) 200 Fat (gm) 0 Fluid (mL) 2,400 Fiber (gm) 0 % RDI: 51% Kcal; 100% AA. Goal #1 Provide at least 75% of energy /protein needs through Parenteral Feeding during LOS. Follow-Up By: 01/28/22 Additional Comments Continue monitoring PPN tolerance, ice chips tolerance , advancement to PO diet, and BM. Labs in am: BMP, Mg, Phos.
[2022-01-28] MEDS: HEPARIN 5,000 UNIT/1 ML VIAL SUB-Q SCH ×2 (09:13→21:13)
[2022-01-28] MEDS: FAMOTIDINE 20 MG/2 ML INJ IV SCH ×2 (09:13→21:13)
--- NOTE | 2022-01-28 09:37 | Progress Note ---
Assessment and Plan This is a 41-year-old woman presenting with abdominal pain nausea vomiting. She was seen last week for similar complaints and taken to the OR for lysis of adhesions and excision of obstructing loop of small bowel mid abdomen. She had been advanced to soft diet and discharged but then readmitted with the above symptoms. Pt tolerated clamping NG yesterday will try cld today. Pt has pain with meals. She is encouraged to try 6 msaller meals daily. Cont tpn for now. Subjective Date of service: 01/28/22 Patient Reports: Positive: no new complaints, still having pain Narrative: Pt tolerated clamping NG yesterday will try cld today. Pt has pain with meals. She is encouraged to try 6 msaller meals daily. Cont tpn for now. Objective Vital Signs - 12hr 01/27/22 01/27/22 01/28/22 22:00 23:02 08:37 Temperature 98.4 F Pulse Rate 84 Respiratory 18 18 Rate Blood Pressure 114/65 O2 Sat by Pulse 98 97 98 Oximetry - Labs 01/26/22 04:47 01/28/22 06:01 Diabetes panel 01/28/22 Range/Units 06:01 Sodium 140 D (137-145) mmol/L Potassium 3.6 (3.6-5.0) mmol/L Chloride 101.4 (98-107) mmol/L Carbon Dioxide 27 (22-30) mmol/L BUN 15 (7-17) mg/dL Creatinine 0.4 L (0.6-1.2) mg/dL Glucose 152 H (65-100) mg/dL Calcium 8.7 (8.4-10.2) mg/dL Calcium panel 01/28/22 Range/Units 06:01 Calcium 8.7 (8.4-10.2) mg/dL Phosphorus 3.80 (2.5-4.5) mg/dL Pituitary panel 01/28/22 Range/Units 06:01 Sodium 140 D (137-145) mmol/L Potassium 3.6 (3.6-5.0) mmol/L Chloride 101.4 (98-107) mmol/L Carbon Dioxide 27 (22-30) mmol/L BUN 15 (7-17) mg/dL Creatinine 0.4 L (0.6-1.2) mg/dL Glucose 152 H (65-100) mg/dL Calcium 8.7 (8.4-10.2) mg/dL Adrenal panel 01/28/22 Range/Units 06:01 Sodium 140 D (137-145) mmol/L Potassium 3.6 (3.6-5.0) mmol/L Chloride 101.4 (98-107) mmol/L Carbon Dioxide 27 (22-30) mmol/L BUN 15 (7-17) mg/dL Creatinine 0.4 L (0.6-1.2) mg/dL Glucose 152 H (65-100) mg/dL Calcium 8.7 (8.4-10.2) mg/dL
[2022-01-28] MEDS: MORPHINE 2 MG/1 ML INJ IV PRN ×2 (12:49→20:42)
[2022-01-28] MEDS ORDERED: TOTAL PARENTERAL NUTRITION 2,400 ML IV SCH (20:00)
--- NOTE | 2022-01-28 21:42 | Progress Note ---
Assessment and Plan Assessment and plan: 41-year-old female past medical history of multiple abdominal surgeries (including ex lap) GERD, and hyperlipidemia who presented to the ED with complaints of nausea, vomiting and abdominal pain. Patient just discharged from the hospital yesterday 01/15/22 after patient managed symptomatically by surgeon and then's subsequently patient underwent exploratory laparotomy with lysis of multiple adhesion and resection of the obstructed small bowel with functional end-to-end anastomosis. In the ER patient underwent CT abdomen and pelvis with contrast revealing partial mid small bowel obstruction/ileus. Admitted the patient as per surgery recommendation. Currently NPO with NG suction. Continue IV fluid. 01/18/2022; surgeon Dr. Yepez recommended PPN which is ordered per protocol Follow-up abdominal x-ray 01/19/2022; continue PPN. Patient has no flatus or bowel movement Severe abdominal pain, surgery following 01/20; patient's NG tube came off, monitor off NG suction Surgery following, continue PPN 01/21: Patient continues to be n.p.o. intermittent NG suction on TPN, surgery following. Surgery planning to get a CT abdomen and pelvis and possible IR consult. 01/22: CT-guided drainage of a left-sided abdominal collection with a 10 [place] APD drain today. We will follow surgical culture. Continue on NG tube suction and TPN. Follow BMP. 01/23: Consulted GI for questionable history of Crohn's disease and prior CT scan finding concerning for Crohn's disease. According to GI and general surgeon and also per patient patient does not have any history of Crohn's disease. Patient currently with a small bowel obstruction due to adhesion from prior surgery. Patient did have small bowel resection during prior admission now presented again for nausea vomiting and abdominal pain. General surgeon following, continue n.p.o. status, NG tube suction and TPN. Monitor BMP daily and follow surgery recommendation. Patient denies having a bowel movement. Continue to follow. 01/24; Pain worsened through the night last night. Patient with nausea vomiting around the NG tube. ordered abdominal x-ray this morning. Continue IV fluids and pain medications. cont TPN 01/25; pain slightly improved today. Abdomen x-ray did not show any obvious obstruction. Continue TPN and NG suction. Follow clinically 01/26; patient had BM yesterday. Small bowel follow-through yesterday afternoon showed no bowel obstruction. Plan to clamp NG suction and start on ice chips. Continue to follow clinically. 01/27; tolerating ice chips. NG tube unclamped now, continue TPN. Will start on diet when cleared by general surgeon, continue to follow with supportive care for now. Repeat CBC and BMP tomorrow morning 01/28:patient tolerating CLD. Will continue CLD for now. NGT in place and clamped. Assessment and plan: #Partial obstruction of small intestine-improving #Nausea, vomiting and diarrhea -hx of abdominal surgeries and multiple bowel obstructions -NG tube clamped, tolerated CLD -Will advance to FLD -continue PRN zofran -General Surgery following, assistance appreciated #GERD -continue pepcid 20mg BID #Crohn's disease of intestine without complication- Ruled out -Consulted GI. According to general surgery and GI and palpation patient does not have any history of Crohn's disease #Hypothyroidism -patient not on any home medications #Hyperlipidemia -will resume statin once NGT removed #Hypokalemia -likely secondary to vomiting -will replete and monitor #Volume depletion-improving -Likely secondary to poor p.o. intake from nausea and vomiting -continue IVFs and TPN while NPO #Advanced care planning -Disease education conducted, care plan discussed, diagnoses discussed, pr ognosis discussed, and patient and acknowledges understanding with care plan -Time: +30 min History Interval history: Patient with at the bedside. She denies nausea, vomiting and pain currently. She did receive PRN pain medications. She has not yet had a bowel movement. Hospitalist Physical - Physical exam Narrative exam: GENERAL: Well-developed well-nourished. In no acute distress. HEENT: NGT in place and clamped. NECK: Supple. CHEST/LUNGS: CTAB on room air HEART/CARDIOVASCULAR: RRR. No murmur, rubs or gallops appreciated. ABDOMEN: +BS. NT/ND. SKIN: No rashes noted. NEURO: No focal motor deficit. Follows all commands. MUSCULOSKELETAL: No joint effusion EXTREMITIES: No cyanosis, clubbing or edema. PSYCH: Cooperative. - Constitutional Vitals: Temp Pulse Resp BP Pulse Ox 98.9 F 92 H 18 122/72 98 01/28/22 21:34 01/28/22 21:34 01/28/22 21:34 01/28/22 21:34 01/28/22 21:34 General appearance: Present: mild distress, well-nourished Results - Labs CBC & Chem 7: 01/26/22 04:47 01/28/22 06:01 Labs: Laboratory Last Values WBC 12.5 K/mm3 (4.5-11.0) H 01/26/22 04:47 RBC 4.12 M/mm3 (3.65-5.03) 01/26/22 04:47 Hgb 10.8 gm/dl (10.1-14.3) 01/26/22 04:47 Hct 32.5 % (30.3-42.9) 01/26/22 04:47 MCV 79 fl (79-97) 01/26/22 04:47 MCH 26 pg (28-32) L 01/26/22 04:47 MCHC 33 % (30-34) 01/26/22 04:47 RDW 16.6 % (13.2-15.2) H 01/26/22 04:47 Plt Count 419 K/mm3 (140-440) 01/26/22 04:47 Lymph % (Auto) 8.8 % (13.4-35.0) L 01/26/22 04:47 Lynn % (Auto) 11.3 % (0.0-7.3) H 01/26/22 04:47 Eos % (Auto) 0.2 % (0.0-4.3) 01/26/22 04:47 Baso % (Auto) 0.5 % (0.0-1.8) 01/26/22 04:47 Lymph # (Auto) 1.1 K/mm3 (1.2-5.4) L 01/26/22 04:47 Lynn # (Auto) 1.4 K/mm3 (0.0-0.8) H 01/26/22 04:47 Eos # (Auto) 0.0 K/mm3 (0.0-0.4) 01/26/22 04:47 Baso # (Auto) 0.1 K/mm3 (0.0-0.1) 01/26/22 04:47 Seg Neutrophils % 79.2 % (40.0-70.0) H 01/26/22 04:47 Seg Neutrophils # 9.9 K/mm3 (1.8-7.7) H 01/26/22 04:47 Sodium 140 mmol/L (137-145) D 01/28/22 06:01 Potassium 3.6 mmol/L (3.6-5.0) 01/28/22 06:01 Chloride 101.4 mmol/L (98-107) 01/28/22 06:01 Carbon Dioxide 27 mmol/L (22-30) 01/28/22 06:01 Anion Gap 15 mmol/L 01/28/22 06:01 BUN 15 mg/dL (7-17) 01/28/22 06:01 Creatinine 0.4 mg/dL (0.6-1.2) L 01/28/22 06:01 Estimated GFR > 60 ml/min 01/28/22 06:01 BUN/Creatinine Ratio 38 % 01/28/22 06:01 Glucose 152 mg/dL (65-100) H 01/28/22 06:01 POC Glucose 128 mg/dL (70-105) H 01/28/22 17:33 Calcium 8.7 mg/dL (8.4-10.2) 01/28/22 06:01 Phosphorus 3.80 mg/dL (2.5-4.5) 01/28/22 06:01 Magnesium 1.80 mg/dL (1.7-2.3) 01/28/22 06:01 Total Bilirubin 1.00 mg/dL (0.1-1.2) 01/20/22 12:36 AST 11 units/L (5-40) 01/20/22 12:36 ALT 6 units/L (7-56) L 01/20/22 12:36 Alkaline Phosphatase 89 units/L (35-129) 01/20/22 12:36 Total Protein 6.4 g/dL (6.3-8.2) 01/20/22 12:36 Albumin 4.0 g/dL (3.9-5) 01/20/22 12:36 Albumin/Globulin Ratio 1.7 % 01/20/22 12:36 Triglycerides 166 mg/dL (2-149) H 01/25/22 05:24 Lipase 23 units/L (13-60) 01/16/22 16:35 Urine Color Aliza (Yellow) 01/16/22 22:42 Urine Turbidity Clear (Clear) 01/16/22 22:42 Specific [place] (Man) 1.025 (1.003-1.030) 01/16/22 22:42 Ur Protein (Man) 2+ mg/dL (Negative) 01/16/22 22:42 Ur Ketones (Man) 4+ (Negative) 01/16/22 22:42 Urine Bilirubin (Man) Negative (Negative) 01/16/22 22:42 Urine WBC (Auto) 5.0 /HPF (0.0-6.0) 01/16/22 22:42 Urine RBC (Auto) 1.0 /HPF (0.0-6.0) 01/16/22 22:42 U Epithel Cells (Auto) < 1.0 /HPF (0-13.0) 01/16/22 22:42 Urine Bacteria (Auto) 1+ /HPF (Negative) 01/16/22 22:42 Urine RBC (Manual) 2+ (Negative) 01/16/22 22:42 Granular Casts 13 /LPF 01/16/22 22:42 Urine Mucus 2+ /HPF 01/16/22 22:42 Lopez/IV: Voiding Method Toilet Active Medications - Current Medications Current Medications: Generic Name Dose Route Start Last Admin Trade Name Freq PRN Reason Stop Dose Admin Acetaminophen 650 mg 01/17/22 00:01 Acetaminophen 325 Mg Tab PO Q4H PRN Pain MILD(1-3)/Fever >100.5/SUN Famotidine 20 mg 01/17/22 10:00 01/28/22 21:13 Famotidine 20 Mg/2 Ml Inj IV 20 mg BID AMY Administration Heparin Sodium (Porcine) 5,000 unit 01/17/22 10:00 01/28/22 21:13 Heparin 5,000 Unit/1 Ml Vial SUB-Q 5,000 unit Q12HR AMY Administration Amino Acids/Electrolytes/Dextrose 2,400 mls @ 100 mls/hr 01/28/22 20:00 01/28/22 20:30 Tpn Adult IV 01/29/22 19:59 100 mls/hr DAILY@2000 AMY Administration Protocol Morphine Sulfate 1 mg 01/26/22 12:15 01/28/22 20:42 Morphine 2 Mg/1 Ml Inj IV 1 mg Q4H PRN Administration Pain, Moderate (4-6) Morphine Sulfate 2 mg 01/26/22 12:15 01/28/22 06:15 Morphine 4 Mg/1 Ml Inj IV 2 mg Q4H PRN Administration Pain , Severe (7-10) Ondansetron HCl 8 mg 01/19/22 16:50 01/28/22 06:16 Ondansetron 4 Mg/2 Ml Inj IV 8 mg Q4H PRN Administration Nausea And Vomiting Sodium Chloride 10 ml 01/17/22 10:00 01/28/22 21:13 Sodium Chloride 0.9% 10 Ml Flush Syringe IV 10 ml BID AMY Administration Sodium Chloride 10 ml 01/17/22 00:01 Sodium Chloride 0.9% 10 Ml Flush Syringe IV PRN PRN LINE FLUSH Nutrition/Malnutrition Assess - Dietary Evaluation Nutrition/Malnutrition Findings: Nutrition Notes Start: 01/18/22 11:37 Freq: Status: Active Protocol: Document 01/28/22 10:17 JADEN (Rec: 01/28/22 10:45 JADEN [email or web address]) Nutrition Notes Initial or Follow up Reassessment Current Diagnosis Hyperlipidemia Other Pertinent Diagnosis s/p SBO, s/p Exp Lap w/Lysis of Adhesions, N/V/ Abd Pain, Hypothy.. Current Diet CLD (since B 01/28), PPN @ 100ml/hr (since L 01/18). Labs/Tests 01/28: Crea 0.4, Glu 152. Pertinent Medications 01/28: Nutritionally unremarkable. Height 5 ft 2 in Weight 52 kg Theresa Body Weight (kg) 50.00 BMI 20.9 Weight change and time frame No body weight change reported in 3 days. Weight Status Appropriate Subjective/Other Information Day 11 PPN. Pt is tolerating well PPN as prescribed. Pt's PO intake of meals was first attempt well tolerated with 1/2 cup of jello, according to RN over the phone . Pt is on Room Air O2 saturation @ 98%, according to Physical Assessment History notes. Pt continues to complain for Abdominal Pain, according to Physical Assessment History notes. Pt advanced to Clear Liquids Diet, MD wants to start with 6 small meals daily, to checvk for tolerance, according to Progress notes. MD wants to continue with PPN, accoreding to Progress notes. Pt presented a second BM on , according to Physical Assessment History notes. Percent of energy/protein needs met: Prescribed Clear Liquids Diet provides for energy/protein needs (590 Kcal/16 g) during LOS. Prescribed PPN @ 100 ml/hr provides for energy/protein needs (750 Kcal/60 g) during LOS, 51% Kcal; 100% AA. Prescribed Clear Liquids Diet provides for energy/protein needs (590 Kcal/16 g) during LOS. Burn Absent Trauma Absent GI Symptoms Other Food Allergy No Skin Integrity/Comment Abdominal surgical wound. Current % PO Other Minimum of two criteria No Fluid Accumulation N/A Reduced Agency Legal Counsel Strength N/A (non-severe) Protein-Calorie Malnutrition N\A #1 Nutrition Diagnosis Altered GI function Comments: Pt's PO intake of meals was first attempt well tolerated with 1/2 cup of jello, accoreding to RN over the phone. Pt advanced to Clear Liquids Diet, MD wants to start with 6 small meals daily, to checvk for tolerance, according to Progress notes. MD wants to continue with PPN, accoreding to Progress notes. Pt presented a second BM on , according to Physical Assessment History notes. Diagnosis Progress(for reassessment Improved documentation) Is patient on ventilator? No Is Patient Ambulatory and/or Out of Bed Yes REE-([place] or-ambulatory/OOB) [ [id number] [id number]] Calculation Used for Recommendations [facility] Additional Notes Protein: 1-1.2 g/Kg ABW; 52-63 g/day. Fluids: 1 ml/Kcal, or as per MD. Nutrition Intervention Change Diet Order: Continue Clear Liquids Diet as tolerated. Nutrition Support: Continue PPN at 100ml/hr: 6% dextrose, 2.5% amino acids, 175mEq Na, 10mEq K, 60mmol Phos, 4mEq Mg, 100%/0% acetate /chloride, MVI. Osmolality: 750. Kcal 783 Protein (gm) 60 Carbohydrates (gm) 200 Fat (gm) 0 Fluid (mL) 2,400 Fiber (gm) 0 % RDI: 51% Kcal; 100% AA. Goal #1 Provide at least 75% of energy /protein needs through Parenteral Feeding during LOS. Goal #2 Facilitate PO intake of meals with elemental, textural, or mechanical modification during LOS. Follow-Up By: 01/29/22 Additional Comments Continue monitoring PPN tolerance, ice chips tolerance , advancement to PO diet. Continue monitoring food tolerance, %PO intake of meals , and BM. Labs in am: BMP, Mg, Phos.
[2022-01-29 07:12] LABS: Blood Urea Nitrogen 15 mg/dL (7-17); Calcium 8.8 mg/dL (8.4-10.2); Hemolysis Index 14
[2022-01-29 07:22] LABS: BUN/Creatinine Ratio 38
[2022-01-29] MEDS: HEPARIN 5,000 UNIT/1 ML VIAL SUB-Q SCH ×2 (09:59→21:08)
[2022-01-29] MEDS: FAMOTIDINE 20 MG/2 ML INJ IV SCH ×2 (10:00→21:08)
--- NOTE | 2022-01-29 16:14 | Progress Note ---
Assessment and Plan Assessment and plan: 41-year-old female past medical history of multiple abdominal surgeries (including ex lap) GERD, and hyperlipidemia who presented to the ED with complaints of nausea, vomiting and abdominal pain. Patient just discharged from the hospital yesterday 01/15/22 after patient managed symptomatically by surgeon and then's subsequently patient underwent exploratory laparotomy with lysis of multiple adhesion and resection of the obstructed small bowel with functional end-to-end anastomosis. In the ER patient underwent CT abdomen and pelvis with contrast revealing partial mid small bowel obstruction/ileus. Admitted the patient as per surgery recommendation. Currently NPO with NG suction. Continue IV fluid. 01/18/2022; surgeon Dr. Yepez recommended PPN which is ordered per protocol Follow-up abdominal x-ray 01/19/2022; continue PPN. Patient has no flatus or bowel movement Severe abdominal pain, surgery following 01/20; patient's NG tube came off, monitor off NG suction Surgery following, continue PPN 01/21: Patient continues to be n.p.o. intermittent NG suction on TPN, surgery following. Surgery planning to get a CT abdomen and pelvis and possible IR consult. 01/22: CT-guided drainage of a left-sided abdominal collection with a 10 [place] APD drain today. We will follow surgical culture. Continue on NG tube suction and TPN. Follow BMP. 01/23: Consulted GI for questionable history of Crohn's disease and prior CT scan finding concerning for Crohn's disease. According to GI and general surgeon and also per patient patient does not have any history of Crohn's disease. Patient currently with a small bowel obstruction due to adhesion from prior surgery. Patient did have small bowel resection during prior admission now presented again for nausea vomiting and abdominal pain. General surgeon following, continue n.p.o. status, NG tube suction and TPN. Monitor BMP daily and follow surgery recommendation. Patient denies having a bowel movement. Continue to follow. 01/24; Pain worsened through the night last night. Patient with nausea vomiting around the NG tube. ordered abdominal x-ray this morning. Continue IV fluids and pain medications. cont TPN 01/25; pain slightly improved today. Abdomen x-ray did not show any obvious obstruction. Continue TPN and NG suction. Follow clinically 01/26; patient had BM yesterday. Small bowel follow-through yesterday afternoon showed no bowel obstruction. Plan to clamp NG suction and start on ice chips. Continue to follow clinically. 01/27; tolerating ice chips. NG tube unclamped now, continue TPN. Will start on diet when cleared by general surgeon, continue to follow with supportive care for now. Repeat CBC and BMP tomorrow morning 01/28:patient tolerating CLD. Will continue CLD for now. NGT in place and clamped. 01/29/2022: Patient tolerating clear liquid diet but having diarrhea almost immediately. Urged to consume smaller portions. NG tube in place and clamped. Pending general surgery recommendations. Assessment and plan: #Partial obstruction of small intestine-improving #Nausea, vomiting and diarrhea -hx of abdominal surgeries and multiple bowel obstructions -NG tube clamped, tolerated CLD -Will advance to FLD -continue PRN zofran -General Surgery following, assistance appreciated #GERD -continue pepcid 20mg BID #Crohn's disease of intestine without complication- Ruled out -Consulted GI. According to general surgery and GI, patient does not have any history of Crohn's disease #Hypothyroidism -patient not on any home medications. Ordering TSH and free T4. #Hyperlipidemia -will resume statin once NGT removed #Hypokalemiaresolved -likely secondary to vomiting -will replete and monitor #Volume depletion-improving -Likely secondary to poor p.o. intake from nausea and vomiting -continue IVFs and TPN while NPO #Advanced care planning -Disease education conducted, care plan discussed, diagnoses discussed, prognosis discussed, and patient and acknowledges understanding with care plan -Time: +30 min Disposition Plan: Continue medical management Total Time Spent with Patient (Minutes): 45 minutes History Interval history: Patient endorses having multiple episodes of diarrhea last night that have since improved. Hospitalist Physical - Constitutional Vitals: Temp Pulse Resp BP Pulse Ox 98.1 F 92 H 16 125/84 98 01/29/22 03:46 01/29/22 11:42 01/29/22 11:42 01/29/22 11:42 01/29/22 11:42 General appearance: Present: no acute distress, well-nourished - EENT Eyes: Present: PERRL, EOM intact ENT: hearing intact, clear oral mucosa, dentition normal, other (Clamp NG tube) - Neck Neck: Present: supple, normal ROM - Respiratory Respiratory effort: normal Respiratory: bilateral: CTA - Cardiovascular Rhythm: regular Heart Sounds: Present: S1 & S2 - Extremities Extremities: no ischemia, pulses intact, pulses symmetrical, No edema, normal temperature, normal color Peripheral Pulses: within normal limits - Abdominal General gastrointestinal: soft, tender, non-distended, normal bowel sounds, other (Well-healing vertical midline surgical incision) Localized gastrointestinal: tender: epigastric periumbilical (Right of midline; tenderness on palpation) - Integumentary Integumentary: Present: clear, warm, dry - Psychiatric Psychiatric: appropriate mood/affect, intact judgment & insight, memory intact, cooperative - Neurologic Neurologic: CNII-XII intact, moves all extremities - Allied Health Allied health notes reviewed: nursing Results - Labs CBC & Chem 7: 01/26/22 04:47 01/29/22 06:25 Labs: Laboratory Last Values WBC 12.5 K/mm3 (4.5-11.0) H 01/26/22 04:47 RBC 4.12 M/mm3 (3.65-5.03) 01/26/22 04:47 Hgb 10.8 gm/dl (10.1-14.3) 01/26/22 04:47 Hct 32.5 % (30.3-42.9) 01/26/22 04:47 MCV 79 fl (79-97) 01/26/22 04:47 MCH 26 pg (28-32) L 01/26/22 04:47 MCHC 33 % (30-34) 01/26/22 04:47 RDW 16.6 % (13.2-15.2) H 01/26/22 04:47 Plt Count 419 K/mm3 (140-440) 01/26/22 04:47 Lymph % (Auto) 8.8 % (13.4-35.0) L 01/26/22 04:47 [place] % (Auto) 11.3 % (0.0-7.3) H 01/26/22 04:47 Eos % (Auto) 0.2 % (0.0-4.3) 01/26/22 04:47 Baso % (Auto) 0.5 % (0.0-1.8) 01/26/22 04:47 Lymph # (Auto) 1.1 K/mm3 (1.2-5.4) L 01/26/22 04:47 [place] # (Auto) 1.4 K/mm3 (0.0-0.8) H 01/26/22 04:47 Eos # (Auto) 0.0 K/mm3 (0.0-0.4) 01/26/22 04:47 Baso # (Auto) 0.1 K/mm3 (0.0-0.1) 01/26/22 04:47 Seg Neutrophils % 79.2 % (40.0-70.0) H 01/26/22 04:47 Seg Neutrophils # 9.9 K/mm3 (1.8-7.7) H 01/26/22 04:47 Sodium 138 mmol/L (137-145) 01/29/22 06:25 Potassium 4.3 mmol/L (3.6-5.0) 01/29/22 06:25 Chloride 99.8 mmol/L (98-107) 01/29/22 06:25 Carbon Dioxide 29 mmol/L (22-30) 01/29/22 06:25 Anion Gap 14 mmol/L 01/29/22 06:25 BUN 15 mg/dL (7-17) 01/29/22 06:25 Creatinine 0.4 mg/dL (0.6-1.2) L 01/29/22 06:25 Estimated GFR > 60 ml/min 01/29/22 06:25 BUN/Creatinine Ratio 38 % 01/29/22 06:25 Glucose 143 mg/dL (65-100) H 01/29/22 06:25 POC Glucose 154 mg/dL (70-105) H 01/29/22 05:21 Calcium 8.8 mg/dL (8.4-10.2) 01/29/22 06:25 Phosphorus 3.50 mg/dL (2.5-4.5) 01/29/22 06:25 Magnesium 1.80 mg/dL (1.7-2.3) 01/29/22 06:25 Total Bilirubin 1.00 mg/dL (0.1-1.2) 01/20/22 12:36 AST 11 units/L (5-40) 01/20/22 12:36 ALT 6 units/L (7-56) L 01/20/22 12:36 Alkaline Phosphatase 89 units/L (35-129) 01/20/22 12:36 Total Protein 6.4 g/dL (6.3-8.2) 01/20/22 12:36 Albumin 4.0 g/dL (3.9-5) 01/20/22 12:36 Albumin/Globulin Ratio 1.7 % 01/20/22 12:36 Triglycerides 166 mg/dL (2-149) H 01/25/22 05:24 Lipase 23 units/L (13-60) 01/16/22 16:35 Urine Color Aliza (Yellow) 01/16/22 22:42 Urine Turbidity Clear (Clear) 01/16/22 22:42 Specific Mode (Man) 1.025 (1.003-1.030) 01/16/22 22:42 Ur Protein (Man) 2+ mg/dL (Negative) 01/16/22 22:42 Ur Ketones (Man) 4+ (Negative) 01/16/22 22:42 Urine Bilirubin (Man) Negative (Negative) 01/16/22 22:42 Urine WBC (Auto) 5.0 /HPF (0.0-6.0) 01/16/22 22:42 Urine RBC (Auto) 1.0 /HPF (0.0-6.0) 01/16/22 22:42 U Epithel Cells (Auto) < 1.0 /HPF (0-13.0) 01/16/22 22:42 Urine Bacteria (Auto) 1+ /HPF (Negative) 01/16/22 22:42 Urine RBC (Manual) 2+ (Negative) 01/16/22 22:42 Granular Casts 13 /LPF 01/16/22 22:42 Urine Mucus 2+ /HPF 01/16/22 22:42 Lopez/IV: Voiding Method Bedside Commode Active Medications - Current Medications Current Medications: Generic Name Dose Route Start Last Admin Trade Name Freq PRN Reason Stop Dose Admin Acetaminophen 650 mg 01/17/22 00:01 Acetaminophen 325 Mg Tab PO Q4H PRN Pain MILD(1-3)/Fever >100.5/SUN Famotidine 20 mg 01/17/22 10:00 01/29/22 10:00 Famotidine 20 Mg/2 Ml Inj IV 20 mg BID AMY Administration Heparin Sodium (Porcine) 5,000 unit 01/17/22 10:00 01/29/22 09:59 Heparin 5,000 Unit/1 Ml Vial SUB-Q 5,000 unit Q12HR AMY Administration Amino Acids/Electrolytes/Dextrose 2,400 mls @ 100 mls/hr 01/28/22 20:00 01/28/22 20:30 Tpn Adult IV 01/29/22 19:59 100 mls/hr DAILY@1999 AMY Administration Protocol Amino Acids/Electrolytes/Dextrose 2,400 mls @ 100 mls/hr 01/29/22 20:00 Tpn Adult IV 01/30/22 19:59 DAILY@1999 AMY Protocol Morphine Sulfate 1 mg 01/26/22 12:15 01/28/22 20:42 Morphine 2 Mg/1 Ml Inj IV 1 mg Q4H PRN Administration Pain, Moderate (4-6) Morphine Sulfate 2 mg 01/26/22 12:15 01/28/22 06:15 Morphine 4 Mg/1 Ml Inj IV 2 mg Q4H PRN Administration Pain , Severe (7-10) Ondansetron HCl 8 mg 01/19/22 16:50 01/28/22 06:16 Ondansetron 4 Mg/2 Ml Inj IV 8 mg Q4H PRN Administration Nausea And Vomiting Sodium Chloride 10 ml 01/17/22 10:00 01/29/22 10:01 Sodium Chloride 0.9% 10 Ml Flush Syringe IV 10 ml BID AMY Administration Sodium Chloride 10 ml 01/17/22 00:01 Sodium Chloride 0.9% 10 Ml Flush Syringe IV PRN PRN LINE FLUSH Nutrition/Malnutrition Assess - Dietary Evaluation Nutrition/Malnutrition Findings: Nutrition Notes Start: 01/18/22 11:37 Freq: Status: Active Protocol: Document 01/29/22 08:17 JADEN (Rec: 01/29/22 08:40 JADEN [id number]) Nutrition Notes Initial or Follow up Reassessment Current Diagnosis Hyperlipidemia Other Pertinent Diagnosis s/p SBO, s/p Exp Lap w/Lysis of Adhesions, N/V/ Abd Pain, Hypothy.. Current Diet CLD (since B 01/28), PPN @ 100ml/hr (since L 01/18). Labs/Tests 01/29: Crea 0.4, Glu 143. Pertinent Medications 01/29: Nutritionally unremarkable. Height 5 ft 2 in Weight 51.7 kg [place] Body Weight (kg) 50.00 BMI 20.8 Weight change and time frame 0.3 Kg body weight loss in 1 day reported. Weight Status Appropriate Subjective/Other Information Day 12 PPN. Pt is tolerating well PPN as prescribed. Pt's PO intake of meals has been well tolerated, no further information available at the time, RN over the phone was not able to elaborate since she just started her shift. Pt is on Room Air O2 saturation @ 98%, according to Physical Assessment History notes. Pt continues to complain for Abdominal Pain, according to Physical Assessment History notes. Pt will advance to Full Liquids Diet later during the day, according to Progress notes. MD wants to continue with PPN, NGT clamped at the time, according to Progress notes. Percent of energy/protein needs met: Prescribed Clear Liquids Diet provides for energy/protein needs (590 Kcal/16 g) during LOS. Prescribed PPN @ 100 ml/hr provides for energy/protein needs (750 Kcal/60 g) during LOS, 51% Kcal; 100% AA. Burn Absent Trauma Absent GI Symptoms Other Food Allergy No Skin Integrity/Comment Abdominal surgical wound. Current % PO Other Minimum of two criteria No Fluid Accumulation N/A Reduced Loader [place] Strength N/A (non-severe) Protein-Calorie Malnutrition N\A #1 Nutrition Diagnosis Altered GI function Comments: Pt's PO intake of meals has been well tolerated. Pt will advance to Full Liquids Diet later during the day, according to Progress notes. Diagnosis Progress(for reassessment Improved documentation) Is patient on ventilator? No Is Patient Ambulatory and/or Out of Bed Yes REE-([facility]-ambulatory/OOB) [ [id number] [id number]] Calculation Used for Recommendations [facility] Additional Notes Protein: 1-1.2 g/Kg ABW; 52-63 g/day. Fluids: 1 ml/Kcal, or as per MD. Nutrition Intervention Change Diet Order: Continue Clear Liquids Diet as tolerated. Advance to Full Liquids Diet when pertinent. Nutrition Support: Continue PPN at 100ml/hr: 6% dextrose, 2.5% amino acids, 175mEq Na, 10mEq K, 60mmol Phos, 4mEq Mg, 100%/0% acetate /chloride, MVI. Osmolality: 750. Kcal 783 Protein (gm) 60 Carbohydrates (gm) 200 Fat (gm) 0 Fluid (mL) 2,400 Fiber (gm) 0 % RDI: 51% Kcal; 100% AA. Goal #1 Provide at least 75% of energy /protein needs through Parenteral Feeding during LOS. Goal #2 Facilitate PO intake of meals with elemental, textural, or mechanical modification during LOS. Follow-Up By: 01/30/22 Additional Comments Continue monitoring PPN tolerance, continue monitoring food tolerance, %PO intake of meals, and BM. Labs in am: BMP, Mg, Phos.
[2022-01-29] MEDS: MORPHINE 2 MG/1 ML INJ IV PRN ×2 (17:04→23:25)
[2022-01-29] MEDS ORDERED: TOTAL PARENTERAL NUTRITION 2,400 ML IV SCH (20:00)
[2022-01-29] MEDS: ONDANSETRON 4 MG/2 ML INJ IV PRN (23:25)
[2022-01-30 08:53] LABS: Blood Urea Nitrogen 14 mg/dL (7-17); Calcium 9.2 mg/dL (8.4-10.2); Hemolysis Index 4
[2022-01-30 08:56] LABS: BUN/Creatinine Ratio 35
[2022-01-30 09:08] LABS: Free T4 (Free Thyroxine) 1.56 ng/dL (0.76-1.46)
--- NOTE | 2022-01-30 09:21 | Progress Note ---
Assessment and Plan This is a 41-year-old woman presenting with abdominal pain nausea vomiting. She was seen last week for similar complaints and taken to the OR for lysis of adhesions and excision of obstructing loop of small bowel mid abdomen. She had been advanced to soft diet and discharged but then readmitted with the above symptoms. Will check ng residual now if ,300 dc ng and advance to full liquid diet. May dc pt in am on full liquids to fu with me in one week. Subjective Date of service: 01/30/22 Patient Reports: Positive: no new complaints, still having pain, pain is less, tolerating liquids well Narrative: Pt with some continued abdo pian. She had freq bm post liquids yesterday, this is better now. Tolerating clamped NG for 1-2 days. Beginning to feel better. Objective Vital Signs - 12hr 01/29/22 01/29/22 01/29/22 22:00 23:25 23:55 Temperature Pulse Rate Respiratory 17 18 17 Rate Respiratory 17 Rate [Abdomen] Blood Pressure O2 Sat by Pulse 100 Oximetry 01/30/22 05:49 Temperature 98.2 F Pulse Rate 89 Respiratory 16 Rate Respiratory Rate [Abdomen] Blood Pressure 114/76 O2 Sat by Pulse 98 Oximetry - Labs 01/26/22 04:47 01/30/22 08:20 Diabetes panel 01/30/22 Range/Units 08:20 Sodium 135 L (137-145) mmol/L Potassium 4.5 (3.6-5.0) mmol/L Chloride 99.5 (98-107) mmol/L Carbon Dioxide 27 (22-30) mmol/L BUN 14 (7-17) mg/dL Creatinine 0.4 L (0.6-1.2) mg/dL Glucose 138 H (65-100) mg/dL Calcium 9.2 (8.4-10.2) mg/dL Thyroid panel 01/30/22 Range/Units 08:20 TSH 0.285 (0.270-4.200) mlU/mL Calcium panel 01/30/22 Range/Units 08:20 Calcium 9.2 (8.4-10.2) mg/dL Phosphorus 3.70 (2.5-4.5) mg/dL Pituitary panel 01/30/22 01/30/22 Range/Units 08:20 08:20 Sodium 135 L (137-145) mmol/L Potassium 4.5 (3.6-5.0) mmol/L Chloride 99.5 (98-107) mmol/L Carbon Dioxide 27 (22-30) mmol/L BUN 14 (7-17) mg/dL Creatinine 0.4 L (0.6-1.2) mg/dL Glucose 138 H (65-100) mg/dL Calcium 9.2 (8.4-10.2) mg/dL TSH 0.285 (0.270-4.200) mlU/mL Adrenal panel 01/30/22 Range/Units 08:20 Sodium 135 L (137-145) mmol/L Potassium 4.5 (3.6-5.0) mmol/L Chloride 99.5 (98-107) mmol/L Carbon Dioxide 27 (22-30) mmol/L BUN 14 (7-17) mg/dL Creatinine 0.4 L (0.6-1.2) mg/dL Glucose 138 H (65-100) mg/dL Calcium 9.2 (8.4-10.2) mg/dL
[2022-01-30] MEDS: HEPARIN 5,000 UNIT/1 ML VIAL SUB-Q SCH ×2 (10:04→22:36)
[2022-01-30] MEDS: FAMOTIDINE 20 MG/2 ML INJ IV SCH (10:04)
--- NOTE | 2022-01-30 13:52 | Progress Note ---
Assessment and Plan Assessment and plan: 41-year-old female past medical history of multiple abdominal surgeries (including ex lap) GERD, and hyperlipidemia who presented to the ED with complaints of nausea, vomiting and abdominal pain. Patient just discharged from the hospital yesterday 01/15/22 after patient managed symptomatically by surgeon and then's subsequently patient underwent exploratory laparotomy with lysis of multiple adhesion and resection of the obstructed small bowel with functional end-to-end anastomosis. In the ER patient underwent CT abdomen and pelvis with contrast revealing partial mid small bowel obstruction/ileus. Admitted the patient as per surgery recommendation. Currently NPO with NG suction. Continue IV fluid. 01/18/2022; surgeon Dr. Yepez recommended PPN which is ordered per protocol Follow-up abdominal x-ray 01/19/2022; continue PPN. Patient has no flatus or bowel movement Severe abdominal pain, surgery following 01/20; patient's NG tube came off, monitor off NG suction Surgery following, continue PPN 01/21: Patient continues to be n.p.o. intermittent NG suction on TPN, surgery following. Surgery planning to get a CT abdomen and pelvis and possible IR consult. 01/22: CT-guided drainage of a left-sided abdominal collection with a 10 Brazilian APD drain today. We will follow surgical culture. Continue on NG tube suction and TPN. Follow BMP. 01/23: Consulted GI for questionable history of Crohn's disease and prior CT scan finding concerning for Crohn's disease. According to GI and general surgeon and also per patient patient does not have any history of Crohn's disease. Patient currently with a small bowel obstruction due to adhesion from prior surgery. Patient did have small bowel resection during prior admission now presented again for nausea vomiting and abdominal pain. General surgeon following, continue n.p.o. status, NG tube suction and TPN. Monitor BMP daily and follow surgery recommendation. Patient denies having a bowel movement. Continue to follow. 01/24; Pain worsened through the night last night. Patient with nausea vomiting around the NG tube. ordered abdominal x-ray this morning. Continue IV fluids and pain medications. cont TPN 01/25; pain slightly improved today. Abdomen x-ray did not show any obvious obstruction. Continue TPN and NG suction. Follow clinically 01/26; patient had BM yesterday. Small bowel follow-through yesterday afternoon showed no bowel obstruction. Plan to clamp NG suction and start on ice chips. Continue to follow clinically. 01/27; tolerating ice chips. NG tube unclamped now, continue TPN. Will start on diet when cleared by general surgeon, continue to follow with supportive care for now. Repeat CBC and BMP tomorrow morning 01/28:patient tolerating CLD. Will continue CLD for now. NGT in place and clamped. 01/29/2022: Patient tolerating clear liquid diet but having diarrhea almost immediately. Urged to consume smaller portions. NG tube in place and clamped. Pending general surgery recommendations. 01/30/2022: NG tube discontinued by general surgery. Patient transitioned to full liquid diet. Almost complete resolution of diarrhea. TPN discontinued. If patient tolerates p.o. intake today, patient is planning for discharge home tomorrow with general surgery follow-up in outpatient setting. Assessment and plan: #Partial obstruction of small intestine-improving #Nausea, vomiting and diarrhearesolved -hx of abdominal surgeries and multiple bowel obstructions -NG tube clamped, tolerated CLD -Will advance to FLD -continue PRN zofran -General Surgery following, assistance appreciated #GERD -continue pepcid 20mg BID #Crohn's disease of intestine without complication- Ruled out -Consulted GI. According to general surgery and GI, patient does not have any history of Crohn's disease #Hypothyroidism -patient not on any home medications. TSH 0.285 and free T4 1.56. #Hyperlipidemia -will resume statin once NGT removed #Hypokalemiaresolved -likely secondary to vomiting -will replete and monitor #Volume depletion-improving -Likely secondary to poor p.o. intake from nausea and vomiting -continue IVFs and TPN while NPO #Advanced care planning -Disease education conducted, care plan discussed, diagnoses discussed, prognosis discussed, and patient and acknowledges understanding with care plan -Time: +30 min #Discharge planning - Patient is pending ability to tolerate p.o. intake today - Case management has been made aware. - Discharge is tentatively 01/31/2022. Disposition Plan: Pending discharge home tomorrow Total Time Spent with Patient (Minutes): 45 minutes History Interval history: No acute events overnight. Hospitalist Physical - Constitutional Vitals: Temp Pulse Resp BP Pulse Ox 98.9 F 88 16 121/81 97 01/30/22 11:13 01/30/22 11:13 01/30/22 11:13 01/30/22 11:13 01/30/22 11:13 General appearance: Present: no acute distress, well-nourished - EENT Eyes: Present: PERRL, EOM intact ENT: hearing intact, clear oral mucosa, dentition normal - Neck Neck: Present: supple, normal ROM - Respiratory Respiratory effort: normal Respiratory: bilateral: CTA - Cardiovascular Rhythm: regular Heart Sounds: Present: S1 & S2 - Extremities Extremities: no ischemia, pulses intact, pulses symmetrical, No edema, normal temperature, normal color, Full ROM Peripheral Pulses: within normal limits - Abdominal General gastrointestinal: soft, tender (Vertical midline incision with 6/10 pain on minimal palpation), non-distended, normal bowel sounds - Integumentary Integumentary: Present: clear, warm, dry - Psychiatric Psychiatric: appropriate mood/affect, intact judgment & insight, memory intact, cooperative - Neurologic Neurologic: CNII-XII intact, moves all extremities - Allied Health Allied health notes reviewed: nursing Results - Labs CBC & Chem 7: 01/26/22 04:47 01/30/22 08:20 Labs: Laboratory Last Values WBC 12.5 K/mm3 (4.5-11.0) H 01/26/22 04:47 RBC 4.12 M/mm3 (3.65-5.03) 01/26/22 04:47 Hgb 10.8 gm/dl (10.1-14.3) 01/26/22 04:47 Hct 32.5 % (30.3-42.9) 01/26/22 04:47 MCV 79 fl (79-97) 01/26/22 04:47 MCH 26 pg (28-32) L 01/26/22 04:47 MCHC 33 % (30-34) 01/26/22 04:47 RDW 16.6 % (13.2-15.2) H 01/26/22 04:47 Plt Count 419 K/mm3 (140-440) 01/26/22 04:47 Lymph % (Auto) 8.8 % (13.4-35.0) L 01/26/22 04:47 [place] % (Auto) 11.3 % (0.0-7.3) H 01/26/22 04:47 Eos % (Auto) 0.2 % (0.0-4.3) 01/26/22 04:47 Baso % (Auto) 0.5 % (0.0-1.8) 01/26/22 04:47 Lymph # (Auto) 1.1 K/mm3 (1.2-5.4) L 01/26/22 04:47 [place] # (Auto) 1.4 K/mm3 (0.0-0.8) H 01/26/22 04:47 Eos # (Auto) 0.0 K/mm3 (0.0-0.4) 01/26/22 04:47 Baso # (Auto) 0.1 K/mm3 (0.0-0.1) 01/26/22 04:47 Seg Neutrophils % 79.2 % (40.0-70.0) H 01/26/22 04:47 Seg Neutrophils # 9.9 K/mm3 (1.8-7.7) H 01/26/22 04:47 Sodium 135 mmol/L (137-145) L 01/30/22 08:20 Potassium 4.5 mmol/L (3.6-5.0) 01/30/22 08:20 Chloride 99.5 mmol/L (98-107) 01/30/22 08:20 Carbon Dioxide 27 mmol/L (22-30) 01/30/22 08:20 Anion Gap 13 mmol/L 01/30/22 08:20 BUN 14 mg/dL (7-17) 01/30/22 08:20 Creatinine 0.4 mg/dL (0.6-1.2) L 01/30/22 08:20 Estimated GFR > 60 ml/min 01/30/22 08:20 BUN/Creatinine Ratio 35 % 01/30/22 08:20 Glucose 138 mg/dL (65-100) H 01/30/22 08:20 POC Glucose 131 mg/dL (70-105) H 01/30/22 05:33 Calcium 9.2 mg/dL (8.4-10.2) 01/30/22 08:20 Phosphorus 3.70 mg/dL (2.5-4.5) 01/30/22 08:20 Magnesium 1.80 mg/dL (1.7-2.3) 01/30/22 08:20 Total Bilirubin 1.00 mg/dL (0.1-1.2) 01/20/22 12:36 AST 11 units/L (5-40) 01/20/22 12:36 ALT 6 units/L (7-56) L 01/20/22 12:36 Alkaline Phosphatase 89 units/L (35-129) 01/20/22 12:36 Total Protein 6.4 g/dL (6.3-8.2) 01/20/22 12:36 Albumin 4.0 g/dL (3.9-5) 01/20/22 12:36 Albumin/Globulin Ratio 1.7 % 01/20/22 12:36 Triglycerides 166 mg/dL (2-149) H 01/25/22 05:24 Lipase 23 units/L (13-60) 01/16/22 16:35 TSH 0.285 mlU/mL (0.270-4.200) 01/30/22 08:20 Free T4 1.56 ng/dL (0.76-1.46) H 01/30/22 08:20 Urine Color Aliza (Yellow) 01/16/22 22:42 Urine Turbidity Clear (Clear) 01/16/22 22:42 Specific [place] (Man) 1.025 (1.003-1.030) 01/16/22 22:42 Ur Protein (Man) 2+ mg/dL (Negative) 01/16/22 22:42 Ur Ketones (Man) 4+ (Negative) 01/16/22 22:42 Urine Bilirubin (Man) Negative (Negative) 01/16/22 22:42 Urine WBC (Auto) 5.0 /HPF (0.0-6.0) 01/16/22 22:42 Urine RBC (Auto) 1.0 /HPF (0.0-6.0) 01/16/22 22:42 U Epithel Cells (Auto) < 1.0 /HPF (0-13.0) 01/16/22 22:42 Urine Bacteria (Auto) 1+ /HPF (Negative) 01/16/22 22:42 Urine RBC (Manual) 2+ (Negative) 01/16/22 22:42 Granular Casts 13 /LPF 01/16/22 22:42 Urine Mucus 2+ /HPF 01/16/22 22:42 Lopez/IV: Voiding Method Bedside Commode Active Medications - Current Medications Current Medications: Generic Name Dose Route Start Last Admin Trade Name Freq PRN Reason Stop Dose Admin Acetaminophen 650 mg 01/17/22 00:01 Acetaminophen 325 Mg Tab PO Q4H PRN Pain MILD(1-3)/Fever >100.5/SUN Famotidine 20 mg 01/30/22 22:00 Famotidine 20 Mg Tab PO BID AMY Heparin Sodium (Porcine) 5,000 unit 01/17/22 10:00 01/30/22 10:04 Heparin 5,000 Unit/1 Ml Vial SUB-Q 5,000 unit Q12HR AMY Administration Morphine Sulfate 1 mg 01/26/22 12:15 01/29/22 23:25 Morphine 2 Mg/1 Ml Inj IV 1 mg Q4H PRN Administration Pain, Moderate (4-6) Morphine Sulfate 2 mg 01/26/22 12:15 01/28/22 06:15 Morphine 4 Mg/1 Ml Inj IV 2 mg Q4H PRN Administration Pain , Severe (7-10) Ondansetron HCl 8 mg 01/19/22 16:50 01/29/22 23:25 Ondansetron 4 Mg/2 Ml Inj IV 8 mg Q4H PRN Administration Nausea And Vomiting Sodium Chloride 10 ml 01/17/22 10:00 01/30/22 10:05 Sodium Chloride 0.9% 10 Ml Flush Syringe IV 10 ml BID AMY Administration Sodium Chloride 10 ml 01/17/22 00:01 Sodium Chloride 0.9% 10 Ml Flush Syringe IV PRN PRN LINE FLUSH Nutrition/Malnutrition Assess - Dietary Evaluation Nutrition/Malnutrition Findings: Nutrition Notes Start: 01/18/22 11:37 Freq: Status: Active Protocol: Document 01/30/22 12:26 JADEN (Rec: 01/30/22 12:34 JADEN [email or web address]) Nutrition Notes Initial or Follow up Brief Note Current Diagnosis Hyperlipidemia Other Pertinent Diagnosis s/p SBO, s/p Exp Lap w/Lysis of Adhesions, N/V/ Abd Pain, Hypothy.. Current Diet Full Liquids Diet (since L ). Height 5 ft 2 in Weight 51.7 kg [place] Body Weight (kg) 50.00 BMI 20.8 Weight change and time frame No body weight change reported in 1 day. Weight Status Appropriate Subjective/Other Information RD consult for routine F/U on dietary advancement. PPN discontinued. Diet advanced to Full Liquids Diet, well tolerated, Pt eating small portions throughout the day, according to RN over the phopne. Pt is on Room Air O2 saturation @ 98%, according to Physical Assessment History notes. Pt continues to complain for Abdominal Pain, according to Physical Assessment History notes. Plans for discharge Pt on . Percent of energy/protein needs met: Prescribed Full Liquids Diet provides for energy/protein needs (1,155 Kcal/37 g) during LOS. #1 Nutrition Diagnosis Altered GI function Comments: PPN discontinued. Diet advanced to Full Liquids Diet, well tolerated, Pt eating small portions throughout the day, according to RN over the phopne. Diagnosis Progress(for reassessment Resolved documentation) Is patient on ventilator? No Is Patient Ambulatory and/or Out of Bed Yes REE-([place]-St. Jeor-ambulatory/OOB) [ [id number] [id number]] Calculation Used for Recommendations [place]-St Jeor Additional Notes Protein: 1-1.2 g/Kg ABW; 52-63 g/day. Fluids: 1 ml/Kcal, or as per MD. Nutrition Intervention Change Diet Order: Advance to Full Liquids Diet as tolerated. Nutrition Support: Discontinued. Goal #1 Facilitate PO intake of meals with elemental, textural, or mechanical modification during LOS. Goal #2 Adjust the dietary intervention to better serve Pt's needs and clinical conditions during LOS. Follow-Up By: 02/06/22 Additional Comments Continue monitoring food tolerance, %PO intake of meals , and BM.
--- NOTE | 2022-01-30 14:00 | Discharge Summary ---
Providers - Providers Date of Admission: 01/17/22 00:02 Date of discharge: 01/31/22 Attending physician: DEBRA SIDDIQUI MD 01/17/22 00:01 Consult to Physician [CONS] Routine Comment: Consulting Provider: BRIANA PARKS Physician Instructions: Reason For Exam: Partial small bowel obstruction 01/18/22 08:16 Consult to Dietitian/Nutrition [CONS] Routine Physician Instructions: Reason For Exam: Reason for Consult: Write/Manage TPN/PPN 01/22/22 10:22 Consult to Physician [CONS] Routine Comment: Consulting Provider: ENRIQUE BLANCA Physician Instructions: Reason For Exam: possible chrons disease with recurrent SBO Primary care physician: MIRA BYNUM Hospitalization Reason for admission: Partial obstruction of small intestine Condition: Stable Pertinent studies: Reviewed. Procedures: CT-guided drainage of the left-sided abdominal collection by vascular surgery on 01/22/2022 Hospital course: Patient is a 41-year-old female past medical history of multiple abdominal surgeries (including ex lap) GERD, and hyperlipidemia who presented to the ED with complaints of nausea, vomiting and abdominal pain. Patient just discharged from the hospital yesterday 01/15/22 after patient managed symptomatically by surgeon and then's subsequently patient underwent exploratory laparotomy with lysis of multiple adhesion and resection of the obstructed small bowel with functional end-to-end anastomosis. In the ER patient underwent CT abdomen and pelvis with contrast revealing partial mid small bowel obstruction/ileus. Admitted the patient as per surgery recommendation. In the ED, the patient was found to be hemodynamically stable but tachycardic at 120. General surgery recommended TPN to be initiated as the patient was n.p.o. with NG tube placed. Patient underwent CT abdomen and pelvis revealing a left-sided abdominal collection that required CT-guided drainage by vascular surgery on 01/22/2022. The patient was eventually weaned off of the NG tube and able to tolerate clear liquids. The NG tube has since been discontinued, and the patient is tolerating full liquids. TPN is also been discontinued. The patient will follow-up with general surgery in the outpatient setting. Patient is medically clear for discharge. Patient expressed understanding. Disposition: 30 STILL A PATIENT Final Discharge Diagnosis (Prints w/discharge instructions): Partial obstruction of small intestine, nausea/vomiting/diarrhea, GERD, Crohn's diseaseruled out, hypothyroidism, hyperlipidemia, hypokalemia, volume depletion Time spent for discharge: 45 min Core Measure Documentation - Palliative Care Palliative Care/ Comfort Measures: Not Applicable - Core Measures Any of the following diagnoses?: none Exam - Constitutional Vitals: Temp Pulse Resp BP Pulse Ox 98.9 F 88 16 121/81 97 01/30/22 11:13 01/30/22 11:13 01/30/22 11:13 01/30/22 11:13 01/30/22 11:13 General appearance: Present: no acute distress, well-nourished - EENT Eyes: Present: PERRL, EOM intact ENT: hearing intact, clear oral mucosa, dentition normal - Neck Neck: Present: supple, normal ROM - Respiratory Respiratory effort: normal Respiratory: bilateral: CTA - Cardiovascular Rhythm: regular Heart Sounds: Present: S1 & S2 - Extremities Extremities: no ischemia, pulses intact, pulses symmetrical, No edema, normal temperature, normal color, Full ROM Peripheral Pulses: within normal limits - Abdominal General gastrointestinal: Present: soft, tender (Tenderness at midline vertical incision; healing well without purulence or skin breakdown), non-distended, normal bowel sounds Female genitourinary: Present: deferred - Rectal Rectal Exam: deferred - Integumentary Integumentary: Present: clear, warm, dry - Musculoskeletal Musculoskeletal: strength equal bilaterally - Psychiatric Psychiatric: appropriate mood/affect, intact judgment & insight, memory intact, cooperative - Neurologic Neurologic: CNII-XII intact, moves all extremities - Allied Health Allied health notes reviewed: nursing Plan Activity: advance as tolerated Diet: other (Full liquid diet) Wound: keep clean and dry Additional Instructions: Patient is a 41-year-old female past medical history of multiple abdominal surgeries (including ex lap) GERD, and hyperlipidemia who presented to the ED with complaints of nausea, vomiting and abdominal pain. Patient just discharged from the hospital yesterday 01/15/22 after patient managed symptomatically by surgeon and then's subsequently patient underwent exploratory laparotomy with lysis of multiple adhesion and resection of the obstructed small bowel with functional end-to-end anastomosis. In the ER patient underwent CT abdomen and pelvis with contrast revealing partial mid small bowel obstruction/ileus. Admitted the patient as per surgery recommendation. In the ED, the patient was found to be hemodynamically stable but tachycardic at 120. General surgery recommended TPN to be initiated as the patient was n.p.o. with NG tube placed. Patient underwent CT abdomen and pelvis revealing a left-sided abdominal collection that required CT-guided drainage by vascular surgery on 01/22/2022. The patient was eventually weaned off of the NG tube and able to tolerate clear liquids. The NG tube has since been disco ntinued, and the patient is tolerating full liquids. TPN is also been discontinued. The patient will follow-up with general surgery in the outpatient setting. Patient is medically clear for discharge. Patient expressed understanding. Care Plan Goals: Patient is medically clear for discharge. Assessment: Patient is a 41-year-old female past medical history of multiple abdominal surgeries (including ex lap) GERD, and hyperlipidemia who presented to the ED with complaints of nausea, vomiting and abdominal pain. Patient just discharged from the hospital yesterday 01/15/22 after patient managed symptomatically by surgeon and then's subsequently patient underwent exploratory laparotomy with lysis of multiple adhesion and resection of the obstructed small bowel with functional end-to-end anastomosis. In the ER patient underwent CT abdomen and pelvis with contrast revealing partial mid small bowel obstruction/ileus. Admitted the patient as per surgery recommendation. In the ED, the patient was found to be hemodynamically stable but tachycardic at 120. General surgery recommended TPN to be initiated as the patient was n.p.o. with NG tube placed. Patient underwent CT abdomen and pelvis revealing a left-sided abdominal collection that required CT-guided drainage by vascular surgery on 01/22/2022. The patient was eventually weaned off of the NG tube and able to tolerate clear liquids. The NG tube has since been discontinued, and the patient is tolerating full liquids. TPN is also been discontinued. The patient will follow-up with general surgery in the outpatient setting. Patient is medically clear for discharge. Patient expressed understanding. Follow up with: MIRA BYNUM MD [Primary Care Provider] - 3-5 Days BRIANA PARKS MD [Staff Physician] - 7 Days Forms: Work/School Release Form Prescriptions: Magnesium Oxide [Magnesium] 200 mg PO BID PRN #30 tab PRN Reason: Nausea HYDROcodone/APAP 5-325 [[place] 5/325] 1 each PO Q6HR PRN #20 tablet PRN Reason: Pain Pantoprazole [Protonix TAB] 20 mg PO QDAY #30 tablet. Ondansetron [Zofran Odt] 4 mg PO Q8HR PRN #30 tab.rapdis PRN Reason: Nausea
[2022-01-30] MEDS ORDERED: ALUM-MAG HYDROXIDE-SIMETHICONE 200-200-20MG/5ML ORAL LIQD 30 ML PO PRN (20:30)
[2022-01-30] MEDS: FAMOTIDINE 20 MG TAB PO SCH (22:36)
[2022-01-31 06:41] LABS: Blood Urea Nitrogen 15 mg/dL (7-17); Calcium 9.5 mg/dL (8.4-10.2); Hemolysis Index 7
[2022-01-31 06:51] LABS: BUN/Creatinine Ratio 38
[2022-01-31] MEDS: FAMOTIDINE 20 MG TAB PO SCH (09:25)
[2022-01-31] MEDS: HEPARIN 5,000 UNIT/1 ML VIAL SUB-Q SCH (09:25)
[2022-01-31 14:30] VITALS: BP 114/78
== END 2022-01-31 15:27 | disposition home or self-care (01) | DRG 389 ==
LOC: ED 16:18 → 3A 01-17 00:02
PROVIDERS: ADMIT Hospitalist; ATTEND Student in an Organized Health Care Education/Training Program
PROC: 0D9670Z Drainage of Stomach with Drainage Device, Via Natural or Artificial Opening (ICD-10-PCS; principal; 2022-01-21)
PROC: 0W9G3ZZ Drainage of Peritoneal Cavity, Percutaneous Approach (ICD-10-PCS; 2022-01-22)
PROC: 3E0336Z Introduction of Nutritional Substance into Peripheral Vein, Percutaneous Approach (ICD-10-PCS; 2022-01-22)
DX: K56.600 Partial intestinal obstruction, unspecified as to cause (principal); R65.10 Systemic inflammatory response syndrome (SIRS) of non-infectious origin without acute organ dysfunction; K21.9 Gastro-esophageal reflux disease without esophagitis; E78.5 Hyperlipidemia, unspecified; E03.9 Hypothyroidism, unspecified; D72.829 Elevated white blood cell count, unspecified; E87.6 Hypokalemia; E86.9 Volume depletion, unspecified
CPT/HCPCS: 10160; 36415; 74018; 74019; 74176; 74177; 74248; 77012; 80048; 80053; 81001; 82962; 83690; 83735; 84100; 84439; 84443; 84478; 85025; 85027; 99285; G0378; J3490; J7070; J1644; J2270; J2405; J3010; J7030; J7042; Q9963; Q9967